=== PATIENT | female | born 1995 | race African-American/Black ===

== ENCOUNTER 2022-08-01 14:23 | Inpatient (IN) ==
[2022-08-01] MEDS ORDERED: ONDANSETRON INJ 2 MG/ML 2 ML VIAL IV STA (14:44)
--- NOTE | 2022-08-01 14:44 | ED Triage Note ---
Date of Service August 01, 2022 History of Present Illness This patient was briefly evaluated while in triage. An abbreviated physical exam was performed. This patient is a 26-year-old Female who presents to the ED for evaluation of nausea and lightheaded x 4 days, vomited Satuday x 1 and yesterday x 2, nothing to eat/drink. Denies abdominal pain. No diarrhea. Having headaches. Concern for dehydration. Denies . Seen at [facility] and given Zofran but no fluids. Sent by PCP. Physical Exam GENERAL: mildly ill appearing in a wheelchair, tachycardic CARDIOVASCULAR: RRR RESPIRATORY: CTA ABDOMEN: BS x 4. Nontender to palpation. Initial orders for labs and / or imaging were placed and patient was placed in the waiting area until a bed is available. Please see further documentation for the full ED course.
[2022-08-01] MEDS: SODIUM CHLORIDE 0.9% 1000ML 1,000 ML IV SCH ×2 (15:19→18:00)
[2022-08-01 15:45] LABS: Basophils # (auto) 0.02 K/uL (0-0.2); Basophils % (auto) 0.1 %; Hemoglobin 14.4 g/dl (12.0-16.0); Immature Granulocytes # (auto) 0.11 K/uL (0.01-0.20); Immature Granulocytes % (auto) 0.8 %; Lymphocytes # (auto) 1.35 K/uL (1.2-3.4); Lymphocytes % (auto) 9.7 %; Mean Corpuscular Hemoglobin 29.6 pg (25.0-34.0); Mean Corpuscular Hgb Conc 32.7 g/dL (32.0-36.0); Mean Corpuscular Volume 90.5 fL (80.0-100.0); Monocytes # (auto) 0.76 K/uL (0.11-0.59); Monocytes % (auto) 5.4 %; Neutrophils # (auto) 11.73 K/uL (1.40-6.50); Platelet Count 328 K/uL (130-400); RDW Standard Deviation 52.6 fL (36.4-46.3); Red Blood Count 4.86 M/uL (4.20-5.40); White Blood Count 13.97 K/ul (4.8-10.8)
[2022-08-01 16:09] LABS: Pregnancy Test, Serum Negative (Negative)
[2022-08-01 16:20] LABS: Alanine Aminotransferase 13 U/L (7-52); Albumin Globulin Ratio 1.2 (0.9-2); Albumin Level 5.1 gm/dl (3.4-5.0); Alkaline Phosphatase 62 U/L (34-104); Anion Gap 21 (3-11); Aspartate Aminotransferase 20 U/L (13-39); Bilirubin,Total 0.5 mg/dl (0.2-1.0); Blood Urea Nitrogen 11 mg/dl (6-23); Calcium 9.3 mg/dl (8.6-10.3); Carbon Dioxide 5 mmol/L (21-32); Chloride 107 mmol/L (98-107); Est GFR (African American) 80.2 ml/min; Est GFR (Non-African American) 69.2 ml/min; Globulin 4.1 gm/dl (2.5-4.0); Glucose 82 mg/dl (70-99(Fasting)); Lipase 16 U/L (11-82); Potassium 4.4 mmol/L (3.5-5.1); Sodium 133 mmol/L (136-145); Total Protein 9.2 gm/dl (6.0-8.3)
--- NOTE | 2022-08-01 16:49 | Emergency Department Note ---
Impression & Plan Metabolic acidosis, increased anion gap, Acute dehydration ED Provider Note NAME: FLORIAN POSEY AGE: 26 SEX: F : 1995 ARRIVES VIA: Walk-In INFORMANT: [Patient][, ] ED PROVIDER(S): [Marco A Headley MD] CHIEF COMPLAINT: Nausea, vomiting, dehydration MEDICAL DECISION MAKING: Patient presents to concern for nausea vomiting associated dehydration. The patient did have protocols completed prior to being roomed. The patient was noted to have significant anion gap and low bicarb. No prior history of hyperglycemia. The patient did have an ABG, lactate blood cultures salicylate IV fluids as well as insulin drip and D5 half-normal with 20 KCl ordered. I did speak with the on-call hospitalist service Dr. Rosales. He would like to defer the insulin drip and D5 fluids at this time and would like to just give the patient the 2 L of Plasma-Lyte and then do repeat blood work. Patient was admitted to the medicine service. The patient's urinalysis does not show evidence of glucose but does show significant ketones. ABG with a pH of 7.1 PO2 127. Bicarb of 3. Procalcitonin is not elevated beta hCG is negative. Patient's drug screen is negative with the exception of THC. BioFire negative. The patient may have an element of starvation ketosis given the patient has not eaten or had much to drink in the last several days Critical Care: I have personally spent 35 minutes of critical care time in direct management of this patient. This includes bedside care, interpretation of diagnostic studies, and testing, discussion with consultants, patient, and family members, and other require inpatient management activities. This 35 minutes is in excess of all separately billable procedures. Prior /Outside records reviewed: [none] Differential diagnosis: Gastroenteritis, DKA, food borne illness, infections, appendicitis, diverticulitis, inflammatory bowel disease, obstruction, GI bleed, biliary pathology, volvulus, as well as other pathologies. Diagnostics, as interpreted by me: ECG: Sinus tachycardia, rate of 103 normal AK and QRS, normal axis no ST elevations Cardiac monitoring: An order was placed for continuous cardiac monitoring. The monitor shows a rate of 95 with sinus rhythm. [Patient was placed on pulse oximetry] Medical decision rules: [none] Imaging studies: See below HPI: Patient presents due to concern for dehydration nausea vomiting. Patient states that she has vomited maybe 3 times since Saturday but has not been eating or drinking very much. Patient states that whenever she does she does feel queasy. Patient was diagnosed with the flu A about 2 weeks prior. No recent travel. Patient denies any known sick contacts. Patient does complain of some generalized headache for which she did take 1 dose of Motrin. Patient denies any numbness tingling or focal weakness but does feel generally weak. The patient has noticed that she has been peeing more but not been drinking very much. Patient's mother does have a history of diabetes. Patient denies any rec ent changes in medications. Patient denies any alcohol tobacco or drug use. PAST MEDICAL HISTORY: [See Below] PAST SURGICAL HISTORY: [See Below] SOCIAL HISTORY: [See Below] HOME MEDICATIONS: [See Below] ALLERGIES: [See Below] VITALS: [See Below] PHYSICAL EXAMINATION: GENERAL: Mildly ill in appearance. EYE EXAM: Normal conjunctiva. PERRL, no anisocoria and EOM's grossly intact w/o pain. NECK: Supple, no nuchal rigidity, no adenopathy, non-tender. No signs of meningismus. FROM of the neck with good chin to chest and neck extension. No stridor. LUNGS: Clear to auscultation. Hyperpnea, normal chest wall mechanics. HEART: NSR, no MRG. ABDOMEN: Abdomen soft, non-tender, no masses, no rebound or guarding. BACK: No CVA TTP. SKIN: No rashes and no bruising. UPPER EXTREMITIES: Upper extremities are grossly normal. LOWER EXTREMITIES: Grossly normal, no edema. NEURO EXAM: A&O x3, cranial nerves II-XII grossly intact, normal speech, moves all 4 extremities. Past Med/Surg History Medical History Anxiety and depression Genital HSV HSV1 serotype Surgical History H/O wisdom tooth extraction S/P foot surgery S/P LEEP 06/2022 S/P right oophorectomy right ovarian torsion Status post colposcopy Family History Father Myocardial infarction, Onset Age: 57 Heart disease Mother Diabetes Hypertension Social History Smoking Status: Never smoker Second Hand Exposure: No; Do You Dip or Chew Tobacco: No; Tobacco Cessation Education Requested by Patient: No Hx Alcohol Use: Yes Alcohol type: wine Alcohol Intake Frequency: Monthly or Less Hx Substance Use: Yes Last Used Substance: Days (ago) Preferred Language: Sami Communication Ability: Effective Hearing Ability: Normal 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 Beliefs That Will Affect Care: None Current Living Situation: Significant Other current occupational status: employed Other Information That Helps Us Care for You: No Feels Safe at Home: Yes Safety Concerns: Feels Safe At This Time Diet: regular caffeine: Yes Dental Care, Regularly: Yes Seatbelt Use: always Sunscreen Use: Yes Assistive Devices: None Allergies Allergies Allergy/AdvReac Type Severity Reaction Status Date / Time No Known Allergies Allergy Verified 08/01/22 17:50 Home Meds Home Medications Medication Instructions Recorded Confirmed sertraline 100 mg tablet 100 mg PO DAILY 04/24/22 08/01/22 trazodone 50 mg tablet 50 mg PO DAILY PRN Sleep 04/24/22 08/01/22 aripiprazole 5 mg tablet 5 mg PO DAILY 08/01/22 08/01/22 Previous Rx's Medication Instructions Recorded norethindrone 1 mg-ethinyl 1 tab PO DAILY #84 tabs 04/24/22 estradiol 20 mcg (21)-iron 75 mg (7) tablet ([place] Fe 03/23 (28)) valacyclovir 500 mg tablet 500 mg PO DAILY 90 days #90 tabs 07/06/22 (Valtrex) Results & Data (ED) Vital Signs Vital Signs - 24 hr 08/01/22 14:42 08/01/22 16:53 08/01/22 16:45 Temperature 36.4 C L 37.4 C Temperature Source Temporal Artery Scan Oral Pulse Rate 113 H 95 H Pulse Rate [Apical] 93 H Pulse Rate from SpO2 Sensor Respiratory Rate 20 16 Respiratory Effort / Characteristics Non-Labored Non-Labored Spontaneous Respiratory Depth Normal Normal Respiratory Pattern Regular Blood Pressure 130/84 Blood Pressure [Left Arm] 142/97 H Blood Pressure Mean 99 Blood Pressure Mean [Left Arm] 112 Blood Pressure Position Sitting Blood Pressure Position [Left Arm] Lying Pulse Oximetry 98 95 Oxygen Delivery Method Room Air Room Air Sepsis Recent Fever Within 48 Hours No Sepsis New/Unexplained Change in Mental Status No Sepsis Action Taken by Nursing No Action Required 08/01/22 17:57 08/01/22 16:45 08/01/22 16:46 Temperature Temperature Source Pulse Rate 95 H Pulse Rate [Apical] Pulse Rate from SpO2 Sensor 95 H Respiratory Rate 28 H Respiratory Effort / Characteristics Respiratory Depth Respiratory Pattern Blood Pressure 147/101 H Blood Pressure [Left Arm] Blood Pressure Mean 118 Blood Pressure Mean [Left Arm] Blood Pressure Position Blood Pressure Position [Left Arm] Pulse Oximetry 98 100 Oxygen Delivery Method Room Air Sepsis Recent Fever Within 48 Hours Sepsis New/Unexplained Change in Mental Status Sepsis Action Taken by Nursing 08/01/22 16:53 08/01/22 16:53 08/01/22 17:00 Temperature Temperature Source Pulse Rate 93 H Pulse Rate [Apical] Pulse Rate from SpO2 Sensor 93 H Respiratory Rate 28 H Respiratory Effort / Characteristics Respiratory Depth Respiratory Pattern Blood Pressure 142/97 H 143/94 H Blood Pressure [Left Arm] Blood Pressure Mean 111 110 Blood Pressure Mean [Left Arm] Blood Pressure Position Blood Pressure Position [Left Arm] Pulse Oximetry 99 Oxygen Delivery Method Sepsis Recent Fever Within 48 Hours Sepsis New/Unexplained Change in Mental Status Sepsis Action Taken by Nursing 08/01/22 17:00 08/01/22 17:52 08/01/22 17:52 Temperature Temperature Source Pulse Rate 95 H 92 H Pulse Rate [Apical] Pulse Rate from SpO2 Sensor 95 H Respiratory Rate 25 H 25 H Respiratory Effort / Characteristics Respiratory Depth Respiratory Pattern Blood Pressure 119/79 Blood Pressure [Left Arm] Blood Pressure Mean 90 Blood Pressure Mean [Left Arm] Blood Pressure Position Blood Pressure Position [Left Arm] Pulse Oximetry 100 Oxygen Delivery Method Sepsis Recent Fever Within 48 Hours Sepsis New/Unexplained Change in Mental Status Sepsis Action Taken by Nursing 08/01/22 18:00 08/01/22 18:15 08/01/22 18:30 Temperature Temperature Source Pulse Rate 91 H 94 H 98 H Pulse Rate [Apical] Pulse Rate from SpO2 Sensor Respiratory Rate 25 H 30 H 30 H Respiratory Effort / Characteristics Respiratory Depth Respiratory Pattern Blood Pressure Blood Pressure [Left Arm] Blood Pressure Mean Blood Pressure Mean [Left Arm] Blood Pressure Position Blood Pressure Position [Left Arm] Pulse Oximetry Oxygen Delivery Method Sepsis Recent Fever Within 48 Hours Sepsis New/Unexplained Change in Mental Status Sepsis Action Taken by Nursing 08/01/22 18:45 Temperature Temperature Source Pulse Rate 105 H Pulse Rate [Apical] Pulse Rate from SpO2 Sensor 105 H Respiratory Rate 30 H Respiratory Effort / Characteristics Respiratory Depth Respiratory Pattern Blood Pressure Blood Pressure [Left Arm] Blood Pressure Mean Blood Pressure Mean [Left Arm] Blood Pressure Position Blood Pressure Position [Left Arm] Pulse Oximetry 98 Oxygen Delivery Method Sepsis Recent Fever Within 48 Hours Sepsis New/Unexplained Change in Mental Status Sepsis Action Taken by Group Home Medications Current Medication List: was personally reviewed by me Laboratory Data Attestation: I reviewed the patient's lab results. 08/01/22 15:34 08/01/22 15:34 Lab Results 08/01/22 08/01/22 08/01/22 Range/Units 15:34 15:34 15:34 WBC 13.97 H (4.8-10.8) K/ul RBC 4.86 (4.20-5.40) M/uL Hgb 14.4 (12.0-16.0) g/dl Hct 44.0 (37.0-47.0) % MCV 90.5 (80.0-100.0) fL MCH 29.6 (25.0-34.0) pg MCHC 32.7 (32.0-36.0) g/dL RDW Std Deviation 52.6 H (36.4-46.3) fL RDW Coeff of Ivan 16.0 H (11.5-14.5) % Plt Count 328 (130-400) K/uL MPV 9.0 L (9.4-12.4) fL Immature Gran % (Auto) 0.8 % Neut % (Auto) 84.0 % Lymph % (Auto) 9.7 % Rock % (Auto) 5.4 % Eos % (Auto) 0.0 % Baso % (Auto) 0.1 % Neut # (Auto) 11.73 H (1.40-6.50) K/uL Lymph # (Auto) 1.35 (1.2-3.4) K/uL Rock # (Auto) 0.76 H (0.11-0.59) K/uL Eos # (Auto) 0.00 (0-0.50) K/uL Baso # (Auto) 0.02 (0-0.2) K/uL Immature Gran # (Auto) 0.11 (0.01-0.20) K/uL ABG pH (7.35-7.45) ABG pCO2 (35-46) mmHg ABG pO2 (80-95) mmHg ABG HCO3 (19-24) mmol/L ABG O2 Saturation (90-95) % ABG Base Excess (-9-1.8) mEq/L Jordan Test (Pos) Oxygen Given Sodium 133 L (136-145) mmol/L Potassium 4.4 (3.5-5.1) mmol/L Chloride 107 (98-107) mmol/L Carbon Dioxide 5 L* (21-32) mmol/L Anion Gap 21 H (3-11) BUN 11 (6-23) mg/dl Creatinine 1.10 (0.6-1.2) mg/dl Est Cr Clr Drug Dosing Not Reportable Est GFR ( Amer) 80.2 ml/min Est GFR (Non-Af Amer) 69.2 ml/min BUN/Creatinine Ratio 10.0 (10-20) Glucose 82 (70-99(Fasting)) mg/dl POC Glucose (70-99) mg/dl Estimat Average Glucose mg/dl Hemoglobin A1c (4.5-5.6) % Osmolality (280-300) mOsm/kg Lactate (0.4-2.0) mmol/L Calcium 9.3 (8.6-10.3) mg/dl Phosphorus (2.5-4.9) mg/dl Magnesium (1.7-2.4) mg/dl Total Bilirubin 0.5 (0.2-1.0) mg/dl AST 20 (13-39) U/L ALT 13 (7-52) U/L Alkaline Phosphatase 62 (34-104) U/L Total Protein 9.2 H (6.0-8.3) gm/dl Albumin 5.1 H (3.4-5.0) gm/dl Globulin 4.1 H (2.5-4.0) gm/dl Albumin/Globulin Ratio 1.2 (0.9-2) Lipase 16 (11-82) U/L Procalcitonin (0-0.5) ng/ml HCG, Qual Negative (Negative) Urine Color Urine Appearance (Clear) Urine pH (4.5-7.5) Ur Specific [place] (1.000-1.030) Urine Protein (Negative) Urine Glucose (UA) (Negative) Urine Ketones (Negative) Urine Blood (Negative) Urine Nitrite (Negative) Urine Bilirubin (Negative) Urine Urobilinogen (Negative) Ur Leukocyte Esterase (Negative) Urine WBC (Auto) (0-5) /hpf Urine RBC (Auto) (0-4) /hpf U Hyaline Cast (Auto) (0-5) /lpf U Epithel Cells (Auto) (0-5) /lpf Urine Bacteria (Auto) (Negative) Urine Osmolality (500-800) mOsm/kg Urine Test (Negative) Salicylates (3.0-30) mg/dl Urine Opiates Screen (Neg) Ur Methadone, Qual (Neg) Acetaminophen (10-30) ug/ml Urine Barbiturates (Neg) Ur Phencyclidine (PCP) (Neg) U Amphetamin/Meth Scrn (Neg) MDMA (Ecstasy) Screen (Neg) U Benzodiazepines Scrn (Neg) Ur Cocaine Metabolite (Neg) U Marijuana (THC) Screen (Neg) Ethyl Alcohol mg/dL (<10.0) mg/dl Adenovirus (PCR) (NotDetected) B. pertussis DNA (PCR) (NotDetected) B.parapertussis DNA PCR (NotDetected) C. pneumoniae DNA (PCR) (NotDetected) Coronavirus OC43 (PCR) (NotDetected) Coronavirus HKU1 (PCR) (NotDetected) Coronavirus 229E (PCR) (NotDetected) SARS-CoV-2 (PCR) (NotDetected) Coronavirus NL63 (PCR) (NotDetected) Human Metapneumovir PCR (NotDetected) Influenza Type A (PCR) (NotDetected) Influenza Type B (PCR) (NotDetected) M. pneumoniae (PCR) (NotDetected) Parainfluenza 1 (PCR) (NotDetected) Parainfluenza 2 (PCR) (NotDetected) Parainfluenza 3 (PCR) (NotDetected) Parainfluenza 4 (PCR) (NotDetected) RSV (PCR) (NotDetected) Entero/Rhino (PCR) (NotDetected) 08/01/22 08/01/22 08/01/22 Range/Units 17:22 17:22 17:22 WBC (4.8-10.8) K/ul RBC (4.20-5.40) M/uL Hgb (12.0-16.0) g/dl Hct (37.0-47.0) % MCV (80.0-100.0) fL MCH (25.0-34.0) pg MCHC (32.0-36.0) g/dL RDW Std Deviation (36.4-46.3) fL RDW Coeff of Ivan (11.5-14.5) % Plt Count (130-400) K/uL MPV (9.4-12.4) fL Immature Gran % (Auto) % Neut % (Auto) % Lymph % (Auto) % Rock % (Auto) % Eos % (Auto) % Baso % (Auto) % Neut # (Auto) (1.40-6.50) K/uL Lymph # (Auto) (1.2-3.4) K/uL Rock # (Auto) (0.11-0.59) K/uL Eos # (Auto) (0-0.50) K/uL Baso # (Auto) (0-0.2) K/uL Immature Gran # (Auto) (0.01-0.20) K/uL ABG pH (7.35-7.45) ABG pCO2 (35-46) mmHg ABG pO2 (80-95) mmHg ABG HCO3 (19-24) mmol/L ABG O2 Saturation (90-95) % ABG Base Excess (-9-1.8) mEq/L Jordan Test (Pos) Oxygen Given Sodium (136-145) mmol/L Potassium (3.5-5.1) mmol/L Chloride (98-107) mmol/L Carbon Dioxide (21-32) mmol/L Anion Gap (3-11) BUN (6-23) mg/dl Creatinine (0.6-1.2) mg/dl Est Cr Clr Drug Dosing Est GFR ( Amer) ml/min Est GFR (Non-Af Amer) ml/min BUN/Creatinine Ratio (10-20) Glucose (70-99(Fasting)) mg/dl POC Glucose (70-99) mg/dl Estimat Average Glucose mg/dl Hemoglobin A1c (4.5-5.6) % Osmolality (280-300) mOsm/kg Lactate (0.4-2.0) mmol/L Calcium (8.6-10.3) mg/dl Phosphorus (2.5-4.9) mg/dl Magnesium (1.7-2.4) mg/dl Total Bilirubin (0.2-1.0) mg/dl AST (13-39) U/L ALT (7-52) U/L Alkaline Phosphatase (34-104) U/L Total Protein (6.0-8.3) gm/dl Albumin (3.4-5.0) gm/dl Globulin (2.5-4.0) gm/dl Albumin/Globulin Ratio (0.9-2) Lipase (11-82) U/L Procalcitonin (0-0.5) ng/ml HCG, Qual (Negative) Urine Color Urine Appearance (Clear) Urine pH (4.5-7.5) Ur Specific [place] (1.000-1.030) Urine Protein (Negative) Urine Glucose (UA) (Negative) Urine Ketones (Negative) Urine Blood (Negative) Urine Nitrite (Negative) Urine Bilirubin (Negative) Urine Urobilinogen (Negative) Ur Leukocyte Esterase (Negative) Urine WBC (Auto) (0-5) /hpf Urine RBC (Auto) (0-4) /hpf U Hyaline Cast (Auto) (0-5) /lpf U Epithel Cells (Auto) (0-5) /lpf Urine Bacteria (Auto) (Negative) Urine Osmolality 783 (500-800) mOsm/kg Urine Test Negative (Negative) Salicylates (3.0-30) mg/dl Urine Opiates Screen Neg (Neg) Ur Methadone, Qual Neg (Neg) Acetaminophen (10-30) ug/ml Urine Barbiturates Neg (Neg) Ur Phencyclidine (PCP) Neg (Neg) U Amphetamin/Meth Scrn Neg (Neg) MDMA (Ecstasy) Screen Neg (Neg) U Benzodiazepines Scrn Neg (Neg) Ur Cocaine Metabolite Neg (Neg) U Marijuana (THC) Screen Pos H (Neg) Ethyl Alcohol mg/dL (<10.0) mg/dl Adenovirus (PCR) (NotDetected) B. pertussis DNA (PCR) (NotDetected) B.parapertussis DNA PCR (NotDetected) C. pneumoniae DNA (PCR) (NotDetected) Coronavirus OC43 (PCR) (NotDetected) Coronavirus HKU1 (PCR) (NotDetected) Coronavirus 229E (PCR) (NotDetected) SARS-CoV-2 (PCR) (NotDetected) Coronavirus NL63 (PCR) (NotDetected) Human Metapneumovir PCR (NotDetected) Influenza Type A (PCR) (NotDetected) Influenza Type B (PCR) (NotDetected) M. pneumoniae (PCR) (NotDetected) Parainfluenza 1 (PCR) (NotDetected) Parainfluenza 2 (PCR) (NotDetected) Parainfluenza 3 (PCR) (NotDetected) Parainfluenza 4 (PCR) (NotDetected) RSV (PCR) (NotDetected) Entero/Rhino (PCR) (NotDetected) 08/01/22 08/01/22 08/01/22 Range/Units 17:22 17:44 17:49 WBC (4.8-10.8) K/ul RBC (4.20-5.40) M/uL Hgb (12.0-16.0) g/dl Hct (37.0-47.0) % MCV (80.0-100.0) fL MCH (25.0-34.0) pg MCHC (32.0-36.0) g/dL RDW Std Deviation (36.4-46.3) fL RDW Coeff of Ivan (11.5-14.5) % Plt Count (130-400) K/uL MPV (9.4-12.4) fL Immature Gran % (Auto) % Neut % (Auto) % Lymph % (Auto) % Rock % (Auto) % Eos % (Auto) % Baso % (Auto) % Neut # (Auto) (1.40-6.50) K/uL Lymph # (Auto) (1.2-3.4) K/uL Rock # (Auto) (0.11-0.59) K/uL Eos # (Auto) (0-0.50) K/uL Baso # (Auto) (0-0.2) K/uL Immature Gran # (Auto) (0.01-0.20) K/uL ABG pH (7.35-7.45) ABG pCO2 (35-46) mmHg ABG pO2 (80-95) mmHg ABG HCO3 (19-24) mmol/L ABG O2 Saturation (90-95) % ABG Base Excess (-9-1.8) mEq/L Jordan Test (Pos) Oxygen Given Sodium (136-145) mmol/L Potassium (3.5-5.1) mmol/L Chloride (98-107) mmol/L Carbon Dioxide (21-32) mmol/L Anion Gap (3-11) BUN (6-23) mg/dl Creatinine (0.6-1.2) mg/dl Est Cr Clr Drug Dosing Est GFR ( Amer) ml/min Est GFR (Non-Af Amer) ml/min BUN/Creatinine Ratio (10-20) Glucose (70-99(Fasting)) mg/dl POC Glucose 69 L* (70-99) mg/dl Estimat Average Glucose mg/dl Hemoglobin A1c (4.5-5.6) % Osmolality (280-300) mOsm/kg Lactate (0.4-2.0) mmol/L Calcium (8.6-10.3) mg/dl Phosphorus (2.5-4.9) mg/dl Magnesium (1.7-2.4) mg/dl Total Bilirubin (0.2-1.0) mg/dl AST (13-39) U/L ALT (7-52) U/L Alkaline Phosphatase (34-104) U/L Total Protein (6.0-8.3) gm/dl Albumin (3.4-5.0) gm/dl Globulin (2.5-4.0) gm/dl Albumin/Globulin Ratio (0.9-2) Lipase (11-82) U/L Procalcitonin (0-0.5) ng/ml HCG, Qual (Negative) Urine Color Yellow Urine Appearance Clear (Clear) Urine pH 6.0 (4.5-7.5) Ur Specific [place] 1.022 (1.000-1.030) Urine Protein 2+ H (Negative) Urine Glucose (UA) Negative (Negative) Urine Ketones 4+ H (Negative) Urine Blood 2+ H (Negative) Urine Nitrite Negative (Negative) Urine Bilirubin Negative (Negative) Urine Urobilinogen Negative (Negative) Ur Leukocyte Esterase Negative (Negative) Urine WBC (Auto) 5-10 H (0-5) /hpf Urine RBC (Auto) 0-4 (0-4) /hpf U Hyaline Cast (Auto) 5-10 H (0-5) /lpf U Epithel Cells (Auto) >30 H (0-5) /lpf Urine Bacteria (Auto) 1+ H (Negative) Urine Osmolality (500-800) mOsm/kg Urine Test (Negative) Salicylates < 3.0 L (3.0-30) mg/dl Urine Opiates Screen (Neg) Ur Methadone, Qual (Neg) Acetaminophen < 3 L (10-30) ug/ml Urine Barbiturates (Neg) Ur Phencyclidine (PCP) (Neg) U Amphetamin/Meth Scrn (Neg) MDMA (Ecstasy) Screen (Neg) U Benzodiazepines Scrn (Neg) Ur Cocaine Metabolite (Neg) U Marijuana (THC) Screen (Neg) Ethyl Alcohol mg/dL (<10.0) mg/dl Adenovirus (PCR) (NotDetected) B. pertussis DNA (PCR) (NotDetected) B.parapertussis DNA PCR (NotDetected) C. pneumoniae DNA (PCR) (NotDetected) Coronavirus OC43 (PCR) (NotDetected) Coronavirus HKU1 (PCR) (NotDetected) Coronavirus 229E (PCR) (NotDetected) SARS-CoV-2 (PCR) (NotDetected) Coronavirus NL63 (PCR) (NotDetected) Human Metapneumovir PCR (NotDetected) Influenza Type A (PCR) (NotDetected) Influenza Type B (PCR) (NotDetected) M. pneumoniae (PCR) (NotDetected) Parainfluenza 1 (PCR) (NotDetected) Parainfluenza 2 (PCR) (NotDetected) Parainfluenza 3 (PCR) (NotDetected) Parainfluenza 4 (PCR) (NotDetected) RSV (PCR) (NotDetected) Entero/Rhino (PCR) (NotDetected) 08/01/22 08/01/22 08/01/22 Range/Units 17:49 17:49 17:50 WBC (4.8-10.8) K/ul RBC (4.20-5.40) M/uL Hgb (12.0-16.0) g/dl Hct (37.0-47.0) % MCV (80.0-100.0) fL MCH (25.0-34.0) pg MCHC (32.0-36.0) g/dL RDW Std Deviation (36.4-46.3) fL RDW Coeff of Ivan (11.5-14.5) % Plt Count (130-400) K/uL MPV (9.4-12.4) fL Immature Gran % (Auto) % Neut % (Auto) % Lymph % (Auto) % Rock % (Auto) % Eos % (Auto) % Baso % (Auto) % Neut # (Auto) (1.40-6.50) K/uL Lymph # (Auto) (1.2-3.4) K/uL Rock # (Auto) (0.11-0.59) K/uL Eos # (Auto) (0-0.50) K/uL Baso # (Auto) (0-0.2) K/uL Immature Gran # (Auto) (0.01-0.20) K/uL ABG pH (7.35-7.45) ABG pCO2 (35-46) mmHg ABG pO2 (80-95) mmHg ABG HCO3 (19-24) mmol/L ABG O2 Saturation (90-95) % ABG Base Excess (-9-1.8) mEq/L Jordan Test (Pos) Oxygen Given Sodium 133 L (136-145) mmol/L Potassium 4.1 (3.5-5.1) mmol/L Chloride 110 H (98-107) mmol/L Carbon Dioxide 3 L* (21-32) mmol/L Anion Gap 20 H (3-11) BUN 10 (6-23) mg/dl Creatinine 0.88 (0.6-1.2) mg/dl Est Cr Clr Drug Dosing 90.7 Est GFR ( Amer) 105.1 ml/min Est GFR (Non-Af Amer) 90.7 ml/min BUN/Creatinine Ratio 11.4 (10-20) Glucose 68 L (70-99(Fasting)) mg/dl POC Glucose (70-99) mg/dl Estimat Average Glucose mg/dl Hemoglobin A1c (4.5-5.6) % Osmolality 296 (280-300) mOsm/kg Lactate (0.4-2.0) mmol/L Calcium 8.1 L (8.6-10.3) mg/dl Phosphorus 2.4 L (2.5-4.9) mg/dl Magnesium 2.1 (1.7-2.4) mg/dl Total Bilirubin (0.2-1.0) mg/dl AST (13-39) U/L ALT (7-52) U/L Alkaline Phosphatase (34-104) U/L Total Protein (6.0-8.3) gm/dl Albumin (3.4-5.0) gm/dl Globulin (2.5-4.0) gm/dl Albumin/Globulin Ratio (0.9-2) Lipase (11-82) U/L Procalcitonin < 0.05 (0-0.5) ng/ml HCG, Qual (Negative) Urine Color Urine Appearance (Clear) Urine pH (4.5-7.5) Ur Specific [place] (1.000-1.030) Urine Protein (Negative) Urine Glucose (UA) (Negative) Urine Ketones (Negative) Urine Blood (Negative) Urine Nitrite (Negative) Urine Bilirubin (Negative) Urine Urobilinogen (Negative) Ur Leukocyte Esterase (Negative) Urine WBC (Auto) (0-5) /hpf Urine RBC (Auto) (0-4) /hpf U Hyaline Cast (Auto) (0-5) /lpf U Epithel Cells (Auto) (0-5) /lpf Urine Bacteria (Auto) (Negative) Urine Osmolality (500-800) mOsm/kg Urine Test (Negative) Salicylates (3.0-30) mg/dl Urine Opiates Screen (Neg) Ur Methadone, Qual (Neg) Acetaminophen (10-30) ug/ml Urine Barbiturates (Neg) Ur Phencyclidine (PCP) (Neg) U Amphetamin/Meth Scrn (Neg) MDMA (Ecstasy) Screen (Neg) U Benzodiazepines Scrn (Neg) Ur Cocaine Metabolite (Neg) U Marijuana (THC) Screen (Neg) Ethyl Alcohol mg/dL (<10.0) mg/dl Adenovirus (PCR) (NotDetected) B. pertussis DNA (PCR) (NotDetected) B.parapertussis DNA PCR (NotDetected) C. pneumoniae DNA (PCR) (NotDetected) Coronavirus OC43 (PCR) (NotDetected) Coronavirus HKU1 (PCR) (NotDetected) Coronavirus 229E (PCR) (NotDetected) SARS-CoV-2 (PCR) (NotDetected) Coronavirus NL63 (PCR) (NotDetected) Human Metapneumovir PCR (NotDetected) Influenza Type A (PCR) (NotDetected) Influenza Type B (PCR) (NotDetected) M. pneumoniae (PCR) (NotDetected) Parainfluenza 1 (PCR) (NotDetected) Parainfluenza 2 (PCR) (NotDetected) Parainfluenza 3 (PCR) (NotDetected) Parainfluenza 4 (PCR) (NotDetected) RSV (PCR) (NotDetected) Entero/Rhino (PCR) (NotDetected) 08/01/22 08/01/22 08/01/22 Range/Units 17:50 17:50 17:50 WBC (4.8-10.8) K/ul RBC (4.20-5.40) M/uL Hgb (12.0-16.0) g/dl Hct (37.0-47.0) % MCV (80.0-100.0) fL MCH (25.0-34.0) pg MCHC (32.0-36.0) g/dL RDW Std Deviation (36.4-46.3) fL RDW Coeff of Ivan (11.5-14.5) % Plt Count (130-400) K/uL MPV (9.4-12.4) fL Immature Gran % (Auto) % Neut % (Auto) % Lymph % (Auto) % Rock % (Auto) % Eos % (Auto) % Baso % (Auto) % Neut # (Auto) (1.40-6.50) K/uL Lymph # (Auto) (1.2-3.4) K/uL Rock # (Auto) (0.11-0.59) K/uL Eos # (Auto) (0-0.50) K/uL Baso # (Auto) (0-0.2) K/uL Immature Gran # (Auto) (0.01-0.20) K/uL ABG pH (7.35-7.45) ABG pCO2 (35-46) mmHg ABG pO2 (80-95) mmHg ABG HCO3 (19-24) mmol/L ABG O2 Saturation (90-95) % ABG Base Excess (-9-1.8) mEq/L Jordan Test (Pos) Oxygen Given Sodium (136-145) mmol/L Potassium (3.5-5.1) mmol/L Chloride (98-107) mmol/L Carbon Dioxide (21-32) mmol/L Anion Gap (3-11) BUN (6-23) mg/dl Creatinine (0.6-1.2) mg/dl Est Cr Clr Drug Dosing Est GFR ( Amer) ml/min Est GFR (Non-Af Amer) ml/min BUN/Creatinine Ratio (10-20) Glucose (70-99(Fasting)) mg/dl POC Glucose (70-99) mg/dl Estimat Average Glucose 108 mg/dl Hemoglobin A1c 5.4 (4.5-5.6) % Osmolality (280-300) mOsm/kg Lactate 0.5 (0.4-2.0) mmol/L Calcium (8.6-10.3) mg/dl Phosphorus (2.5-4.9) mg/dl Magnesium (1.7-2.4) mg/dl Total Bilirubin (0.2-1.0) mg/dl AST (13-39) U/L ALT (7-52) U/L Alkaline Phosphatase (34-104) U/L Total Protein (6.0-8.3) gm/dl Albumin (3.4-5.0) gm/dl Globulin (2.5-4.0) gm/dl Albumin/Globulin Ratio (0.9-2) Lipase (11-82) U/L Procalcitonin (0-0.5) ng/ml HCG, Qual (Negative) Urine Color Urine Appearance (Clear) Urine pH (4.5-7.5) Ur Specific [place] (1.000-1.030) Urine Protein (Negative) Urine Glucose (UA) (Negative) Urine Ketones (Negative) Urine Blood (Negative) Urine Nitrite (Negative) Urine Bilirubin (Negative) Urine Urobilinogen (Negative) Ur Leukocyte Esterase (Negative) Urine WBC (Auto) (0-5) /hpf Urine RBC (Auto) (0-4) /hpf U Hyaline Cast (Auto) (0-5) /lpf U Epithel Cells (Auto) (0-5) /lpf Urine Bacteria (Auto) (Negative) Urine Osmolality (500-800) mOsm/kg Urine Test (Negative) Salicylates (3.0-30) mg/dl Urine Opiates Screen (Neg) Ur Methadone, Qual (Neg) Acetaminophen (10-30) ug/ml Urine Barbiturates (Neg) Ur Phencyclidine (PCP) (Neg) U Amphetamin/Meth Scrn (Neg) MDMA (Ecstasy) Screen (Neg) U Benzodiazepines Scrn (Neg) Ur Cocaine Metabolite (Neg) U Marijuana (THC) Screen (Neg) Ethyl Alcohol mg/dL < 10.0 (<10.0) mg/dl Adenovirus (PCR) (NotDetected) B. pertussis DNA (PCR) (NotDetected) B.parapertussis DNA PCR (NotDetected) C. pneumoniae DNA (PCR) (NotDetected) Coronavirus OC43 (PCR) (NotDetected) Coronavirus HKU1 (PCR) (NotDetected) Coronavirus 229E (PCR) (NotDetected) SARS-CoV-2 (PCR) (NotDetected) Coronavirus NL63 (PCR) (NotDetected) Human Metapneumovir PCR (NotDetected) Influenza Type A (PCR) (NotDetected) Influenza Type B (PCR) (NotDetected) M. pneumoniae (PCR) (NotDetected) Parainfluenza 1 (PCR) (NotDetected) Parainfluenza 2 (PCR) (NotDetected) Parainfluenza 3 (PCR) (NotDetected) Parainfluenza 4 (PCR) (NotDetected) RSV (PCR) (NotDetected) Entero/Rhino (PCR) (NotDetected) 08/01/22 08/01/22 Range/Units 17:56 18:00 WBC (4.8-10.8) K/ul RBC (4.20-5.40) M/uL Hgb (12.0-16.0) g/dl Hct (37.0-47.0) % MCV (80.0-100.0) fL MCH (25.0-34.0) pg MCHC (32.0-36.0) g/dL RDW Std Deviation (36.4-46.3) fL RDW Coeff of Ivan (11.5-14.5) % Plt Count (130-400) K/uL MPV (9.4-12.4) fL Immature Gran % (Auto) % Neut % (Auto) % Lymph % (Auto) % [place] % (Auto) % Eos % (Auto) % Baso % (Auto) % Neut # (Auto) (1.40-6.50) K/uL Lymph # (Auto) (1.2-3.4) K/uL [place] # (Auto) (0.11-0.59) K/uL Eos # (Auto) (0-0.50) K/uL Baso # (Auto) (0-0.2) K/uL Immature Gran # (Auto) (0.01-0.20) K/uL ABG pH 7.15 L* (7.35-7.45) ABG pCO2 9 L (35-46) mmHg ABG pO2 127 H (80-95) mmHg ABG HCO3 3 L (19-24) mmol/L ABG O2 Saturation 99.4 H (90-95) % ABG Base Excess -23.0 L (-9-1.8) mEq/L Jordan Test Pos (Pos) Oxygen Given ROOM AIR Sodium (136-145) mmol/L Potassium (3.5-5.1) mmol/L Chloride (98-107) mmol/L Carbon Dioxide (21-32) mmol/L Anion Gap (3-11) BUN (6-23) mg/dl Creatinine (0.6-1.2) mg/dl Est Cr Clr Drug Dosing Est GFR ( Amer) ml/min Est GFR (Non-Af Amer) ml/min BUN/Creatinine Ratio (10-20) Glucose (70-99(Fasting)) mg/dl POC Glucose (70-99) mg/dl Estimat Average Glucose mg/dl Hemoglobin A1c (4.5-5.6) % Osmolality (280-300) mOsm/kg Lactate (0.4-2.0) mmol/L Calcium (8.6-10.3) mg/dl Phosphorus (2.5-4.9) mg/dl Magnesium (1.7-2.4) mg/dl Total Bilirubin (0.2-1.0) mg/dl AST (13-39) U/L ALT (7-52) U/L Alkaline Phosphatase (34-104) U/L Total Protein (6.0-8.3) gm/dl Albumin (3.4-5.0) gm/dl Globulin (2.5-4.0) gm/dl Albumin/Globulin Ratio (0.9-2) Lipase (11-82) U/L Procalcitonin (0-0.5) ng/ml HCG, Qual (Negative) Urine Color Urine Appearance (Clear) Urine pH (4.5-7.5) Ur Specific [place] (1.000-1.030) Urine Protein (Negative) Urine Glucose (UA) (Negative) Urine Ketones (Negative) Urine Blood (Negative) Urine Nitrite (Negative) Urine Bilirubin (Negative) Urine Urobilinogen (Negative) Ur Leukocyte Esterase (Negative) Urine WBC (Auto) (0-5) /hpf Urine RBC (Auto) (0-4) /hpf U Hyaline Cast (Auto) (0-5) /lpf U Epithel Cells (Auto) (0-5) /lpf Urine Bacteria (Auto) (Negative) Urine Osmolality (500-800) mOsm/kg Urine Test (Negative) Salicylates (3.0-30) mg/dl Urine Opiates Screen (Neg) Ur Methadone, Qual (Neg) Acetaminophen (10-30) ug/ml Urine Barbiturates (Neg) Ur Phencyclidine (PCP) (Neg) U Amphetamin/Meth Scrn (Neg) MDMA (Ecstasy) Screen (Neg) U Benzodiazepines Scrn (Neg) Ur Cocaine Metabolite (Neg) U Marijuana (THC) Screen (Neg) Ethyl Alcohol mg/dL (<10.0) mg/dl Adenovirus (PCR) Not Detected (NotDetected) B. pertussis DNA (PCR) Not Detected (NotDetected) B.parapertussis DNA PCR Not Detected (NotDetected) C. pneumoniae DNA (PCR) Not Detected (NotDetected) Coronavirus OC43 (PCR) Not Detected (NotDetected) Coronavirus HKU1 (PCR) Not Detected (NotDetected) Coronavirus 229E (PCR) Not Detected (NotDetected) SARS-CoV-2 (PCR) Not Detected (NotDetected) Coronavirus NL63 (PCR) Not Detected (NotDetected) Human Metapneumovir PCR Not Detected (NotDetected) Influenza Type A (PCR) Not Detected (NotDetected) Influenza Type B (PCR) Not Detected (NotDetected) M. pneumoniae (PCR) Not Detected (NotDetected) Parainfluenza 1 (PCR) Not Detected (NotDetected) Parainfluenza 2 (PCR) Not Detected (NotDetected) Parainfluenza 3 (PCR) Not Detected (NotDetected) Parainfluenza 4 (PCR) Not Detected (NotDetected) RSV (PCR) Not Detected (NotDetected) Entero/Rhino (PCR) Not Detected (NotDetected) Administered Medications Dextrose (Dextrose 50% 50 Ml Syringe) 25 - 50 ml IV UD PRN; Protocol PRN Reason: Hypoglycemia Protocol Stop: 08/31/22 17:02 Last Admin: 08/01/22 18:00 Dose: 50 ml Documented By: ASHANTI Sodium Chloride 77 meq/Potassium Chloride 20 meq/Dextrose 1,040.8 mls @ 200 mls/hr IV .Q5H13M [facility] Stop: 08/31/22 18:59 Last Admin: 08/01/22 19:43 Dose: 200 mls/hr Documented By: JOSELUIS Ondansetron HCl (Ondansetron Inj 2 Mg/Ml 2 Ml Vial) 4 mg IV Q6H PRN PRN Reason: Nausea Stop: 08/31/22 21:22 Last Admin: 08/01/22 21:34 Dose: 4 mg Documented By: KATIE Discontinued Medications Sodium Chloride (Nss 1000ml) 1,000 mls @ 999 mls/hr IV .Q1H1M [facility] Stop: 08/01/22 16:45 Last Infusion: 08/01/22 19:30 Dose: 0 mls/hr Documented By: Admin: 08/01/22 18:00 Dose: 999 mls/hr Documented By: Infusion: 08/01/22 17:00 Dose: 0 mls/hr Documented By: Admin: 08/01/22 15:19 Dose: 999 mls/hr Documented By: ASW Sodium Chloride (Nss 1000ml) 2,000 mls @ 999 mls/hr IV .Q2H1M [facility] Stop: 08/01/22 19:03 Last Admin: 08/01/22 19:22 Dose: Not Given Documented By: OSCAR Insulin Human Regular 250 (units/ Sodium Chloride) 250 mls @ 6.4 mls/hr IV .Q24H [facility]; Protocol Stop: 08/31/22 17:14 Last Admin: 08/01/22 19:23 Dose: Not Given Documented By: OSCAR Co-signed By: ALICIA Parenteral Electrolytes (Plasma-Lyte A Ph 7.4) 2,000 mls @ 999 mls/hr IV .Q2H1M [facility] Stop: 08/01/22 19:15 Last Infusion: 08/01/22 21:46 Dose: 0 mls/hr Documented By: Admin: 08/01/22 17:51 Dose: 999 mls/hr Documented By: DS Potassium Chloride/Dextrose/Sod Cl (D5w And 1/2nss + 20meq Kcl) 20 meq in 1,000 mls @ 250 mls/hr IV .Q4H [facility]; Protocol Stop: 08/31/22 17:14 Last Admin: 08/01/22 19:22 Dose: Not Given Documented By: OSCAR Ceftriaxone Sodium 1,000 mg/ (Dextrose) 50 mls @ 100 mls/hr IV NOW STA; Protocol Stop: 08/01/22 19:28 Last Infusion: 08/01/22 21:52 Dose: 0 mls/hr Documented By: Admin: 08/01/22 21:26 Dose: 100 mls/hr Documented By: KATIE Acetaminophen (Ofirmev) 1,000 mg in 100 mls @ 400 mls/hr IV NOW STA Stop: 08/01/22 21:43 Last Infusion: 08/01/22 22:10 Dose: 0 mls/hr Documented By: Admin: 08/01/22 21:53 Dose: 400 mls/hr Documented By: KATIE Ondansetron HCl (Ondansetron Inj 2 Mg/Ml 2 Ml Vial) 4 mg IV NOW STA Stop: 08/01/22 14:45 Last Admin: 08/01/22 15:19 Dose: 4 mg Documented By: ASW Discharge Plan Visit Data Chief Complaint: Vomiting Stated Complaint: NAUSEOUS, DEHYDRATED ED Provider: Marco A Headley Discharge Problem: Metabolic acidosis, increased anion gap, Acute dehydration Patient Disposition: Admitted As Inpatient Discharge Instructions Interventions: ED Discharge Assessment Last Done: 08/01/22 21:00
[2022-08-01] MEDS ORDERED: GLUCOSE 10 TAB/TUBE PO PRN (17:03)
[2022-08-01] MEDS ORDERED: SODIUM CHLORIDE 0.9% 1000ML 2,000 ML IV ONE (17:03)
[2022-08-01] MEDS ORDERED: GLUCOSE 40% GEL 15 GM TUBE PO PRN (17:03)
[2022-08-01] MEDS ORDERED: STAT INSULIN DRIP STA (17:03)
[2022-08-01] MEDS ORDERED: DKA GOAL RANGE 150-250 mg/dl ONE (17:03)
[2022-08-01] MEDS ORDERED: GLUCAGON FOR INJ 1 MG VIAL SQ PRN (17:03)
[2022-08-01] MEDS ORDERED: INSULIN REGULAR 250 UNITS in SODIUM CHLORIDE 0.9% 247.5 ML IV SCH (17:15)
[2022-08-01] MEDS ORDERED: D5W AND 1/2NSS + 20MEQ KCL 20 MEQ/1,000 ML BAG IV SCH ×2 (17:15→23:45)
[2022-08-01] MEDS ORDERED: PLASMA-LYTE A 2,000 ML IV SCH (17:15)
[2022-08-01 17:36] LABS: Pregnancy Test, Urine Negative (Negative)
[2022-08-01 17:42] LABS: Appearance Urine Clear (Clear); Bacteria Urine Automated 1+ (Negative); Bilirubin Urine Negative (Negative); Blood Urine 2+ (Negative); Color Urine Yellow; Epithelial Cell Urine Auto >30 /lpf (0-5); Glucose Urine UA Negative (Negative); Ketones Urine 4+ (Negative); Leukocyte Esterase Urine Negative (Negative); Nitrite Urine Negative (Negative); Protein Urine 2+ (Negative); RBC Urine Automated 0-4 /hpf (0-4); Specific Gravity Urine 1.022 (1.000-1.030); Urobilinogen Urine Negative (Negative)
[2022-08-01] MEDS: DEXTROSE 50% 50 ML SYRINGE IV PRN (18:00)
--- NOTE | 2022-08-01 18:07 | History & Physical Report ---
Date of Service August 01, 2022 Assessment & Plan (1) Starvation ketoacidosis: Plan: 1L NSS bolus followed by repeat labs then 2L Normosol IV bolus given in ER Start D10W half NSS with 20 meq KCl following this - expect anion gap to close as glucose is available to use Repeat BMP/Mg/venous ph q4h (2) Metabolic acidosis, increased anion gap: Plan: Suspect due to ketosis as above Should not need insulin given lack of glucosuria I do not suspect euglycemic DKA Salicylate, acetaminophen, alcohol levels negative (3) Polyuria: Plan: Unclear cause of this. UA not highly suspicious of UTI but in absence of alternative explanation will treat for UTI with ceftriaxone 1g IV pending urine culture results. (4) Nausea and vomiting: Plan: Unclear cause of this ?marijuana ?UTI No abdominal pain to suggest need for abdominal imaging however low tolerance to perform this if she is not improving. Ondansetron 4mg IV q4h PRN (5) Acute dehydration: (6) Depression: Plan: Continue sertraline and trazodone PRN Not yet started on Abilify therefore will not start this acutely (7) OCD (obsessive compulsive disorder): Plan VTE Prophylaxis - low risk Diet - NPO, advance diet as tolerated Disposition - admit to PCU Admission and Anticipated Discharge Date Admission Date: August 01, 2022 History of Present Illness Chief Complaint: Polyuria, nausea, vomiting Primary Care Provider: Francia Serrano MD Tom Gonzalez is a 26 year old female who presents to the ER with nausea, vomiting and polyuria. She reports symptoms started on Saturday night. Progressively getting worse until today with associated vomiting the last 2 days. Decreased bowel movements but no diarrhea or constipation. No abdominal pain. She reports marijuana use but last smoked on Saturday and never had hyperemesis related to this before. She reports a few alcohol drinks on Saturday prior to her nausea vomiting but she is not a frequent heavy drinker. Associated polyuria with passing large amounts of urine. No dysuria, fever or chills. She reports having influenza causing nausea and vomiting at the beginning of the month No recent medications changes except Abilify which she has picked up but not yet started. This was started to help her with OCD. She hasn't taken her other medications since Saturday due to nausea and vomiting. Allergies Allergy/AdvReac Type Severity Reaction Status Date / Time No Known Allergies Allergy Verified 08/01/22 17:50 Home Medications Medication Instructions Recorded Confirmed Type norethindrone 1 mg-ethinyl 1 tab PO DAILY #84 tabs 04/24/22 08/01/22 Rx estradiol 20 mcg (21)-iron 75 mg (7) tablet ([place] Fe 03/23 (28)) sertraline 100 mg tablet 100 mg PO DAILY 04/24/22 08/01/22 History trazodone 50 mg tablet 50 mg PO DAILY PRN Sleep 04/24/22 08/01/22 History valacyclovir 500 mg tablet 500 mg PO DAILY 90 days #90 tabs 07/06/22 08/01/22 Rx (Valtrex) aripiprazole 5 mg tablet 5 mg PO DAILY 08/01/22 08/01/22 History Past Med/Surg History Medical History Anxiety and depression Genital HSV HSV1 serotype Surgical History H/O wisdom tooth extraction S/P foot surgery S/P LEEP 06/2022 S/P right oophorectomy right ovarian torsion Status post colposcopy Family History Father Myocardial infarction, Onset Age: 57 Heart disease Mother Diabetes Hypertension Social History Smoking Status: Never smoker Second Hand Exposure: No; Do You Dip or Chew Tobacco: No; Tobacco Cessation Education Requested by Patient: No Hx Alcohol Use: Yes Alcohol type: wine Alcohol Intake Frequency: Monthly or Less Hx Substance Use: Yes Last Used Substance: Days (ago) Preferred Language: Indonesian Communication Ability: Effective Hearing Ability: Normal Senior Fund Accountant Required: No Beliefs That Will Affect Care: None Current Living Situation: Significant Other current occupational status: employed Other Information That Helps Us Care for You: No Feels Safe at Home: Yes Safety Concerns: Feels Safe At This Time Diet: regular caffeine: Yes Dental Care, Regularly: Yes Seatbelt Use: always Sunscreen Use: Yes Assistive Devices: None Review of Systems Review of Systems: All systems reviewed & are unremarkable except as noted in HPI & below Physical Exam Constitutional: WD/WN, vitals as above no acute distress Eyes: PERRL, conjunctivae normal, anicteric sclerae ENMT: external ear and nose normal, oropharynx normal Respiratory: + respiratory distress, + labored breathing, + uses accessory muscles and + tachypneic Auscultation: lungs clear to auscultation bilaterally Cardiovascular: Rate/Rhythm: regular rhythm and + tachycardic Heart Sounds: no murmur Extremities: normal capillary refill; no calf tenderness and no pedal edema Gastrointestinal (Abdomen): normal bowel sounds, soft, nontender, no hepatosplenomegaly Musculoskeletal: no cyanosis or clubbing, extremities motor strength 5/5 Skin: no rashes, warm and dry Neurologic: moves all extremities and awake; not confused Psychiatric: A+Ox3, euthymic affect Results & Data Results & Data Vital Signs (Past 12 Hours) Vital Signs Temp Pulse Pulse Resp BP BP Pulse Ox 08/01/22 16:45 95 H 08/01/22 16:53 37.4 C 93 H 16 142/97 H 95 08/01/22 14:42 36.4 C L 113 H 20 130/84 98 O2 Del Method 08/01/22 16:45 08/01/22 16:53 Room Air 08/01/22 14:42 Room Air Laboratory Results Abnormal lab results 08/01/22 08/01/22 08/01/22 Range/Units 15:34 15:34 17:44 WBC 13.97 H (4.8-10.8) K/ul RDW Std Deviation 52.6 H (36.4-46.3) fL RDW Coeff of Ivan 16.0 H (11.5-14.5) % MPV 9.0 L (9.4-12.4) fL Neut # (Auto) 11.73 H (1.40-6.50) K/uL [place] # (Auto) 0.76 H (0.11-0.59) K/uL Sodium 133 L (136-145) mmol/L Carbon Dioxide 5 L* (21-32) mmol/L Anion Gap 21 H (3-11) POC Glucose 69 L* (70-99) mg/dl Total Protein 9.2 H (6.0-8.3) gm/dl Albumin 5.1 H (3.4-5.0) gm/dl Globulin 4.1 H (2.5-4.0) gm/dl Diagnostic Findings None Medications Administered ER Medications Given: NSS 1L bolus Ondansetron 4mg IV ECG Rate (beats per minute): 103 Rhythm: normal sinus Findings: no acute ischemic change Comparison ECG Date: no prior available Code Status & VTE Plan Code Status Full VTE Prophylaxis Plan VTE Prophylaxis will be ordered: No PG Care Time/CCT Total # of Minutes Spent Total Time Spent with Patient: Total time spent is greater than 50% in coordination of care (as documented) at patient's floor/unit and/or counseling patient: Coding Level of Care Code 78530 INT INP/OBS CARE 375MIN Diagnoses Starvation ketoacidosis T73.0XXA; E87.29 Metabolic acidosis, increased anion gap E87.29 Polyuria R35.89 Nausea and vomiting R11.2 Acute dehydration E86.0 Depression F32.A OCD (obsessive compulsive disorder) F42.9
[2022-08-01 18:08] LABS: HCO3 ABG 3 mmol/L (19-24); Oxygen Saturation ABG 99.4 % (90-95); PCO2 ABG 9 mmHg (35-46); PO2 ABG 127 mmHg (80-95)
[2022-08-01 18:11] LABS: Allen Test Pos (Pos); pH ABG 7.15 (7.35-7.45)
[2022-08-01 18:19] LABS: Amphetamines+Metham, Urine Neg (Neg); Barbiturates, Urine Neg (Neg); Benzodiazepine, Urine Neg (Neg); Cocaine, Urine Neg (Neg); MDMA (Ecstacy), Urine Neg (Neg); Methadone, Urine Neg (Neg); Opiate, Urine Neg (Neg); Phencyclidine, Urine Neg (Neg)
[2022-08-01 18:29] LABS: Acetaminophen < 3 ug/ml (10-30); Salicylate < 3.0 mg/dl (3.0-30)
[2022-08-01 18:38] LABS: BUN Creatinine Ratio 11.4 (10-20); Calcium 8.1 mg/dl (8.6-10.3); Creatinine Clr Calc Pharmacy 90.7 ml/min; Est GFR (African American) 105.1 ml/min; Est GFR (Non-African American) 90.7 ml/min; Magnesium 2.1 mg/dl (1.7-2.4); Phosphorus 2.4 mg/dl (2.5-4.9); Potassium 4.1 mmol/L (3.5-5.1)
[2022-08-01] MEDS ORDERED: cefTRIAXone SODIUM 1,000 MG in DEXTROSE 5% AD-VAN 50 ML IV STA (18:59)
[2022-08-01] MEDS ORDERED: SODI CHLOR 2.5MEQ/ML 14.6% 77 MEQ, POTASSIUM CHLORIDE 20 MEQ in DEXTROSE 10% 1,000 ML IV SCH (19:00)
[2022-08-01 19:20] LABS: Adenovirus PCR Not Detected (NotDetected); Bordetella parapertussis PCR Not Detected (NotDetected); Bordetella pertussis PCR Not Detected (NotDetected); Chlamydia pneumoniae PCR Not Detected (NotDetected); Coronavirus 229E PCR Not Detected (NotDetected); Coronavirus CoV-2 (COVID19)PCR Not Detected (NotDetected); Coronavirus HKU1 PCR Not Detected (NotDetected); Coronavirus NL63 PCR Not Detected (NotDetected); Coronavirus OC43PCR Not Detected (NotDetected); Human Metapneumovirus PCR Not Detected (NotDetected); Influenza A PCR Not Detected (NotDetected); Influenza B PCR Not Detected (NotDetected); Mycoplasma pneumoniae PCR Not Detected (NotDetected); Parainfluenza Virus 1 PCR Not Detected (NotDetected); Parainfluenza Virus 2 PCR Not Detected (NotDetected); Parainfluenza Virus 3 PCR Not Detected (NotDetected); Parainfluenza Virus 4 PCR Not Detected (NotDetected); Respiratory Syncytial VirusPCR Not Detected (NotDetected); Rhinovirus/Enterovirus PCR Not Detected (NotDetected)
[2022-08-01] MEDS ORDERED: INSULIN ASPART PER UNIT CHARGE SC SCH (21:00)
[2022-08-01] MEDS ORDERED: traZODone HCL 50 MG TAB PO PRN (21:23)
[2022-08-01] MEDS ORDERED: ACETAMINOPHEN 1,000 MG/100 ML VIAL IV STA (21:29)
[2022-08-01] MEDS: ONDANSETRON INJ 2 MG/ML 2 ML VIAL IV PRN (21:34)
[2022-08-01 21:54] LABS: Estimated Average Glucose 108 mg/dl; Hemoglobin A1C 5.4 % (4.5-5.6)
[2022-08-01] MEDS ORDERED: ACETAMINOPHEN 1,000 MG/100 ML VIAL IV PRN (22:02)
[2022-08-01 23:46] LABS: BUN Creatinine Ratio 8.1 (10-20); Calcium 7.2 mg/dl (8.6-10.3); Creatinine Clr Calc Pharmacy 92.8 ml/min; Est GFR (African American) 108.1 ml/min; Est GFR (Non-African American) 93.2 ml/min; Magnesium 2.1 mg/dl (1.7-2.4); Potassium 3.5 mmol/L (3.5-5.1)
[2022-08-01] MEDS ORDERED: STAT IV STA (23:52)
--- NOTE | 2022-08-02 00:12 | Communication Note ---
Date of Service: August 01, 2022 Bicarb improved to 6 (deficit 15) with anion gap 15 (excess 4). Given bicarb deficit > anion gap excess; non-anion gap also present, suspect due to post román tment ketosis bicarb loss and chloride in fluids. Start sodium bicarb drip with D5 @ 1.5x maintenance (150ml/hr). Potassium 3.5; continue 20 meq in each L of fluid.
[2022-08-02] MEDS ORDERED: SODIUM BICARBONATE 8.4% 150 MEQ, POTASSIUM CHLORIDE 20 MEQ in DEXTROSE 5% 1,000 ML IV SCH (00:15)
[2022-08-02] MEDS: SODIUM BICARBONATE 8.4% 100 MEQ, POTASSIUM CHLORIDE 20 MEQ in DEXTROSE 5% 1,000 ML IV SCH ×2 (00:20→09:52)
[2022-08-02 02:15] LABS: Basophils # (auto) 0.01 K/uL (0-0.2); Basophils % (auto) 0.1 %; Eosinophils # (auto) 0.01 K/uL (0-0.50); Eosinophils % (auto) 0.1 %; Hematocrit (blood only) 34.5 % (37.0-47.0); Hemoglobin 11.7 g/dl (12.0-16.0); Immature Granulocytes # (auto) 0.04 K/uL (0.01-0.20); Immature Granulocytes % (auto) 0.4 %; Lymphocytes # (auto) 1.68 K/uL (1.2-3.4); Lymphocytes % (auto) 17.4 %; Mean Corpuscular Hemoglobin 29.7 pg (25.0-34.0); Mean Corpuscular Hgb Conc 33.9 g/dL (32.0-36.0); Mean Corpuscular Volume 87.6 fL (80.0-100.0); Mean Platelet Volume 8.9 fL (9.4-12.4); Monocytes # (auto) 0.99 K/uL (0.11-0.59); Monocytes % (auto) 10.3 %; Neutrophils % (auto) 71.7 %; Platelet Count 245 K/uL (130-400); RDW Coefficient of Variation 15.7 % (11.5-14.5); RDW Standard Deviation 49.4 fL (36.4-46.3); Red Blood Count 3.94 M/uL (4.20-5.40); White Blood Count 9.63 K/ul (4.8-10.8)
[2022-08-02 03:04] LABS: Anion Gap 13 (3-11); BUN Creatinine Ratio 6.8 (10-20); Blood Urea Nitrogen 6 mg/dl (6-23); Calcium 7.6 mg/dl (8.6-10.3); Carbon Dioxide 9 mmol/L (21-32); Chloride 111 mmol/L (98-107); Creatinine Clr Calc Pharmacy 90.7 ml/min; Est GFR (African American) 105.1 ml/min; Est GFR (Non-African American) 90.7 ml/min; Glucose 114 mg/dl (70-99(Fasting)); Magnesium 2.2 mg/dl (1.7-2.4); Phosphorus < 1.0 mg/dl (2.5-4.9); Potassium 3.3 mmol/L (3.5-5.1); Sodium 133 mmol/L (136-145)
[2022-08-02] MEDS ORDERED: POTASSIUM PHOS 3 MMOL/1 ML INFUSION IV STA ×2 (03:06→16:35)
[2022-08-02] MEDS ORDERED: POTASSIUM PHOSPHATE 40 MMOL in SODIUM CHLORIDE 0.9% 1000ML 1,000 ML IV ONE (03:30)
[2022-08-02 06:25] LABS: BUN Creatinine Ratio 8.6 (10-20); Calcium 7.6 mg/dl (8.6-10.3); Creatinine Clr Calc Pharmacy 98.5 ml/min; Est GFR (African American) 116.2 ml/min; Est GFR (Non-African American) 100.2 ml/min; Magnesium 2.1 mg/dl (1.7-2.4); Potassium 3.3 mmol/L (3.5-5.1)
--- NOTE | 2022-08-02 06:36 | XRay Report ---
SINGLE VIEW CHEST CLINICAL HISTORY: Diabetic ketoacidosis. FINDINGS: An AP, portable, upright chest radiograph is obtained. No prior studies are available for c omparison at the time of dictation. The examination is mildly degraded by portable technique and ketty ent rotation. The cardiomediastinal silhouette is unremarkable. Question developing airspace opacitie s at the left lung base. No large pleural effusion or pneumothorax is seen. The bony thorax is grossl y intact. IMPRESSION: Question developing airspace opacities at the left lung base. This may be artifactual. Co rrelate with a dedicated PA and lateral examination. ACT 112: Negative or not required by law. Electronically signed by: Ermias Martinez M.D. 08/02/2022 6:34 AM
[2022-08-02] MEDS ORDERED: THIAMINE HCL 200 MG in SODIUM CHLORIDE 0.9% 50 ML IV STA (08:00)
--- NOTE | 2022-08-02 08:01 | Hospitalist Progress Note ---
Date of Service August 02, 2022 Assessment & Plan (1) Metabolic acidosis, increased anion gap: Plan: Patient is 26-year-old female presents for nausea and vomiting found to be in metabolic acidosis likely secondary to poor p.o. intake with vomiting. Patient entered refeeding syndrome initiation of dextrose and is currently being monitored and repleted with electrolytes as needed. patient is hemodynamically stable and overall doing well. #anion gap metabolic acidosis, secondary to ketoacidosis Supported by ketonuria and recent decreased PO intake Initial anion gap 21, ABG pH 7.15 (pCO2 9, PO2 127, HCO3 3) With correction, anion gap to 17, pH 7.37 Lactate negative Toxicology noncontributory #refeeding syndrome Weight down about 16 lbs since PCP visit on 04/24/22 Phos decreased from 2.4 to <1.0 with dextrose administration on admission Monitor potassium, magnesium and phosphorus q4hr Repleting with K-Phos currently, latest phosphorous level at 1.2, k at 3.3 Thiamine supplementation 200mg in am daily Initial EKG: QTc 518, otherwise sinus tachycardia at 103. Repeat QTc 516. Dietitian consult appreciated: advance to clear liquids at dinner tonight with no caloric restrictions. Once diet advances can start multivitamin. Check B12, vit. D and iron tomorrow On telemetry #constipation #reflux Bowel regimen with Miralax Pantoprazole iv 40mg bid #nausea, vomiting Zofran 4mg IV q4hr prn, qtc improving, will continue to monitor test negative #urinary urgency Monitor I/Os, weights Output at 600mL HgbA1C 5.4% , Calcium 7.6 UA: osmolarity 783, specific gravity WNL, no glycosuria, 4+ ketones, 2+ blood, WBC 5-10, 5-10 hyaline casts, >30 epithelial cells #anxiety #depression #OCD Missed several doses of sertraline 100mg and trazodone 50mg for the past ~4 days Recently prescribed aripiprazole but hasn't started taking yet, will hold for n ow DVT ppx: low risk FENGI: Clear liquid, KPhos fluids in NaCl Dispo: PCU (2) Starvation ketoacidosis: (3) Nausea and vomiting: (4) Acute dehydration: (5) Refeeding syndrome: (6) Depression: (7) OCD (obsessive compulsive disorder): (8) IBS (irritable colon syndrome): Admission and Anticipated Discharge Date Admission Date: August 01, 2022 Supervising Physician Co-Signing Physician Notes Medical Student Supervision Note: I was personally present during medical student patient encounter and independently interviewed and examined the patient and verified the marion history and physical, reviewed labs and image studies, discussed the case with Gage Liu and agree with the findings and care plan. Severe anion gap metabolic acidosis from starvation ketosis - improving with hydration and oral intake Possible concern of refeeding syndrome continue close monitoring of electrolytes and replace prn. Thiamine IV Appetite suppression - likely multifactorial - chronic constipation due to IBS- C, worsening anxiety, cannabis use continue liquid diet and reassess in am. consider aggressive bowel regimen in am. Prolonged QTc - replace electrolytes, limit QT prolonging meds. follow EKG Chino Nava) is a 26 y/o F with PMHx of IBS-C, depression, anxiety and traumatic OCD who developed Flu A at the beginning of July 2022. She presented to the ED on Saturday08/01/22 with nausea, vomiting, and associated dehydration. She developed nausea on Friday 07/28 accompanied by 3 total episodes bouts of non-bilious vomiting in the subsequent days. She was very fatigued and had sign ificantly decreased PO intake, but she noted frequent urination which began on 07/29. At baseline she eats about 1.5 meals per day. Her last bowel movement was over 1 week ago and she is constipated at baseline. She does note some SOB, without cough or sputum production, which has improved during her hospitalization. Since 07/29 she missed doses of her OCPs, sertraline 100mg and trazodone 50mg whi ch she attributes to feeling ill. Her PCP is Dr. Serrano and she sees Dr. Valderrama at [facility] for psychiatry. She has a history of self-harm via cutting, with her last episode being 1.5 months ago. She has not had any syncope, chest pain, abdominal pains, diarrhea or dysuria. Currently she is menstruating with no changes from her baseline flow. Review of Systems Review of Systems: All systems reviewed & are unremarkable except as noted in HPI & below Physical Exam Physical Exam: Appears lethargic, lying in hospital bed I saw her ambulate independently from the bathroom to the hospital bed, she did appear weak. Respiratory: no conversational dyspnea, CTA BL, no rales/rhonchi/wheezing Cardiovascular: tachycardia, normal S1/S2, no M/R/G, no LE edema, no cyanosis Gastrointestinal (Abdomen): active bowel sounds, no pain to palpation, no rebound/guarding, no suprapubic tendnerness Genitourinary: no CVA tenderness BL Results & Data Results & Data Vital Signs (Past 12 Hours) Vital Signs Temp Pulse Pulse Resp BP Pulse Ox O2 Del Method 08/02/22 07:41 36.6 C 101 H 18 115/69 98 Room Air 08/02/22 03:15 36.8 C 96 H 18 100/63 97 Room Air 08/02/22 00:00 98 H 08/01/22 21:20 101 H 08/01/22 22:54 36.8 C 97 H 18 98/57 L 98 Room Air 08/01/22 21:39 36.7 C 97 H 16 124/73 100 Room Air 08/01/22 20:49 94 H Diagnostic Findings 08/02/22 08/02/22 08/02/22 12:00 10:48 10:48 WBC RBC Hgb Hct MCV MCH MCHC RDW Std Deviation RDW Coeff of Ivan Plt Count MPV Immature Gran % (Auto) Neut % (Auto) Lymph % (Auto) [place] % (Auto) Eos % (Auto) Baso % (Auto) Neut # (Auto) Lymph # (Auto) [place] # (Auto) Eos # (Auto) Baso # (Auto) Immature Gran # (Auto) ABG pH ABG pCO2 ABG pO2 ABG HCO3 ABG O2 Saturation ABG Base Excess Jordan Test VBG pH 7.37 Oxygen Given Sodium 139 Potassium 3.3 L Chloride 111 H Carbon Dioxide 11 L Anion Gap 17 H BUN 7 Creatinine 0.74 Est Cr Clr Drug Dosing 107.8 Est GFR ( Amer) 129.6 Est GFR (Non-Af Amer) 111.8 BUN/Creatinine Ratio 9.5 L Glucose 71 POC Glucose 72 Estimat Average Glucose Hemoglobin A1c Osmolality Lactate Calcium 7.8 L Phosphorus 1.7 L Magnesium 2.0 Total Bilirubin AST ALT Alkaline Phosphatase Total Protein Albumin Globulin Albumin/Globulin Ratio Lipase Procalcitonin HCG, Qual Urine Color Urine Appearance Urine pH Ur Specific Stewardson Urine Protein Urine Glucose (UA) Urine Ketones Urine Blood Urine Nitrite Urine Bilirubin Urine Urobilinogen Ur Leukocyte Esterase Urine WBC (Auto) Urine RBC (Auto) U Hyaline Cast (Auto) U Epithel Cells (Auto) Urine Bacteria (Auto) Urine Osmolality Urine Test Salicylates Urine Opiates Screen Ur Methadone, Qual Acetaminophen Urine Barbiturates Ur Phencyclidine (PCP) U Amphetamin/Meth Scrn MDMA (Ecstasy) Screen U Benzodiazepines Scrn Ur Cocaine Metabolite U Marijuana (THC) Screen Ethyl Alcohol mg/dL Adenovirus (PCR) B. pertussis DNA (PCR) B.parapertussis DNA PCR C. pneumoniae DNA (PCR) Coronavirus OC43 (PCR) Coronavirus HKU1 (PCR) Coronavirus 229E (PCR) SARS-CoV-2 (PCR) Coronavirus NL63 (PCR) Human Metapneumovir PCR Influenza Type A (PCR) Influenza Type B (PCR) M. pneumoniae (PCR) Parainfluenza 1 (PCR) Parainfluenza 2 (PCR) Parainfluenza 3 (PCR) Parainfluenza 4 (PCR) RSV (PCR) Entero/Rhino (PCR) 08/02/22 08/02/22 08/02/22 08:26 05:59 05:43 WBC RBC Hgb Hct MCV MCH MCHC RDW Std Deviation RDW Coeff of Ivan Plt Count MPV Immature Gran % (Auto) Neut % (Auto) Lymph % (Auto) [place] % (Auto) Eos % (Auto) Baso % (Auto) Neut # (Auto) Lymph # (Auto) [place] # (Auto) Eos # (Auto) Baso # (Auto) Immature Gran # (Auto) ABG pH ABG pCO2 ABG pO2 ABG HCO3 ABG O2 Saturation ABG Base Excess Jordan Test VBG pH 7.34 L Oxygen Given Sodium Potassium Chloride Carbon Dioxide Anion Gap BUN Creatinine Est Cr Clr Drug Dosing Est GFR ( Amer) Est GFR (Non-Af Amer) BUN/Creatinine Ratio Glucose POC Glucose 106 H 101 H Estimat Average Glucose Hemoglobin A1c Osmolality Lactate Calcium Phosphorus Magnesium Total Bilirubin AST ALT Alkaline Phosphatase Total Protein Albumin Globulin Albumin/Globulin Ratio Lipase Procalcitonin HCG, Qual Urine Color Urine Appearance Urine pH Ur Specific Stewardson Urine Protein Urine Glucose (UA) Urine Ketones Urine Blood Urine Nitrite Urine Bilirubin Urine Urobilinogen Ur Leukocyte Esterase Urine WBC (Auto) Urine RBC (Auto) U Hyaline Cast (Auto) U Epithel Cells (Auto) Urine Bacteria (Auto) Urine Osmolality Urine Test Salicylates Urine Opiates Screen Ur Methadone, Qual Acetaminophen Urine Barbiturates Ur Phencyclidine (PCP) U Amphetamin/Meth Scrn MDMA (Ecstasy) Screen U Benzodiazepines Scrn Ur Cocaine Metabolite U Marijuana (THC) Screen Ethyl Alcohol mg/dL Adenovirus (PCR) B. pertussis DNA (PCR) B.parapertussis DNA PCR C. pneumoniae DNA (PCR) Coronavirus OC43 (PCR) Coronavirus HKU1 (PCR) Coronavirus 229E (PCR) SARS-CoV-2 (PCR) Coronavirus NL63 (PCR) Human Metapneumovir PCR Influenza Type A (PCR) Influenza Type B (PCR) M. pneumoniae (PCR) Parainfluenza 1 (PCR) Parainfluenza 2 (PCR) Parainfluenza 3 (PCR) Parainfluenza 4 (PCR) RSV (PCR) Entero/Rhino (PCR) 08/02/22 08/02/22 08/02/22 05:43 03:12 01:53 WBC RBC Hgb Hct MCV MCH MCHC RDW Std Deviation RDW Coeff of Ivan Plt Count MPV Immature Gran % (Auto) Neut % (Auto) Lymph % (Auto) [place] % (Auto) Eos % (Auto) Baso % (Auto) Neut # (Auto) Lymph # (Auto) [place] # (Auto) Eos # (Auto) Baso # (Auto) Immature Gran # (Auto) ABG pH ABG pCO2 ABG pO2 ABG HCO3 ABG O2 Saturation ABG Base Excess Jordan Test VBG pH 7.24 L Oxygen Given Sodium 136 Potassium 3.3 L Chloride 111 H Carbon Dioxide 11 L Anion Gap 14 H BUN 7 Creatinine 0.81 Est Cr Clr Drug Dosing 98.5 Est GFR ( Amer) 116.2 Est GFR (Non-Af Amer) 100.2 BUN/Creatinine Ratio 8.6 L Glucose 98 POC Glucose 100 H Estimat Average Glucose Hemoglobin A1c Osmolality Lactate Calcium 7.6 L Phosphorus 1.0 L* Magnesium 2.1 Total Bilirubin AST ALT Alkaline Phosphatase Total Protein Albumin Globulin Albumin/Globulin Ratio Lipase Procalcitonin HCG, Qual Urine Color Urine Appearance Urine pH Ur Specific Stewardson Urine Protein Urine Glucose (UA) Urine Ketones Urine Blood Urine Nitrite Urine Bilirubin Urine Urobilinogen Ur Leukocyte Esterase Urine WBC (Auto) Urine RBC (Auto) U Hyaline Cast (Auto) U Epithel Cells (Auto) Urine Bacteria (Auto) Urine Osmolality Urine Test Salicylates Urine Opiates Screen Ur Methadone, Qual Acetaminophen Urine Barbiturates Ur Phencyclidine (PCP) U Amphetamin/Meth Scrn MDMA (Ecstasy) Screen U Benzodiazepines Scrn Ur Cocaine Metabolite U Marijuana (THC) Screen Ethyl Alcohol mg/dL Adenovirus (PCR) B. pertussis DNA (PCR) B.parapertussis DNA PCR C. pneumoniae DNA (PCR) Coronavirus OC43 (PCR) Coronavirus HKU1 (PCR) Coronavirus 229E (PCR) SARS-CoV-2 (PCR) Coronavirus NL63 (PCR) Human Metapneumovir PCR Influenza Type A (PCR) Influenza Type B (PCR) M. pneumoniae (PCR) Parainfluenza 1 (PCR) Parainfluenza 2 (PCR) Parainfluenza 3 (PCR) Parainfluenza 4 (PCR) RSV (PCR) Entero/Rhino (PCR) 08/02/22 08/02/22 08/02/22 01:46 01:46 01:22 WBC 9.63 RBC 3.94 L Hgb 11.7 L Hct 34.5 L MCV 87.6 MCH 29.7 MCHC 33.9 RDW Std Deviation 49.4 H RDW Coeff of Ivan 15.7 H Plt Count 245 MPV 8.9 L Immature Gran % (Auto) 0.4 Neut % (Auto) 71.7 Lymph % (Auto) 17.4 Barn[place] % (Auto) 10.3 Eos % (Auto) 0.1 Baso % (Auto) 0.1 Neut # (Auto) 6.90 H Lymph # (Auto) 1.68 Barn[place] # (Auto) 0.99 H Eos # (Auto) 0.01 Baso # (Auto) 0.01 Immature Gran # (Auto) 0.04 ABG pH ABG pCO2 ABG pO2 ABG HCO3 ABG O2 Saturation ABG Base Excess Jordan Test VBG pH Oxygen Given Sodium 133 L Potassium 3.3 L Chloride 111 H Carbon Dioxide 9 L* Anion Gap 13 H BUN 6 Creatinine 0.88 Est Cr Clr Drug Dosing 90.7 Est GFR ( Amer) 105.1 Est GFR (Non-Af Amer) 90.7 BUN/Creatinine Ratio 6.8 L Glucose 114 H POC Glucose 120 H Estimat Average Glucose Hemoglobin A1c Osmolality Lactate Calcium 7.6 L Phosphorus < 1.0 L* D Magnesium 2.2 Total Bilirubin AST ALT Alkaline Phosphatase Total Protein Albumin Globulin Albumin/Globulin Ratio Lipase Procalcitonin HCG, Qual Urine Color Urine Appearance Urine pH Ur Specific Stewardson Urine Protein Urine Glucose (UA) Urine Ketones Urine Blood Urine Nitrite Urine Bilirubin Urine Urobilinogen Ur Leukocyte Esterase Urine WBC (Auto) Urine RBC (Auto) U Hyaline Cast (Auto) U Epithel Cells (Auto) Urine Bacteria (Auto) Urine Osmolality Urine Test Salicylates Urine Opiates Screen Ur Methadone, Qual Acetaminophen Urine Barbiturates Ur Phencyclidine (PCP) U Amphetamin/Meth Scrn MDMA (Ecstasy) Screen U Benzodiazepines Scrn Ur Cocaine Metabolite U Marijuana (THC) Screen Ethyl Alcohol mg/dL Adenovirus (PCR) B. pertussis DNA (PCR) B.parapertussis DNA PCR C. pneumoniae DNA (PCR) Coronavirus OC43 (PCR) Coronavirus HKU1 (PCR) Coronavirus 229E (PCR) SARS-CoV-2 (PCR) Coronavirus NL63 (PCR) Human Metapneumovir PCR Influenza Type A (PCR) Influenza Type B (PCR) M. pneumoniae (PCR) Parainfluenza 1 (PCR) Parainfluenza 2 (PCR) Parainfluenza 3 (PCR) Parainfluenza 4 (PCR) RSV (PCR) Entero/Rhino (PCR) 08/01/22 08/01/22 08/01/22 22:44 22:40 21:29 WBC RBC Hgb Hct MCV MCH MCHC RDW Std Deviation RDW Coeff of Ivan Plt Count MPV Immature Gran % (Auto) Neut % (Auto) Lymph % (Auto) [place] % (Auto) Eos % (Auto) Baso % (Auto) Neut # (Auto) Lymph # (Auto) [place] # (Auto) Eos # (Auto) Baso # (Auto) Immature Gran # (Auto) ABG pH ABG pCO2 ABG pO2 ABG HCO3 ABG O2 Saturation ABG Base Excess Jordan Test VBG pH 7.22 L Oxygen Given Sodium 132 L Potassium 3.5 Chloride 111 H Carbon Dioxide 6 L* Anion Gap 15 H BUN 7 Creatinine 0.86 Est Cr Clr Drug Dosing 92.8 Est GFR ( Amer) 108.1 Est GFR (Non-Af Amer) 93.2 BUN/Creatinine Ratio 8.1 L Glucose 156 H POC Glucose 105 H Estimat Average Glucose Hemoglobin A1c Osmolality Lactate Calcium 7.2 L Phosphorus Magnesium 2.1 Total Bilirubin AST ALT Alkaline Phosphatase Total Protein Albumin Globulin Albumin/Globulin Ratio Lipase Procalcitonin HCG, Qual Urine Color Urine Appearance Urine pH Ur Specific Stewardson Urine Protein Urine Glucose (UA) Urine Ketones Urine Blood Urine Nitrite Urine Bilirubin Urine Urobilinogen Ur Leukocyte Esterase Urine WBC (Auto) Urine RBC (Auto) U Hyaline Cast (Auto) U Epithel Cells (Auto) Urine Bacteria (Auto) Urine Osmolality Urine Test Salicylates Urine Opiates Screen Ur Methadone, Qual Acetaminophen Urine Barbiturates Ur Phencyclidine (PCP) U Amphetamin/Meth Scrn MDMA (Ecstasy) Screen U Benzodiazepines Scrn Ur Cocaine Metabolite U Marijuana (THC) Screen Ethyl Alcohol mg/dL Adenovirus (PCR) B. pertussis DNA (PCR) B.parapertussis DNA PCR C. pneumoniae DNA (PCR) Coronavirus OC43 (PCR) Coronavirus HKU1 (PCR) Coronavirus 229E (PCR) SARS-CoV-2 (PCR) Coronavirus NL63 (PCR) Human Metapneumovir PCR Influenza Type A (PCR) Influenza Type B (PCR) M. pneumoniae (PCR) Parainfluenza 1 (PCR) Parainfluenza 2 (PCR) Parainfluenza 3 (PCR) Parainfluenza 4 (PCR) RSV (PCR) Entero/Rhino (PCR) 08/01/22 08/01/22 08/01/22 19:04 18:00 17:56 WBC RBC Hgb Hct MCV MCH MCHC RDW Std Deviation RDW Coeff of Ivan Plt Count MPV Immature Gran % (Auto) Neut % (Auto) Lymph % (Auto) [place] % (Auto) Eos % (Auto) Baso % (Auto) Neut # (Auto) Lymph # (Auto) [place] # (Auto) Eos # (Auto) Baso # (Auto) Immature Gran # (Auto) ABG pH 7.15 L* ABG pCO2 9 L ABG pO2 127 H ABG HCO3 3 L ABG O2 Saturation 99.4 H ABG Base Excess -23.0 L Jordan Test Pos VBG pH Oxygen Given ROOM AIR Sodium Potassium Chloride Carbon Dioxide Anion Gap BUN Creatinine Est Cr Clr Drug Dosing Est GFR ( Amer) Est GFR (Non-Af Amer) BUN/Creatinine Ratio Glucose POC Glucose 77 Estimat Average Glucose Hemoglobin A1c Osmolality Lactate Calcium Phosphorus Magnesium Total Bilirubin AST ALT Alkaline Phosphatase Total Protein Albumin Globulin Albumin/Globulin Ratio Lipase Procalcitonin HCG, Qual Urine Color Urine Appearance Urine pH Ur Specific Stewardson Urine Protein Urine Glucose (UA) Urine Ketones Urine Blood Urine Nitrite Urine Bilirubin Urine Urobilinogen Ur Leukocyte Esterase Urine WBC (Auto) Urine RBC (Auto) U Hyaline Cast (Auto) U Epithel Cells (Auto) Urine Bacteria (Auto) Urine Osmolality Urine Test Salicylates Urine Opiates Screen Ur Methadone, Qual Acetaminophen Urine Barbiturates Ur Phencyclidine (PCP) U Amphetamin/Meth Scrn MDMA (Ecstasy) Screen U Benzodiazepines Scrn Ur Cocaine Metabolite U Marijuana (THC) Screen Ethyl Alcohol mg/dL Adenovirus (PCR) Not Detected B. pertussis DNA (PCR) Not Detected B.parapertussis DNA PCR Not Detected C. pneumoniae DNA (PCR) Not Detected Coronavirus OC43 (PCR) Not Detected Coronavirus HKU1 (PCR) Not Detected Coronavirus 229E (PCR) Not Detected SARS-CoV-2 (PCR) Not Detected Coronavirus NL63 (PCR) Not Detected Human Metapneumovir PCR Not Detected Influenza Type A (PCR) Not Detected Influenza Type B (PCR) Not Detected M. pneumoniae (PCR) Not Detected Parainfluenza 1 (PCR) Not Detected Parainfluenza 2 (PCR) Not Detected Parainfluenza 3 (PCR) Not Detected Parainfluenza 4 (PCR) Not Detected RSV (PCR) Not Detected Entero/Rhino (PCR) Not Detected 08/01/22 08/01/22 08/01/22 17:50 17:50 17:50 WBC RBC Hgb Hct MCV MCH MCHC RDW Std Deviation RDW Coeff of Ivan Plt Count MPV Immature Gran % (Auto) Neut % (Auto) Lymph % (Auto) [place] % (Auto) Eos % (Auto) Baso % (Auto) Neut # (Auto) Lymph # (Auto) [place] # (Auto) Eos # (Auto) Baso # (Auto) Immature Gran # (Auto) ABG pH ABG pCO2 ABG pO2 ABG HCO3 ABG O2 Saturation ABG Base Excess Jordan Test VBG pH Oxygen Given Sodium Potassium Chloride Carbon Dioxide Anion Gap BUN Creatinine Est Cr Clr Drug Dosing Est GFR ( Amer) Est GFR (Non-Af Amer) BUN/Creatinine Ratio Glucose POC Glucose Estimat Average Glucose 108 Hemoglobin A1c 5.4 Osmolality Lactate 0.5 Calcium Phosphorus Magnesium Total Bilirubin AST ALT Alkaline Phosphatase Total Protein Albumin Globulin Albumin/Globulin Ratio Lipase Procalcitonin HCG, Qual Urine Color Urine Appearance Urine pH Ur Specific Stewardson Urine Protein Urine Glucose (UA) Urine Ketones Urine Blood Urine Nitrite Urine Bilirubin Urine Urobilinogen Ur Leukocyte Esterase Urine WBC (Auto) Urine RBC (Auto) U Hyaline Cast (Auto) U Epithel Cells (Auto) Urine Bacteria (Auto) Urine Osmolality Urine Test Salicylates Urine Opiates Screen Ur Methadone, Qual Acetaminophen Urine Barbiturates Ur Phencyclidine (PCP) U Amphetamin/Meth Scrn MDMA (Ecstasy) Screen U Benzodiazepines Scrn Ur Cocaine Metabolite U Marijuana (THC) Screen Ethyl Alcohol mg/dL < 10.0 Adenovirus (PCR) B. pertussis DNA (PCR) B.parapertussis DNA PCR C. pneumoniae DNA (PCR) Coronavirus OC43 (PCR) Coronavirus HKU1 (PCR) Coronavirus 229E (PCR) SARS-CoV-2 (PCR) Coronavirus NL63 (PCR) Human Metapneumovir PCR Influenza Type A (PCR) Influenza Type B (PCR) M. pneumoniae (PCR) Parainfluenza 1 (PCR) Parainfluenza 2 (PCR) Parainfluenza 3 (PCR) Parainfluenza 4 (PCR) RSV (PCR) Entero/Rhino (PCR) 08/01/22 08/01/22 08/01/22 17:50 17:49 17:49 WBC RBC Hgb Hct MCV MCH MCHC RDW Std Deviation RDW Coeff of Ivan Plt Count MPV Immature Gran % (Auto) Neut % (Auto) Lymph % (Auto) [place] % (Auto) Eos % (Auto) Baso % (Auto) Neut # (Auto) Lymph # (Auto) [place] # (Auto) Eos # (Auto) Baso # (Auto) Immature Gran # (Auto) ABG pH ABG pCO2 ABG pO2 ABG HCO3 ABG O2 Saturation ABG Base Excess Jordan Test VBG pH Oxygen Given Sodium 133 L Potassium 4.1 Chloride 110 H Carbon Dioxide 3 L* Anion Gap 20 H BUN 10 Creatinine 0.88 Est Cr Clr Drug Dosing 90.7 Est GFR ( Amer) 105.1 Est GFR (Non-Af Amer) 90.7 BUN/Creatinine Ratio 11.4 Glucose 68 L POC Glucose Estimat Average Glucose Hemoglobin A1c Osmolality 296 Lactate Calcium 8.1 L Phosphorus 2.4 L Magnesium 2.1 Total Bilirubin AST ALT Alkaline Phosphatase Total Protein Albumin Globulin Albumin/Globulin Ratio Lipase Procalcitonin < 0.05 HCG, Qual Urine Color Urine Appearance Urine pH Ur Specific Stewardson Urine Protein Urine Glucose (UA) Urine Ketones Urine Blood Urine Nitrite Urine Bilirubin Urine Urobilinogen Ur Leukocyte Esterase Urine WBC (Auto) Urine RBC (Auto) U Hyaline Cast (Auto) U Epithel Cells (Auto) Urine Bacteria (Auto) Urine Osmolality Urine Test Salicylates Urine Opiates Screen Ur Methadone, Qual Acetaminophen Urine Barbiturates Ur Phencyclidine (PCP) U Amphetamin/Meth Scrn MDMA (Ecstasy) Screen U Benzodiazepines Scrn Ur Cocaine Metabolite U Marijuana (THC) Screen Ethyl Alcohol mg/dL Adenovirus (PCR) B. pertussis DNA (PCR) B.parapertussis DNA PCR C. pneumoniae DNA (PCR) Coronavirus OC43 (PCR) Coronavirus HKU1 (PCR) Coronavirus 229E (PCR) SARS-CoV-2 (PCR) Coronavirus NL63 (PCR) Human Metapneumovir PCR Influenza Type A (PCR) Influenza Type B (PCR) M. pneumoniae (PCR) Parainfluenza 1 (PCR) Parainfluenza 2 (PCR) Parainfluenza 3 (PCR) Parainfluenza 4 (PCR) RSV (PCR) Entero/Rhino (PCR) 08/01/22 08/01/22 08/01/22 17:49 17:44 17:22 WBC RBC Hgb Hct MCV MCH MCHC RDW Std Deviation RDW Coeff of Ivan Plt Count MPV Immature Gran % (Auto) Neut % (Auto) Lymph % (Auto) [place] % (Auto) Eos % (Auto) Baso % (Auto) Neut # (Auto) Lymph # (Auto) [place] # (Auto) Eos # (Auto) Baso # (Auto) Immature Gran # (Auto) ABG pH ABG pCO2 ABG pO2 ABG HCO3 ABG O2 Saturation ABG Base Excess Jordan Test VBG pH Oxygen Given Sodium Potassium Chloride Carbon Dioxide Anion Gap BUN Creatinine Est Cr Clr Drug Dosing Est GFR ( Amer) Est GFR (Non-Af Amer) BUN/Creatinine Ratio Glucose POC Glucose 69 L* Estimat Average Glucose Hemoglobin A1c Osmolality Lactate Calcium Phosphorus Magnesium Total Bilirubin AST ALT Alkaline Phosphatase Total Protein Albumin Globulin Albumin/Globulin Ratio Lipase Procalcitonin HCG, Qual Urine Color Yellow Urine Appearance Clear Urine pH 6.0 Ur Specific Stewardson 1.022 Urine Protein 2+ H Urine Glucose (UA) Negative Urine Ketones 4+ H Urine Blood 2+ H Urine Nitrite Negative Urine Bilirubin Negative Urine Urobilinogen Negative Ur Leukocyte Esterase Negative Urine WBC (Auto) 5-10 H Urine RBC (Auto) 0-4 U Hyaline Cast (Auto) 5-10 H U Epithel Cells (Auto) >30 H Urine Bacteria (Auto) 1+ H Urine Osmolality Urine Test Salicylates < 3.0 L Urine Opiates Screen Ur Methadone, Qual Acetaminophen < 3 L Urine Barbiturates Ur Phencyclidine (PCP) U Amphetamin/Meth Scrn MDMA (Ecstasy) Screen U Benzodiazepines Scrn Ur Cocaine Metabolite U Marijuana (THC) Screen Ethyl Alcohol mg/dL Adenovirus (PCR) B. pertussis DNA (PCR) B.parapertussis DNA PCR C. pneumoniae DNA (PCR) Coronavirus OC43 (PCR) Coronavirus HKU1 (PCR) Coronavirus 229E (PCR) SARS-CoV-2 (PCR) Coronavirus NL63 (PCR) Human Metapneumovir PCR Influenza Type A (PCR) Influenza Type B (PCR) M. pneumoniae (PCR) Parainfluenza 1 (PCR) Parainfluenza 2 (PCR) Parainfluenza 3 (PCR) Parainfluenza 4 (PCR) RSV (PCR) Entero/Rhino (PCR) 08/01/22 08/01/22 08/01/22 17:22 17:22 17:22 WBC RBC Hgb Hct MCV MCH MCHC RDW Std Deviation RDW Coeff of Ivan Plt Count MPV Immature Gran % (Auto) Neut % (Auto) Lymph % (Auto) [place] % (Auto) Eos % (Auto) Baso % (Auto) Neut # (Auto) Lymph # (Auto) [place] # (Auto) Eos # (Auto) Baso # (Auto) Immature Gran # (Auto) ABG pH ABG pCO2 ABG pO2 ABG HCO3 ABG O2 Saturation ABG Base Excess Jordan Test VBG pH Oxygen Given Sodium Potassium Chloride Carbon Dioxide Anion Gap BUN Creatinine Est Cr Clr Drug Dosing Est GFR ( Amer) Est GFR (Non-Af Amer) BUN/Creatinine Ratio Glucose POC Glucose Estimat Average Glucose Hemoglobin A1c Osmolality Lactate Calcium Phosphorus Magnesium Total Bilirubin AST ALT Alkaline Phosphatase Total Protein Albumin Globulin Albumin/Globulin Ratio Lipase Procalcitonin HCG, Qual Urine Color Urine Appearance Urine pH Ur Specific Stewardson Urine Protein Urine Glucose (UA) Urine Ketones Urine Blood Urine Nitrite Urine Bilirubin Urine Urobilinogen Ur Leukocyte Esterase Urine WBC (Auto) Urine RBC (Auto) U Hyaline Cast (Auto) U Epithel Cells (Auto) Urine Bacteria (Auto) Urine Osmolality 783 Urine Test Negative Salicylates Urine Opiates Screen Neg Ur Methadone, Qual Neg Acetaminophen Urine Barbiturates Neg Ur Phencyclidine (PCP) Neg U Amphetamin/Meth Scrn Neg MDMA (Ecstasy) Screen Neg U Benzodiazepines Scrn Neg Ur Cocaine Metabolite Neg U Marijuana (THC) Screen Pos H Ethyl Alcohol mg/dL Adenovirus (PCR) B. pertussis DNA (PCR) B.parapertussis DNA PCR C. pneumoniae DNA (PCR) Coronavirus OC43 (PCR) Coronavirus HKU1 (PCR) Coronavirus 229E (PCR) SARS-CoV-2 (PCR) Coronavirus NL63 (PCR) Human Metapneumovir PCR Influenza Type A (PCR) Influenza Type B (PCR) M. pneumoniae (PCR) Parainfluenza 1 (PCR) Parainfluenza 2 (PCR) Parainfluenza 3 (PCR) Parainfluenza 4 (PCR) RSV (PCR) Entero/Rhino (PCR) 08/01/22 08/01/22 08/01/22 15:34 15:34 15:34 WBC 13.97 H RBC 4.86 Hgb 14.4 Hct 44.0 MCV 90.5 MCH 29.6 MCHC 32.7 RDW Std Deviation 52.6 H RDW Coeff of Ivan 16.0 H Plt Count 328 MPV 9.0 L Immature Gran % (Auto) 0.8 Neut % (Auto) 84.0 Lymph % (Auto) 9.7 Barnwell % (Auto) 5.4 Eos % (Auto) 0.0 Baso % (Auto) 0.1 Neut # (Auto) 11.73 H Lymph # (Auto) 1.35 Barnwell # (Auto) 0.76 H Eos # (Auto) 0.00 Baso # (Auto) 0.02 Immature Gran # (Auto) 0.11 ABG pH ABG pCO2 ABG pO2 ABG HCO3 ABG O2 Saturation ABG Base Excess Jordan Test VBG pH Oxygen Given Sodium 133 L Potassium 4.4 Chloride 107 Carbon Dioxide 5 L* Anion Gap 21 H BUN 11 Creatinine 1.10 Est Cr Clr Drug Dosing Not Reportable Est GFR ( Amer) 80.2 Est GFR (Non-Af Amer) 69.2 BUN/Creatinine Ratio 10.0 Glucose 82 POC Glucose Estimat Average Glucose Hemoglobin A1c Osmolality Lactate Calcium 9.3 Phosphorus Magnesium Total Bilirubin 0.5 AST 20 ALT 13 Alkaline Phosphatase 62 Total Protein 9.2 H Albumin 5.1 H Globulin 4.1 H Albumin/Globulin Ratio 1.2 Lipase 16 Procalcitonin HCG, Qual Negative Urine Color Urine Appearance Urine pH Ur Specific Stewardson Urine Protein Urine Glucose (UA) Urine Ketones Urine Blood Urine Nitrite Urine Bilirubin Urine Urobilinogen Ur Leukocyte Esterase Urine WBC (Auto) Urine RBC (Auto) U Hyaline Cast (Auto) U Epithel Cells (Auto) Urine Bacteria (Auto) Urine Osmolality Urine Test Salicylates Urine Opiates Screen Ur Methadone, Qual Acetaminophen Urine Barbiturates Ur Phencyclidine (PCP) U Amphetamin/Meth Scrn MDMA (Ecstasy) Screen U Benzodiazepines Scrn Ur Cocaine Metabolite U Marijuana (THC) Screen Ethyl Alcohol mg/dL Adenovirus (PCR) B. pertussis DNA (PCR) B.parapertussis DNA PCR C. pneumoniae DNA (PCR) Coronavirus OC43 (PCR) Coronavirus HKU1 (PCR) Coronavirus 229E (PCR) SARS-CoV-2 (PCR) Coronavirus NL63 (PCR) Human Metapneumovir PCR Influenza Type A (PCR) Influenza Type B (PCR) M. pneumoniae (PCR) Parainfluenza 1 (PCR) Parainfluenza 2 (PCR) Parainfluenza 3 (PCR) Parainfluenza 4 (PCR) RSV (PCR) Entero/Rhino (PCR)
--- NOTE | 2022-08-02 08:46 | Electrocardiogram Report ---
Test Reason : Blood Pressure : / mmHG Vent. Rate : 103 BPM Atrial Rate : 103 BPM P-R Int : 124 ms QRS Dur : 082 ms QT Int : 396 ms P-R-T Axes : 078 088 045 degrees QTc Int : 518 ms Sinus tachycardia Otherwise normal ECG No previous ECGs available Confirmed by Avery Mae ([id number]) on 08/02/2022 8:46:02 AM Referred By: REFERRED SELF Confirmed By:Avery Mae
[2022-08-02] MEDS: SERTRALINE HCL 100 MG TABLET PO SCH (10:31)
[2022-08-02] MEDS: PANTOprazole 40 MG in SYRINGE 0 ML IV SCH ×2 (10:31→21:09)
[2022-08-02 11:30] LABS: BUN Creatinine Ratio 9.5 (10-20); Calcium 7.8 mg/dl (8.6-10.3); Creatinine Clr Calc Pharmacy 107.8 ml/min; Est GFR (African American) 129.6 ml/min; Est GFR (Non-African American) 111.8 ml/min; Phosphorus 1.7 mg/dl (2.5-4.9); Potassium 3.3 mmol/L (3.5-5.1)
[2022-08-02] MEDS ORDERED: POTASSIUM PHOS 3 MMOL/1 ML INFUSION IV ONE (11:46)
[2022-08-02] MEDS ORDERED: POTASSIUM PHOSPHATE 21 MMOL in SODIUM CHLORIDE 0.9% 500 ML IV ONE ×2 (12:00→17:00)
[2022-08-02] MEDS ORDERED: POLYETHYLENE (MIRALAX) 17 GM PACK PO STA (14:52)
[2022-08-02] MEDS: ONDANSETRON INJ 2 MG/ML 2 ML VIAL IV PRN (14:56)
[2022-08-02] MEDS: CARBOHYDRATES FOR HYPOGLYCEMIA PO PRN ×2 (16:11→20:31)
--- NOTE | 2022-08-02 17:18 | Electrocardiogram Report ---
Test Reason : Blood Pressure : / mmHG Vent. Rate : 100 BPM Atrial Rate : 100 BPM P-R Int : 126 ms QRS Dur : 084 ms QT Int : 400 ms P-R-T Axes : 056 091 034 degrees QTc Int : 516 ms Normal sinus rhythm Rightward axis Prolonged QT Abnormal ECG When compared with ECG of 01-AUG-2022 18:40, No significant change was found Confirmed by Avery Mae ([id number]) on 08/02/2022 5:18:32 PM Referred By: REFERRED SELF Confirmed By:Avery Mae
[2022-08-02 18:55] LABS: BUN Creatinine Ratio 7.9 (10-20); Est GFR (African American) 125.5 ml/min; Est GFR (Non-African American) 108.3 ml/min; Potassium 3.4 mmol/L (3.5-5.1)
[2022-08-02] MEDS: DEXTROSE 50% 50 ML SYRINGE IV PRN (20:34)
[2022-08-02 23:32] LABS: BUN Creatinine Ratio 8.6 (10-20); Calcium 8.1 mg/dl (8.6-10.3); Est GFR (African American) 138.6 ml/min; Est GFR (Non-African American) 119.6 ml/min
[2022-08-03 00:35] LABS: Phosphorus 1.4 mg/dl (2.5-4.9)
[2022-08-03] MEDS ORDERED: POTASSIUM PHOS 3 MMOL/1 ML INFUSION IV STA ×3 (00:36→14:17)
[2022-08-03] MEDS ORDERED: POTASSIUM PHOSPHATE 40 MMOL in SODIUM CHLORIDE 0.9% 1000ML 1,000 ML IV ONE (00:45)
[2022-08-03] MEDS ORDERED: ACETAMINOPHEN 325 MG TAB PO PRN (04:10)
[2022-08-03 07:14] LABS: Basophils # (auto) 0.02 K/uL (0-0.2); Basophils % (auto) 0.4 %; Eosinophils # (auto) 0.09 K/uL (0-0.50); Eosinophils % (auto) 1.6 %; Hematocrit (blood only) 31.1 % (37.0-47.0); Immature Granulocytes # (auto) 0.01 K/uL (0.01-0.20); Immature Granulocytes % (auto) 0.2 %; Lymphocytes # (auto) 2.33 K/uL (1.2-3.4); Lymphocytes % (auto) 42.6 %; Mean Corpuscular Hemoglobin 29.9 pg (25.0-34.0); Mean Corpuscular Hgb Conc 35.4 g/dL (32.0-36.0); Mean Corpuscular Volume 84.5 fL (80.0-100.0); Mean Platelet Volume 9.2 fL (9.4-12.4); Monocytes # (auto) 0.51 K/uL (0.11-0.59); Monocytes % (auto) 9.3 %; Neutrophils # (auto) 2.51 K/uL (1.40-6.50); Neutrophils % (auto) 45.9 %; Platelet Count 250 K/uL (130-400); RDW Coefficient of Variation 15.6 % (11.5-14.5); RDW Standard Deviation 47.8 fL (36.4-46.3); Red Blood Count 3.68 M/uL (4.20-5.40); White Blood Count 5.47 K/ul (4.8-10.8)
[2022-08-03 07:29] LABS: Magnesium 2.1 mg/dl (1.7-2.4); Phosphorus 2.5 mg/dl (2.5-4.9)
--- NOTE | 2022-08-03 07:39 | Hospitalist Progress Note ---
Date of Service August 03, 2022 Assessment & Plan (1) Metabolic acidosis, increased anion gap: (2) Refeeding syndrome: (3) IBS (irritable colon syndrome): (4) Nausea and vomiting: (5) Depression: Plan Tom Nava) is a 26 y/o F with PMHx of IBS-C/D, depression, anxiety and trauma tic OCD who presented to the ED a few weeks after developing the flu, with several days of nausea, vomiting and fatigue who was found to have anion gap metabolic acidosis secondary to ketoacidosis. #anion gap metabolic acidosis, secondary to ketoacidosis Supported by ketonuria and recent decreased PO intake Initial anion gap 21, ABG pH 7.15 (pCO2 9, PO2 127, HCO3 3) With correction, anion gap to 14, pH 7.37 Lactate negative Toxicology noncontributory Will add urine Na/K/Cl/Cr to initial urine. Based on improvement so far, RTA seems less likely but considered given non-anion gap acidosis > AGMA upon arrival. #refeeding syndrome Weight down about 16 lbs since PCP visit on 04/24/22 Phos continued to lower overnight, repleted with K-Phos per protocol. Potassium repleted with Klor-Con 20mEQ tab Monitor K+, Mg and Phos q4hr: K+ 3.2, Mg 2.1, Phos 2.6 Thiamine supplementation 200mg IV qAM Prolonged QTc at 518, improving (472). On telemetry. Dietitian consult appreciated: clear liquids then advance as tolerated. No caloric restrictions. Once diet advances can start multivitamin. Vitamin D low at 15.6 - start 50,000 units PO weekly vitamin B12 low normal, and ferritin WNL #IBS, mixed constipation and diarrhea Last bowel movement was ~1 week ago. Bowel regimen with Colace 100mg PO BID - defer Miralax to avoid abdominal distention/worsening nausea Given recent changes in bowel habits and irregular BM x years, will check for secondary processes ESR/CRP negative Fecal calprotectin pending Celiac panel pending Appreciate GI consultation given ongoing symptoms x years, weight loss, electrolyte deficiencies, recent diarrhea - ?need for EGD/colonoscopy/other #reflux Pantoprazole 40mg #nausea, vomiting Promethazine 6.25 mg IV q6hr test negative #urinary urgency Etiology unclear at this time. Possible resolved UTI? Monitor I/Os, weights HgbA1C 5.4% without glycosuria UA: osmolarity 783, 4+ ketones culture negative thus far, hold from further [place] #anxiety #depression #OCD Missed several doses of sertraline 100mg and trazodone 50mg prior to admission Resume sertraline 100mg PO daily, PRN trazodone 50mg PO daily Recently prescribed aripiprazole but hasn't started taking yet, will hold for now DVT ppx: low risk FENGI: clear liquid, advance as tolerated Dispo: telemetry Lines added by Mimi Miranda in addendum. Reviewed plan above with Mimi Liu. Admission and Anticipated Discharge Date Admission Date: August 01, 2022 Supervising Physician Co-Signing Physician Notes Medical Student Supervision Note: I was personally present during medical student patient encounter and independently interviewed and examined the patient and verified the marion history and physical, reviewed labs and image studies, discussed the case with Gage Liu and agree with the findings and care plan. Severe anion gap metabolic acidosis from starvation ketosis - improving with hydration and oral intake Possible concern of refeeding syndrome continue close monitoring of electrolytes and replace prn. Thiamine IV Appetite suppression - likely multifactorial - chronic constipation due to IBS- C, worsening anxiety, cannabis use Colace added with no BM. No improvement this am. Consult GI placed. continue liquid diet Prolonged QTc - improved. replace K. Subjective Kalyani is accompanied by her mother. Last night she was able to tolerate some liquids although the broth made her nauseous. Persistent nausea this morning but no vomiting. Still no bowel movement. Feeling a little weak but slight improvement from yesterday. SOB also slightly improved from yesterday, no O2 requirement currently or at home. Able to urinate without dysuria or polyuria. No chest pain, palpitations, or numbness/tingling in extremities. Review of Systems Review of Systems: All systems reviewed & are unremarkable except as noted in HPI & below Physical Exam Physical Exam: Appearance: lying in bed supine, NAD Respiratory: no conversational dyspnea, normal respiratory effort, lungs CTA BL without wheeze/crackles Cardiovascular: tachycardia, normal S1/S2, regular rhythm. No LE edema Gastrointestinal (Abdomen): normal bowel sounds, no pain to palpation/rebound/guarding Neurologic: Answering questions appropriately, AOx3 Results & Data Results & Data Vital Signs (Past 12 Hours) Vital Signs Temp Pulse Pulse Resp BP Pulse Ox O2 Del Method 08/03/22 07:23 36.6 C 97 H 18 105/65 97 Room Air 08/03/22 03:46 36.8 C 89 18 103/66 98 Room Air 08/02/22 23:27 94 H 08/02/22 23:21 36.6 C 98 H 18 100/63 100 Room Air 08/02/22 19:36 36.6 C 96 H 20 107/66 99 Room Air Laboratory Results 08/03/22 08/03/22 08/03/22 07:52 07:22 06:11 WBC RBC Hgb Hct MCV MCH MCHC RDW Std Deviation RDW Coeff of Ivan Plt Count MPV Immature Gran % (Auto) Neut % (Auto) Lymph % (Auto) Walker % (Auto) Eos % (Auto) Baso % (Auto) Neut # (Auto) Lymph # (Auto) Walker # (Auto) Eos # (Auto) Baso # (Auto) Immature Gran # (Auto) ESR 6 VBG pH Sodium 139 Potassium 3.2 L Chloride 109 H Carbon Dioxide 16 L Anion Gap 14 H BUN 5 L Creatinine 0.68 Est Cr Clr Drug Dosing 117.4 Est GFR ( Amer) 139.9 Est GFR (Non-Af Amer) 120.7 BUN/Creatinine Ratio 7.4 L Glucose 74 POC Glucose 72 Calcium 8.3 L Phosphorus 2.6 Magnesium 2.1 Iron Transferrin Ferritin 209.1 C-Reactive Protein < 0.50 Vitamin B12 25-OH Vitamin D Total 08/03/22 08/03/22 08/03/22 06:11 06:11 06:11 WBC 5.47 RBC 3.68 L Hgb 11.0 L Hct 31.1 L MCV 84.5 MCH 29.9 MCHC 35.4 RDW Std Deviation 47.8 H RDW Coeff of Ivan 15.6 H Plt Count 250 MPV 9.2 L Immature Gran % (Auto) 0.2 Neut % (Auto) 45.9 Lymph % (Auto) 42.6 Walker % (Auto) 9.3 Eos % (Auto) 1.6 Baso % (Auto) 0.4 Neut # (Auto) 2.51 Lymph # (Auto) 2.33 Walker # (Auto) 0.51 Eos # (Auto) 0.09 Baso # (Auto) 0.02 Immature Gran # (Auto) 0.01 ESR VBG pH Sodium Potassium Chloride Carbon Dioxide Anion Gap BUN Creatinine Est Cr Clr Drug Dosing Est GFR ( Amer) Est GFR (Non-Af Amer) BUN/Creatinine Ratio Glucose POC Glucose Calcium Phosphorus 2.5 D Magnesium 2.1 Iron 152 H Transferrin 217 Ferritin C-Reactive Protein Vitamin B12 375 25-OH Vitamin D Total 15.6 L 08/03/22 08/02/22 08/02/22 03:45 23:23 22:48 WBC RBC Hgb Hct MCV MCH MCHC RDW Std Deviation RDW Coeff of Ivan Plt Count MPV Immature Gran % (Auto) Neut % (Auto) Lymph % (Auto) Walker % (Auto) Eos % (Auto) Baso % (Auto) Neut # (Auto) Lymph # (Auto) Walker # (Auto) Eos # (Auto) Baso # (Auto) Immature Gran # (Auto) ESR VBG pH Sodium 139 Potassium 3.0 L Chloride 111 H Carbon Dioxide 14 L Anion Gap 14 H BUN 6 Creatinine 0.70 Est Cr Clr Drug Dosing 114.0 Est GFR ( Amer) 138.6 Est GFR (Non-Af Amer) 119.6 BUN/Creatinine Ratio 8.6 L Glucose 67 L POC Glucose 82 73 Calcium 8.1 L Phosphorus 1.4 L* Magnesium Iron Transferrin Ferritin C-Reactive Protein Vitamin B12 25-OH Vitamin D Total 08/02/22 08/02/22 08/02/22 20:47 20:30 20:29 WBC RBC Hgb Hct MCV MCH MCHC RDW Std Deviation RDW Coeff of Ivan Plt Count MPV Immature Gran % (Auto) Neut % (Auto) Lymph % (Auto) Walker % (Auto) Eos % (Auto) Baso % (Auto) Neut # (Auto) Lymph # (Auto) Walker # (Auto) Eos # (Auto) Baso # (Auto) Immature Gran # (Auto) ESR VBG pH Sodium Potassium Chloride Carbon Dioxide Anion Gap BUN Creatinine Est Cr Clr Drug Dosing Est GFR ( Amer) Est GFR (Non-Af Amer) BUN/Creatinine Ratio Glucose POC Glucose 126 H 64 L* 64 L* Calcium Phosphorus Magnesium Iron Transferrin Ferritin C-Reactive Protein Vitamin B12 25-OH Vitamin D Total 08/02/22 08/02/22 08/02/22 20:16 20:15 18:25 WBC RBC Hgb Hct MCV MCH MCHC RDW Std Deviation RDW Coeff of Ivan Plt Count MPV Immature Gran % (Auto) Neut % (Auto) Lymph % (Auto) Walker % (Auto) Eos % (Auto) Baso % (Auto) Neut # (Auto) Lymph # (Auto) Walker # (Auto) Eos # (Auto) Baso # (Auto) Immature Gran # (Auto) ESR VBG pH Sodium 139 Potassium 3.4 L Chloride 112 H Carbon Dioxide 14 L Anion Gap 13 H BUN 6 Creatinine 0.76 Est Cr Clr Drug Dosing 105.0 Est GFR ( Amer) 125.5 Est GFR (Non-Af Amer) 108.3 BUN/Creatinine Ratio 7.9 L Glucose 69 L POC Glucose 58 L* 59 L* Calcium 8.0 L Phosphorus Magnesium Iron Transferrin Ferritin C-Reactive Protein Vitamin B12 25-OH Vitamin D Total 08/02/22 08/02/22 08/02/22 16:32 16:12 16:11 WBC RBC Hgb Hct MCV MCH MCHC RDW Std Deviation RDW Coeff of Ivan Plt Count MPV Immature Gran % (Auto) Neut % (Auto) Lymph % (Auto) Walker % (Auto) Eos % (Auto) Baso % (Auto) Neut # (Auto) Lymph # (Auto) Walker # (Auto) Eos # (Auto) Baso # (Auto) Immature Gran # (Auto) ESR VBG pH Sodium Potassium Chloride Carbon Dioxide Anion Gap BUN Creatinine Est Cr Clr Drug Dosing Est GFR ( Amer) Est GFR (Non-Af Amer) BUN/Creatinine Ratio Glucose POC Glucose 93 69 L* 69 L* Calcium Phosphorus Magnesium Iron Transferrin Ferritin C-Reactive Protein Vitamin B12 25-OH Vitamin D Total 08/02/22 08/02/22 08/02/22 15:54 12:00 10:48 WBC RBC Hgb Hct MCV MCH MCHC RDW Std Deviation RDW Coeff of Ivan Plt Count MPV Immature Gran % (Auto) Neut % (Auto) Lymph % (Auto) Walker % (Auto) Eos % (Auto) Baso % (Auto) Neut # (Auto) Lymph # (Auto) Walker # (Auto) Eos # (Auto) Baso # (Auto) Immature Gran # (Auto) ESR VBG pH 7.37 Sodium Potassium Chloride Carbon Dioxide Anion Gap BUN Creatinine Est Cr Clr Drug Dosing Est GFR ( Amer) Est GFR (Non-Af Amer) BUN/Creatinine Ratio Glucose POC Glucose 72 Calcium Phosphorus 1.2 L* Magnesium Iron Transferrin Ferritin C-Reactive Protein Vitamin B12 25-OH Vitamin D Total 08/02/22 10:48 WBC RBC Hgb Hct MCV MCH MCHC RDW Std Deviation RDW Coeff of Ivan Plt Count MPV Immature Gran % (Auto) Neut % (Auto) Lymph % (Auto) Walker % (Auto) Eos % (Auto) Baso % (Auto) Neut # (Auto) Lymph # (Auto) Walker # (Auto) Eos # (Auto) Baso # (Auto) Immature Gran # (Auto) ESR VBG pH Sodium 139 Potassium 3.3 L Chloride 111 H Carbon Dioxide 11 L Anion Gap 17 H BUN 7 Creatinine 0.74 Est Cr Clr Drug Dosing 107.8 Est GFR ( Amer) 129.6 Est GFR (Non-Af Amer) 111.8 BUN/Creatinine Ratio 9.5 L Glucose 71 POC Glucose Calcium 7.8 L Phosphorus 1.7 L Magnesium 2.0 Iron Transferrin Ferritin C-Reactive Protein Vitamin B12 25-OH Vitamin D Total
[2022-08-03 08:00] LABS: Vitamin D, 25 Hydrox 15.6 ng/ml (30-100)
--- NOTE | 2022-08-03 08:29 | Electrocardiogram Report ---
Test Reason : Blood Pressure : / mmHG Vent. Rate : 084 BPM Atrial Rate : 084 BPM P-R Int : 138 ms QRS Dur : 082 ms QT Int : 400 ms P-R-T Axes : 032 055 026 degrees QTc Int : 472 ms Normal sinus rhythm Normal ECG When compared with ECG of 02-AUG-2022 08:40, No significant change was found Confirmed by Avery Mae ([id number]) on 08/03/2022 8:29:31 AM Referred By: REFERRED SELF Confirmed By:Avery Mae
[2022-08-03] MEDS: DOCUSATE SODIUM 100 MG CAP PO SCH ×2 (08:47→21:26)
[2022-08-03] MEDS: SERTRALINE HCL 100 MG TABLET PO SCH (08:47)
[2022-08-03] MEDS: CHOLECALCIFEROL 1,000 UNITS 25 MCG TAB PO SCH (08:47)
[2022-08-03 08:48] LABS: Anion Gap 14 (3-11); BUN Creatinine Ratio 7.4 (10-20); Blood Urea Nitrogen 5 mg/dl (6-23); C Reactive Protein < 0.50 mg/dl (0-0.5); Calcium 8.3 mg/dl (8.6-10.3); Carbon Dioxide 16 mmol/L (21-32); Chloride 109 mmol/L (98-107); Creatinine Clr Calc Pharmacy 117.4 ml/min; Est GFR (African American) 139.9 ml/min; Est GFR (Non-African American) 120.7 ml/min; Glucose 74 mg/dl (70-99(Fasting)); Magnesium 2.1 mg/dl (1.7-2.4); Phosphorus 2.6 mg/dl (2.5-4.9); Potassium 3.2 mmol/L (3.5-5.1); Sodium 139 mmol/L (136-145)
[2022-08-03] MEDS ORDERED: POLYETHYLENE (MIRALAX) 17 GM PACK PO SCH (09:00)
[2022-08-03 09:08] LABS: Ferritin 209.1 ng/ml (8-388)
[2022-08-03] MEDS: THIAMINE HCL 200 MG in SODIUM CHLORIDE 0.9% 50 ML IV SCH (09:24)
[2022-08-03] MEDS: PANTOprazole 40 MG in SYRINGE 0 ML IV SCH ×2 (09:24→21:28)
[2022-08-03] MEDS ORDERED: POTASSIUM PHOSPHATE 9 MMOL in SODIUM CHLORIDE 0.9% 250 ML IV ONE (09:33)
[2022-08-03] MEDS: CARBOHYDRATES FOR HYPOGLYCEMIA PO PRN ×2 (11:29→16:11)
[2022-08-03] MEDS: POTASSIUM CHLORIDE / WTR 10 MEQ/100 ML PLCT IV SCH ×2 (11:55→13:05)
[2022-08-03] MEDS ORDERED: POTASSIUM CHLORIDE CRTAB 20 MEQ TABCR PO STA (12:27)
[2022-08-03] MEDS ORDERED: ERGOCALCIFEROL 50,000 UNITS 1250 MCG CAP PO SCH (12:30)
[2022-08-03 12:53] LABS: BUN Creatinine Ratio 6.6 (10-20); Calcium 8.4 mg/dl (8.6-10.3); Est GFR (African American) 125.5 ml/min; Est GFR (Non-African American) 108.3 ml/min; Potassium 3.3 mmol/L (3.5-5.1)
[2022-08-03 13:59] LABS: Magnesium 2.1 mg/dl (1.7-2.4); Phosphorus 2.2 mg/dl (2.5-4.9)
[2022-08-03] MEDS ORDERED: POTASSIUM PHOSPHATE 15 MMOL in SODIUM CHLORIDE 0.9% 250 ML IV ONE (14:30)
[2022-08-03] MEDS: PROMETHAZINE HCL 6.25 MG in SODIUM CHLORIDE 0.9% 50 ML IV SCH ×2 (14:59→19:46)
--- NOTE | 2022-08-03 15:45 | Gastrointestinal Consultation ---
Date of Consultation August 03, 2022 Assessment & Plan (1) Nausea and vomiting: (2) Constipation: Plan Patient with years long history of nausea with worsening of symptoms as well as vomiting a week ago. she has had resolution of the vomiting since admission but has had ongoing nausea. she admits to typically only eating one meal a day on average and does admit to not moving bowels in over a week which is worse than her baseline constipation. Discussed case with Dr. Solorzano who helped advise on plan. - check KUB to further assess. - will start patient on miralax 17gm bid. - continue with protonix 40mg IV BID. - continue with zofran and promethazine q 6 hours as needed for nausea. - would recommend psych consultation to weigh in on symptoms. She does have a history of self harm, OCD, depression, and admits to typically only eating one meal a day. she denies restricting diet, but may possibly have a component of an eating disorder. Supervising Physician Co-Signing Physician Notes Agree with ELVIS Ayala as above Discussed plan in detail Abd: Soft, NT, ND, +BS Continue current therapy and supportive care She will need f/u as an outpatient when discharged History of Present Illness Reason for Consultation: Intractable nausea with starvation ketosis. Requesting Physician: Dr. Thornton Attending Physician: Belinda Thornton MD History of Present Illness Patient is a 26 year old female who is admitted with complaints of worsening nausea, vomiting for the past week. She tells me that she has had issues with nausea for years but this current episode is worse than typical. When symptoms started a week ago the nausea was accompanied with vomiting but this subsided once admitted. she tells me she has had no further vomiting since admission but has ongoing nausea that is worse with eating. Currently she tells me that she tolerates clears other than jello. She admits she never had much of an appetite and usually only eats one time a day telling me she just does not get hungry. she admits she had been using aleve prior to admission for headaches. She has not had a bowel movement in over a week. she is passing gas. she tells me she has always had issues with constipation but that this is worse than usual as she will normally have 2-3 bowel movements a day. She denies any etoh use on a regular basis. She does admit to marijuana use 2-3 times a week for her nausea. she does admit to initial polyuria but she tells me this is more back to normal. she denies any heartburn, abdominal pain, brbpr, or melena. she has never seen GI in the past. She denies restricting her diet. Per her chart, she does have a history of self harm with last episode of cutting 1.5 months ago. she also has history of anxiety/depression/OCD. Allergies Allergy/AdvReac Type Severity Reaction Status Date / Time No Known Allergies Allergy Verified 08/01/22 17:50 Home Medications Medication Instructions Recorded Confirmed Type norethindrone 1 mg-ethinyl 1 tab PO DAILY #84 tabs 04/24/22 08/01/22 Rx estradiol 20 mcg (21)-iron 75 mg (7) tablet ([place] Fe 03/23 ()) sertraline 100 mg tablet 100 mg PO DAILY 04/24/22 08/01/22 History trazodone 50 mg tablet 50 mg PO DAILY PRN Sleep 04/24/22 08/01/22 History valacyclovir 500 mg tablet 500 mg PO DAILY 90 days #90 tabs 07/06/22 08/01/22 Rx (Valtrex) aripiprazole 5 mg tablet 5 mg PO DAILY 08/01/22 08/01/22 History Patient History Medical History Anxiety and depression Genital HSV HSV1 serotype Surgical History H/O wisdom tooth extraction S/P foot surgery S/P LEEP 06/2022 S/P right oophorectomy right ovarian torsion Status post colposcopy Family History Father Myocardial infarction, Onset Age: 57 Heart disease Mother Diabetes Hypertension Social History Smoking Status: Never smoker Second Hand Exposure: No; Do You Dip or Chew Tobacco: No; Tobacco Cessation Education Requested by Patient: No Hx Alcohol Use: Yes Alcohol type: wine Alcohol Intake Frequency: Monthly or Less Hx Substance Use: Yes Last Used Substance: Days (ago) Preferred Language: Syrian Communication Ability: Effective Hearing Ability: Normal Superintendent Marine Required: No Beliefs That Will Affect Care: None Current Living Situation: Significant Other current occupational status: employed Other Information That Helps Us Care for You: No Feels Safe at Home: Yes Safety Concerns: Feels Safe At This Time Diet: regular caffeine: Yes Dental Care, Regularly: Yes Seatbelt Use: always Sunscreen Use: Yes Assistive Devices: None Review of Systems Review of Systems: All systems reviewed & are unremarkable except as noted in HPI & below Physical Exam Constitutional: WD/WN, vitals as above Respiratory: normal respiratory effort, lungs clear to auscultation Cardiovascular: RRR, no murmur, no edema Gastrointestinal (Abdomen): normal bowel sounds, soft, nontender, no hepatosplenomegaly Skin: no rashes, warm and dry Psychiatric: Orientation: alert and oriented x 3 Results & Data Vital Signs (Past 12 Hours) Vital Signs Temp Pulse Pulse Resp BP Pulse Ox O2 Del Method 08/03/22 15:39 98.1 F 86 18 106/68 99 Room Air 08/03/22 15:15 102 H 08/03/22 11:19 97.9 F 95 H 18 105/67 100 Room Air 08/03/22 07:50 84 08/03/22 07:23 97.9 F 97 H 18 105/65 97 Room Air 08/03/22 03:46 98.2 F 89 18 103/66 98 Room Air PG Care Time/CCT Total # of Minutes Spent Total Time Spent with Patient: Total time spent is greater than 50% in coordination of care (as documented) at patient's floor/unit and/or counseling patient: Coding Level of Care Code 30033 IN/OBS CONSULT LVL 3,45M Diagnoses Nausea and vomiting R11.2 Constipation K59.00 Time Spent (min) 51
--- NOTE | 2022-08-03 17:40 | XRay Report ---
XR KUB/Abdomen 1 view CLINICAL HISTORY: nausea / constipation TECHNIQUE: 1 view of the abdomen was obtained. Comparison: None available at the time of this dictation. FINDINGS: Lung bases are unremarkable. The osseous structures are grossly unremarkable. The bowel gas pattern i s nonobstructive. A moderate amount of stool is noted within the large bowel. IMPRESSION: Nonobstructive bowel gas pattern. ACT 112: Negative or not required by law. Electronically signed by: Robin Ambriz M.D. 08/03/2022 5:39 PM
[2022-08-03] MEDS ORDERED: APIXABAN 5 MG TABLET PO SCH (21:00)
[2022-08-03] MEDS: POLYETHYLENE (MIRALAX) 17 GM PACK PO SCH (21:28)
[2022-08-03 22:05] LABS: BUN Creatinine Ratio 5.6 (10-20); Calcium 9.2 mg/dl (8.6-10.3); Creatinine Clr Calc Pharmacy 110.8 ml/min; Est GFR (Non-African American) 115.6 ml/min; Magnesium 2.1 mg/dl (1.7-2.4); Phosphorus 2.3 mg/dl (2.5-4.9); Potassium 3.3 mmol/L (3.5-5.1)
[2022-08-03 22:07] LABS: Potassium Random Urine 10.3 mmol/L
[2022-08-04] MEDS: PROMETHAZINE HCL 6.25 MG in SODIUM CHLORIDE 0.9% 50 ML IV SCH ×2 (01:52→08:39)
[2022-08-04] MEDS ORDERED: POTASSIUM PHOS 3 MMOL/1 ML INFUSION IV STA (06:13)
[2022-08-04] MEDS ORDERED: POTASSIUM PHOSPHATE 15 MMOL in SODIUM CHLORIDE 0.9% 250 ML IV ONE (06:30)
[2022-08-04 06:58] LABS: BUN Creatinine Ratio 9.8 (10-20); Calcium 8.7 mg/dl (8.6-10.3); Creatinine Clr Calc Pharmacy 130.8 ml/min; Est GFR (Non-African American) 125.1 ml/min; Magnesium 2.1 mg/dl (1.7-2.4); Phosphorus 2.7 mg/dl (2.5-4.9)
--- NOTE | 2022-08-04 07:47 | Hospitalist Progress Note ---
Date of Service August 04, 2022 Assessment & Plan (1) Metabolic acidosis, increased anion gap: Plan: Tom Nava) is a 26 y/o F with PMHx of IBS-C/D, depression, anxiety and traumatic OCD who presented to the ED a few weeks after developing the flu, with several days of nausea, vomiting and fatigue who was found to have a mixed non- gap and gap metabolic acidosis secondary to ketoacidosis. Her presentation is most concerning for refeeding syndrome. Mixed AGMA and Non-gap Acidosis Starvation Ketoacidosis - Initial AG 21, HCO3 3, ABG pH 7.15 (pCO2 9, pHCO3 3) - Supported by ketonuria and notably low PO intake with recent n/v. Lactate ne gative. Tox screen negative. - Lower suspicion for underlying/concurrent RTA based on progressive improvement, urine lytes - Improving on daily checks Refeeding Syndrome - Weight down about 16 lbs since Apr. Prior to acute GI symptoms, reported eating ~1 meal + snack/day in setting of IBS-C-like symptoms. Underlying eating disorder cannot be excluded though denies sxs. - Appetite improving with nausea control. Clears again today. Can trial a few saltines if she'd like. - Lytes definitely improving but still low. Continuing with aggressive KPhos repletion. --> Unable to tolerate IV KCl. Will schedule oral KCl at 40 b.i.d. --> KPhos IV as needed --> BMP q12h checks - Thiamine and MVI daily - Vitamin D repletion initiated -- D2 at 50,000U/wk x 8 weeks - Therapy Aide following, recommendations appreciated: Advance diet. Can try crackers and full liquids. - Aim for K>4, Phos>3, Mg>2 - Scheduled Phenergan, PPIs to aid with n/v - Counselling provided on dietary intake -- will need to continuously revisit throughout admission Prolonged QTc -- on arrival, 512ms - Very likely secondary to malnutrition and electrolyte disturbances, particularly K - ECGs daily, monitor on telemetry - Avoid QTc-prolonging agents Chronic Constipation IBS-C - Last bowel movement was ~1 week ago [employer]; though reports loose stools prior to that - Celiac panel pending. Fecal calprotectin ordered. ESR/CRP normal. - GI consulted with symptom history and notable lyte abnormalities: no intervention or further testing at this time - Outpatient GI follow up to be established. Urinary Urgency -- resolved - Reported voiding significantly in days [employer] - UA suspicious, though culture negative and symptoms resolved - Urine concentrated with UOsm 783 Anxiety / Depression / OCD - Sertraline, trazodone - Recently prescribed aripriprazole but hasn't initiated. Hold for now, especially while QTc is recovering DVT ppx: low risk FENGI: clear liquid, advance as tolerated Dispo: telemetry Code: Full (2) Refeeding syndrome: (3) IBS (irritable colon syndrome): (4) Nausea and vomiting: (5) Depression: Admission and Anticipated Discharge Date Admission Date: August 01, 2022 Supervising Physician Co-Signing Physician Notes Resident Physician Supervision Note: I independently interviewed and examined the patient and verified the marion history and physical, reviewed labs and image studies and agree with resident findings and care plan. Subjective Better nausea control today. Feels like the Phenergan is helping. Feels like she may have BM today. No pain, no emesis. Voiding well. Tells me that before the last 2 weeks, was eating about 1 meal a day and maybe 1 snack in the afternoon. 1 snack was usually cup of fruit. 1 meal is usually sandwich + side; doesn't always finish. Says appetite is OK but not great at baseline. No c/o body image. Review of Systems Review of Systems: as per HPI Physical Exam Physical Exam: General: Well appearing 26-year old female who is alert, oriented, and is in NAD. HEENT: NCAT. - Eyes - Sclera are white, anicteric, and without injection. - Mouth - MMM - Neck - supple, no appreciable JVD Cardiac: Normal rate and regular rhythm; S1 and S2 present with no murmur detected Pulmonary: Good respiratory effort with symmetric expansion of the chest. No use of accessory muscles. Lungs were CTAB Abdominal: Normoactive bowel sounds. Abdomen was soft, nondistended, and non- tender to palpation. Extremities: Upper and lower extremities are warm and well perfused. No peripheral edema in the lower extremities bilaterally Results & Data Results & Data Vital Signs (Past 12 Hours) Vital Signs Temp Pulse Pulse Resp BP Pulse Ox O2 Del Method 08/04/22 03:48 36.9 C 89 18 99/64 L 99 Room Air 08/03/22 22:45 37.0 C 89 18 109/68 98 Room Air 08/03/22 22:51 81 Resident Activity Tracking Resident Involvement: Resident Care Provided Care Provided: Adult Hospital Medicine
[2022-08-04] MEDS: CHOLECALCIFEROL 1,000 UNITS 25 MCG TAB PO SCH (08:12)
[2022-08-04] MEDS: DOCUSATE SODIUM 100 MG CAP PO SCH ×2 (08:12→20:36)
[2022-08-04] MEDS: POTASSIUM CHLORIDE CRTAB 20 MEQ TABCR PO SCH ×2 (08:12→20:46)
[2022-08-04] MEDS: POLYETHYLENE (MIRALAX) 17 GM PACK PO SCH ×2 (08:13→20:33)
[2022-08-04] MEDS: PANTOprazole 40 MG in SYRINGE 0 ML IV SCH ×2 (08:14→20:36)
[2022-08-04] MEDS: MULTI VIT W/MINERALS LIQUID 15 ML UDP PO SCH (08:14)
[2022-08-04] MEDS: THIAMINE HCL 200 MG in SODIUM CHLORIDE 0.9% 50 ML IV SCH (08:21)
[2022-08-04] MEDS ORDERED: PROMETHAZINE HCL 6.25 MG in SODIUM CHLORIDE 0.9% 50 ML IV ONE (09:30)
[2022-08-04] MEDS: SERTRALINE HCL 100 MG TABLET PO SCH (10:06)
[2022-08-04] MEDS: PROMETHAZINE HCL 12.5 MG in SODIUM CHLORIDE 0.9% 50 ML IV SCH ×2 (15:29→20:49)
--- NOTE | 2022-08-04 15:58 | Electrocardiogram Report ---
Test Reason : Blood Pressure : / mmHG Vent. Rate : 095 BPM Atrial Rate : 095 BPM P-R Int : 134 ms QRS Dur : 086 ms QT Int : 382 ms P-R-T Axes : 039 070 054 degrees QTc Int : 480 ms Normal sinus rhythm Prolonged QT Abnormal ECG When compared with ECG of 03-AUG-2022 03:56, No significant change was found Confirmed by Clark Vaughan ([id number]) on 08/04/2022 3:57:49 PM Referred By: REFERRED SELF Confirmed By:Fabricio Vaughan
[2022-08-04 17:13] LABS: Magnesium 2.1 mg/dl (1.7-2.4)
[2022-08-04 17:18] LABS: Phosphorus 3.6 mg/dl (2.5-4.9)
[2022-08-04 17:21] LABS: BUN Creatinine Ratio 12.1 (10-20); Calcium 9.3 mg/dl (8.6-10.3); Creatinine Clr Calc Pharmacy 120.9 ml/min; Est GFR (African American) 141.3 ml/min; Est GFR (Non-African American) 121.9 ml/min; Potassium 3.1 mmol/L (3.5-5.1)
[2022-08-05] MEDS: PROMETHAZINE HCL 12.5 MG in SODIUM CHLORIDE 0.9% 50 ML IV SCH ×2 (03:39→07:53)
[2022-08-05 06:17] LABS: Marijuana Quant, GCMS Urine 26 ng/mL (<5)
[2022-08-05 06:24] LABS: BUN Creatinine Ratio 15.9 (10-20); Calcium 8.7 mg/dl (8.6-10.3); Creatinine Clr Calc Pharmacy 126.7 ml/min; Est GFR (African American) 143.5 ml/min; Est GFR (Non-African American) 123.8 ml/min; Magnesium 2.1 mg/dl (1.7-2.4); Phosphorus 3.4 mg/dl (2.5-4.9); Potassium 3.2 mmol/L (3.5-5.1)
--- NOTE | 2022-08-05 07:25 | Hospitalist Progress Note ---
Date of Service August 05, 2022 Assessment & Plan (1) Metabolic acidosis, increased anion gap: Plan: Tom Nava) is a 26 y/o F with PMHx of IBS-C/D, depression, anxiety and traumatic OCD who presented to the ED a few weeks after developing the flu, with several days of nausea, vomiting and fatigue who was found to have a mixed non- gap and gap metabolic acidosis secondary to ketoacidosis. Her presentation is most concerning for refeeding syndrome. Mixed AGMA and Non-gap Acidosis Starvation Ketoacidosis- resolved - Initial AG 21, HCO3 3, ABG pH 7.15 (pCO2 9, pHCO3 3) - Supported by ketonuria and notably low PO intake with recent n/v. Lactate negative. Tox screen negative. - Lower suspicion for underlying/concurrent RTA based on progressive improvement, urine lytes Refeeding Syndrome - Weight down about 16 lbs since Apr. Prior to acute GI symptoms, reported eating ~1 meal + snack/day in setting of IBS-C-like symptoms. Underlying eating disorder cannot be excluded though denies sxs. - Appetite improving with nausea control. Clears again today. Can trial a few saltines if she'd like. - Lytes definitely improving but still low. Continuing with aggressive potassium repletion. --> Unable to tolerate IV KCl. Continue scheduled oral KCl at 40 BID, given extra 40 mg 08/05 --> KPhos IV as needed --> BMP q12h checks - Thiamine and MVI daily - Vitamin D repletion initiated -- D2 at 50,000U/wk x 8 weeks - [employer] following, recommendations appreciated: Continue to advance diet as tolerated as vitals/labs stable. - Goal for K>4, Phos>3, Mg>2 - phenergan switched from IV scheduled to PO PRN today - continue PPI - Counselling provided on dietary intake -- will need to continuously revisit throughout admission Chronic Constipation; ?IBS-C - Last bowel movement was ~1 week ago [employer]; though reports loose stools prior to that - Celiac panel pending. Fecal calprotectin ordered. ESR/CRP normal. - GI consulted with symptom history and notable lyte abnormalities: no intervention or further testing at this time - continue miralax BID, colace BID - Outpatient GI follow up to be established Prolonged QTc -- on arrival, 512ms - Very likely secondary to malnutrition and electrolyte disturbances, particularly K - resolved Urinary Urgency -- resolved - Reported voiding significantly in days [employer] Anxiety / Depression / OCD - Sertraline, trazodone - Recently prescribed aripriprazole but hasn't initiated; held on admission since QTc was elevated. considering starting in am/on discharge DVT ppx: low risk FENGI: regular, advance quantity slowly and as tolerated Dispo: PCU w/ telemetry Code: Full (2) Refeeding syndrome: (3) IBS (irritable colon syndrome): (4) Nausea and vomiting: (5) Depression: Admission and Anticipated Discharge Date Admission Date: August 01, 2022 Supervising Physician Co-Signing Physician Notes Resident Physician Supervision Note: I independently interviewed and examined the patient and verified the marion history and physical, reviewed labs and image studies and agree with resident findings and care plan. Subjective Pt overall feeling much better. Less nausea, no vomiting. She ate 1 whole piece of faroese toast for breakfast this AM. Review of Systems Review of Systems: As per HPI Physical Exam Physical Exam: Constitutional: well appearing, no acute distress HEENT: normocephalic, no conjunctival injection CV: RRR, no murmur, no LE edema Respiratory: CTA bilaterally. No rhonchi, wheezes, or crackles. No increased work of breathing MSK: no gross deformities noted Skin: warm, dry, no rashes Neuro: alert, oriented, no FND noted Psych: mood and affect congruent Results & Data Results & Data Vital Signs (Past 12 Hours) Vital Signs Temp Pulse Pulse Resp BP BP Pulse Ox 08/05/22 03:34 36.7 C 85 16 99/62 L 98 08/05/22 00:00 88 08/04/22 22:58 36.8 C 77 16 104/68 98 08/04/22 19:34 36.8 C 91 H 18 105/69 97 O2 Del Method 08/05/22 03:34 Room Air 08/05/22 00:00 08/04/22 22:58 Room Air 08/04/22 19:34 Room Air Resident Activity Tracking Resident Involvement: Resident Care Provided Care Provided: Adult Hospital Medicine
[2022-08-05] MEDS ORDERED: POTASSIUM CHLORIDE CRTAB 20 MEQ TABCR PO ONE (07:30)
[2022-08-05] MEDS: POLYETHYLENE (MIRALAX) 17 GM PACK PO SCH ×2 (07:50→21:10)
[2022-08-05] MEDS: PANTOprazole 40 MG in SYRINGE 0 ML IV SCH (07:52)
[2022-08-05] MEDS: SERTRALINE HCL 100 MG TABLET PO SCH (07:52)
[2022-08-05] MEDS: CHOLECALCIFEROL 1,000 UNITS 25 MCG TAB PO SCH (07:52)
[2022-08-05] MEDS: POTASSIUM CHLORIDE CRTAB 20 MEQ TABCR PO SCH (07:52)
[2022-08-05] MEDS: DOCUSATE SODIUM 100 MG CAP PO SCH ×2 (07:52→21:10)
[2022-08-05] MEDS: MULTI VIT W/MINERALS LIQUID 15 ML UDP PO SCH (07:53)
[2022-08-05] MEDS: THIAMINE HCL 200 MG in SODIUM CHLORIDE 0.9% 50 ML IV SCH (08:07)
[2022-08-05] MEDS ORDERED: POLYETHYLENE (MIRALAX) 17 GM PACK PO SCH (11:45)
[2022-08-05] MEDS ORDERED: PROMETHAZINE HCL 25 MG TAB PO SCH (13:00)
[2022-08-05] MEDS ORDERED: PROMETHAZINE HCL 25 MG TAB PO PRN (14:00)
[2022-08-05 17:52] LABS: BUN Creatinine Ratio 19.3 (10-20); Calcium 8.9 mg/dl (8.6-10.3); Est GFR (African American) 148.3 ml/min; Est GFR (Non-African American) 127.9 ml/min; Phosphorus 2.6 mg/dl (2.5-4.9); Potassium 3.8 mmol/L (3.5-5.1)
[2022-08-05] MEDS ORDERED: CONTRACEPTIVE PO SCH (21:00)
[2022-08-05] MEDS ORDERED: JUNEL FE PO SCH (21:00)
[2022-08-05] MEDS: PANTOprazole 40 MG TAB PO SCH (21:10)
[2022-08-06 06:22] LABS: Anion Gap 7 (3-11); BUN Creatinine Ratio 17.6 (10-20); Blood Urea Nitrogen 9 mg/dl (6-23); Carbon Dioxide 27 mmol/L (21-32); Chloride 103 mmol/L (98-107); Creatinine Clr Calc Pharmacy 156.5 ml/min; Est GFR (African American) > 150.0 ml/min; Est GFR (Non-African American) 132.7 ml/min; Glucose 90 mg/dl (70-99(Fasting)); Magnesium 2.1 mg/dl (1.7-2.4); Phosphorus 2.8 mg/dl (2.5-4.9); Potassium 4.2 mmol/L (3.5-5.1); Sodium 137 mmol/L (136-145)
--- NOTE | 2022-08-06 07:26 | Discharge Summary ---
Date of Service August 06, 2022 Admission HPI Per Admitting Provider Tom Gonzalez is a 26 year old female who presents to the ER with nausea, vomiting and polyuria. She reports symptoms started on Saturday night. Progressively getting worse until today with associated vomiting the last 2 days. Decreased bowel movements but no diarrhea or constipation. No abdominal pain. She reports marijuana use but last smoked on Saturday and never had hyperemesis related to this before. She reports a few alcohol drinks on Saturday prior to her nausea vomiting but she is not a frequent heavy drinker. Associated polyuria with passing large amounts of urine. No dysuria, fever or chills. She reports having influenza causing nausea and vomiting at the beginning of the month No recent medications changes except Abilify which she has picked up but not yet started. This was started to help her with OCD. She hasn't taken her other medications since Saturday due to nausea and vomiting. Principal Diagnosis Metabolic acidosis secondary to ketoacidosis Discharge Exam Appearance: NAD, lying supine in bed Cardio: normal S1,S2, no M/R/G Resp: CTA BL without rhonchi/rales/wheeze Abd: active bowel sounds, no abdominal distention, no pain/rebound/guarding to palpation Extremities: no skin changes, no edema in LE BL Neuro: answering questions appropriately, AOX3 Discharge Data Allergies Allergy/AdvReac Type Severity Reaction Status Date / Time No Known Allergies Allergy Verified 08/01/22 17:50 Consultations 08/01/22 17:30 ED Decision to Admit Stat 08/03/22 14:18 Consult Gastroenterology Routine Ordered Studies Laboratory Results WBC 5.47 K/ul (4.8-10.8) 08/03/22 06:11 RBC 3.68 M/uL (4.20-5.40) L 08/03/22 06:11 Hgb 11.0 g/dl (12.0-16.0) L 08/03/22 06:11 Hct 31.1 % (37.0-47.0) L 08/03/22 06:11 MCV 84.5 fL (80.0-100.0) 08/03/22 06:11 MCH 29.9 pg (25.0-34.0) 08/03/22 06:11 MCHC 35.4 g/dL (32.0-36.0) 08/03/22 06:11 RDW Std Deviation 47.8 fL (36.4-46.3) H 08/03/22 06:11 RDW Coeff of Ivan 15.6 % (11.5-14.5) H 08/03/22 06:11 Plt Count 250 K/uL (130-400) 08/03/22 06:11 MPV 9.2 fL (9.4-12.4) L 08/03/22 06:11 Immature Gran % (Auto) 0.2 % 08/03/22 06:11 Neut % (Auto) 45.9 % 08/03/22 06:11 Lymph % (Auto) 42.6 % 08/03/22 06:11 [place] % (Auto) 9.3 % 08/03/22 06:11 Eos % (Auto) 1.6 % 08/03/22 06:11 Baso % (Auto) 0.4 % 08/03/22 06:11 Neut # (Auto) 2.51 K/uL (1.40-6.50) 08/03/22 06:11 Lymph # (Auto) 2.33 K/uL (1.2-3.4) 08/03/22 06:11 [place] # (Auto) 0.51 K/uL (0.11-0.59) 08/03/22 06:11 Eos # (Auto) 0.09 K/uL (0-0.50) 08/03/22 06:11 Baso # (Auto) 0.02 K/uL (0-0.2) 08/03/22 06:11 Immature Gran # (Auto) 0.01 K/uL (0.01-0.20) 08/03/22 06:11 ESR 6 mm/hr (0-20) 08/03/22 06:11 ABG pH 7.15 (7.35-7.45) L* 08/01/22 17:56 ABG pCO2 9 mmHg (35-46) L 08/01/22 17:56 ABG pO2 127 mmHg (80-95) H 08/01/22 17:56 ABG HCO3 3 mmol/L (19-24) L 08/01/22 17:56 ABG O2 Saturation 99.4 % (90-95) H 08/01/22 17:56 ABG Base Excess -23.0 mEq/L (-9-1.8) L 08/01/22 17:56 Jordan Test Pos (Pos) 08/01/22 17:56 VBG pH 7.37 (7.36-7.41) 08/02/22 10:48 Oxygen Given ROOM AIR 08/01/22 17:56 Sodium 137 mmol/L (136-145) 08/06/22 05:21 Potassium 4.2 mmol/L (3.5-5.1) 08/06/22 05:21 Chloride 103 mmol/L (98-107) 08/06/22 05:21 Carbon Dioxide 27 mmol/L (21-32) 08/06/22 05:21 Anion Gap 7 (3-11) 08/06/22 05:21 BUN 9 mg/dl (6-23) 08/06/22 05:21 Creatinine 0.51 mg/dl (0.6-1.2) L 08/06/22 05:21 Est Cr Clr Drug Dosing 156.5 ml/min 08/06/22 05:21 Est GFR ( Amer) > 150.0 ml/min 08/06/22 05:21 Est GFR (Non-Af Amer) 132.7 ml/min 08/06/22 05:21 BUN/Creatinine Ratio 17.6 (10-20) 08/06/22 05:21 Glucose 90 mg/dl (70-99(Fasting)) 08/06/22 05:21 POC Glucose 90 mg/dl (70-99) 08/06/22 07:28 Estimat Average Glucose 108 mg/dl 08/01/22 17:50 Hemoglobin A1c 5.4 % (4.5-5.6) 08/01/22 17:50 Osmolality 296 mOsm/kg (280-300) 08/01/22 17:49 Lactate 0.5 mmol/L (0.4-2.0) 08/01/22 17:50 Calcium 9.0 mg/dl (8.6-10.3) 08/06/22 05:21 Phosphorus 2.8 mg/dl (2.5-4.9) 08/06/22 05:21 Magnesium 2.1 mg/dl (1.7-2.4) 08/06/22 05:21 Iron 152 mcg/dl (35-150) H 08/03/22 06:11 Transferrin 217 mg/dl (200-360) 08/03/22 06:11 Ferritin 209.1 ng/ml (8-388) 08/03/22 07:52 Total Bilirubin 0.5 mg/dl (0.2-1.0) 08/01/22 15:34 AST 20 U/L (13-39) 08/01/22 15:34 ALT 13 U/L (7-52) 08/01/22 15:34 Alkaline Phosphatase 62 U/L (34-104) 08/01/22 15:34 C-Reactive Protein < 0.50 mg/dl (0-0.5) 08/03/22 07:52 Total Protein 9.2 gm/dl (6.0-8.3) H 08/01/22 15:34 Albumin 5.1 gm/dl (3.4-5.0) H 08/01/22 15:34 Globulin 4.1 gm/dl (2.5-4.0) H 08/01/22 15:34 Albumin/Globulin Ratio 1.2 (0.9-2) 08/01/22 15:34 Lipase 16 U/L (11-82) 08/01/22 15:34 Vitamin B12 375 pg/ml (180-914) 08/03/22 06:11 25-OH Vitamin D Total 15.6 ng/ml (30-100) L 08/03/22 06:11 Procalcitonin < 0.05 ng/ml (0-0.5) 08/01/22 17:49 HCG, Qual Negative (Negative) 08/01/22 15:34 Urine Color Yellow 08/01/22 17:22 Urine Appearance Clear (Clear) 08/01/22 17:22 Urine pH 6.0 (4.5-7.5) 08/01/22 17:22 Ur Specific [place] 1.022 (1.000-1.030) 08/01/22 17:22 Urine Protein 2+ (Negative) H 08/01/22 17:22 Urine Glucose (UA) Negative (Negative) 08/01/22 17:22 Urine Ketones 4+ (Negative) H 08/01/22 17:22 Urine Blood 2+ (Negative) H 08/01/22 17:22 Urine Nitrite Negative (Negative) 08/01/22 17:22 Urine Bilirubin Negative (Negative) 08/01/22 17:22 Urine Urobilinogen Negative (Negative) 08/01/22 17:22 Ur Leukocyte Esterase Negative (Negative) 08/01/22 17:22 Urine WBC (Auto) 5-10 /hpf (0-5) H 08/01/22 17:22 Urine RBC (Auto) 0-4 /hpf (0-4) 08/01/22 17:22 U Hyaline Cast (Auto) 5-10 /lpf (0-5) H 08/01/22 17:22 U Epithel Cells (Auto) >30 /lpf (0-5) H 08/01/22 17:22 Urine Bacteria (Auto) 1+ (Negative) H 08/01/22 17:22 Urine Osmolality 783 mOsm/kg (500-800) 08/01/22 17:22 Ur Random Creatinine 66.0 mg/dl 08/03/22 21:30 Ur Random Creatinine Cancelled 08/03/22 21:30 Ur Random Sodium 137 mmol/L 08/03/22 21:30 Ur Random Sodium Cancelled 08/03/22 21:30 Ur Random Potassium 10.3 mmol/L 08/03/22 21:30 Ur Random Potassium Cancelled 08/03/22 21:30 Ur Random Chloride 171 mmol/L 08/03/22 21:30 Urine Test Negative (Negative) 08/01/22 17:22 Salicylates < 3.0 mg/dl (3.0-30) L 08/01/22 17:49 Urine Opiates Screen Neg (Neg) 08/01/22 17:22 Ur Methadone, Qual Neg (Neg) 08/01/22 17:22 Acetaminophen < 3 ug/ml (10-30) L 08/01/22 17:49 Urine Barbiturates Neg (Neg) 08/01/22 17:22 Ur Phencyclidine (PCP) Neg (Neg) 08/01/22 17:22 U Amphetamin/Meth Scrn Neg (Neg) 08/01/22 17:22 MDMA (Ecstasy) Screen Neg (Neg) 08/01/22 17:22 U Benzodiazepines Scrn Neg (Neg) 08/01/22 17:22 Ur Cocaine Metabolite Neg (Neg) 08/01/22 17:22 U Marijuana (THC) Screen Pos (Neg) H 08/01/22 17:22 U Marijuana THC Carboxy 26 ng/mL (<5) H 08/01/22 17:22 Drug Screen Comment SEE NOTE 08/01/22 17:22 Ethyl Alcohol mg/dL < 10.0 mg/dl (<10.0) 08/01/22 17:50 Adenovirus (PCR) Not Detected (NotDetected) 08/01/22 18:00 B. pertussis DNA (PCR) Not Detected (NotDetected) 08/01/22 18:00 B.parapertussis DNA PCR Not Detected (NotDetected) 08/01/22 18:00 C. pneumoniae DNA (PCR) Not Detected (NotDetected) 08/01/22 18:00 Coronavirus OC43 (PCR) Not Detected (NotDetected) 08/01/22 18:00 Coronavirus HKU1 (PCR) Not Detected (NotDetected) 08/01/22 18:00 Coronavirus 229E (PCR) Not Detected (NotDetected) 08/01/22 18:00 SARS-CoV-2 (PCR) Not Detected (NotDetected) 08/01/22 18:00 Coronavirus NL63 (PCR) Not Detected (NotDetected) 08/01/22 18:00 Human Metapneumovir PCR Not Detected (NotDetected) 08/01/22 18:00 Influenza Type A (PCR) Not Detected (NotDetected) 08/01/22 18:00 Influenza Type B (PCR) Not Detected (NotDetected) 08/01/22 18:00 M. pneumoniae (PCR) Not Detected (NotDetected) 08/01/22 18:00 Parainfluenza 1 (PCR) Not Detected (NotDetected) 08/01/22 18:00 Parainfluenza 2 (PCR) Not Detected (NotDetected) 08/01/22 18:00 Parainfluenza 3 (PCR) Not Detected (NotDetected) 08/01/22 18:00 Parainfluenza 4 (PCR) Not Detected (NotDetected) 08/01/22 18:00 RSV (PCR) Not Detected (NotDetected) 08/01/22 18:00 Entero/Rhino (PCR) Not Detected (NotDetected) 08/01/22 18:00 Impressions Chest X-Ray 08/01/22 17:59 SINGLE VIEW CHEST CLINICAL HISTORY: Diabetic ketoacidosis. FINDINGS: An AP, portable, upright chest radiograph is obtained. No prior studies are available for comparison at the time of dictation. The examination is mildly degraded by portable technique and patient rotation. The cardiomediastinal silhouette is unremarkable. Question developing airspace opacities at the left lung base. No large pleural effusion or pneumothorax is seen. The bony thorax is grossly intact. IMPRESSION: Question developing airspace opacities at the left lung base. This may be artifactual. Correlate with a dedicated PA and lateral examination. ACT 112: Negative or not required by law. Electronically signed by: Ermias Martinez M.D. 08/02/2022 6:34 AM KUB X-Ray 08/03/22 16:00 XR KUB/Abdomen 1 view CLINICAL HISTORY: nausea / constipation TECHNIQUE: 1 view of the abdomen was obtained. Comparison: None available at the time of this dictation. FINDINGS: Lung bases are unremarkable. The osseous structures are grossly unremarkable. The bowel gas pattern is nonobstructive. A moderate amount of stool is noted within the large bowel. IMPRESSION: Nonobstructive bowel gas pattern. ACT 112: Negative or not required by law. Electronically signed by: Robin Ambriz M.D. 08/03/2022 5:39 PM Hospital Course (1) Metabolic acidosis, increased anion gap: (2) Refeeding syndrome: (3) IBS (irritable colon syndrome): (4) Nausea and vomiting: (5) Depression: Alex Nava) is a 26 y/o F with PMHx of IBS-C/D, depression, anxiety and traumatic OCD who presented to the ED a few weeks after developing the flu, with several days of nausea, vomiting and fatigue who was found to have anion gap metabolic acidosis secondary to ketoacidosis. #anion gap metabolic acidosis, secondary to ketoacidosis Supported by ketonuria and recent decreased PO intake Initial anion gap 21, ABG pH 7.15 (pCO2 9, PO2 127, HCO3 3) With correction, anion gap to 14, pH 7.37 Lactate negative, toxicology noncontributory Low suspicion for renal tubular acidosis due to improvement + urine electrolytes (Na, K+, Cl- all WNL)) #refeeding syndrome - Weight down about 16 lbs since Apr. Prior to acute GI symptoms, reported eating ~1 meal + snack/day in setting of IBS-C-like symptoms. Underlying eating disorder cannot be excluded though denies sxs. - Appetite improving with nausea control. Clears again today. Can trial a few saltines if she'd like. - Lytes definitely improving but still low. Continuing with aggressive potassium repletion. --> Unable to tolerate IV KCl. Continue scheduled oral KCl at 40 BID, given extra 40 mg 08/05 --> KPhos IV as needed --> BMP q12h checks - Thiamine and MVI daily - Vitamin D repletion initiated -- D2 at 50,000U/wk x 8 weeks - Draw Hand following, recommendations appreciated:Continue to advance diet as tolerated as vitals/labs stable. - Goal for K>4, Phos>3, Mg>2 - phenergan switched from IV scheduled to PO PRN today - continue PPI - Counselling provided on dietary intake -- will need to continuously revisit throughout admission #IBS, mixed constipation and diarrhea Last bowel movement was ~1 week before admission. Colace, Miralax. ESR/CRP negative Fecal calprotectin pending Celiac panel pending #reflux Pantoprazole 40mg #nausea, vomiting Promethazine 6.25 mg IV q6hr test negative #urinary urgency, resolved Monitor I/Os, weights HgbA1C 5.4% without glycosuria UA: osmolarity 783, 4+ ketones #anxiety #depression #OCD Resume sertraline 100mg PO daily, PRN trazodone 50mg PO daily Recently prescribed aripiprazole but hasn't started taking yet. Held since QTc was elevated. Can consider starting on discharge. DVT ppx: low risk FENGI: regular diet, advance as tolerated Dispo: telemetry Discharge Plan Discharge Items Patient Disposition: Home - Self-Care Reason For Visit: STARVATION KETOSIS, NAUSEA, VOMITING Discharge Diagnosis: refeeding syndrome Activity: Resume your previous activity Non-emergency contact: Primary Care Provider and Drawing Press Operator Call non-emergency contact if: you have any medication questions and your symptoms worsen Follow-up/Referrals: J Carlos Solorzano, DO [Physician] - (f/u nausea, refeeding syndrome ?eating disorder) Francia Serrano MD [Primary Care Provider] - (f/u nausea, refeeding syndrome) Diet: Regular Addtl Attending Provider Instructions: You were admitted to the hospital for persistent nausea/vomiting. You were treated with IV fluids and nausea medications. Your electrolytes were monitored closely while in the hospital. [Your potassium was consistently low. This should be rechecked at the end of this week.] Prior to discharge, your nausea was under control and you were tolerating a diet well. A discharge summary will be sent to your primary care physician to ensure continuity of care. Please bring this discharge summary with you to your next office appointment so that your provider can review it at that time. Medications: Your medication list has been reviewed and reconciled upon discharge to ensure accuracy and continuity of care. An updated list of all your medications is included with your hospital discharge paperwork. Please review this list closely and make note of any changes to your medications. You were prescribed a nausea medication called Promethazine (also known as Phenergan) which can be taken every 6 hours as needed for nausea. You do not need to take it if you do not feel nauseous. Follow up appointments: - Make a follow up appointment with your PCP within the next week. It is very important that you follow up with them shortly after discharge from the hospital. - You should also follow up with 1-2 weeks with the GI doctor (Dr. Solorzano) for further evaluation. - Keep all of your follow up appointments as already scheduled. If you cannot make an appointment, notify your provider. CONTACT YOUR PRIMARY CARE PROVIDER if you experience any of the following: - Difficulty following your treatment plan - Difficulty taking any of your medications CALL 911 OR GO TO THE EMERGENCY DEPARTMENT if you experience any of the following: - Inability to eat/drink normally due to nausea - Sudden, severe abdominal pain or nausea/vomiting - Severe chest pain or chest pain that radiates to your jaw or arm - Sudden, severe shortness of breath or difficulty breathing Pending Studies at Discharge: Yes Studies:: Fecal calprotectin and Celiac panel Stand-Alone Forms: My [email or web address], Smoking Cessation Medications and DC Order Prescriptions: No Action valacyclovir [Valtrex] 500 mg tablet 500 mg PO DAILY 90 Days Qty: 90 4RF Rx Instructions: Take one pill daily, take one pill twice per day for 3 days at start of outbreak sertraline 100 mg tablet 100 mg PO DAILY trazodone 50 mg tablet 50 mg PO DAILY PRN (Reason: Sleep) norethindrone-e.estradiol-iron [Blisovi Fe 03/23 (28)] 1 mg-20 mcg (21)/75 mg (7) tablet 1 tab PO DAILY Qty: 84 2RF aripiprazole 5 mg tablet 5 mg PO DAILY Admission Data Admit Date/Time: 08/01/22 18:54 Attending Provider: Gage Fernandez Admit Provider: Ramos Rosales Primary Care Provider: Francia Serrano Other Providers: Ramos Rosales ; J Carlos Solorzano
[2022-08-06] MEDS: PANTOprazole 40 MG TAB PO SCH (08:17)
[2022-08-06] MEDS: DOCUSATE SODIUM 100 MG CAP PO SCH (08:17)
[2022-08-06] MEDS: MULTI VIT W/MINERALS LIQUID 15 ML UDP PO SCH (08:17)
[2022-08-06] MEDS: CHOLECALCIFEROL 1,000 UNITS 25 MCG TAB PO SCH (08:17)
[2022-08-06] MEDS: SERTRALINE HCL 100 MG TABLET PO SCH (08:18)
[2022-08-06] MEDS: POLYETHYLENE (MIRALAX) 17 GM PACK PO SCH (08:18)
[2022-08-06] MEDS: THIAMINE HCL 200 MG in SODIUM CHLORIDE 0.9% 50 ML IV SCH (08:46)
--- NOTE | 2022-08-06 12:54 | Discharge Summary ---
Date of Service August 06, 2022 Admission HPI Per Admitting Provider Tom Gonzalez is a 26 year old female who presents to the ER with nausea, vomiting and polyuria. She reports symptoms started on Saturday night. Progressively getting worse until today with associated vomiting the last 2 days. Decreased bowel movements but no diarrhea or constipation. No abdominal pain. She reports marijuana use but last smoked on Saturday and never had hyperemesis related to this before. She reports a few alcohol drinks on Saturday prior to her nausea vomiting but she is not a frequent heavy drinker. Associated polyuria with passing large amounts of urine. No dysuria, fever or chills. She reports having influenza causing nausea and vomiting at the beginning of the month No recent medications changes except Abilify which she has picked up but not yet started. This was started to help her with OCD. She hasn't taken her other medications since Saturday due to nausea and vomiting. Admission Exam Per Admitting Provider Constitutional: WD/WN, vitals as above no acute distress Eyes: PERRL, conjunctivae normal, anicteric sclerae ENMT: external ear and nose normal, oropharynx normal Respiratory: + respiratory distress, + labored breathing, + uses accessory muscles and + tachypneic Auscultation: lungs clear to auscultation bilaterally Cardiovascular: Rate/Rhythm: regular rhythm and + tachycardic Heart Sounds: no murmur Extremities: normal capillary refill; no calf tenderness and no pedal edema Gastrointestinal (Abdomen): normal bowel sounds, soft, nontender, no hepatosplenomegaly Musculoskeletal: no cyanosis or clubbing, extremities motor strength 5/5 Skin: no rashes, warm and dry Neurologic: moves all extremities and awake; not confused Psychiatric: A+Ox3, euthymic affect Principal Diagnosis Mixed Anion Gap Metabolic Acidosis Discharge Exam Constitutional WD/WN, vitals as above Eyes PERRL, conjunctivae normal, anicteric sclerae Respiratory normal respiratory effort, lungs clear to auscultation Cardiovascular RRR, no murmur, no edema Gastrointestinal (Abdomen) normal bowel sounds, soft, nontender, no hepatosplenomegaly Psychiatric A+Ox3, euthymic affect Discharge Data Allergies Allergy/AdvReac Type Severity Reaction Status Date / Time No Known Allergies Allergy Verified 08/01/22 17:50 Consultations 08/01/22 17:30 ED Decision to Admit Stat 08/03/22 14:18 Consult Gastroenterology Routine Hospital Course (1) Metabolic acidosis, increased anion gap: Tom Nava) is a 26 y/o F with PMHx of IBS-C/D, depression, anxiety and traumatic OCD who presented to the ED a few weeks after developing the flu, with several days of nausea, vomiting and fatigue who was found to have a mixed non- gap and gap metabolic acidosis secondary to ketoacidosis. Her presentation is most concerning for refeeding syndrome. Mixed AGMA and Non-gap Acidosis Starvation Ketoacidosis- resolved - Initial AG 21, HCO3 3, ABG pH 7.15 (pCO2 9, pHCO3 3) - Supported by ketonuria and notably low PO intake with recent n/v. Lactate negative. Tox screen negative. - Lower suspicion for underlying/concurrent RTA based on progressive improvement, urine lytes Refeeding Syndrome - Weight down about 16 lbs since Apr. Prior to acute GI symptoms, reported eating ~1 meal + snack/day in setting of IBS-C-like symptoms. Possible contribution to decreased PO intake from anxiety. - Appetite improving with nausea control. Advanced to regular diet along with PRN Phenergan. - Potassium low 3's during admission but normalized to 4.2 on day of discharge. - Received daily thiamine while inpatient. - Vitamin D repletion initiated -- D2 at 50,000U/wk x 8 weeks, sent in for 7 more weeks of Vitamin D repletion. - phenergan switched from IV scheduled to PO PRN tolerated well. Sent prescription for q6h PRN Phenergan. - Counselling provided on dietary intake, including mediterainian diet for constipation as well as adding in Miralax daily and titrating up to 1 bowel movement per day. Prolonged QTc -- on arrival, 512ms - Very likely secondary to malnutrition and electrolyte disturbances, particularly K - ECGs daily showing improvement, day of admission 416. Chronic Constipation; ?IBS-C - Constipated to 1-2 BM per week, at times some diarrhea likely overflow. - Celiac panel pending. Fecal calprotectin ordered. ESR/CRP normal. - GI consulted with symptom history and notable lyte abnormalities: no intervention or further testing at this time - discussed with patient miralax bowel regimen and achieving 1 BM per day and if not at that goal to titrate up the dose of miralax. 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 - UA suspicious, though culture negative and symptoms resolved - Urine concentrated with UOsm 783 (2) Refeeding syndrome: (3) IBS (irritable colon syndrome): (4) Nausea and vomiting: (5) Depression: Total Time Total Time Spent Total Time Spent (In Minutes): <30 Discharge Plan Discharge Items Patient Disposition: Home - Self-Care Reason For Visit: STARVATION KETOSIS, NAUSEA, VOMITING Discharge Diagnosis: refeeding syndrome Activity: Resume your previous activity Non-emergency contact: Primary Care Provider and Cro Call non-emergency contact if: you have any medication questions and your symptoms worsen Follow-up/Referrals: Yancy Henry PA-C [Physician Web Project Manager] - 08/09/22 3:00 pm (Dr. Serrano's PA) Alfonso Gotti PA-C [Physician Web Project Manager] - 08/08/22 10:00 am (PA for Dr. Rashad LOWE) Diet: Regular Addtl Attending Provider Instructions: You were admitted to the hospital for persistent nausea/vomiting. You were treated with IV fluids and nausea medications. Your electrolytes were monitored closely while in the hospital. Your potassium was consistently low throughout your stay however came back up to normal through the last few days of your stay with good oral intake. Prior to discharge, your nausea was under control and you were tolerating a diet well. Like we discussed one of the big focuses will be on controlling your constipation. Please take Miralax 1-2 cap fulls and titrate up to get to 1 bowel movement per day. If you find you do not have a bowel movement with that for 3 days or more please contact your PCP office for further instruction. A discharge summary will be sent to your primary care physician to ensure continuity of care. Please bring this discharge summary with you to your next office appointment so that your provider can review it at that time. Medications: Your medication list has been reviewed and reconciled upon discharge to ensure accuracy and continuity of care. An updated list of all your medications is included with your hospital discharge paperwork. Please review this list closely and make note of any changes to your medications. - You will be given a prescription for Phenergan which is the anti-nausea medication you had been given in the hospital. You can take this medication as needed up to 4 times per day. - You were given a prescription for Vitamin D to take every 7 days for 7 more weeks. Follow up appointments: - Make a follow up appointment with your PCP within the next week. It is very important that you follow up with them shortly after discharge from the hospital. - You should also follow up with 1-2 weeks with the GI doctor (Dr. Solorzano) for further evaluation. - Keep all of your follow up appointments as already scheduled. If you cannot make an appointment, notify your provider. CONTACT YOUR PRIMARY CARE PROVIDER if you experience any of the following: - Difficulty following your treatment plan - Difficulty taking any of your medications CALL 911 OR GO TO THE EMERGENCY DEPARTMENT if you experience any of the following: - Inability to eat/drink normally due to nausea - Sudden, severe abdominal pain or nausea/vomiting - Severe chest pain or chest pain that radiates to your jaw or arm - Sudden, severe shortness of breath or difficulty breathing Pending Studies at Discharge: No Studies:: Fecal calprotectin and Celiac panel Stand-Alone Forms: [facility] [employer], Work/School Release, Smoking Cessation Medications and DC Order Prescriptions: New promethazine 12.5 mg tablet 12.5 mg PO Q6H PRN (Reason: nausea and vomiting) 7 Days Qty: 28 0RF ergocalciferol (vitamin D2) 1,250 mcg (50,000 unit) Capsule 50,000 unit PO Q7D 49 Days Qty: 7 0RF Continued valacyclovir [Valtrex] 500 mg tablet 500 mg PO DAILY 90 Days Qty: 90 4RF Rx Instructions: Take one pill daily, take one pill twice per day for 3 days at start of outbreak sertraline 100 mg tablet 100 mg PO DAILY trazodone 50 mg tablet 50 mg PO DAILY PRN (Reason: Sleep) norethindrone-e.estradiol-iron [Blisovi Fe 03/23 (28)] 1 mg-20 mcg (21)/75 mg (7) tablet 1 tab PO DAILY Qty: 84 2RF aripiprazole 5 mg tablet 5 mg PO DAILY Discharge Orders: Discharge Order (Routine); Ordered 08/06/22 Ordered By: Gurmeet Ernst Admission Data Admit Date/Time: 08/01/22 18:54 Attending Provider: Gage Fernandez Admit Provider: Ramos Rosales Primary Care Provider: Francia Serrano Other Providers: Ramos Rosales ; Rashad,J Carlos Zambrano Other Interventions: Discharge Summary Assessment (RN) Last Done: 08/06/22 13:09 Supervising Physician Co-Signing Physician Notes I personally examined the patient and verified all marion points of history and exam, discussed case, and agree with decision making with Dr Ernst Feeling better and feeling up to going home. Discussed constipation, discussed interplay of anxiety and bowel habits, discussed tracking nutrition, discussed chronic MiraLAX management. Vitals noted, in general she is awake and alert pleasant no distress. HEENT normocephalic atraumatic mucous membranes moist. Breathing unlabored no accessory muscle use good effort. Skin shows no rashes no pallor or icterus. Neuro without focal deficits. Starvation ketosisprobably due to a multitude of factors including contributions from severe constipation, as well as probably from anxiety. Refeeding syndrome has improved. Eating and drinking reasonably well, bowels are moving. Safe for home. MiraLAX 34 g daily titrate up or down to 1 moderate bowel movement daily. Discussed anxiety management, discussed nutrition tracking. Close PCP follow-up. Otherwise as above Resident Activity Tracking Resident Involvement: Resident Care Provided Care Provided: Adult Hospital Medicine
--- NOTE | 2022-08-06 15:50 | Billing Data ---
Date of Service August 06, 2022 Coding Level of Care Code 60772 IN/OBS DISCH 30 MIN/LESS
--- NOTE | 2022-08-06 22:00 | Electrocardiogram Report ---
Test Reason : Blood Pressure : / mmHG Vent. Rate : 068 BPM Atrial Rate : 068 BPM P-R Int : 146 ms QRS Dur : 082 ms QT Int : 410 ms P-R-T Axes : 010 071 024 degrees QTc Int : 435 ms Normal sinus rhythm Normal ECG When compared with ECG of 04-AUG-2022 08:42, No significant change was found Confirmed by Josh Peck ([id number]) on 08/06/2022 10:00:31 PM Referred By: REFERRED SELF Confirmed By:Josh Peck
[2022-08-07 13:17] LABS: IgA Serum 282 mg/dL (47-310); Tis Trans IgA <1.0 U/mL
--- NOTE | 2022-08-08 05:17 | Electrocardiogram Report ---
Test Reason : Blood Pressure : / mmHG Vent. Rate : 070 BPM Atrial Rate : 070 BPM P-R Int : 136 ms QRS Dur : 080 ms QT Int : 386 ms P-R-T Axes : 056 -12 029 degrees QTc Int : 416 ms Normal sinus rhythm Normal ECG When compared with ECG of 05-AUG-2022 05:36, Questionable change in QRS axis Confirmed by Josh Peck ([id number]) on 08/08/2022 5:17:34 AM Referred By: REFERRED SELF Confirmed By:Josh Peck
== END 2022-08-06 13:41 | disposition home or self-care (01) | DRG 641 ==
LOC: ED 14:23 → SUATTDRO 18:54 → 2S 18:54

== ENCOUNTER 2023-08-28 10:46 | Inpatient (IN) ==
--- NOTE | 2023-08-28 14:54 | Electrocardiogram Report ---
Test Reason : Blood Pressure : / mmHG Vent. Rate : 086 BPM Atrial Rate : 086 BPM P-R Int : 132 ms QRS Dur : 086 ms QT Int : 374 ms P-R-T Axes : 080 074 065 degrees QTc Int : 447 ms Normal sinus rhythm with sinus arrhythmia Minor ST elevation, most consistent with repolarization variant Normal ECG When compared with ECG of 06-AUG-2022 06:25, No significant change Confirmed by Avery Mae ([id number]) on 08/28/2023 2:53:56 PM Referred By: Confirmed By:Avery Mae
[2023-08-28] MEDS: SODIUM CHLORIDE 0.9% 500 ML IV STA (15:03)
[2023-08-28] MEDS: ONDANSETRON INJ 2 MG/ML 2 ML VIAL IV STA (15:09)
[2023-08-28] MEDS: ONDANSETRON INJ 2 MG/ML 2 ML VIAL ONE (15:10)
--- NOTE | 2023-08-28 15:35 | Emergency Department Note ---
Impression & Plan Metabolic acidosis, Nausea, Acute dehydration, Acidemia, Cannabis use disorder, Acute alteration in mental status ED Provider Note NAME: FLORIAN POSEY AGE: 27 SEX: F : 1995 ARRIVES VIA: Walk-In INFORMANT: Patient, ED PROVIDER(S): Rip Shirley DO CHIEF COMPLAINT: Nausea HPI: The patient is a 27-year-old female who has a history of irritable bowel syndrome with constipation who presented to the emergency department for an evaluation of nausea. She denies having any severe headaches. She denies having any fever. She denies having any chest pain or abdominal pain. She had similar episodes in the past and becomes very dehydrated. The patient was not seen by her primary care physician today. She denies any frequent marijuana use but does use marijuana on occasion. The patient has been trying her usual outpatient medication regimen with only minimal relief of her symptoms. She denies having any hematemesis. She denies having any black or tarry stools. ROS: See above HPI for pertinent positives & negatives. A total of 10 systems reviewed and were otherwise negative. PAST MEDICAL HISTORY: See Below PAST SURGICAL HISTORY: See Below FAMILY HISTORY: See Below SOCIAL HISTORY: See Below HOME MEDICATIONS: See Below ALLERGIES: See Below VITALS: See Below PHYSICAL EXAMINATION: GENERAL: Patient is awake alert in no acute distress patient is resting comfortably and showing no signs of anxiety EYES: The conjunctivae are clear. The pupils are round and reactive. EARS, NOSE, MOUTH AND THROAT: The nose is without any evidence of any deformity. Mucous membranes are dry. NECK: The neck is nontender and supple. RESPIRATORY: Normal respiratory effort is noted there is no evidence of wheezing rhonchi or rales CARDIOVASCULAR: Regular rate and rhythm noted there no murmurs rubs or gallops normal S1 normal S2. GASTROINTESTINAL: The abdomen is soft. Abdomen is nontender. MUSCULOSKELETAL/EXTREMITIES: There is no evidence of gross deformity full range of motion is noted in the hips and shoulders. SKIN: There is no obvious evidence of any rash. There are no petechiae, pallor or cyanosis noted. NEUROLOGIC: Patient is awake alert and oriented x3 strength is symmetric patellar reflexes are 2+ bilaterally MEDICAL DECISION MAKING: The patient is a 27-year-old female who presented to the emergency department with her significant other for an evaluation of not eating. The patient develops very severe nausea and becomes very dehydrated according to her significant other. It took a long time to get a good IV and the patient and laboratory studies came back very slowly because of this. The patient was treated with IV fluids in the emergency department. She was also treated with IV antiemetics. I discussed the patient's laboratory and radiographic studies with her. She was found to have a gapped metabolic acidosis. This is most likely due to lactic acidosis from not eating or drinking. The patient does use marijuana products. Because of her elevated white blood cell count as well as her abnormal laboratory studies further radiographic studies were obtained including CT of the brain as she was starting to have some confusion as well as CT of the abdomen and pelvis. The patient was started on a bicarb drip. She was also given multiple IV fluid boluses. [facility] Given the patient's findings she was felt to be a good candidate for inpatient management in the ICU. Triage Nursing notes reviewed. Prior medical records reviewed Vital Signs: reviewed and remarkable for tachypnea and tachycardia. Differential diagnosis: Gastroenteritis, food borne illness, infections, appendicitis, diverticulitis, inflammatory bowel disease, obstruction, GI bleed, biliary pathology, volvulus, as well as other pathologies. ER treatment provided: See below Diagnostics interpreted by me: ECG: EKG was obtained in the emergency department. My interpretation is normal sinus rhythm at 86 bpm. There is no ectopy. There is no acute ST segment abnormalities noted. This was compared to a tracing from August 06, 2022. No changes were noted. Cardiac Monitoring: An order was placed for continuous cardiac monitoring. The monitor shows a rate of 109 bpm with sinus tachycardia. Laboratory studies: As stated above and show below. Imaging studies: See below. Radiographic imaging was reviewed by myself Consultation(s): I discussed this case with Dr. Brown who is on-call for the [facility]. ED COURSE: Procedures: none Critical Care: I have personally spent greater than 65 minutes of critical care time in the direct management of this patient. This includes bedside care, interpretation of diagnostic studies, and testing, discussion with consultants, patient, and family members, and other required patient management activities. This 65 minutes is in excess of all separately billable procedures. 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 Oral contraceptive use Medical History IBS (irritable colon syndrome) Refeeding syndrome Anxiety and depression OCD (obsessive compulsive disorder) Depression Surgical History S/P LEEP 06/2022 S/P right oophorectomy right ovarian torsion S/P foot surgery Status post colposcopy H/O wisdom tooth extraction Family History Father Myocardial infarction, Onset Age: 57 Heart disease Mother Diabetes Hypertension Denies family history of Ovarian cancer Prostate cancer Breast cancer Colorectal cancer Social History Smoking Status: Never smoker Second Hand Exposure: No; Do You Dip or Chew Tobacco: No; Hx Alcohol Use: Yes Alcohol type: wine Alcohol Intake Frequency: Monthly or Less Hx Substance Use: Yes Prescribed Medications: Marijuana Last Used Substance: Days (ago) Preferred Language: Cymro Communication Ability: Effective Hearing Ability: Normal Cartridge Belt Puncher Required: No Beliefs That Will Affect Care: None Current Living Situation: Significant Other current occupational status: employed Feels Safe at Home: Yes Diet: regular caffeine: Yes Dental Care, Regularly: Yes Physical Activity Frequency: 1-2 Times per Week Seatbelt Use: always Sunscreen Use: Yes Assistive Devices: None Allergies Allergies Allergy/AdvReac Type Severity Reaction Status Date / Time No Known Allergies Allergy Verified 08/28/23 15:57 Home Meds Home Medications Medication Instructions Recorded Confirmed sertraline 100 mg tablet 400 mg PO HS 04/24/22 08/28/23 trazodone 50 mg tablet 50 - 100 mg PO HS PRN Sleep 04/24/22 08/28/23 aripiprazole 5 mg tablet 5 mg PO DAILY 08/08/22 08/28/23 ondansetron 4 mg disintegrating 4 mg PO Q6H PRN NAUSEA/VOMITING 07/02/23 08/28/23 tablet aripiprazole 2 mg tablet 2 mg PO DAILY 08/28/23 08/28/23 promethazine 25 mg tablet 25 mg PO TID PRN NAUSEA/VOMITING 08/28/23 08/28/23 valacyclovir 500 mg tablet 500 mg PO DIRECTED PRN OUT 08/28/23 08/28/23 (Valtrex) BREAKS Previous Rx's Medication Instructions Recorded norethindrone 1 mg-ethinyl 1 tab PO DAILY #84 tabs 02/19/23 estradiol 20 mcg (21)-iron 75 mg (7) tablet ([place] Fe 03/23 (28)) betamethasone dipropionate 0.05 % 1 applic topical DAILY PRN skin 05/31/23 topical cream irritation #15 grams linaclotide 290 mcg capsule 290 mcg PO DAILY #30 caps 08/05/23 (Linzess) prochlorperazine maleate 10 mg 10 mg PO BID PRN nausea and 08/28/23 tablet vomiting #14 tabs Results & Data (ED) Vital Signs Vital Signs - 24 hr 08/28/23 11:08 08/28/23 15:01 08/28/23 15:01 Temperature 36.4 C L Temperature Source Oral Pulse Rate 107 H Pulse Rate [Apical] 94 H Pulse Rate from SpO2 Sensor Respiratory Rate 20 30 H Respiratory Effort / Characteristics Non-Labored Spontaneous Short of Breath Respiratory Depth Normal Respiratory Pattern Tachypnea Blood Pressure 144/97 H 153/103 H Blood Pressure [Left Arm] 153/103 H Blood Pressure Mean 112 129 Blood Pressure Mean [Left Arm] 119 Pulse Oximetry 99 99 Oxygen Delivery Method Room Air Room Air Sepsis Recent Fever Within 48 Hours No Sepsis New/Unexplained Change in Mental Status N/A Sepsis Action Taken by Nursing No Action Required 08/28/23 15:06 08/28/23 15:08 08/28/23 15:27 Temperature Temperature Source Pulse Rate 93 H 90 98 H Pulse Rate [Apical] Pulse Rate from SpO2 Sensor 92 H Respiratory Rate 36 H 31 H Respiratory Effort / Characteristics Respiratory Depth Respiratory Pattern Blood Pressure Blood Pressure [Left Arm] Blood Pressure Mean Blood Pressure Mean [Left Arm] Pulse Oximetry 100 Oxygen Delivery Method Sepsis Recent Fever Within 48 Hours Sepsis New/Unexplained Change in Mental Status Sepsis Action Taken by Nursing 08/28/23 15:30 08/28/23 15:33 08/28/23 16:00 Temperature Temperature Source Pulse Rate 96 H Pulse Rate [Apical] Pulse Rate from SpO2 Sensor Respiratory Rate 37 H Respiratory Effort / Characteristics Respiratory Depth Respiratory Pattern Blood Pressure 155/110 H 153/121 H Blood Pressure [Left Arm] Blood Pressure Mean 126 140 Blood Pressure Mean [Left Arm] Pulse Oximetry Oxygen Delivery Method Sepsis Recent Fever Within 48 Hours Sepsis New/Unexplained Change in Mental Status Sepsis Action Taken by Nursing 08/28/23 16:00 08/28/23 16:00 08/28/23 16:30 Temperature Temperature Source Pulse Rate 100 H Pulse Rate [Apical] Pulse Rate from SpO2 Sensor Respiratory Rate 36 H Respiratory Effort / Characteristics Respiratory Depth Respiratory Pattern Blood Pressure 153/121 H 146/116 H Blood Pressure [Left Arm] Blood Pressure Mean 140 123 Blood Pressure Mean [Left Arm] Pulse Oximetry Oxygen Delivery Method Sepsis Recent Fever Within 48 Hours Sepsis New/Unexplained Change in Mental Status Sepsis Action Taken by Nursing 08/28/23 16:30 08/28/23 16:56 08/28/23 17:00 Temperature Temperature Source Pulse Rate 120 H Pulse Rate [Apical] 101 H Pulse Rate from SpO2 Sensor Respiratory Rate 33 H 31 H Respiratory Effort / Characteristics Short of Breath Respiratory Depth Respiratory Pattern Blood Pressure 143/104 H Blood Pressure [Left Arm] Blood Pressure Mean 119 Blood Pressure Mean [Left Arm] Pulse Oximetry Oxygen Delivery Method Sepsis Recent Fever Within 48 Hours Sepsis New/Unexplained Change in Mental Status Sepsis Action Taken by Nursing 08/28/23 17:00 08/28/23 17:27 08/28/23 17:31 Temperature Temperature Source Pulse Rate 105 H 105 H Pulse Rate [Apical] 109 H Pulse Rate from SpO2 Sensor Respiratory Rate 34 H 23 37 H Respiratory Effort / Characteristics Short of Breath Respiratory Depth Respiratory Pattern Tachypnea Blood Pressure Blood Pressure [Left Arm] 145/90 H Blood Pressure Mean Blood Pressure Mean [Left Arm] 108 Pulse Oximetry 95 98 Oxygen Delivery Method Room Air Sepsis Recent Fever Within 48 Hours Sepsis New/Unexplained Change in Mental Status Sepsis Action Taken by Nursing 08/28/23 17:32 08/28/23 17:36 08/28/23 17:39 Temperature Temperature Source Pulse Rate 113 H 108 H Pulse Rate [Apical] Pulse Rate from SpO2 Sensor 112 H 113 H Respiratory Rate 40 H 34 H Respiratory Effort / Characteristics Respiratory Depth Respiratory Pattern Blood Pressure 145/90 H Blood Pressure [Left Arm] Blood Pressure Mean 108 Blood Pressure Mean [Left Arm] Pulse Oximetry 100 99 Oxygen Delivery Method Sepsis Recent Fever Within 48 Hours Sepsis New/Unexplained Change in Mental Status Sepsis Action Taken by Nursing 08/28/23 17:47 08/28/23 17:51 08/28/23 18:00 Temperature Temperature Source Pulse Rate 106 H Pulse Rate [Apical] Pulse Rate from SpO2 Sensor 107 H Respiratory Rate 41 H Respiratory Effort / Characteristics Respiratory Depth Respiratory Pattern Blood Pressure 147/107 H 133/98 Blood Pressure [Left Arm] Blood Pressure Mean 113 105 Blood Pressure Mean [Left Arm] Pulse Oximetry 100 Oxygen Delivery Method Sepsis Recent Fever Within 48 Hours Sepsis New/Unexplained Change in Mental Status Sepsis Action Taken by Nursing 08/28/23 18:25 08/28/23 19:20 08/28/23 19:45 Temperature 36.4 C L Temperature Source Oral Pulse Rate Pulse Rate [Apical] 105 H 109 H Pulse Rate from SpO2 Sensor Respiratory Rate 38 H 38 H Respiratory Effort / Characteristics Respiratory Depth Normal Respiratory Pattern Tachypnea Blood Pressure Blood Pressure [Left Arm] 138/99 Blood Pressure Mean Blood Pressure Mean [Left Arm] 112 Pulse Oximetry 100 100 Oxygen Delivery Method Sepsis Recent Fever Within 48 Hours Sepsis New/Unexplained Change in Mental Status Sepsis Action Taken by [facility] Medications Current Medication List: was personally reviewed by me Laboratory Data Attestation: I reviewed the patient's lab results. 08/28/23 15:57 08/28/23 17:04 Lab Results 08/28/23 08/28/23 08/28/23 Range/Units 13:50 14:03 15:35 WBC (4.8-10.8) K/ul RBC (4.20-5.40) M/uL Hgb (12.0-16.0) g/dl POC Hgb 18.7 H (12.0-16.0) g/dl Hct (37.0-47.0) % POC Hct 55 H (37-47) % MCV (80.0-100.0) fL MCH (25.0-34.0) pg MCHC (32.0-36.0) g/dL RDW Std Deviation (36.4-46.3) fL RDW Coeff of Ivan (11.5-14.5) % Plt Count (130-400) K/uL MPV (9.4-12.4) fL Immature Gran % (Auto) % Neut % (Auto) % Lymph % (Auto) % [place] % (Auto) % Eos % (Auto) % Baso % (Auto) % Neut # (Auto) (1.40-6.50) K/uL Lymph # (Auto) (1.20-3.40) K/uL [place] # (Auto) (0.11-0.59) K/uL Eos # (Auto) (0.00-0.50) K/uL Baso # (Auto) (0.00-0.20) K/uL Immature Gran # (Auto) (0.01-0.20) K/uL ABG pH (7.35-7.45) ABG pCO2 (35-46) mmHg ABG pO2 (80-95) mmHg ABG HCO3 ABG O2 Saturation (90-95) % ABG Base Excess Jordan Test (Pos) Oxygen Given POC Sodium 138 (135-144) mmol/L Sodium POC Potassium 5.2 H (3.3-5.0) mmol/L Potassium POC Chloride 117 H (101-112) mmol/L Chloride Carbon Dioxide POC Total CO2 7 L* (24-31) mmol/L Anion Gap POC Anion Gap 20.0 (16-25) mmol/L POC BUN 25 H (7-18) mg/dl BUN Creatinine POC Creatinine 0.9 (0.6-1.3) mg/dl Est Cr Clr Drug Dosing Est GFR ( Amer) Est GFR (Non-Af Amer) BUN/Creatinine Ratio Glucose POC Glucose 136 H (70-99) mg/dl POC Glucose (other) 137 H (70-99) mg/dl Osmolality (280-300) mOsm/kg Calcium POC Ioniz Calcium Esequiel 1.29 (1.12-1.32) mmol/l Magnesium Total Bilirubin AST ALT Alkaline Phosphatase Total Protein Albumin Globulin Albumin/Globulin Ratio Lipase HCG, Qual (Negative) Urine Color Yellow Urine Appearance Clear (Clear) Urine pH 6.0 (4.5-7.5) Ur Specific Ramsey 1.022 (1.000-1.030) Urine Protein 3+ H (Negative) Urine Glucose (UA) Negative (Negative) Urine Ketones 4+ H (Negative) Urine Blood 1+ H (Negative) Urine Nitrite Negative (Negative) Urine Bilirubin Negative (Negative) Urine Urobilinogen Negative (Negative) Ur Leukocyte Esterase Negative (Negative) Urine WBC (Auto) 0-5 (0-5) /hpf Urine RBC (Auto) 0-2 (0-2) /hpf U Hyaline Cast (Auto) 6-10 H (0-2) /lpf U Epithel Cells (Auto) 3-5 H (0-2) /hpf Urine Bacteria (Auto) None Seen (None Seen) Urine Opiates Screen Neg (Neg) Ur Methadone, Qual Neg (Neg) Urine Fentanyl Screen Neg (Neg) Urine Barbiturates Neg (Neg) Ur Phencyclidine (PCP) Neg (Neg) U Amphetamin/Meth Scrn Neg (Neg) MDMA (Ecstasy) Screen Neg (Neg) U Benzodiazepines Scrn Neg (Neg) Ur Cocaine Metabolite Neg (Neg) U Marijuana (THC) Screen Pos H (Neg) Ethyl Alcohol mg/dL (<10.0) mg/dl Adenovirus (PCR) Not Detected (NotDetected) B. pertussis DNA (PCR) Not Detected (NotDetected) B.parapertussis DNA PCR Not Detected (NotDetected) C. pneumoniae DNA (PCR) Not Detected (NotDetected) Coronavirus OC43 (PCR) Not Detected (NotDetected) Coronavirus HKU1 (PCR) Not Detected (NotDetected) Coronavirus 229E (PCR) Not Detected (NotDetected) SARS-CoV-2 (PCR) Not Detected (NotDetected) Coronavirus NL63 (PCR) Not Detected (NotDetected) Human Metapneumovir PCR Not Detected (NotDetected) Influenza Type A (PCR) Not Detected (NotDetected) Influenza Type B (PCR) Not Detected (NotDetected) M. pneumoniae (PCR) Not Detected (NotDetected) Parainfluenza 1 (PCR) Not Detected (NotDetected) Parainfluenza 2 (PCR) Not Detected (NotDetected) Parainfluenza 3 (PCR) Not Detected (NotDetected) Parainfluenza 4 (PCR) Not Detected (NotDetected) RSV (PCR) Not Detected (NotDetected) Entero/Rhino (PCR) Not Detected (NotDetected) 08/28/23 08/28/23 08/28/23 Range/Units 15:57 17:04 18:05 WBC 23.91 H (4.8-10.8) K/ul RBC 5.66 H (4.20-5.40) M/uL Hgb 16.5 H (12.0-16.0) g/dl POC Hgb (12.0-16.0) g/dl Hct 51.6 H (37.0-47.0) % POC Hct (37-47) % MCV 91.2 (80.0-100.0) fL MCH 29.2 (25.0-34.0) pg MCHC 32.0 (32.0-36.0) g/dL RDW Std Deviation 52.7 H (36.4-46.3) fL RDW Coeff of Ivan 15.8 H (11.5-14.5) % Plt Count 326 (130-400) K/uL MPV 9.7 (9.4-12.4) fL Immature Gran % (Auto) 4.3 % Neut % (Auto) 82.6 % Lymph % (Auto) 5.6 % [place] % (Auto) 7.1 % Eos % (Auto) 0.0 % Baso % (Auto) 0.4 % Neut # (Auto) 19.76 H (1.40-6.50) K/uL Lymph # (Auto) 1.34 (1.20-3.40) K/uL [place] # (Auto) 1.70 H (0.11-0.59) K/uL Eos # (Auto) 0.00 (0.00-0.50) K/uL Baso # (Auto) 0.09 (0.00-0.20) K/uL Immature Gran # (Auto) 1.02 H (0.01-0.20) K/uL ABG pH (7.35-7.45) ABG pCO2 (35-46) mmHg ABG pO2 (80-95) mmHg ABG HCO3 ABG O2 Saturation (90-95) % ABG Base Excess Jordan Test (Pos) Oxygen Given POC Sodium (135-144) mmol/L Sodium Cancelled 135 L POC Potassium (3.3-5.0) mmol/L Potassium Cancelled 4.9 POC Chloride (101-112) mmol/L Chloride Cancelled 109 H Carbon Dioxide Cancelled 5 L* POC Total CO2 (24-31) mmol/L Anion Gap Cancelled 21 H POC Anion Gap (16-25) mmol/L POC BUN (7-18) mg/dl BUN Cancelled 19 Creatinine Cancelled 1.02 POC Creatinine (0.6-1.3) mg/dl Est Cr Clr Drug Dosing Cancelled 77.3 Est GFR ( Amer) Cancelled 87.3 Est GFR (Non-Af Amer) Cancelled 75.3 BUN/Creatinine Ratio Cancelled 18.6 Glucose Cancelled 120 H POC Glucose 114 H (70-99) mg/dl POC Glucose (other) (70-99) mg/dl Osmolality (280-300) mOsm/kg Calcium Cancelled 8.7 POC Ioniz Calcium Esequiel (1.12-1.32) mmol/l Magnesium Cancelled 2.4 Total Bilirubin Cancelled 0.3 AST Cancelled 47 H ALT Cancelled 28 Alkaline Phosphatase Cancelled 60 Total Protein Cancelled 8.9 H Albumin Cancelled 5.2 H Globulin Cancelled 3.7 Albumin/Globulin Ratio Cancelled 1.4 Lipase Cancelled 55 HCG, Qual Negative (Negative) Urine Color Urine Appearance (Clear) Urine pH (4.5-7.5) Ur Specific Ramsey (1.000-1.030) Urine Protein (Negative) Urine Glucose (UA) (Negative) Urine Ketones (Negative) Urine Blood (Negative) Urine Nitrite (Negative) Urine Bilirubin (Negative) Urine Urobilinogen (Negative) Ur Leukocyte Esterase (Negative) Urine WBC (Auto) (0-5) /hpf Urine RBC (Auto) (0-2) /hpf U Hyaline Cast (Auto) (0-2) /lpf U Epithel Cells (Auto) (0-2) /hpf Urine Bacteria (Auto) (None Seen) Urine Opiates Screen (Neg) Ur Methadone, Qual (Neg) Urine Fentanyl Screen (Neg) Urine Barbiturates (Neg) Ur Phencyclidine (PCP) (Neg) U Amphetamin/Meth Scrn (Neg) MDMA (Ecstasy) Screen (Neg) U Benzodiazepines Scrn (Neg) Ur Cocaine Metabolite (Neg) U Marijuana (THC) Screen (Neg) Ethyl Alcohol mg/dL (<10.0) mg/dl Adenovirus (PCR) (NotDetected) B. pertussis DNA (PCR) (NotDetected) B.parapertussis DNA PCR (NotDetected) C. pneumoniae DNA (PCR) (NotDetected) Coronavirus OC43 (PCR) (NotDetected) Coronavirus HKU1 (PCR) (NotDetected) Coronavirus 229E (PCR) (NotDetected) SARS-CoV-2 (PCR) (NotDetected) Coronavirus NL63 (PCR) (NotDetected) Human Metapneumovir PCR (NotDetected) Influenza Type A (PCR) (NotDetected) Influenza Type B (PCR) (NotDetected) M. pneumoniae (PCR) (NotDetected) Parainfluenza 1 (PCR) (NotDetected) Parainfluenza 2 (PCR) (NotDetected) Parainfluenza 3 (PCR) (NotDetected) Parainfluenza 4 (PCR) (NotDetected) RSV (PCR) (NotDetected) Entero/Rhino (PCR) (NotDetected) 08/28/23 Range/Units 18:48 WBC (4.8-10.8) K/ul RBC (4.20-5.40) M/uL Hgb (12.0-16.0) g/dl POC Hgb (12.0-16.0) g/dl Hct (37.0-47.0) % POC Hct (37-47) % MCV (80.0-100.0) fL MCH (25.0-34.0) pg MCHC (32.0-36.0) g/dL RDW Std Deviation (36.4-46.3) fL RDW Coeff of Ivan (11.5-14.5) % Plt Count (130-400) K/uL MPV (9.4-12.4) fL Immature Gran % (Auto) % Neut % (Auto) % Lymph % (Auto) % [place] % (Auto) % Eos % (Auto) % Baso % (Auto) % Neut # (Auto) (1.40-6.50) K/uL Lymph # (Auto) (1.20-3.40) K/uL [place] # (Auto) (0.11-0.59) K/uL Eos # (Auto) (0.00-0.50) K/uL Baso # (Auto) (0.00-0.20) K/uL Immature Gran # (Auto) (0.01-0.20) K/uL ABG pH < 7.00 L* (7.35-7.45) ABG pCO2 11 L (35-46) mmHg ABG pO2 134 H (80-95) mmHg ABG HCO3 TNP ABG O2 Saturation 99.7 H (90-95) % ABG Base Excess TNP Jordan Test Pos (Pos) Oxygen Given ROOM AIR POC Sodium (135-144) mmol/L Sodium POC Potassium (3.3-5.0) mmol/L Potassium POC Chloride (101-112) mmol/L Chloride Carbon Dioxide POC Total CO2 (24-31) mmol/L Anion Gap POC Anion Gap (16-25) mmol/L POC BUN (7-18) mg/dl BUN Creatinine POC Creatinine (0.6-1.3) mg/dl Est Cr Clr Drug Dosing Est GFR ( Amer) Est GFR (Non-Af Amer) BUN/Creatinine Ratio Glucose POC Glucose (70-99) mg/dl POC Glucose (other) (70-99) mg/dl Osmolality 307 H (280-300) mOsm/kg Calcium POC Ioniz Calcium Esequiel (1.12-1.32) mmol/l Magnesium Total Bilirubin AST ALT Alkaline Phosphatase Total Protein Albumin Globulin Albumin/Globulin Ratio Lipase HCG, Qual (Negative) Urine Color Urine Appearance (Clear) Urine pH (4.5-7.5) Ur Specific Ramsey (1.000-1.030) Urine Protein (Negative) Urine Glucose (UA) (Negative) Urine Ketones (Negative) Urine Blood (Negative) Urine Nitrite (Negative) Urine Bilirubin (Negative) Urine Urobilinogen (Negative) Ur Leukocyte Esterase (Negative) Urine WBC (Auto) (0-5) /hpf Urine RBC (Auto) (0-2) /hpf U Hyaline Cast (Auto) (0-2) /lpf U Epithel Cells (Auto) (0-2) /hpf Urine Bacteria (Auto) (None Seen) Urine Opiates Screen (Neg) Ur Methadone, Qual (Neg) Urine Fentanyl Screen (Neg) Urine Barbiturates (Neg) Ur Phencyclidine (PCP) (Neg) U Amphetamin/Meth Scrn (Neg) MDMA (Ecstasy) Screen (Neg) U Benzodiazepines Scrn (Neg) Ur Cocaine Metabolite (Neg) U Marijuana (THC) Screen (Neg) Ethyl Alcohol mg/dL < 10.0 (<10.0) mg/dl Adenovirus (PCR) (NotDetected) B. pertussis DNA (PCR) (NotDetected) B.parapertussis DNA PCR (NotDetected) C. pneumoniae DNA (PCR) (NotDetected) Coronavirus OC43 (PCR) (NotDetected) Coronavirus HKU1 (PCR) (NotDetected) Coronavirus 229E (PCR) (NotDetected) SARS-CoV-2 (PCR) (NotDetected) Coronavirus NL63 (PCR) (NotDetected) Human Metapneumovir PCR (NotDetected) Influenza Type A (PCR) (NotDetected) Influenza Type B (PCR) (NotDetected) M. pneumoniae (PCR) (NotDetected) Parainfluenza 1 (PCR) (NotDetected) Parainfluenza 2 (PCR) (NotDetected) Parainfluenza 3 (PCR) (NotDetected) Parainfluenza 4 (PCR) (NotDetected) RSV (PCR) (NotDetected) Entero/Rhino (PCR) (NotDetected) Administered Medications Lactated Ringer's (Lr) 1,000 mls @ 999 mls/hr IV .Q1H1M ONE Stop: 08/28/23 20:02 Last Admin: 08/28/23 19:38 Dose: 999 mls/hr Documented By: KADE Sodium Bicarbonate 150 meq/ (Dextrose) 1,150 mls @ 200 mls/hr IV .Q5H45M SAAD Stop: 09/27/23 19:29 Last Admin: 08/28/23 19:55 Dose: 200 mls/hr Documented By: KADE Discontinued Medications Diphenhydramine HCl (Diphenhydramine 50 Mg/Ml Vial) 12.5 mg IV NOW STA Stop: 08/28/23 15:35 Last Admin: 08/28/23 16:07 Dose: 12.5 mg Documented By: Sodium Chloride (Nss) 500 mls @ 999 mls/hr IV .Q31M STA Stop: 08/28/23 11:46 Last Infusion: 08/28/23 16:08 Dose: Infused Documented By: Admin: 08/28/23 15:03 Dose: 999 mls/hr Documented By: JERAMIE Promethazine HCl (Phenergan) 12.5 mg in 50.5 mls @ 202 mls/hr IV NOW STA Stop: 08/28/23 15:47 Last Infusion: 08/28/23 16:44 Dose: Infused Documented By: Admin: 08/28/23 16:07 Dose: 202 mls/hr Documented By: Sodium Chloride (Nss) 1,000 mls @ 999 mls/hr IV .Q1H1M ONE Stop: 08/28/23 18:50 Last Infusion: 08/28/23 19:29 Dose: Infused Documented By: Admin: 08/28/23 18:24 Dose: 999 mls/hr Documented By: JERAMIE Ioversol (Optiray 320 100ml) 94 ml IV ONCE ONE Stop: 08/28/23 18:19 Last Admin: 08/28/23 18:18 Dose: 94 ml Documented By: SKYLAR Miscellaneous (Stat Iv/Im) 1 each N/A NOW STA Stop: 08/28/23 19:22 Last Admin: 08/28/23 19:39 Dose: Not Given Documented By: KADE Ondansetron HCl (Ondansetron Inj 2 Mg/Ml 2 Ml Vial) 4 mg IV NOW STA Stop: 08/28/23 11:17 Last Admin: 08/28/23 15:09 Dose: 4 mg Documented By: JERAMIE Ondansetron HCl (Ondansetron Inj 2 Mg/Ml 2 Ml Vial) Confirm Administered Dose 4 mg .ROUTE .STK-MED ONE Stop: 08/28/23 15:09 Last Admin: 08/28/23 15:10 Dose: Not Given Documented By: JERAMIE Sodium Bicarbonate (Sodium Bicarb 8.4% Inj 50 Meq/50 Ml Syr) 50 meq IV NOW STA Stop: 08/28/23 19:23 Last Admin: 08/28/23 19:38 Dose: 50 meq Documented By: KADE Sodium Bicarbonate (Sodium Bicarb 8.4% Inj 50 Meq/50 Ml Syr) 50 meq IV NOW STA Stop: 08/28/23 19:38 Last Admin: 08/28/23 19:55 Dose: 50 meq Documented By: KADE Imaging Data Attestation: I personally reviewed and interpreted this imaging study as follows: My Impression: 1 view chest x-ray was obtained in the emergency department. My interpretation is no free air or definite infiltrate, final report below. CT of the brain was obtained in the emergency department. My interpretation is no intracranial hemorrhage or mass effect, final report below. Radiologist's Impression: Chest X-Ray 08/28/23 11:15 XR chest 1V portable CLINICAL HISTORY: shortness of breath TECHNIQUE: Single frontal radiograph of the chest was obtained. Comparison: Comparison is made to chest radiograph 08/01/2022 FINDINGS: No lines and tubes are seen. The cardiomediastinal silhouette is normal. The lungs are clear. No evidence of pleural effusion or pneumothorax. IMPRESSION: No acute abnormalities and in particular no radiographic evidence of pneumonia. ACT 112: Negative or not required by law. Electronically signed by: Robin Ambriz M.D. 08/28/2023 3:38 PM KUB X-Ray 08/28/23 15:33 XR KUB/Abdomen 1 view CLINICAL HISTORY: nausea TECHNIQUE: 1 view of the abdomen was obtained. Comparison: Comparison is made to abdomen radiographs 08/03/2022 FINDINGS: Lung bases are unremarkable. The osseous structures are grossly unremarkable. No significant gas-filled loops of small bowel are seen. Featureless gas in the left paracolic gutter without significant stool burden seen. IMPRESSION: No gas distended loops of small bowel are definitely seen to suggest small bowel obstruction and there is no evidence of volvulus. Ileus cannot be entirely excluded. If there is clinical concern, CT can be performed. ACT 112: Negative or not required by law. Electronically signed by: Robin Ambriz M.D. 08/28/2023 4:51 PM Abdomen/Pelvis CT 08/28/23 17:51 CT SCAN OF THE ABDOMEN AND PELVIS WITH IV CONTRAST CLINICAL HISTORY: Vomiting. COMPARISON STUDY: Abdominal radiographs dated 08/28/2023. TECHNIQUE: Following the IV administration of 94 cc of Optiray 320, CT scan of the abdomen and pelvis is performed from the lung bases to the proximal femora. Images are reviewed in the axial, sagittal, and coronal planes. IV contrast was administered without complication. A dose lowering technique was utilized adhering to the principles of ALARA. There is streak artifact from a naval piercing. FINDINGS: Lung bases: The heart is normal in size and without pericardial effusion. The lung bases are clear. Liver: The contrast-enhanced liver is normal in size, contour, and attenuation. There is no intrahepatic biliary ductal dilatation. The hepatic veins and portal veins are patent. Gallbladder: Unremarkable. Spleen: Normal in size and attenuation. Pancreas: Unremarkable. Adrenal glands: Unremarkable. Kidneys: The contrast enhanced kidneys are normal in size and without hydronephrosis. The kidneys enhance symmetrically. Abdominal vasculature: The abdominal aorta is normal in course and caliber. Stomach and bowel: The stomach is distended and fluid-filled, corresponding to the shadow seen by x-ray. The distal stomach appears thick walled. No surrounding inflammation is seen. There is no small bowel obstruction. The appendix is well-visualized and normal. Peritoneum: There is no intraperitoneal free air or abdominal ascites. Lymphadenopathy: None. Pelvic viscera: The bladder wall appears mildly thickened. The uterus and adnexa are normal as visualized. Skeletal structures: No lytic or blastic lesions are seen. IMPRESSION: 1. The stomach is distended and fluid-filled, corresponding to the shadow seen by x-ray. The distal stomach appears thickened, with no significant surrounding inflammation. This may represent a distal gastritis or possibly ulcer disease. A component of gastric outlet obstruction is not excluded. If warranted this could be further assessed with endoscopy. 2. The duodenum is normal appearance of the small bowel loops are normal in caliber. 3. The bladder wall appears mildly thickened. Correlate with clinical findings and urinalysis. 4. Additional findings as above. ACT 112: Negative or not required by law. Electronically signed by: Ermias Martinez M.D. 08/28/2023 6:[address] 08/28/23 17:51 CT SCAN OF THE BRAIN WITHOUT IV CONTRAST CLINICAL HISTORY: Headache. COMPARISON STUDY: No priors. TECHNIQUE: Unenhanced axial CT scan of the brain is performed from the vertex to the skull base. A dose lowering technique was utilized adhering to the principles of ALARA. CT DOSE: 1569.4 mGy.cm FINDINGS: Brain parenchyma: The brain parenchyma is normal in appearance. There is no hemorrhage, mass effect, or evidence of acute territorial ischemia by CT criteria. Marte-white matter differentiation is preserved. No extra-axial fluid collection is seen. Ventricles, sulci, cisterns: Normal in configuration. Intracranial vasculature: The visualized intracranial vasculature at the skull base is normal in appearance. Calvarium: Unremarkable. Sinuses and mastoids: The visualized paranasal sinuses are clear. The mastoid air cells are well pneumatized. Orbits: The bony orbits are grossly intact. IMPRESSION: No acute intracranial abnormality. ACT 112: Negative or not required by law. Electronically signed by: Ermias Martinez M.D. 08/28/2023 6:32 PM Discharge Plan Visit Data Chief Complaint: Illness Stated Complaint: NAUSEA, DEHYDRATION, VOMITING, DIARRHEA ED Provider: Rip Shirley Discharge Problem: Metabolic acidosis, Nausea, Acute dehydration, Acidemia, Cannabis use disorder, Acute alteration in mental status Patient Disposition: Being Evaluated by Hospitalist Forms Stand Alone Forms: [facility] Prescriptions Prescriptions: No Action aripiprazole 5 mg tablet 5 mg PO DAILY Rx Instructions: TOTAL DOSE 7 MG--TAKES WITH 2 MG TAB. norethindrone-e.estradiol-iron [Blisovi Fe 03/23 (28)] 1 mg-20 mcg (21)/75 mg (7) tablet 1 tab PO DAILY Qty: 84 2RF betamethasone dipropionate 0.05 % cream 1 applic topical DAILY PRN (Reason: skin irritation) Qty: 15 0RF Linzess 290 mcg capsule 290 mcg PO DAILY Qty: 30 2RF prochlorperazine maleate 10 mg tablet 10 mg PO BID PRN (Reason: nausea and vomiting) Qty: 14 0RF sertraline 100 mg tablet 400 mg PO HS trazodone 50 mg tablet 50 - 100 mg PO HS PRN (Reason: Sleep) ondansetron 4 mg tablet,disintegrating 4 mg PO Q6H PRN (Reason: NAUSEA/VOMITING) promethazine 25 mg tablet 25 mg PO TID PRN (Reason: NAUSEA/VOMITING) aripiprazole 2 mg tablet 2 mg PO DAILY Rx Instructions: TOTAL DOSE 7 MG--TAKES WITH 5 MG TAB. valacyclovir [Valtrex] 500 mg tablet 500 mg PO DIRECTED PRN (Reason: OUT BREAKS) Rx Instructions: Take one pill daily, take one pill twice per day for 3 days at start of outbreak Referrals Referrals: Francia Serrano MD [Primary Care Provider] -
--- NOTE | 2023-08-28 15:39 | XRay Report ---
XR chest 1V portable CLINICAL HISTORY: shortness of breath TECHNIQUE: Single frontal radiograph of the chest was obtained. Comparison: Comparison is made to chest radiograph 08/01/2022 FINDINGS: No lines and tubes are seen. The cardiomediastinal silhouette is normal. The lungs are clear. No evid ence of pleural effusion or pneumothorax. IMPRESSION: No acute abnormalities and in particular no radiographic evidence of pneumonia. ACT 112: Negative or not required by law. Electronically signed by: Robin Ambriz M.D. 08/28/2023 3:38 PM
[2023-08-28 15:49] LABS: Adenovirus PCR Not Detected (NotDetected); Bordetella parapertussis PCR Not Detected (NotDetected); Bordetella pertussis PCR Not Detected (NotDetected); Chlamydia pneumoniae PCR Not Detected (NotDetected); Coronavirus 229E PCR Not Detected (NotDetected); Coronavirus CoV-2 (COVID19)PCR Not Detected (NotDetected); Coronavirus HKU1 PCR Not Detected (NotDetected); Coronavirus NL63 PCR Not Detected (NotDetected); Coronavirus OC43PCR Not Detected (NotDetected); Human Metapneumovirus PCR Not Detected (NotDetected); Influenza A PCR Not Detected (NotDetected); Influenza B PCR Not Detected (NotDetected); Mycoplasma pneumoniae PCR Not Detected (NotDetected); Parainfluenza Virus 1 PCR Not Detected (NotDetected); Parainfluenza Virus 2 PCR Not Detected (NotDetected); Parainfluenza Virus 3 PCR Not Detected (NotDetected); Parainfluenza Virus 4 PCR Not Detected (NotDetected); Respiratory Syncytial VirusPCR Not Detected (NotDetected); Rhinovirus/Enterovirus PCR Not Detected (NotDetected)
[2023-08-28 15:53] LABS: iSTAT Creatinine 0.9 mg/dl (0.6-1.3); iSTAT Hemoglobin 18.7 g/dl (12.0-16.0); iSTAT Ionized Calcium 1.29 mmol/l (1.12-1.32); iSTAT Potassium 5.2 mmol/L (3.3-5.0)
[2023-08-28] MEDS: PROMETHAZINE 12.5 MG/50.5 ML BAG IV STA (16:07)
[2023-08-28] MEDS: diphenhydrAMINE 50 MG/ML VIAL IV STA (16:07)
[2023-08-28 16:17] LABS: Basophils # (auto) 0.09 K/uL (0.00-0.20); Basophils % (auto) 0.4 %; Hematocrit (blood only) 51.6 % (37.0-47.0); Hemoglobin 16.5 g/dl (12.0-16.0); Immature Granulocytes # (auto) 1.02 K/uL (0.01-0.20); Immature Granulocytes % (auto) 4.3 %; Lymphocytes # (auto) 1.34 K/uL (1.20-3.40); Lymphocytes % (auto) 5.6 %; Mean Corpuscular Hemoglobin 29.2 pg (25.0-34.0); Mean Corpuscular Volume 91.2 fL (80.0-100.0); Mean Platelet Volume 9.7 fL (9.4-12.4); Monocytes % (auto) 7.1 %; Neutrophils # (auto) 19.76 K/uL (1.40-6.50); Neutrophils % (auto) 82.6 %; Platelet Count 326 K/uL (130-400); RDW Coefficient of Variation 15.8 % (11.5-14.5); RDW Standard Deviation 52.7 fL (36.4-46.3); Red Blood Count 5.66 M/uL (4.20-5.40); White Blood Count 23.91 K/ul (4.8-10.8)
[2023-08-28 16:41] LABS: Pregnancy Test, Serum Negative (Negative)
--- NOTE | 2023-08-28 16:52 | XRay Report ---
XR KUB/Abdomen 1 view CLINICAL HISTORY: nausea TECHNIQUE: 1 view of the abdomen was obtained. Comparison: Comparison is made to abdomen radiographs 08/03/2022 FINDINGS: Lung bases are unremarkable. The osseous structures are grossly unremarkable. No significant gas-fill ed loops of small bowel are seen. Featureless gas in the left paracolic gutter without significant st ool burden seen. IMPRESSION: No gas distended loops of small bowel are definitely seen to suggest small bowel obstruction and ther e is no evidence of volvulus. Ileus cannot be entirely excluded. If there is clinical concern, CT can be performed. ACT 112: Negative or not required by law. Electronically signed by: Robin Ambriz M.D. 08/28/2023 4:51 PM
[2023-08-28 17:49] LABS: Albumin Globulin Ratio 1.4 (0.9-2); Albumin Level 5.2 gm/dl (3.4-5.0); BUN Creatinine Ratio 18.6 (10-20); Bilirubin,Total 0.3 mg/dl (0.2-1.0); Calcium 8.7 mg/dl (8.6-10.3); Creatinine Clr Calc Pharmacy 77.3 ml/min; Est GFR (African American) 87.3 ml/min; Est GFR (Non-African American) 75.3 ml/min; Globulin 3.7 gm/dl (2.5-4.0); Magnesium 2.4 mg/dl (1.7-2.4); Potassium 4.9 mmol/L (3.5-5.1); Total Protein 8.9 gm/dl (6.0-8.3)
[2023-08-28] MEDS: OPTIRAY 320 100ml IV ONE (18:18)
[2023-08-28] MEDS: SODIUM CHLORIDE 0.9% 1,000 ML IV ONE (18:24)
--- NOTE | 2023-08-28 18:33 | CT Scan Report ---
CT SCAN OF THE BRAIN WITHOUT IV CONTRAST CLINICAL HISTORY: Headache. COMPARISON STUDY: No priors. TECHNIQUE: Unenhanced axial CT scan of the brain is performed from the vertex to the skull base. A d ose lowering technique was utilized adhering to the principles of ALARA. CT DOSE: 1569.4 mGy.cm FINDINGS: Brain parenchyma: The brain parenchyma is normal in appearance. There is no hemorrhage, mass effect, or evidence of acute territorial ischemia by CT criteria. Marte-white matter differentiation is preser chanelle. No extra-axial fluid collection is seen. Ventricles, sulci, cisterns: Normal in configuration. Intracranial vasculature: The visualized intracranial vasculature at the skull base is normal in appe arance. Calvarium: Unremarkable. Sinuses and mastoids: The visualized paranasal sinuses are clear. The mastoid air cells are well pneu matized. Orbits: The bony orbits are grossly intact. IMPRESSION: No acute intracranial abnormality. ACT 112: Negative or not required by law. Electronically signed by: Ermias Martinez M.D. 08/28/2023 6:32 PM
--- NOTE | 2023-08-28 18:48 | CT Scan Report ---
CT SCAN OF THE ABDOMEN AND PELVIS WITH IV CONTRAST CLINICAL HISTORY: Vomiting. COMPARISON STUDY: Abdominal radiographs dated 08/28/2023. TECHNIQUE: Following the IV administration of 94 cc of Optiray 320, CT scan of the abdomen and pelvi s is performed from the lung bases to the proximal femora. Images are reviewed in the axial, sagittal , and coronal planes. IV contrast was administered without complication. A dose lowering technique wa s utilized adhering to the principles of ALARA. There is streak artifact from a naval piercing. FINDINGS: Lung bases: The heart is normal in size and without pericardial effusion. The lung bases are clear. Liver: The contrast-enhanced liver is normal in size, contour, and attenuation. There is no intrahepa tic biliary ductal dilatation. The hepatic veins and portal veins are patent. Gallbladder: Unremarkable. Spleen: Normal in size and attenuation. Pancreas: Unremarkable. Adrenal glands: Unremarkable. Kidneys: The contrast enhanced kidneys are normal in size and without hydronephrosis. The kidneys enh ance symmetrically. Abdominal vasculature: The abdominal aorta is normal in course and caliber. Stomach and bowel: The stomach is distended and fluid-filled, corresponding to the shadow seen by x-r ay. The distal stomach appears thick walled. No surrounding inflammation is seen. There is no small b owel obstruction. The appendix is well-visualized and normal. Peritoneum: There is no intraperitoneal free air or abdominal ascites. Lymphadenopathy: None. Pelvic viscera: The bladder wall appears mildly thickened. The uterus and adnexa are normal as visual ized. Skeletal structures: No lytic or blastic lesions are seen. IMPRESSION: 1. The stomach is distended and fluid-filled, corresponding to the shadow seen by x-ray. The distal s tomach appears thickened, with no significant surrounding inflammation. This may represent a distal g astritis or possibly ulcer disease. A component of gastric outlet obstruction is not excluded. If war ranted this could be further assessed with endoscopy. 2. The duodenum is normal appearance of the small bowel loops are normal in caliber. 3. The bladder wall appears mildly thickened. Correlate with clinical findings and urinalysis. 4. Additional findings as above. ACT 112: Negative or not required by law. Electronically signed by: Ermias Martinez M.D. 08/28/2023 6:45 PM
[2023-08-28 18:51] LABS: Appearance Urine Clear (Clear); Bacteria Urine Automated None Seen (None Seen); Bilirubin Urine Negative (Negative); Blood Urine 1+ (Negative); Color Urine Yellow; Glucose Urine UA Negative (Negative); Ketones Urine 4+ (Negative); Leukocyte Esterase Urine Negative (Negative); Nitrite Urine Negative (Negative); Protein Urine 3+ (Negative); RBC Urine Automated 0-2 /hpf (0-2); Specific Gravity Urine 1.022 (1.000-1.030); Urobilinogen Urine Negative (Negative); WBC Urine Automated 0-5 /hpf (0-5)
[2023-08-28 18:59] LABS: Amphetamines+Metham, Urine Neg (Neg); Barbiturates, Urine Neg (Neg); Benzodiazepine, Urine Neg (Neg); Cocaine, Urine Neg (Neg); Fentanyl, Urine Neg (Neg); MDMA (Ecstacy), Urine Neg (Neg); Marijuana, Urine Pos (Neg); Methadone, Urine Neg (Neg); Opiate, Urine Neg (Neg); Phencyclidine, Urine Neg (Neg)
[2023-08-28 19:03] LABS: Oxygen Saturation ABG 99.7 % (90-95); PCO2 ABG 11 mmHg (35-46); PO2 ABG 134 mmHg (80-95)
[2023-08-28 19:11] LABS: Allen Test Pos (Pos); pH ABG < 7.00 (7.35-7.45)
[2023-08-28] MEDS ORDERED: SODIUM BICARB 8.4% INJ 50 MEQ/50 ML SYR IV STA (19:29)
[2023-08-28] MEDS: LACTATED RINGER'S 1,000 ML IV ONE (19:38)
[2023-08-28] MEDS: SODIUM BICARB 8.4% INJ 50 MEQ/50 ML SYR IV STA ×2 (19:38→19:55)
[2023-08-28] MEDS: STAT IV/IM STA (19:39)
--- NOTE | 2023-08-28 19:44 | History & Physical Report ---
Date of Service August 28, 2023 Assessment & Plan (1) Admitted to intensive care unit: (2) Metabolic acidosis: (3) Gastric distention: (4) Nausea: (5) Acute dehydration: (6) Medical marijuana use: (7) Anxiety and depression: Plan Severe metabolic acidosis- pH less than 7 on ABG, bicarb less than 5 on BMP with anion gap 21 Received 1.5 L normal saline and 1 L LR from the ED Give 2 A of sodium bicarb now, and then start bicarbonate drip Serial CBC with differential, chemistry profile, magnesium and ABGs Admitted to the intensive care unit for close monitoring Severe nausea- NPO Urine drug screen positive for marijuana, however patient is on medical marijuana use CT scan of abdomen pelvis shows a distended stomach with fluid-filled, with the distal stomach appearing thickened. This may represent a distal gastritis or possibly ulcer disease. A complement of gastric Obstruction is not excluded Pantoprazole 40 mg IV daily May benefit from NG tube to low intermittent suction Consult to gastroenterology Anxiety and depression- Medications on hold while n.p.o. History of Present Illness Chief Complaint: The patient presents to the emergency department with complaint of severe nausea over the past week with decreased oral intake to both liquids and solids during that interval. Her HPI and review of systems are supplemented by significant others in the room Primary Care Provider: Francia Serrano MD The patient is a 27-year-old female with a past medical history including ongoing nausea, anxiety and depression, genital HSV type I and constipation predominant IBS. She presents to the emergency department with significant fatigue, severe nausea, decreased oral intake for liquids and solids. Allergies Allergy/AdvReac Type Severity Reaction Status Date / Time No Known Allergies Allergy Verified 08/28/23 15:57 Home Medications Medication Instructions Recorded Confirmed Type sertraline 100 mg tablet 400 mg PO HS 04/24/22 08/28/23 History trazodone 50 mg tablet 50 - 100 mg PO HS PRN Sleep 04/24/22 08/28/23 History aripiprazole 5 mg tablet 5 mg PO DAILY 08/08/22 08/28/23 History norethindrone 1 mg-ethinyl 1 tab PO DAILY #84 tabs 02/19/23 08/28/23 Rx estradiol 20 mcg (21)-iron 75 mg (7) tablet ([place] Fe 03/23 (28)) betamethasone dipropionate 0.05 % 1 applic topical DAILY PRN skin 05/31/23 08/28/23 Rx topical cream irritation #15 grams ondansetron 4 mg disintegrating 4 mg PO Q6H PRN NAUSEA/VOMITING 07/02/23 08/28/23 History tablet linaclotide 290 mcg capsule 290 mcg PO DAILY #30 caps 08/05/23 08/28/23 Rx (Linzess) aripiprazole 2 mg tablet 2 mg PO DAILY 08/28/23 08/28/23 History prochlorperazine maleate 10 mg 10 mg PO BID PRN nausea and 08/28/23 08/28/23 Rx tablet vomiting #14 tabs promethazine 25 mg tablet 25 mg PO TID PRN NAUSEA/VOMITING 08/28/23 08/28/23 History valacyclovir 500 mg tablet 500 mg PO DIRECTED PRN OUT 08/28/23 08/28/23 History (Valtrex) BREAKS Past Med/Surg History Problem List Gastric distention Anxiety and depression Admitted to intensive care unit Acute dehydration (Acute) Nausea (Acute) Metabolic acidosis (Acute) Abdominal pain Constipation Nausea & vomiting Overweight (BMI 25.0-29.9) Medical marijuana use Genital HSV HSV1 serotype High grade squamous intraepithelial cervical dysplasia Oral contraceptive use Medical History IBS (irritable colon syndrome) Refeeding syndrome Anxiety and depression OCD (obsessive compulsive disorder) Depression Surgical History S/P LEEP 06/2022 S/P right oophorectomy right ovarian torsion S/P foot surgery Status post colposcopy H/O wisdom tooth extraction Family History Father Myocardial infarction, Onset Age: 57 Heart disease Mother Diabetes Hypertension Denies family history of Ovarian cancer Prostate cancer Breast cancer Colorectal cancer Social History Smoking Status: Never smoker Tobacco Type: E-cigarettes / Vaping Second Hand Exposure: No; Do You Dip or Chew Tobacco: No; Hx Alcohol Use: Yes Alcohol type: beer, wine and hard liquor Alcohol Intake Frequency: Monthly or Less Hx Substance Use: No Preferred Language: Tongan Communication Ability: Effective Hearing Ability: Normal Computer Operations Technician Required: No Beliefs That Will Affect Care: None Current Living Situation: Significant Other current occupational status: employed Other Information That Helps Us Care for You: No Feels Safe at Home: Yes Safety Concerns: Feels Safe At This Time Diet: regular caffeine: Yes Dental Care, Regularly: Yes Physical Activity Frequency: 1-2 Times per Week Seatbelt Use: always Sunscreen Use: Yes Assistive Devices: None Review of Systems Review of Systems: The patient denies chest pain, palpitations, cough, lower extremity swelling, sore throat, fevers, chills, sweats, vomiting, diarrhea , constipation, abdominal pain, pelvic pain, blood in urine or stool, dysuria, urinary frequency or urgency, memory loss, loss of consciousness, rash, abnormal bruising or bleeding, imbalance, focal weakness, numbness or tingling in arms or legs, generalized arthralgias or myalgias, back or neck pain, or night sweats. The review of systems is otherwise negative other than for that already noted above, and at least 10 systems have been reviewed. Physical Exam Physical Exam: The patient is awake, lethargic, normocephalic and atraumatic, lying in bed and in no acute distress. HEENT--PERRL, EOMI, mucous membranes and oropharynx dry. Neck--supple. No JVD. No bruits. Thyroid normal, trachea midline, no adenopathy. Heart--tachycardic and regular. No murmurs, rubs or gallops. Lungs--clear bilaterally, no respiratory distress, no accessory muscle use. Abdomen--normal bowel sounds and soft. Nontender. Nondistended, no hernias or masses, no organomegaly. Extremities--, no edema. Dermatologic--normal skin turgor, normal color, no abnormal lymph nodes, no rash. Neurologic--cranial nerves II through XII grossly intact. Rheumatologic--normal range of motion. Psychiatric--mildly lethargic Results & Data Results & Data Vital Signs (Past 12 Hours) Vital Signs Temp Pulse Pulse Resp BP BP Pulse Ox 08/28/23 19:20 105 H 38 H 100 08/28/23 18:25 36.4 C L 08/28/23 18:00 133/98 08/28/23 17:51 106 H 41 H 100 08/28/23 17:47 147/107 H 08/28/23 17:39 108 H 34 H 99 08/28/23 17:36 113 H 40 H 100 08/28/23 17:32 145/90 H 08/28/23 17:31 109 H 37 H 145/90 H 98 08/28/23 17:27 105 H 23 08/28/23 17:00 105 H 34 H 95 08/28/23 17:00 101 H 31 H 08/28/23 16:56 143/104 H 08/28/23 16:30 120 H 33 H 08/28/23 16:30 146/116 H 08/28/23 16:00 100 H 36 H 08/28/23 16:00 153/121 H 08/28/23 16:00 153/121 H 08/28/23 15:33 96 H 37 H 08/28/23 15:30 155/110 H 08/28/23 15:27 98 H 31 H 08/28/23 15:08 90 08/28/23 15:06 93 H 36 H 100 08/28/23 15:01 153/103 H 08/28/23 15:01 94 H 30 H 153/103 H 99 08/28/23 11:08 36.4 C L 107 H 20 144/97 H 99 O2 Del Method 08/28/23 19:20 08/28/23 18:25 08/28/23 18:00 08/28/23 17:51 08/28/23 17:47 08/28/23 17:39 08/28/23 17:36 08/28/23 17:32 08/28/23 17:31 Room Air 08/28/23 17:27 08/28/23 17:00 08/28/23 17:00 08/28/23 16:56 08/28/23 16:30 08/28/23 16:30 08/28/23 16:00 08/28/23 16:00 08/28/23 16:00 08/28/23 15:33 08/28/23 15:30 08/28/23 15:27 08/28/23 15:08 08/28/23 15:06 08/28/23 15:01 08/28/23 15:01 Room Air 08/28/23 11:08 Room Air Laboratory Results Laboratory Results WBC 23.91 K/ul (4.8-10.8) H 08/28/23 15:57 RBC 5.66 M/uL (4.20-5.40) H 08/28/23 15:57 Hgb 16.5 g/dl (12.0-16.0) H 08/28/23 15:57 POC Hgb 14.3 g/dl (12.0-16.0) 08/28/23 23:00 Hct 51.6 % (37.0-47.0) H 08/28/23 15:57 POC Hct 42 % (37-47) 08/28/23 23:00 MCV 91.2 fL (80.0-100.0) 08/28/23 15:57 MCH 29.2 pg (25.0-34.0) 08/28/23 15:57 MCHC 32.0 g/dL (32.0-36.0) 08/28/23 15:57 RDW Std Deviation 52.7 fL (36.4-46.3) H 08/28/23 15:57 RDW Coeff of Ivan 15.8 % (11.5-14.5) H 08/28/23 15:57 Plt Count 326 K/uL (130-400) 08/28/23 15:57 MPV 9.7 fL (9.4-12.4) 08/28/23 15:57 Immature Gran % (Auto) 4.3 % 08/28/23 15:57 Neut % (Auto) 82.6 % 08/28/23 15:57 Lymph % (Auto) 5.6 % 08/28/23 15:57 Marshall % (Auto) 7.1 % 08/28/23 15:57 Eos % (Auto) 0.0 % 08/28/23 15:57 Baso % (Auto) 0.4 % 08/28/23 15:57 Neut # (Auto) 19.76 K/uL (1.40-6.50) H 08/28/23 15:57 Lymph # (Auto) 1.34 K/uL (1.20-3.40) 08/28/23 15:57 Marshall # (Auto) 1.70 K/uL (0.11-0.59) H 08/28/23 15:57 Eos # (Auto) 0.00 K/uL (0.00-0.50) 08/28/23 15:57 Baso # (Auto) 0.09 K/uL (0.00-0.20) 08/28/23 15:57 Immature Gran # (Auto) 1.02 K/uL (0.01-0.20) H 08/28/23 15:57 Sample Site R Brachial 08/28/23 23:00 POC pH 7.26 (7.35-7.45) L 08/28/23 23:00 POC pCO2 < 10 mmHg (35-46) L 08/28/23 23:00 POC pO2 101 mmHg (80-95) H 08/28/23 23:00 POC HCO3 4 tiana/L (19-24) L 08/28/23 23:00 POC Total CO2 < 5 mmol/L (24-31) L* 08/28/23 23:00 POC Base Excess -23.0 tiana/L (-9-1.8) L 08/28/23 23:00 ABG pH < 7.00 (7.35-7.45) L* 08/28/23 18:48 ABG pH (Temp Correct) 7.269 (7.35-7.45) L 08/28/23 23:00 ABG pCO2 11 mmHg (35-46) L 08/28/23 18:48 ABG pCO2 (Temp Corrct 8 mmHg (35-46) L 08/28/23 23:00 ABG pO2 134 mmHg (80-95) H 08/28/23 18:48 POC ABG pO2 at Pt Temp 99 08/28/23 23:00 ABG HCO3 TNP 08/28/23 18:48 POC ABG O2 Sat 97.0 % (90-95) H 08/28/23 23:00 ABG O2 Saturation 99.7 % (90-95) H 08/28/23 18:48 ABG Base Excess TNP 08/28/23 18:48 Jordan Test NA 08/28/23 23:00 VBG pH 7.21 (7.36-7.41) L 08/28/23 22:17 Oxygen Given ROOM AIR 08/28/23 18:48 POC Sodium 140 mmol/L (135-144) 08/28/23 23:00 Sodium 137 mmol/L (136-145) 08/28/23 22:17 POC Potassium 3.6 mmol/L (3.3-5.0) 08/28/23 23:00 Potassium 4.0 mmol/L (3.5-5.1) 08/28/23 22:17 POC Chloride 117 mmol/L (101-112) H 08/28/23 15:35 Chloride 109 mmol/L (98-107) H 08/28/23 22:17 Carbon Dioxide 7 mmol/L (21-32) L* 08/28/23 22:17 POC Total CO2 7 mmol/L (24-31) L* 08/28/23 15:35 Anion Gap 21 (3-11) H 08/28/23 22:17 POC Anion Gap 20.0 mmol/L (16-25) 08/28/23 15:35 POC BUN 25 mg/dl (7-18) H 08/28/23 15:35 BUN 14 mg/dl (6-23) 08/28/23 22:17 Creatinine 0.99 mg/dl (0.6-1.2) 08/28/23 22:17 POC Creatinine 0.9 mg/dl (0.6-1.3) 08/28/23 15:35 Est Cr Clr Drug Dosing 79.9 ml/min 08/28/23 22:17 Est GFR ( Amer) 90.5 ml/min 08/28/23 22:17 Est GFR (Non-Af Amer) 78.1 ml/min 08/28/23 22:17 BUN/Creatinine Ratio 14.1 (10-20) 08/28/23 22:17 Glucose 132 mg/dl (70-99(Fasting)) H 08/28/23 22:17 POC Glucose 125 mg/dl (70-99) H 08/29/23 00:24 POC Glucose (other) 137 mg/dl (70-99) H 08/28/23 15:35 Osmolality 307 mOsm/kg (280-300) H 08/28/23 18:48 Lactate 2.0 mmol/L (0.4-2.0) 08/28/23 20:30 Calcium 8.2 mg/dl (8.6-10.3) L 08/28/23 22:17 POC Ioniz Calcium Esequiel 1.29 mmol/l (1.12-1.32) 08/28/23 15:35 Magnesium 2.4 mg/dl (1.7-2.4) 08/28/23 17:04 Total Bilirubin 0.3 mg/dl (0.2-1.0) 08/28/23 17:04 AST 47 U/L (13-39) H 08/28/23 17:04 ALT 28 U/L (7-52) 08/28/23 17:04 Alkaline Phosphatase 60 U/L (34-104) 08/28/23 17:04 Total Protein 8.9 gm/dl (6.0-8.3) H 08/28/23 17:04 Albumin 5.2 gm/dl (3.4-5.0) H 08/28/23 17:04 Globulin 3.7 gm/dl (2.5-4.0) 08/28/23 17:04 Albumin/Globulin Ratio 1.4 (0.9-2) 08/28/23 17:04 Lipase 55 U/L (11-82) 08/28/23 17:04 HCG, Qual Negative (Negative) 08/28/23 15:57 Urine Color Yellow 08/28/23 13:50 Urine Appearance Clear (Clear) 08/28/23 13:50 Urine pH 6.0 (4.5-7.5) 08/28/23 13:50 Ur Specific Butler 1.022 (1.000-1.030) 08/28/23 13:50 Urine Protein 3+ (Negative) H 08/28/23 13:50 Urine Glucose (UA) Negative (Negative) 08/28/23 13:50 Urine Ketones 4+ (Negative) H 08/28/23 13:50 Urine Blood 1+ (Negative) H 08/28/23 13:50 Urine Nitrite Negative (Negative) 08/28/23 13:50 Urine Bilirubin Negative (Negative) 08/28/23 13:50 Urine Urobilinogen Negative (Negative) 08/28/23 13:50 Ur Leukocyte Esterase Negative (Negative) 08/28/23 13:50 Urine WBC (Auto) 0-5 /hpf (0-5) 08/28/23 13:50 Urine RBC (Auto) 0-2 /hpf (0-2) 08/28/23 13:50 U Hyaline Cast (Auto) 6-10 /lpf (0-2) H 08/28/23 13:50 U Epithel Cells (Auto) 3-5 /hpf (0-2) H 08/28/23 13:50 Urine Bacteria (Auto) None Seen (None Seen) 08/28/23 13:50 Nasal Screen MRSA (PCR) Negative (Negative) 08/28/23 Unknown Salicylates < 3.0 mg/dl (3.0-30) L 08/28/23 20:30 Urine Opiates Screen Neg (Neg) 08/28/23 13:50 Ur Methadone, Qual Neg (Neg) 08/28/23 13:50 Urine Fentanyl Screen Neg (Neg) 08/28/23 13:50 Acetaminophen < 3 ug/ml (10-30) L 08/28/23 20:30 Urine Barbiturates Neg (Neg) 08/28/23 13:50 Ur Phencyclidine (PCP) Neg (Neg) 08/28/23 13:50 U Amphetamin/Meth Scrn Neg (Neg) 08/28/23 13:50 MDMA (Ecstasy) Screen Neg (Neg) 08/28/23 13:50 U Benzodiazepines Scrn Neg (Neg) 08/28/23 13:50 Ur Cocaine Metabolite Neg (Neg) 08/28/23 13:50 U Marijuana (THC) Screen Pos (Neg) H 08/28/23 13:50 Ethyl Alcohol mg/dL < 10.0 mg/dl (<10.0) 08/28/23 18:48 Adenovirus (PCR) Not Detected (NotDetected) 08/28/23 13:50 B. pertussis DNA (PCR) Not Detected (NotDetected) 08/28/23 13:50 B.parapertussis DNA PCR Not Detected (NotDetected) 08/28/23 13:50 C. pneumoniae DNA (PCR) Not Detected (NotDetected) 08/28/23 13:50 Coronavirus OC43 (PCR) Not Detected (NotDetected) 08/28/23 13:50 Coronavirus HKU1 (PCR) Not Detected (NotDetected) 08/28/23 13:50 Coronavirus 229E (PCR) Not Detected (NotDetected) 08/28/23 13:50 SARS-CoV-2 (PCR) Not Detected (NotDetected) 08/28/23 13:50 Coronavirus NL63 (PCR) Not Detected (NotDetected) 08/28/23 13:50 Human Metapneumovir PCR Not Detected (NotDetected) 08/28/23 13:50 Influenza Type A (PCR) Not Detected (NotDetected) 08/28/23 13:50 Influenza Type B (PCR) Not Detected (NotDetected) 08/28/23 13:50 M. pneumoniae (PCR) Not Detected (NotDetected) 08/28/23 13:50 Parainfluenza 1 (PCR) Not Detected (NotDetected) 08/28/23 13:50 Parainfluenza 2 (PCR) Not Detected (NotDetected) 08/28/23 13:50 Parainfluenza 3 (PCR) Not Detected (NotDetected) 08/28/23 13:50 Parainfluenza 4 (PCR) Not Detected (NotDetected) 08/28/23 13:50 RSV (PCR) Not Detected (NotDetected) 08/28/23 13:50 Entero/Rhino (PCR) Not Detected (NotDetected) 08/28/23 13:50 Impressions Chest X-Ray 08/28/23 11:15 XR chest 1V portable CLINICAL HISTORY: shortness of breath TECHNIQUE: Single frontal radiograph of the chest was obtained. Comparison: Comparison is made to chest radiograph 08/01/2022 FINDINGS: No lines and tubes are seen. The cardiomediastinal silhouette is normal. The lungs are clear. No evidence of pleural effusion or pneumothorax. IMPRESSION: No acute abnormalities and in particular no radiographic evidence of pneumonia. ACT 112: Negative or not required by law. Electronically signed by: Robin Ambriz M.D. 08/28/2023 3:38 PM KUB X-Ray 08/28/23 15:33 XR KUB/Abdomen 1 view CLINICAL HISTORY: nausea TECHNIQUE: 1 view of the abdomen was obtained. Comparison: Comparison is made to abdomen radiographs 08/03/2022 FINDINGS: Lung bases are unremarkable. The osseous structures are grossly unremarkable. No significant gas-filled loops of small bowel are seen. Featureless gas in the left paracolic gutter without significant stool burden seen. IMPRESSION: No gas distended loops of small bowel are definitely seen to suggest small bowel obstruction and there is no evidence of volvulus. Ileus cannot be entirely excluded. If there is clinical concern, CT can be performed. ACT 112: Negative or not required by law. Electronically signed by: Robin Ambriz M.D. 08/28/2023 4:51 PM Abdomen/Pelvis CT 08/28/23 17:51 CT SCAN OF THE ABDOMEN AND PELVIS WITH IV CONTRAST CLINICAL HISTORY: Vomiting. COMPARISON STUDY: Abdominal radiographs dated 08/28/2023. TECHNIQUE: Following the IV administration of 94 cc of Optiray 320, CT scan of the abdomen and pelvis is performed from the lung bases to the proximal femora. Images are reviewed in the axial, sagittal, and coronal planes. IV contrast was administered without complication. A dose lowering technique was utilized adhering to the principles of ALARA. There is streak artifact from a naval piercing. FINDINGS: Lung bases: The heart is normal in size and without pericardial effusion. The lung bases are clear. Liver: The contrast-enhanced liver is normal in size, contour, and attenuation. There is no intrahepatic biliary ductal dilatation. The hepatic veins and portal veins are patent. Gallbladder: Unremarkable. Spleen: Normal in size and attenuation. Pancreas: Unremarkable. Adrenal glands: Unremarkable. Kidneys: The contrast enhanced kidneys are normal in size and without hydronephrosis. The kidneys enhance symmetrically. Abdominal vasculature: The abdominal aorta is normal in course and caliber. Stomach and bowel: The stomach is distended and fluid-filled, corresponding to the shadow seen by x-ray. The distal stomach appears thick walled. No surrounding inflammation is seen. There is no small bowel obstruction. The appendix is well-visualized and normal. Peritoneum: There is no intraperitoneal free air or abdominal ascites. Lymphadenopathy: None. Pelvic viscera: The bladder wall appears mildly thickened. The uterus and adnexa are normal as visualized. Skeletal structures: No lytic or blastic lesions are seen. IMPRESSION: 1. The stomach is distended and fluid-filled, corresponding to the shadow seen by x-ray. The distal stomach appears thickened, with no significant surrounding inflammation. This may represent a distal gastritis or possibly ulcer disease. A component of gastric outlet obstruction is not excluded. If warranted this could be further assessed with endoscopy. 2. The duodenum is normal appearance of the small bowel loops are normal in caliber. 3. The bladder wall appears mildly thickened. Correlate with clinical findings and urinalysis. 4. Additional findings as above. ACT 112: Negative or not required by law. Electronically signed by: Ermias Martinez M.D. 08/28/2023 6:[address] 08/28/23 17:51 CT SCAN OF THE BRAIN WITHOUT IV CONTRAST CLINICAL HISTORY: Headache. COMPARISON STUDY: No priors. TECHNIQUE: Unenhanced axial CT scan of the brain is performed from the vertex to the skull base. A dose lowering technique was utilized adhering to the principles of ALARA. CT DOSE: 1569.4 mGy.cm FINDINGS: Brain parenchyma: The brain parenchyma is normal in appearance. There is no hemorrhage, mass effect, or evidence of acute territorial ischemia by CT criteria. Marte-white matter differentiation is preserved. No extra-axial fluid collection is seen. Ventricles, sulci, cisterns: Normal in configuration. Intracranial vasculature: The visualized intracranial vasculature at the skull base is normal in appearance. Calvarium: Unremarkable. Sinuses and mastoids: The visualized paranasal sinuses are clear. The mastoid air cells are well pneumatized. Orbits: The bony orbits are grossly intact. IMPRESSION: No acute intracranial abnormality. ACT 112: Negative or not required by law. Electronically signed by: Ermias Martinez M.D. 08/28/2023 6:32 PM Code Status & VTE Plan Code Status Full code VTE Prophylaxis Plan VTE Prophylaxis will be ordered: Yes PG Care Time/CCT Total # of Minutes Spent Total Time Spent with Patient: Total time spent is greater than 50% in coordination of care (as documented) at patient's floor/unit and/or counseling patient: 40 minutes Coding Level of Care Code 36383 INT INP/OBS CARE 3/75MIN Diagnoses Admitted to intensive care unit Z78.9 Metabolic acidosis E87.20 Gastric distention K31.89 Nausea R11.0 Acute dehydration E86.0 Medical marijuana use Z79.899 Anxiety and depression F41.9; F32.A
--- NOTE | 2023-08-28 19:51 | Critical Care Consultation ---
Date of Consultation August 28, 2023 Assessment & Plan (1) Metabolic acidosis: (2) Acute dehydration: (3) Nausea & vomiting: Plan Reason Critically Ill: 27 YOF presents with 1 week history of loss of appetite as well as nausea/vomitting and diarrhea. She presents with high AGAP metabolic acidosis. Neuro - Anxiety/depression CAM ICU: NEGATIVE - Continue home medications, no acute needs at this time Cardiac - NO acute needs - follow hemodynamics with severe metabolic acidosis Respiratory - No acute needs - attempting to compensate from respiratory standpoint- support as needed to maintain mv GI - IBS/n/v, - Unclear cause at this time- but CT scan with questionable outlet obtstruciton as well as gastritis, she is without abdominal discomfort, no epigastric pain - reports after starting linzess that her symptoms have improved since July - follow supportive care with antiemetics and volume replacement - PPI IV BID RENAL/LYTES - AGAP Metabolic Acidosis, Ketosis, - Combination of ketosis as well as loss of bicarb- will provide bolus of bicarb x2 50meq 8.4% now and then isotonic bicarb infusion at 200ml per hour - AGAP 21- Osmolar gap 21, however renal function is intact, calcium normal and no crystals in urine and likely other cause- she is with BICARB delta > than AG delta- with mixed gap and non gap acidosis - Ketones 4+ in urine - ETOH <10 - Salicylate and Tylenol levels negative - Lactate negative - BMP q4 hours with PH - Thiamine 500mg now and then IV q8 secondary to poor nutritional intake as well as severe metabolic acidosis. - No acute needs ENDO - NO acute needs at this time HEME - Hemoconcentration - follow labs - likely reactionary and hemoconcentrated leukocytosis and HGB ID - No concern at this time for infective cause LINES/IV ACCESS - PIV Continue use of these lines DVT PROPHYLAXIS - SCDS, Heparin 5000 units sq q12 DISPO: ICU until improvement in acid base status I have personally spent 50 minutes of critical care time in the direct management of this patient. This is a life/limb threatening event. This includes time spent evaluating patient, direct bedside care, chart review, placing orders, interpretation of diagnostic studies, discussion with consultants, patient, and family members, as well as other required patient management activities. This time is exclusive of all separately billable procedures, and teaching time and separate from and in addition to any other critical care service time. Thank you for allowing us to participate in the care of this patient. Please refer to my attending physician's documentation for any further recommendations. History of Present Illness Reason for Consultation: AGAP Metabolic Acidosis Requesting Physician: Mitchel Gomez MD Attending Physician: Mitchel Gomez History of Present Illness 27 YOF with medical history of: IBS, Depression, Anxiety, OCD, marijuana use. Patient reports loss of appetite for the past week not associated with any abdominal pain or discomfort. She reports that just no appetite and then yesterday 08/26 she started with nausea and vomiting as well as about 6-7 episodes of diarrhea. She reports no real food intake since about Saturday. She also endorses to edible marijuana use on Saturday as well. She came to the EMD today for these complaints. She had routine labs performed that noted luekocytosis, and elevated HGB levels that are likely consistent with hemoconce ntration, BMP noted with hyperchloremia, bicarb of 5, and AGAP of 21. Renal function is preserved and patient reports making urine. She had a VBG performed that noted PH <7.0 and co2 compensating at 11. ICU was consulted on admission, requested bicarbonate bolus x2 as well as bicarb infusion at ~ 200 ml per hour. Patient is awake and mentating well. She denies any ETOH use and her ETOH is <10. Patient will be admitted to the ICU for volume replacement as well as monitoring of her acid base disturbances. CODE: FULL Allergies Allergy/AdvReac Type Severity Reaction Status Date / Time No Known Allergies Allergy Verified 08/28/23 15:57 Home Medications Medication Instructions Recorded Confirmed Type sertraline 100 mg tablet 400 mg PO HS 04/24/22 08/28/23 History trazodone 50 mg tablet 50 - 100 mg PO HS PRN Sleep 04/24/22 08/28/23 History aripiprazole 5 mg tablet 5 mg PO DAILY 08/08/22 08/28/23 History norethindrone 1 mg-ethinyl 1 tab PO DAILY #84 tabs 02/19/23 08/28/23 Rx estradiol 20 mcg (21)-iron 75 mg (7) tablet (Blisovi Fe 03/23 (28)) betamethasone dipropionate 0.05 % 1 applic topical DAILY PRN skin 05/31/23 08/28/23 Rx topical cream irritation #15 grams ondansetron 4 mg disintegrating 4 mg PO Q6H PRN NAUSEA/VOMITING 07/02/23 08/28/23 History tablet linaclotide 290 mcg capsule 290 mcg PO DAILY #30 caps 08/05/23 08/28/23 Rx (Linzess) aripiprazole 2 mg tablet 2 mg PO DAILY 08/28/23 08/28/23 History prochlorperazine maleate 10 mg 10 mg PO BID PRN nausea and 08/28/23 08/28/23 Rx tablet vomiting #14 tabs promethazine 25 mg tablet 25 mg PO TID PRN NAUSEA/VOMITING 08/28/23 08/28/23 History valacyclovir 500 mg tablet 500 mg PO DIRECTED PRN OUT 08/28/23 08/28/23 History (Valtrex) BREAKS Patient History Medical History IBS (irritable colon syndrome) Refeeding syndrome Anxiety and depression OCD (obsessive compulsive disorder) Depression Surgical History S/P LEEP 06/2022 S/P right oophorectomy right ovarian torsion S/P foot surgery Status post colposcopy H/O wisdom tooth extraction Family History Father Myocardial infarction, Onset Age: 57 Heart disease Mother Diabetes Hypertension Denies family history of Ovarian cancer Prostate cancer Breast cancer Colorectal cancer Social History Smoking Status: Never smoker Tobacco Type: E-cigarettes / Vaping Second Hand Exposure: No; Do You Dip or Chew Tobacco: No; Hx Alcohol Use: Yes Alcohol type: beer, wine and hard liquor Alcohol Intake Frequency: Monthly or Less Hx Substance Use: No Preferred Language: Khmer Communication Ability: Effective Hearing Ability: Normal Technology Sales Representative Required: No Beliefs That Will Affect Care: None Current Living Situation: Significant Other current occupational status: employed Other Information That Helps Us Care for You: No Feels Safe at Home: Yes Safety Concerns: Feels Safe At This Time Diet: regular caffeine: Yes Dental Care, Regularly: Yes Physical Activity Frequency: 1-2 Times per Week Seatbelt Use: always Sunscreen Use: Yes Assistive Devices: None Review of Systems Review of Systems: REVIEW OF SYSTEMS: Constitutional: No fever, sweats or chills Eyes: No diplopia, no worsening or blurred vision ENT: normal hearing, no trouble swallowing Respiratory: No cough, sputum, dyspnea at rest or on exertion Cardiovascular: No chest pain, tightness or palpitations Abdomen: (+) vomiting, nausea, diarrhea No pain, nausea, vomiting, diarrhea or constipation Musculoskeletal: No joint pain, calf pain, swelling Neurologic: No weakness, numbness/tingling, or balance problems Psychiatric: (+) anxiety or depression Skin: No rash or itch Physical Exam Physical Exam: PHYSICAL EXAM: General: awake, alert, no apparent distress Head: Normocephalic, atraumatic ENT: PERRL, EOMI, no pharyngeal exudate, mucous membranes dry Neuro: AAO x 3, speech clear and appropriate, strength intact bilaterally 5/5, sensation intact and equal all extremities and dermatomes, no pronator drift Chest: equal rise and fall of the chest, tachypnea with no accessory muscle use, no heaves or thrills, Clear to auscultation, on room air, Cardiac: Regular rate and rhythm, telemetry reviewed- NSR/sinus tachycardia no ectopy, skin warm dry, cap refill <3 seconds, peripheral pulses +2 no JVD, no murmur, no JVD, no edema GI: NABS x 4 quadrants, softly distended, nontender to palpation, no rebound, guarding or tenderness : Spontaneously voiding, no pain, no CVA tenderness, Extremities: Normal inspection, no peripheral edema or erythema, calfs nontender to palpation Psych: Normal mood and affect Skin: no rash or erythema Results & Data Results & Data Vital Signs (Past 12 Hours) Vital Signs Temp Pulse Pulse Resp BP BP Pulse Ox 08/28/23 19:20 105 H 38 H 100 08/28/23 18:25 36.4 C L 08/28/23 18:00 133/98 08/28/23 17:51 106 H 41 H 100 08/28/23 17:47 147/107 H 08/28/23 17:39 108 H 34 H 99 08/28/23 17:36 113 H 40 H 100 08/28/23 17:32 145/90 H 08/28/23 17:31 109 H 37 H 145/90 H 98 08/28/23 17:27 105 H 23 08/28/23 17:00 105 H 34 H 95 08/28/23 17:00 101 H 31 H 08/28/23 16:56 143/104 H 08/28/23 16:30 120 H 33 H 08/28/23 16:30 146/116 H 08/28/23 16:00 100 H 36 H 08/28/23 16:00 153/121 H 08/28/23 16:00 153/121 H 08/28/23 15:33 96 H 37 H 08/28/23 15:30 155/110 H 08/28/23 15:27 98 H 31 H 08/28/23 15:08 90 08/28/23 15:06 93 H 36 H 100 08/28/23 15:01 153/103 H 08/28/23 15:01 94 H 30 H 153/103 H 99 08/28/23 11:08 36.4 C L 107 H 20 144/97 H 99 O2 Del Method 08/28/23 19:20 08/28/23 18:25 08/28/23 18:00 08/28/23 17:51 08/28/23 17:47 08/28/23 17:39 08/28/23 17:36 08/28/23 17:32 08/28/23 17:31 Room Air 08/28/23 17:27 08/28/23 17:00 08/28/23 17:00 08/28/23 16:56 08/28/23 16:30 08/28/23 16:30 08/28/23 16:00 08/28/23 16:00 08/28/23 16:00 08/28/23 15:33 08/28/23 15:30 08/28/23 15:27 08/28/23 15:08 08/28/23 15:06 08/28/23 15:01 08/28/23 15:01 Room Air 08/28/23 11:08 Room Air Laboratory Results Abnormal Labs 08/28/23 08/28/23 08/28/23 13:50 14:03 15:35 WBC RBC Hgb POC Hgb 18.7 H Hct POC Hct 55 H RDW Std Deviation RDW Coeff of Ivan Neut # (Auto) Upton # (Auto) Immature Gran # (Auto) ABG pH ABG pCO2 ABG pO2 ABG O2 Saturation Sodium POC Potassium 5.2 H POC Chloride 117 H Chloride Carbon Dioxide POC Total CO2 7 L* Anion Gap POC BUN 25 H Glucose POC Glucose 136 H POC Glucose (other) 137 H Osmolality AST Total Protein Albumin Urine Protein 3+ H Urine Ketones 4+ H Urine Blood 1+ H U Hyaline Cast (Auto) 6-10 H U Epithel Cells (Auto) 3-5 H U Marijuana (THC) Screen Pos H 08/28/23 08/28/23 08/28/23 15:57 17:04 18:05 WBC 23.91 H RBC 5.66 H Hgb 16.5 H POC Hgb Hct 51.6 H POC Hct RDW Std Deviation 52.7 H RDW Coeff of Ivan 15.8 H Neut # (Auto) 19.76 H Upton # (Auto) 1.70 H Immature Gran # (Auto) 1.02 H ABG pH ABG pCO2 ABG pO2 ABG O2 Saturation Sodium 135 L POC Potassium POC Chloride Chloride 109 H Carbon Dioxide 5 L* POC Total CO2 Anion Gap 21 H POC BUN Glucose 120 H POC Glucose 114 H POC Glucose (other) Osmolality AST 47 H Total Protein 8.9 H Albumin 5.2 H Urine Protein Urine Ketones Urine Blood U Hyaline Cast (Auto) U Epithel Cells (Auto) U Marijuana (THC) Screen 08/28/23 18:48 WBC RBC Hgb POC Hgb Hct POC Hct RDW Std Deviation RDW Coeff of Ivan Neut # (Auto) Upton # (Auto) Immature Gran # (Auto) ABG pH < 7.00 L* ABG pCO2 11 L ABG pO2 134 H ABG O2 Saturation 99.7 H Sodium POC Potassium POC Chloride Chloride Carbon Dioxide POC Total CO2 Anion Gap POC BUN Glucose POC Glucose POC Glucose (other) Osmolality 307 H AST Total Protein Albumin Urine Protein Urine Ketones Urine Blood U Hyaline Cast (Auto) U Epithel Cells (Auto) U Marijuana (THC) Screen Diagnostic Findings Chest X-Ray 08/28/23 11:15 XR chest 1V portable CLINICAL HISTORY: shortness of breath TECHNIQUE: Single frontal radiograph of the chest was obtained. Comparison: Comparison is made to chest radiograph 08/01/2022 FINDINGS: No lines and tubes are seen. The cardiomediastinal silhouette is normal. The lungs are clear. No evidence of pleural effusion or pneumothorax. IMPRESSION: No acute abnormalities and in particular no radiographic evidence of pneumonia. ACT 112: Negative or not required by law. Electronically signed by: Robin Ambriz M.D. 08/28/2023 3:38 PM KUB X-Ray 08/28/23 15:33 XR KUB/Abdomen 1 view CLINICAL HISTORY: nausea TECHNIQUE: 1 view of the abdomen was obtained. Comparison: Comparison is made to abdomen radiographs 08/03/2022 FINDINGS: Lung bases are unremarkable. The osseous structures are grossly unremarkable. No significant gas-filled loops of small bowel are seen. Featureless gas in the left paracolic gutter without significant stool burden seen. IMPRESSION: No gas distended loops of small bowel are definitely seen to suggest small bowel obstruction and there is no evidence of volvulus. Ileus cannot be entirely excluded. If there is clinical concern, CT can be performed. ACT 112: Negative or not required by law. Electronically signed by: Robin Ambriz M.D. 08/28/2023 4:51 PM Abdomen/Pelvis CT 08/28/23 17:51 CT SCAN OF THE ABDOMEN AND PELVIS WITH IV CONTRAST CLINICAL HISTORY: Vomiting. COMPARISON STUDY: Abdominal radiographs dated 08/28/2023. TECHNIQUE: Following the IV administration of 94 cc of Optiray 320, CT scan of the abdomen and pelvis is performed from the lung bases to the proximal femora. Images are reviewed in the axial, sagittal, and coronal planes. IV contrast was administered without complication. A dose lowering technique was utilized adhering to the principles of ALARA. There is streak artifact from a naval piercing. FINDINGS: Lung bases: The heart is normal in size and without pericardial effusion. The lung bases are clear. Liver: The contrast-enhanced liver is normal in size, contour, and attenuation. There is no intrahepatic biliary ductal dilatation. The hepatic veins and portal veins are patent. Gallbladder: Unremarkable. Spleen: Normal in size and attenuation. Pancreas: Unremarkable. Adrenal glands: Unremarkable. Kidneys: The contrast enhanced kidneys are normal in size and without hydron ephrosis. The kidneys enhance symmetrically. Abdominal vasculature: The abdominal aorta is normal in course and caliber. Stomach and bowel: The stomach is distended and fluid-filled, corresponding to the shadow seen by x-ray. The distal stomach appears thick walled. No surrounding inflammation is seen. There is no small bowel obstruction. The appendix is well-visualized and normal. Peritoneum: There is no intraperitoneal free air or abdominal ascites. Lymphadenopathy: None. Pelvic viscera: The bladder wall appears mildly thickened. The uterus and adnexa are normal as visualized. Skeletal structures: No lytic or blastic lesions are seen. IMPRESSION: 1. The stomach is distended and fluid-filled, corresponding to the shadow seen by x-ray. The distal stomach appears thickened, with no significant surrounding inflammation. This may represent a distal gastritis or possibly ulcer disease. A component of gastric outlet obstruction is not excluded. If warranted this could be further assessed with endoscopy. 2. The duodenum is normal appearance of the small bowel loops are normal in caliber. 3. The bladder wall appears mildly thickened. Correlate with clinical findings and urinalysis. 4. Additional findings as above. ACT 112: Negative or not required by law. Electronically signed by: Ermias Martinez M.D. 08/28/2023 6:[address] 08/28/23 17:51 CT SCAN OF THE BRAIN WITHOUT IV CONTRAST CLINICAL HISTORY: Headache. COMPARISON STUDY: No priors. TECHNIQUE: Unenhanced axial CT scan of the brain is performed from the vertex to the skull base. A dose lowering technique was utilized adhering to the principles of ALARA. CT DOSE: 1569.4 mGy.cm FINDINGS: Brain parenchyma: The brain parenchyma is normal in appearance. There is no hemorrhage, mass effect, or evidence of acute territorial ischemia by CT criteria. Marte-white matter differentiation is preserved. No extra-axial fluid collection is seen. Ventricles, sulci, cisterns: Normal in configuration. Intracranial vasculature: The visualized intracranial vasculature at the skull base is normal in appearance. Calvarium: Unremarkable. Sinuses and mastoids: The visualized paranasal sinuses are clear. The mastoid air cells are well pneumatized. Orbits: The bony orbits are grossly intact. IMPRESSION: No acute intracranial abnormality. ACT 112: Negative or not required by law. Electronically signed by: Ermias Martinez M.D. 08/28/2023 6:32 PM Medications Administered Home Medications sertraline 100 mg tablet 400 mg PO HS 04/24/22 [History Confirmed 08/28/23] trazodone 50 mg tablet 50 - 100 mg PO HS PRN Sleep 04/24/22 [History Confirmed 08/28/23] aripiprazole 5 mg tablet 5 mg PO DAILY 08/08/22 [History Confirmed 08/28/23] norethindrone 1 mg-ethinyl estradiol 20 mcg (21)-iron 75 mg (7) tablet (Blisovi Fe 03/23 (28)) 1 tab PO DAILY #84 tabs 02/19/23 [Rx Confirmed 08/28/23] betamethasone dipropionate 0.05 % topical cream 1 applic topical DAILY PRN skin irritation #15 grams 05/31/23 [Rx Confirmed 08/28/23] ondansetron 4 mg disintegrating tablet 4 mg PO Q6H PRN NAUSEA/VOMITING 07/02/23 [History Confirmed 08/28/23] linaclotide 290 mcg capsule (Linzess) 290 mcg PO DAILY #30 caps 08/05/23 [Rx Confirmed 08/28/23] aripiprazole 2 mg tablet 2 mg PO DAILY 08/28/23 [History Confirmed 08/28/23] prochlorperazine maleate 10 mg tablet 10 mg PO BID PRN nausea and vomiting #14 tabs 08/28/23 [Rx Confirmed 08/28/23] promethazine 25 mg tablet 25 mg PO TID PRN NAUSEA/VOMITING 08/28/23 [History Confirmed 08/28/23] valacyclovir 500 mg tablet (Valtrex) 500 mg PO DIRECTED PRN OUT BREAKS 08/28/23 [History Confirmed 08/28/23] Active Medications Lactated Ringer's (Lr) 1,000 mls @ 999 mls/hr IV .Q1H1M ONE Stop: 08/28/23 20:02 Last Admin: 08/28/23 19:38 Dose: 999 mls/hr Sodium Bicarbonate 150 meq/ (Dextrose) 1,150 mls @ 200 mls/hr IV .Q5H45M SAAD Stop: 09/27/23 19:29 Last Admin: 08/28/23 19:55 Dose: 200 mls/hr ECG Additional Comments: est Reason : Blood Pressure : / mmHG Vent. Rate : 086 BPM Atrial Rate : 086 BPM P-R Int : 132 ms QRS Dur : 086 ms QT Int : 374 ms P-R-T Axes : 080 074 065 degrees QTc Int : 447 ms Normal sinus rhythm with sinus arrhythmia Minor ST elevation, most consistent with repolarization variant Normal ECG When compared with ECG of 06-AUG-2022 06:25, No significant change Confirmed by Avery Mae ([id number]) on 08/28/2023 2:53:56 PM Coding Level of Care Code 46425 CRITICAL CARE 1ST 30-74M Diagnoses Metabolic acidosis E87.20 Acute dehydration E86.0 Nausea & vomiting R11.2
[2023-08-28] MEDS: SODIUM BICARBONATE 8.4% 150 MEQ in DEXTROSE 5% 1,000 ML IV SCH (19:55)
[2023-08-28 20:59] LABS: Acetaminophen < 3 ug/ml (10-30); Salicylate < 3.0 mg/dl (3.0-30)
[2023-08-28] MEDS ORDERED: ALBUT/IPRATROP 3MG/0.5MG NEB 3 ML VIAL NEB PRN (22:00)
[2023-08-28] MEDS ORDERED: ACETAMINOPHEN 1000 MG/100 ML IV IV PRN (22:00)
[2023-08-28] MEDS: HEPARIN SOD 5,000 UNIT/0.5 ML VIAL SQ SCH (22:26)
[2023-08-28] MEDS: THIAMINE HCL 500 MG in SODIUM CHLORIDE 0.9% 50 ML IV STA (22:26)
[2023-08-28] MEDS: ICU Protocol for HYPERglycemia SCH (22:26)
[2023-08-28 22:53] LABS: BUN Creatinine Ratio 14.1 (10-20); Calcium 8.2 mg/dl (8.6-10.3); Creatinine Clr Calc Pharmacy 79.9 ml/min; Est GFR (African American) 90.5 ml/min; Est GFR (Non-African American) 78.1 ml/min
[2023-08-28 23:13] LABS: iSTAT Art Bld Gas pCO2 Correct 8 mmHg (35-46); iSTAT Art Bld Gas pH Corrected 7.269 (7.35-7.45); iSTAT Arterial Blood Gas HCO3 4 meg/L (19-24); iSTAT Arterial Blood Gas pCO2 < 10 mmHg (35-46); iSTAT Arterial Blood Gas pH 7.26 (7.35-7.45); iSTAT Arterial Blood Gas pO2 101 mmHg (80-95); iSTAT Arterial Blood Gas pO2 C 99; iSTAT Carbon Dioxide < 5 mmol/L (24-31); iSTAT Hematocrit 42 % (37-47); iSTAT Hemoglobin 14.3 g/dl (12.0-16.0); iSTAT Potassium 3.6 mmol/L (3.3-5.0); iSTAT Site R Brachial; iSTAT Sodium 140 mmol/L (135-144)
--- NOTE | 2023-08-29 01:48 | Billing Data ---
Date of Service August 29, 2023 Coding Level of Care Code 52003 CRITICAL CARE
[2023-08-29] MEDS ORDERED: POTASSIUM PHOS 3 MMOL/1 ML INFUSION IV STA ×2 (02:51→18:55)
[2023-08-29 03:09] LABS: Alanine Aminotransferase 30 U/L (7-52); Albumin Globulin Ratio 1.4 (0.9-2); Albumin Level 4.2 gm/dl (3.4-5.0); Alkaline Phosphatase 50 U/L (34-104); Anion Gap 19 (3-11); Aspartate Aminotransferase 56 U/L (13-39); BUN Creatinine Ratio 13.2 (10-20); Bilirubin,Total 0.5 mg/dl (0.2-1.0); Blood Urea Nitrogen 12 mg/dl (6-23); Calcium 8.3 mg/dl (8.6-10.3); Carbon Dioxide 8 mmol/L (21-32); Chloride 110 mmol/L (98-107); Creatinine Clr Calc Pharmacy 86.9 ml/min; Est GFR (African American) 100.2 ml/min; Est GFR (Non-African American) 86.5 ml/min; Glucose 165 mg/dl (70-99(Fasting)); Magnesium 2.1 mg/dl (1.7-2.4); Phosphorus < 1.0 mg/dl (2.5-4.9); Potassium 3.5 mmol/L (3.5-5.1); Sodium 137 mmol/L (136-145); Total Protein 7.2 gm/dl (6.0-8.3)
[2023-08-29 03:17] LABS: Basophils # (auto) 0.04 K/uL (0.00-0.20); Basophils % (auto) 0.2 %; Hematocrit (blood only) 39.8 % (37.0-47.0); Hemoglobin 13.4 g/dl (12.0-16.0); Immature Granulocytes # (auto) 0.45 K/uL (0.01-0.20); Immature Granulocytes % (auto) 2.2 %; Lymphocytes # (auto) 0.64 K/uL (1.20-3.40); Lymphocytes % (auto) 3.2 %; Mean Corpuscular Hemoglobin 29.1 pg (25.0-34.0); Mean Corpuscular Hgb Conc 33.7 g/dL (32.0-36.0); Mean Corpuscular Volume 86.3 fL (80.0-100.0); Mean Platelet Volume 9.3 fL (9.4-12.4); Monocytes % (auto) 9.5 %; Neutrophils # (auto) 16.99 K/uL (1.40-6.50); Neutrophils % (auto) 84.9 %; Platelet Count 212 K/uL (130-400); RDW Coefficient of Variation 15.2 % (11.5-14.5); RDW Standard Deviation 48.4 fL (36.4-46.3); Red Blood Count 4.61 M/uL (4.20-5.40); White Blood Count 20.02 K/ul (4.8-10.8)
[2023-08-29] MEDS: POTASSIUM PHOSPHATE 24 MMOL in SODIUM CHLORIDE 0.9% 500 ML IV ONE (03:57)
[2023-08-29] MEDS: THIAMINE HCL 500 MG in SODIUM CHLORIDE 0.9% 50 ML IV SCH (05:45)
[2023-08-29 06:04] LABS: BUN Creatinine Ratio 12.2 (10-20); Creatinine Clr Calc Pharmacy 87.9 ml/min; Est GFR (African American) 101.6 ml/min; Est GFR (Non-African American) 87.6 ml/min; Potassium 3.2 mmol/L (3.5-5.1)
[2023-08-29] MEDS: PLASMA-LYTE A 1,000 ML IV SCH ×2 (06:39→19:59)
--- NOTE | 2023-08-29 07:21 | Hospitalist Progress Note ---
Date of Service August 29, 2023 Assessment & Plan (1) Medical marijuana use: (2) Anxiety and depression: (3) Nausea & vomiting: (4) Metabolic acidosis: (5) Acute dehydration: Plan Pt is a 27 yo female with a past medical history of IBS-C, chronic nausea, medical marijuana use, and anxiety and depression who presents to the hospital on 08/27 for nausea, dehydration, and poor po intake for 1 week. #HAGMA - pH <7 on admission, AG 21, repeat venous pH wnl, AG improved to 19 - on IVF with bicarb today - repeat labs q4h #Severe nausea, acute on chronic - NPO - CT shows gastritis, cannot exclude outlet obstruction, - gastro consulted; EGD planned for tomorrow for further evaluation - Urine drug screen positive for marijuana, however patient is on medical marijuana use - discussed with pt that although she uses medical marijuana for nausea, nausea seems to be worsening and she may want to try to use other medications for nausea instead to see if the worsening may be due to marijuana use #Anxiety and depression- - Medications on hold while n.p.o. Admission and Anticipated Discharge Date Admission Date: August 28, 2023 Supervising Physician Co-Signing Physician Notes Attending Physician Supervision Note: I independently interviewed and examined the patient and verified the marion history and physical, reviewed labs and image studies and agree with findings and care plan noted above. Gastric distention - -possible trigger- ? cannabis use in setting of underlying IBS. -for EGD in am to r/o acute pathology. -continue IV PPI, NPO, NGT, IVF Metabolic acidosis with gap - likely from lactic acidosis d/t hypovolemic hypoperfusion. -continue IV hydration. -vBG ph - 7.41. will switch bicarb drip to plasmalyte. Severe protein/calorie malnutrition - address after EGD Anxiety/depression - home meds on hold while NPO. Prolonged QTc - 515. SSRI on hold. recheck ekg. Hold heparin for procedure. Subjective Pt is a 27 yo female with a past medical history of IBS-C, chronic nausea, medical marijuana use, and anxiety and depression who presents to the hospital on 08/27 for nausea, dehydration, and poor po intake for 1 week. Pt states about a week ago starting on Saturday she started to feel extremely nauseated and had no drive to eat or drink anything. She states this continued through the weekend and then on Saturday night this week she had one episode of bilious nonbloody vomiting. She states she was hospitalized here about a year ago this time for the same thing. She lives with her boyfriend and he is present. He states she struggles with nausea often and recently her GI doctor gave her a medication to try so she has been using her medical marijuana, which she uses for nausea and poor appetite, less. He states she actually had to be hospitalized at a different hospital in June for the same thing of days of not eating or drinking and getting very dehydrated. Pt states she has maybe had a small amount of low volume soft stools a few times yesterday but none since and the days before that she did not have any bowel movement at all, which is consistent with her known IBS-C. Last reported use of marijuana was Saturday. No chest pain or shortness of breath today but notes she feels weak. No abdominal pain. Review of Systems Review of Systems: Per HPI. Physical Exam Physical Exam: General:Alert and oriented but quite fatigued appearing female HEENT: Normocephalic, Cardio: Regular rhythm but tachycardic to the 100s, no murmur, Resp:Lungs clear to auscultation b/l, no wheezes or rhonchi, GI: Soft and nontender, nondistended, bowel sounds active Skin: Warm, pink, dry, Results & Data Results & Data Vital Signs (Past 12 Hours) Vital Signs Temp Pulse Pulse Resp BP BP BP 08/29/23 07:00 105 H 31 H 08/29/23 07:00 125/75 08/29/23 06:09 115 H 26 H 127/72 08/29/23 05:09 107 H 34 H 08/29/23 05:00 139/81 08/29/23 04:54 115 H 27 H 08/29/23 04:37 124/78 08/29/23 04:36 109 H 22 08/29/23 04:12 108 H 31 H 08/29/23 03:00 134/70 08/29/23 03:00 134/70 08/29/23 03:00 110 H 34 H 08/29/23 02:33 109 H 27 H 08/29/23 02:00 130/75 08/29/23 01:06 111 H 35 H 08/29/23 01:00 139/80 08/29/23 00:03 116 H 31 H 08/29/23 00:00 132/77 08/29/23 00:00 114 H 08/28/23 23:04 136/91 08/28/23 23:03 108 H 38 H 08/28/23 22:46 107 H 08/28/23 22:30 08/28/23 21:50 36.8 C 104 H 24 139/97 08/28/23 21:00 103 H 36 H 117/82 08/28/23 20:02 08/28/23 20:02 36.4 C L 105 H 25 H 08/28/23 19:45 109 H 38 H 138/99 Pulse Ox O2 Del Method 08/29/23 07:00 99 08/29/23 07:00 08/29/23 06:09 97 08/29/23 05:09 98 08/29/23 05:00 08/29/23 04:54 99 08/29/23 04:37 08/29/23 04:36 99 08/29/23 04:12 99 08/29/23 03:00 08/29/23 03:00 08/29/23 03:00 100 08/29/23 02:33 98 08/29/23 02:00 08/29/23 01:06 98 08/29/23 01:00 08/29/23 00:03 99 08/29/23 00:00 08/29/23 00:00 08/28/23 23:04 08/28/23 23:03 100 08/28/23 22:46 08/28/23 22:30 Room Air 08/28/23 21:50 100 Room Air 08/28/23 21:00 100 Room Air 08/28/23 20:02 Room Air 08/28/23 20:02 100 Room Air 08/28/23 19:45 100 Resident Activity Tracking Resident Involvement: Resident Care Provided Care Provided: Adult Hospital Medicine
--- NOTE | 2023-08-29 08:26 | Gastrointestinal Consultation ---
Date of Consultation August 29, 2023 Assessment & Plan (1) Gastric distention: 27 year old female with history of IBS, depression, anxiety and traumatic OCD admitted to the ICU w/ metabolic acidosis, GI asked to evaluate for distended, fluid-filled stomach w/ distal wall thickening raising the concern for a gastric outlet obstruction NPO NG to LIS Tentative EGD Saturday Can continue IV PPI for now Defer management of acidosis/ketosis to the primary service We appreciate assistance in the management of any serological abnormality and corrections to include: hemoglobin >7, INR <2, platelets >50,000, potassium levels >3.5 but <5.3, and sodium levels within 5 points of the reference range prior to endoscopic evaluation. Thank you for allowing us to participate in the care of this patient. Please call with any acute changes, questions or concerns. Please see addendum below with additional recommendation from my supervising physician. I spent a total of 60 minutes on the date of service in review of patient's record, and previously obtained information in person and appropriate medical visit, discussion and education of plan, with patient and/or caregiver, placing orders for tests/referral/procedures as medically necessary and documentation of pertinent clinical information in patient's medical records for their visit today. Supervising Physician Co-Signing Physician Notes I examined the patient and reviewed patient's chart , laboratory data and imaging studies. I agree with with assessment and plan of care as suggested by advanced practice provider. Unable to eat for 1 week due to severe nausea. CT scan showed distended, fluid-filled stomach. Severe metabolic acidosis, hypophosphatemia. EGD scheduled for tomorrow to evaluate for gastric outlet obstruction. Interestingly gastric outlet obstruction is usually associated with hypochloremic alkalosis. History of Present Illness Reason for Consultation: Norberto Requesting Physician: ?gastric outlet obstruction Attending Physician: Belinda Thornton MD History of Present Illness 27 year old female with history of IBS, depression, anxiety and traumatic OCD admitted to the ICU w/ metabolic acidosis - GI asked to evaluate for ?gastric outlet obstruction. Pt was seen and evaluated, chart reviewed. Notes that she has had chronic GI symptoms for years. Worsening over the last few months. Suggests the last week she has had generalized abd pain, nausea, vomiting and inability to tolerate oral intake. Suggests chronic constipation - slightly improved with Linzess. No black or bloody stools. No fever, chills, CP, SOB. 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 The distal stomach appears thickened, with no significant surrounding inflammation. This may represent a distal gastritis or possibly ulcer disease. A component of gastric outlet obstruction is not excluded. If warranted this could be further assessed with endoscopy.The duodenum is normal appearance of the small bowel loops are normal in caliber. The bladder wall appears mildly thickened. Correlate with clinical findings and urinalysis. EGD/Colonoscopy: none Allergies Allergy/AdvReac Type Severity Reaction Status Date / Time No Known Allergies Allergy Verified 08/28/23 15:57 Home Medications Medication Instructions Recorded Confirmed Type sertraline 100 mg tablet 400 mg PO HS 04/24/22 08/28/23 History trazodone 50 mg tablet 50 - 100 mg PO HS PRN Sleep 04/24/22 08/28/23 History aripiprazole 5 mg tablet 5 mg PO DAILY 08/08/22 08/28/23 History norethindrone 1 mg-ethinyl 1 tab PO DAILY #84 tabs 02/19/23 08/28/23 Rx estradiol 20 mcg (21)-iron 75 mg (7) tablet ([place] Fe 03/23 ()) betamethasone dipropionate 0.05 % 1 applic topical DAILY PRN skin 05/31/23 08/28/23 Rx topical cream irritation #15 grams ondansetron 4 mg disintegrating 4 mg PO Q6H PRN NAUSEA/VOMITING 07/02/23 08/28/23 History tablet linaclotide 290 mcg capsule 290 mcg PO DAILY #30 caps 08/05/23 08/28/23 Rx (Linzess) aripiprazole 2 mg tablet 2 mg PO DAILY 08/28/23 08/28/23 History prochlorperazine maleate 10 mg 10 mg PO BID PRN nausea and 08/28/23 08/28/23 Rx tablet vomiting #14 tabs promethazine 25 mg tablet 25 mg PO TID PRN NAUSEA/VOMITING 08/28/23 08/28/23 History valacyclovir 500 mg tablet 500 mg PO DIRECTED PRN OUT 08/28/23 08/28/23 History (Valtrex) BREAKS Patient History Medical History IBS (irritable colon syndrome) Refeeding syndrome Anxiety and depression OCD (obsessive compulsive disorder) Depression Surgical History S/P LEEP 06/2022 S/P right oophorectomy right ovarian torsion S/P foot surgery Status post colposcopy H/O wisdom tooth extraction Family History Father Myocardial infarction, Onset Age: 57 Heart disease Mother Diabetes Hypertension Denies family history of Ovarian cancer Prostate cancer Breast cancer Colorectal cancer Social History Smoking Status: Never smoker Tobacco Type: E-cigarettes / Vaping Second Hand Exposure: No; Do You Dip or Chew Tobacco: No; Hx Alcohol Use: Yes Alcohol type: beer, wine and hard liquor Alcohol Intake Frequency: Monthly or Less Hx Substance Use: No Preferred Language: Kyrgyz Communication Ability: Effective Hearing Ability: Normal Trade Show Coordinator Required: No Beliefs That Will Affect Care: None Current Living Situation: Significant Other current occupational status: employed Other Information That Helps Us Care for You: No Feels Safe at Home: Yes Safety Concerns: Feels Safe At This Time Diet: regular caffeine: Yes Dental Care, Regularly: Yes Physical Activity Frequency: 1-2 Times per Week Seatbelt Use: always Sunscreen Use: Yes Assistive Devices: None Review of Systems Review of Systems: All other findings negative except as noted in HPI. Physical Exam Constitutional: WD/WN, vitals as above Respiratory: normal respiratory effort Cardiovascular: Rate/Rhythm: regular rate Gastrointestinal (Abdomen): Inspection/Auscultation: normal bowel sounds Percussion/Palpation: + abdomen tender and abdomen soft; no guarding and abdomen not rigid Skin: no rashes, warm and dry Results & Data Vital Signs (Past 12 Hours) Vital Signs Temp Pulse Pulse Resp BP BP BP 08/29/23 07:00 105 H 31 H 08/29/23 07:00 125/75 08/29/23 06:09 115 H 26 H 127/72 08/29/23 05:09 107 H 34 H 08/29/23 05:00 139/81 08/29/23 04:54 115 H 27 H 08/29/23 04:37 124/78 08/29/23 04:36 109 H 22 08/29/23 04:12 108 H 31 H 08/29/23 03:00 134/70 08/29/23 03:00 134/70 08/29/23 03:00 110 H 34 H 08/29/23 02:33 109 H 27 H 08/29/23 02:00 130/75 08/29/23 01:06 111 H 35 H 08/29/23 01:00 139/80 08/29/23 00:03 116 H 31 H 08/29/23 00:00 132/77 08/29/23 00:00 114 H 08/28/23 23:04 136/91 08/28/23 23:03 108 H 38 H 08/28/23 22:46 107 H 08/28/23 22:30 08/28/23 21:50 36.8 C 104 H 24 139/97 08/28/23 21:00 103 H 36 H 117/82 Pulse Ox O2 Del Method 08/29/23 07:00 99 08/29/23 07:00 08/29/23 06:09 97 08/29/23 05:09 98 08/29/23 05:00 08/29/23 04:54 99 08/29/23 04:37 08/29/23 04:36 99 08/29/23 04:12 99 08/29/23 03:00 08/29/23 03:00 08/29/23 03:00 100 08/29/23 02:33 98 08/29/23 02:00 08/29/23 01:06 98 08/29/23 01:00 08/29/23 00:03 99 08/29/23 00:00 08/29/23 00:00 08/28/23 23:04 08/28/23 23:03 100 08/28/23 22:46 08/28/23 22:30 Room Air 08/28/23 21:50 100 Room Air 08/28/23 21:00 100 Room Air Laboratory Results 08/29/23 08/29/23 08/29/23 Range/Units 05:36 01:55 00:24 WBC 20.02 H (4.8-10.8) K/ul RBC 4.61 (4.20-5.40) M/uL Hgb 13.4 D (12.0-16.0) g/dl POC Hgb (12.0-16.0) g/dl Hct 39.8 (37.0-47.0) % POC Hct (37-47) % MCV 86.3 D (80.0-100.0) fL MCH 29.1 (25.0-34.0) pg MCHC 33.7 (32.0-36.0) g/dL RDW Std Deviation 48.4 H (36.4-46.3) fL RDW Coeff of Ivan 15.2 H (11.5-14.5) % Plt Count 212 (130-400) K/uL MPV 9.3 L (9.4-12.4) fL Immature Gran % (Auto) 2.2 % Neut % (Auto) 84.9 % Lymph % (Auto) 3.2 % [place] % (Auto) 9.5 % Eos % (Auto) 0.0 % Baso % (Auto) 0.2 % Neut # (Auto) 16.99 H (1.40-6.50) K/uL Lymph # (Auto) 0.64 L (1.20-3.40) K/uL [place] # (Auto) 1.90 H (0.11-0.59) K/uL Eos # (Auto) 0.00 (0.00-0.50) K/uL Baso # (Auto) 0.04 (0.00-0.20) K/uL Immature Gran # (Auto) 0.45 H (0.01-0.20) K/uL Sample Site POC pH (7.35-7.45) POC pCO2 (35-46) mmHg POC pO2 (80-95) mmHg POC HCO3 (19-24) tiana/L POC Base Excess (-9-1.8) tiana/L ABG pH (7.35-7.45) ABG pH (Temp Correct) (7.35-7.45) ABG pCO2 (35-46) mmHg ABG pCO2 (Temp Corrct (35-46) mmHg ABG pO2 (80-95) mmHg POC ABG pO2 at Pt Temp ABG HCO3 POC ABG O2 Sat (90-95) % ABG O2 Saturation (90-95) % ABG Base Excess Jordan Test (Pos) VBG pH 7.41 7.35 L (7.36-7.41) Oxygen Given POC Sodium (135-144) mmol/L Sodium 138 137 POC Potassium (3.3-5.0) mmol/L Potassium 3.2 L 3.5 POC Chloride (101-112) mmol/L Chloride 109 H 110 H Carbon Dioxide 11 L 8 L* POC Total CO2 (24-31) mmol/L Anion Gap 18 H 19 H POC Anion Gap (16-25) mmol/L POC BUN (7-18) mg/dl BUN 11 12 Creatinine 0.90 0.91 POC Creatinine (0.6-1.3) mg/dl Est Cr Clr Drug Dosing 87.9 86.9 Est GFR ( Amer) 101.6 100.2 Est GFR (Non-Af Amer) 87.6 86.5 BUN/Creatinine Ratio 12.2 13.2 Glucose 148 H 165 H POC Glucose 125 H (70-99) mg/dl POC Glucose (other) (70-99) mg/dl Osmolality (280-300) mOsm/kg Lactate (0.4-2.0) mmol/L Calcium 8.0 L 8.3 L POC Ioniz Calcium Esequiel (1.12-1.32) mmol/l Phosphorus < 1.0 L* (2.5-4.9) mg/dl Magnesium 2.1 Total Bilirubin 0.5 AST 56 H ALT 30 Alkaline Phosphatase 50 Total Protein 7.2 Albumin 4.2 Globulin 3.0 Albumin/Globulin Ratio 1.4 Lipase HCG, Qual (Negative) Urine Color Urine Appearance (Clear) Urine pH (4.5-7.5) Ur Specific [place] (1.000-1.030) Urine Protein (Negative) Urine Glucose (UA) (Negative) Urine Ketones (Negative) Urine Blood (Negative) Urine Nitrite (Negative) Urine Bilirubin (Negative) Urine Urobilinogen (Negative) Ur Leukocyte Esterase (Negative) Urine WBC (Auto) (0-5) /hpf Urine RBC (Auto) (0-2) /hpf U Hyaline Cast (Auto) (0-2) /lpf U Epithel Cells (Auto) (0-2) /hpf Urine Bacteria (Auto) (None Seen) Nasal Screen MRSA (PCR) (Negative) Salicylates (3.0-30) mg/dl Urine Opiates Screen (Neg) Ur Methadone, Qual (Neg) Urine Fentanyl Screen (Neg) Acetaminophen (10-30) ug/ml Urine Barbiturates (Neg) Ur Phencyclidine (PCP) (Neg) U Amphetamin/Meth Scrn (Neg) MDMA (Ecstasy) Screen (Neg) U Benzodiazepines Scrn (Neg) Ur Cocaine Metabolite (Neg) U Marijuana (THC) Screen (Neg) U Marijuana THC Carboxy Drug Screen Comment Ethyl Alcohol mg/dL (<10.0) mg/dl Adenovirus (PCR) (NotDetected) B. pertussis DNA (PCR) (NotDetected) B.parapertussis DNA PCR (NotDetected) C. pneumoniae DNA (PCR) (NotDetected) Coronavirus OC43 (PCR) (NotDetected) Coronavirus HKU1 (PCR) (NotDetected) Coronavirus 229E (PCR) (NotDetected) SARS-CoV-2 (PCR) (NotDetected) Coronavirus NL63 (PCR) (NotDetected) Human Metapneumovir PCR (NotDetected) Influenza Type A (PCR) (NotDetected) Influenza Type B (PCR) (NotDetected) M. pneumoniae (PCR) (NotDetected) Parainfluenza 1 (PCR) (NotDetected) Parainfluenza 2 (PCR) (NotDetected) Parainfluenza 3 (PCR) (NotDetected) Parainfluenza 4 (PCR) (NotDetected) RSV (PCR) (NotDetected) Entero/Rhino (PCR) (NotDetected) 08/28/23 08/28/23 08/28/23 Range/Units Unknown 23:00 22:17 WBC (4.8-10.8) K/ul RBC (4.20-5.40) M/uL Hgb (12.0-16.0) g/dl POC Hgb 14.3 (12.0-16.0) g/dl Hct (37.0-47.0) % POC Hct 42 (37-47) % MCV (80.0-100.0) fL MCH (25.0-34.0) pg MCHC (32.0-36.0) g/dL RDW Std Deviation (36.4-46.3) fL RDW Coeff of Ivan (11.5-14.5) % Plt Count (130-400) K/uL MPV (9.4-12.4) fL Immature Gran % (Auto) % Neut % (Auto) % Lymph % (Auto) % [place] % (Auto) % Eos % (Auto) % Baso % (Auto) % Neut # (Auto) (1.40-6.50) K/uL Lymph # (Auto) (1.20-3.40) K/uL [place] # (Auto) (0.11-0.59) K/uL Eos # (Auto) (0.00-0.50) K/uL Baso # (Auto) (0.00-0.20) K/uL Immature Gran # (Auto) (0.01-0.20) K/uL Sample Site R Brachial POC pH 7.26 L (7.35-7.45) POC pCO2 < 10 L (35-46) mmHg POC pO2 101 H (80-95) mmHg POC HCO3 4 L (19-24) tiana/L POC Base Excess -23.0 L (-9-1.8) tiana/L ABG pH (7.35-7.45) ABG pH (Temp Correct) 7.269 L (7.35-7.45) ABG pCO2 (35-46) mmHg ABG pCO2 (Temp Corrct 8 L (35-46) mmHg ABG pO2 (80-95) mmHg POC ABG pO2 at Pt Temp 99 ABG HCO3 POC ABG O2 Sat 97.0 H (90-95) % ABG O2 Saturation (90-95) % ABG Base Excess Jordan Test NA (Pos) VBG pH 7.21 L (7.36-7.41) Oxygen Given POC Sodium 140 (135-144) mmol/L Sodium 137 POC Potassium 3.6 (3.3-5.0) mmol/L Potassium 4.0 POC Chloride (101-112) mmol/L Chloride 109 H Carbon Dioxide 7 L* POC Total CO2 < 5 L* (24-31) mmol/L Anion Gap 21 H POC Anion Gap (16-25) mmol/L POC BUN (7-18) mg/dl BUN 14 Creatinine 0.99 POC Creatinine (0.6-1.3) mg/dl Est Cr Clr Drug Dosing 79.9 Est GFR ( Amer) 90.5 Est GFR (Non-Af Amer) 78.1 BUN/Creatinine Ratio 14.1 Glucose 132 H POC Glucose (70-99) mg/dl POC Glucose (other) (70-99) mg/dl Osmolality (280-300) mOsm/kg Lactate (0.4-2.0) mmol/L Calcium 8.2 L POC Ioniz Calcium Esequiel (1.12-1.32) mmol/l Phosphorus (2.5-4.9) mg/dl Magnesium Total Bilirubin AST ALT Alkaline Phosphatase Total Protein Albumin Globulin Albumin/Globulin Ratio Lipase HCG, Qual (Negative) Urine Color Urine Appearance (Clear) Urine pH (4.5-7.5) Ur Specific [place] (1.000-1.030) Urine Protein (Negative) Urine Glucose (UA) (Negative) Urine Ketones (Negative) Urine Blood (Negative) Urine Nitrite (Negative) Urine Bilirubin (Negative) Urine Urobilinogen (Negative) Ur Leukocyte Esterase (Negative) Urine WBC (Auto) (0-5) /hpf Urine RBC (Auto) (0-2) /hpf U Hyaline Cast (Auto) (0-2) /lpf U Epithel Cells (Auto) (0-2) /hpf Urine Bacteria (Auto) (None Seen) Nasal Screen MRSA (PCR) Negative (Negative) Salicylates (3.0-30) mg/dl Urine Opiates Screen (Neg) Ur Methadone, Qual (Neg) Urine Fentanyl Screen (Neg) Acetaminophen (10-30) ug/ml Urine Barbiturates (Neg) Ur Phencyclidine (PCP) (Neg) U Amphetamin/Meth Scrn (Neg) MDMA (Ecstasy) Screen (Neg) U Benzodiazepines Scrn (Neg) Ur Cocaine Metabolite (Neg) U Marijuana (THC) Screen (Neg) U Marijuana THC Carboxy Drug Screen Comment Ethyl Alcohol mg/dL (<10.0) mg/dl Adenovirus (PCR) (NotDetected) B. pertussis DNA (PCR) (NotDetected) B.parapertussis DNA PCR (NotDetected) C. pneumoniae DNA (PCR) (NotDetected) Coronavirus OC43 (PCR) (NotDetected) Coronavirus HKU1 (PCR) (NotDetected) Coronavirus 229E (PCR) (NotDetected) SARS-CoV-2 (PCR) (NotDetected) Coronavirus NL63 (PCR) (NotDetected) Human Metapneumovir PCR (NotDetected) Influenza Type A (PCR) (NotDetected) Influenza Type B (PCR) (NotDetected) M. pneumoniae (PCR) (NotDetected) Parainfluenza 1 (PCR) (NotDetected) Parainfluenza 2 (PCR) (NotDetected) Parainfluenza 3 (PCR) (NotDetected) Parainfluenza 4 (PCR) (NotDetected) RSV (PCR) (NotDetected) Entero/Rhino (PCR) (NotDetected) 08/28/23 08/28/23 08/28/23 Range/Units 22:12 20:30 18:48 WBC (4.8-10.8) K/ul RBC (4.20-5.40) M/uL Hgb (12.0-16.0) g/dl POC Hgb (12.0-16.0) g/dl Hct (37.0-47.0) % POC Hct (37-47) % MCV (80.0-100.0) fL MCH (25.0-34.0) pg MCHC (32.0-36.0) g/dL RDW Std Deviation (36.4-46.3) fL RDW Coeff of Ivan (11.5-14.5) % Plt Count (130-400) K/uL MPV (9.4-12.4) fL Immature Gran % (Auto) % Neut % (Auto) % Lymph % (Auto) % [place] % (Auto) % Eos % (Auto) % Baso % (Auto) % Neut # (Auto) (1.40-6.50) K/uL Lymph # (Auto) (1.20-3.40) K/uL [place] # (Auto) (0.11-0.59) K/uL Eos # (Auto) (0.00-0.50) K/uL Baso # (Auto) (0.00-0.20) K/uL Immature Gran # (Auto) (0.01-0.20) K/uL Sample Site POC pH (7.35-7.45) POC pCO2 (35-46) mmHg POC pO2 (80-95) mmHg POC HCO3 (19-24) tiana/L POC Base Excess (-9-1.8) tiana/L ABG pH < 7.00 L* (7.35-7.45) ABG pH (Temp Correct) (7.35-7.45) ABG pCO2 11 L (35-46) mmHg ABG pCO2 (Temp Corrct (35-46) mmHg ABG pO2 134 H (80-95) mmHg POC ABG pO2 at Pt Temp ABG HCO3 TNP POC ABG O2 Sat (90-95) % ABG O2 Saturation 99.7 H (90-95) % ABG Base Excess TNP Jordan Test Pos (Pos) VBG pH (7.36-7.41) Oxygen Given ROOM AIR POC Sodium (135-144) mmol/L Sodium POC Potassium (3.3-5.0) mmol/L Potassium POC Chloride (101-112) mmol/L Chloride Carbon Dioxide POC Total CO2 (24-31) mmol/L Anion Gap POC Anion Gap (16-25) mmol/L POC BUN (7-18) mg/dl BUN Creatinine POC Creatinine (0.6-1.3) mg/dl Est Cr Clr Drug Dosing Est GFR ( Amer) Est GFR (Non-Af Amer) BUN/Creatinine Ratio Glucose POC Glucose 109 H (70-99) mg/dl POC Glucose (other) (70-99) mg/dl Osmolality 307 H (280-300) mOsm/kg Lactate 2.0 (0.4-2.0) mmol/L Calcium POC Ioniz Calcium Esequiel (1.12-1.32) mmol/l Phosphorus (2.5-4.9) mg/dl Magnesium Total Bilirubin AST ALT Alkaline Phosphatase Total Protein Albumin Globulin Albumin/Globulin Ratio Lipase HCG, Qual (Negative) Urine Color Urine Appearance (Clear) Urine pH (4.5-7.5) Ur Specific [place] (1.000-1.030) Urine Protein (Negative) Urine Glucose (UA) (Negative) Urine Ketones (Negative) Urine Blood (Negative) Urine Nitrite (Negative) Urine Bilirubin (Negative) Urine Urobilinogen (Negative) Ur Leukocyte Esterase (Negative) Urine WBC (Auto) (0-5) /hpf Urine RBC (Auto) (0-2) /hpf U Hyaline Cast (Auto) (0-2) /lpf U Epithel Cells (Auto) (0-2) /hpf Urine Bacteria (Auto) (None Seen) Nasal Screen MRSA (PCR) (Negative) Salicylates < 3.0 L (3.0-30) mg/dl Urine Opiates Screen (Neg) Ur Methadone, Qual (Neg) Urine Fentanyl Screen (Neg) Acetaminophen < 3 L (10-30) ug/ml Urine Barbiturates (Neg) Ur Phencyclidine (PCP) (Neg) U Amphetamin/Meth Scrn (Neg) MDMA (Ecstasy) Screen (Neg) U Benzodiazepines Scrn (Neg) Ur Cocaine Metabolite (Neg) U Marijuana (THC) Screen (Neg) U Marijuana THC Carboxy Drug Screen Comment Ethyl Alcohol mg/dL < 10.0 (<10.0) mg/dl Adenovirus (PCR) (NotDetected) B. pertussis DNA (PCR) (NotDetected) B.parapertussis DNA PCR (NotDetected) C. pneumoniae DNA (PCR) (NotDetected) Coronavirus OC43 (PCR) (NotDetected) Coronavirus HKU1 (PCR) (NotDetected) Coronavirus 229E (PCR) (NotDetected) SARS-CoV-2 (PCR) (NotDetected) Coronavirus NL63 (PCR) (NotDetected) Human Metapneumovir PCR (NotDetected) Influenza Type A (PCR) (NotDetected) Influenza Type B (PCR) (NotDetected) M. pneumoniae (PCR) (NotDetected) Parainfluenza 1 (PCR) (NotDetected) Parainfluenza 2 (PCR) (NotDetected) Parainfluenza 3 (PCR) (NotDetected) Parainfluenza 4 (PCR) (NotDetected) RSV (PCR) (NotDetected) Entero/Rhino (PCR) (NotDetected) 08/28/23 08/28/23 08/28/23 Range/Units 18:05 17:04 15:57 WBC 23.91 H (4.8-10.8) K/ul RBC 5.66 H (4.20-5.40) M/uL Hgb 16.5 H (12.0-16.0) g/dl POC Hgb (12.0-16.0) g/dl Hct 51.6 H (37.0-47.0) % POC Hct (37-47) % MCV 91.2 (80.0-100.0) fL MCH 29.2 (25.0-34.0) pg MCHC 32.0 (32.0-36.0) g/dL RDW Std Deviation 52.7 H (36.4-46.3) fL RDW Coeff of Ivan 15.8 H (11.5-14.5) % Plt Count 326 (130-400) K/uL MPV 9.7 (9.4-12.4) fL Immature Gran % (Auto) 4.3 % Neut % (Auto) 82.6 % Lymph % (Auto) 5.6 % [place] % (Auto) 7.1 % Eos % (Auto) 0.0 % Baso % (Auto) 0.4 % Neut # (Auto) 19.76 H (1.40-6.50) K/uL Lymph # (Auto) 1.34 (1.20-3.40) K/uL [place] # (Auto) 1.70 H (0.11-0.59) K/uL Eos # (Auto) 0.00 (0.00-0.50) K/uL Baso # (Auto) 0.09 (0.00-0.20) K/uL Immature Gran # (Auto) 1.02 H (0.01-0.20) K/uL Sample Site POC pH (7.35-7.45) POC pCO2 (35-46) mmHg POC pO2 (80-95) mmHg POC HCO3 (19-24) tiana/L POC Base Excess (-9-1.8) tiana/L ABG pH (7.35-7.45) ABG pH (Temp Correct) (7.35-7.45) ABG pCO2 (35-46) mmHg ABG pCO2 (Temp Corrct (35-46) mmHg ABG pO2 (80-95) mmHg POC ABG pO2 at Pt Temp ABG HCO3 POC ABG O2 Sat (90-95) % ABG O2 Saturation (90-95) % ABG Base Excess Jordan Test (Pos) VBG pH (7.36-7.41) Oxygen Given POC Sodium (135-144) mmol/L Sodium 135 L Cancelled POC Potassium (3.3-5.0) mmol/L Potassium 4.9 Cancelled POC Chloride (101-112) mmol/L Chloride 109 H Cancelled Carbon Dioxide 5 L* Cancelled POC Total CO2 (24-31) mmol/L Anion Gap 21 H Cancelled POC Anion Gap (16-25) mmol/L POC BUN (7-18) mg/dl BUN 19 Cancelled Creatinine 1.02 Cancelled POC Creatinine (0.6-1.3) mg/dl Est Cr Clr Drug Dosing 77.3 Cancelled Est GFR ( Amer) 87.3 Cancelled Est GFR (Non-Af Amer) 75.3 Cancelled BUN/Creatinine Ratio 18.6 Cancelled Glucose 120 H Cancelled POC Glucose 114 H (70-99) mg/dl POC Glucose (other) (70-99) mg/dl Osmolality (280-300) mOsm/kg Lactate (0.4-2.0) mmol/L Calcium 8.7 Cancelled POC Ioniz Calcium Esequiel (1.12-1.32) mmol/l Phosphorus (2.5-4.9) mg/dl Magnesium 2.4 Cancelled Total Bilirubin 0.3 Cancelled AST 47 H Cancelled ALT 28 Cancelled Alkaline Phosphatase 60 Cancelled Total Protein 8.9 H Cancelled Albumin 5.2 H Cancelled Globulin 3.7 Cancelled Albumin/Globulin Ratio 1.4 Cancelled Lipase 55 Cancelled HCG, Qual Negative (Negative) Urine Color Urine Appearance (Clear) Urine pH (4.5-7.5) Ur Specific [place] (1.000-1.030) Urine Protein (Negative) Urine Glucose (UA) (Negative) Urine Ketones (Negative) Urine Blood (Negative) Urine Nitrite (Negative) Urine Bilirubin (Negative) Urine Urobilinogen (Negative) Ur Leukocyte Esterase (Negative) Urine WBC (Auto) (0-5) /hpf Urine RBC (Auto) (0-2) /hpf U Hyaline Cast (Auto) (0-2) /lpf U Epithel Cells (Auto) (0-2) /hpf Urine Bacteria (Auto) (None Seen) Nasal Screen MRSA (PCR) (Negative) Salicylates (3.0-30) mg/dl Urine Opiates Screen (Neg) Ur Methadone, Qual (Neg) Urine Fentanyl Screen (Neg) Acetaminophen (10-30) ug/ml Urine Barbiturates (Neg) Ur Phencyclidine (PCP) (Neg) U Amphetamin/Meth Scrn (Neg) MDMA (Ecstasy) Screen (Neg) U Benzodiazepines Scrn (Neg) Ur Cocaine Metabolite (Neg) U Marijuana (THC) Screen (Neg) U Marijuana THC Carboxy Drug Screen Comment Ethyl Alcohol mg/dL (<10.0) mg/dl Adenovirus (PCR) (NotDetected) B. pertussis DNA (PCR) (NotDetected) B.parapertussis DNA PCR (NotDetected) C. pneumoniae DNA (PCR) (NotDetected) Coronavirus OC43 (PCR) (NotDetected) Coronavirus HKU1 (PCR) (NotDetected) Coronavirus 229E (PCR) (NotDetected) SARS-CoV-2 (PCR) (NotDetected) Coronavirus NL63 (PCR) (NotDetected) Human Metapneumovir PCR (NotDetected) Influenza Type A (PCR) (NotDetected) Influenza Type B (PCR) (NotDetected) M. pneumoniae (PCR) (NotDetected) Parainfluenza 1 (PCR) (NotDetected) Parainfluenza 2 (PCR) (NotDetected) Parainfluenza 3 (PCR) (NotDetected) Parainfluenza 4 (PCR) (NotDetected) RSV (PCR) (NotDetected) Entero/Rhino (PCR) (NotDetected) 08/28/23 08/28/23 08/28/23 Range/Units 15:35 14:03 13:50 WBC (4.8-10.8) K/ul RBC (4.20-5.40) M/uL Hgb (12.0-16.0) g/dl POC Hgb 18.7 H (12.0-16.0) g/dl Hct (37.0-47.0) % POC Hct 55 H (37-47) % MCV (80.0-100.0) fL MCH (25.0-34.0) pg MCHC (32.0-36.0) g/dL RDW Std Deviation (36.4-46.3) fL RDW Coeff of Ivan (11.5-14.5) % Plt Count (130-400) K/uL MPV (9.4-12.4) fL Immature Gran % (Auto) % Neut % (Auto) % Lymph % (Auto) % [place] % (Auto) % Eos % (Auto) % Baso % (Auto) % Neut # (Auto) (1.40-6.50) K/uL Lymph # (Auto) (1.20-3.40) K/uL [place] # (Auto) (0.11-0.59) K/uL Eos # (Auto) (0.00-0.50) K/uL Baso # (Auto) (0.00-0.20) K/uL Immature Gran # (Auto) (0.01-0.20) K/uL Sample Site POC pH (7.35-7.45) POC pCO2 (35-46) mmHg POC pO2 (80-95) mmHg POC HCO3 (19-24) tiana/L POC Base Excess (-9-1.8) tiana/L ABG pH (7.35-7.45) ABG pH (Temp Correct) (7.35-7.45) ABG pCO2 (35-46) mmHg ABG pCO2 (Temp Corrct (35-46) mmHg ABG pO2 (80-95) mmHg POC ABG pO2 at Pt Temp ABG HCO3 POC ABG O2 Sat (90-95) % ABG O2 Saturation (90-95) % ABG Base Excess Jordan Test (Pos) VBG pH (7.36-7.41) Oxygen Given POC Sodium 138 (135-144) mmol/L Sodium POC Potassium 5.2 H (3.3-5.0) mmol/L Potassium POC Chloride 117 H (101-112) mmol/L Chloride Carbon Dioxide POC Total CO2 7 L* (24-31) mmol/L Anion Gap POC Anion Gap 20.0 (16-25) mmol/L POC BUN 25 H (7-18) mg/dl BUN Creatinine POC Creatinine 0.9 (0.6-1.3) mg/dl Est Cr Clr Drug Dosing Est GFR ( Amer) Est GFR (Non-Af Amer) BUN/Creatinine Ratio Glucose POC Glucose 136 H (70-99) mg/dl POC Glucose (other) 137 H (70-99) mg/dl Osmolality (280-300) mOsm/kg Lactate (0.4-2.0) mmol/L Calcium POC Ioniz Calcium Esequiel 1.29 (1.12-1.32) mmol/l Phosphorus (2.5-4.9) mg/dl Magnesium Total Bilirubin AST ALT Alkaline Phosphatase Total Protein Albumin Globulin Albumin/Globulin Ratio Lipase HCG, Qual (Negative) Urine Color Yellow Urine Appearance Clear (Clear) Urine pH 6.0 (4.5-7.5) Ur Specific [place] 1.022 (1.000-1.030) Urine Protein 3+ H (Negative) Urine Glucose (UA) Negative (Negative) Urine Ketones 4+ H (Negative) Urine Blood 1+ H (Negative) Urine Nitrite Negative (Negative) Urine Bilirubin Negative (Negative) Urine Urobilinogen Negative (Negative) Ur Leukocyte Esterase Negative (Negative) Urine WBC (Auto) 0-5 (0-5) /hpf Urine RBC (Auto) 0-2 (0-2) /hpf U Hyaline Cast (Auto) 6-10 H (0-2) /lpf U Epithel Cells (Auto) 3-5 H (0-2) /hpf Urine Bacteria (Auto) None Seen (None Seen) Nasal Screen MRSA (PCR) (Negative) Salicylates (3.0-30) mg/dl Urine Opiates Screen Neg (Neg) Ur Methadone, Qual Neg (Neg) Urine Fentanyl Screen Neg (Neg) Acetaminophen (10-30) ug/ml Urine Barbiturates Neg (Neg) Ur Phencyclidine (PCP) Neg (Neg) U Amphetamin/Meth Scrn Neg (Neg) MDMA (Ecstasy) Screen Neg (Neg) U Benzodiazepines Scrn Neg (Neg) Ur Cocaine Metabolite Neg (Neg) U Marijuana (THC) Screen Pos H (Neg) U Marijuana THC Carboxy Pending Drug Screen Comment Pending Ethyl Alcohol mg/dL (<10.0) mg/dl Adenovirus (PCR) Not Detected (NotDetected) B. pertussis DNA (PCR) Not Detected (NotDetected) B.parapertussis DNA PCR Not Detected (NotDetected) C. pneumoniae DNA (PCR) Not Detected (NotDetected) Coronavirus OC43 (PCR) Not Detected (NotDetected) Coronavirus HKU1 (PCR) Not Detected (NotDetected) Coronavirus 229E (PCR) Not Detected (NotDetected) SARS-CoV-2 (PCR) Not Detected (NotDetected) Coronavirus NL63 (PCR) Not Detected (NotDetected) Human Metapneumovir PCR Not Detected (NotDetected) Influenza Type A (PCR) Not Detected (NotDetected) Influenza Type B (PCR) Not Detected (NotDetected) M. pneumoniae (PCR) Not Detected (NotDetected) Parainfluenza 1 (PCR) Not Detected (NotDetected) Parainfluenza 2 (PCR) Not Detected (NotDetected) Parainfluenza 3 (PCR) Not Detected (NotDetected) Parainfluenza 4 (PCR) Not Detected (NotDetected) RSV (PCR) Not Detected (NotDetected) Entero/Rhino (PCR) Not Detected (NotDetected) PG Care Time/CCT Total # of Minutes Spent Total Time Spent with Patient: Total time spent is greater than 50% in coordination of care (as documented) at patient's floor/unit and/or counseling patient: Coding Level of Care Code 25493 IN/OBS CONSULT LVL 4,60M Diagnoses Gastric distention K31.89
[2023-08-29] MEDS ORDERED: STAT IV/IM STA (08:42)
[2023-08-29] MEDS: PANTOprazole 40 MG in SYRINGE 0 ML IV SCH (10:30)
[2023-08-29] MEDS: SODIUM BICARBONATE 8.4% 150 MEQ in DEXTROSE 5% 1,000 ML IV SCH (10:31)
[2023-08-29] MEDS: ONDANSETRON INJ 2 MG/ML 2 ML VIAL IV PRN (10:33)
[2023-08-29] MEDS: POTASSIUM CHLORIDE / WTR 10 MEQ/100 ML PLCT IV SCH (10:33)
[2023-08-29 10:37] LABS: BUN Creatinine Ratio 12.3 (10-20); Calcium 7.9 mg/dl (8.6-10.3); Creatinine Clr Calc Pharmacy 97.7 ml/min; Est GFR (African American) 115.4 ml/min; Est GFR (Non-African American) 99.5 ml/min; Potassium 3.2 mmol/L (3.5-5.1)
[2023-08-29] MEDS ORDERED: PANTOprazole 40 MG in SYRINGE 0 ML IV SCH (11:00)
--- NOTE | 2023-08-29 11:29 | Critical Care Progress Note ---
Date of Service August 29, 2023 Assessment & Plan (1) Metabolic acidosis: (2) Acute dehydration: (3) Nausea & vomiting: Plan Reason Critically Ill: 27 YOF presents with 1 week history of loss of appetite as well as nausea/vomitting and diarrhea. She presents with high AGAP metabolic acidosis. Neuro - Anxiety/depression CAM ICU: NEGATIVE Cardiac - NO acute needs - follow hemodynamics with severe metabolic acidosis Respiratory - No acute needs - attempting to compensate from respiratory standpoint- support as needed to maintain mv GI - IBS/n/v, - Unclear cause at this time- but CT scan with questionable outlet obstruction as well as gastritis, she is without abdominal discomfort, no epigastric pain - reports after starting linzess that her symptoms have improved since July - follow supportive care with antiemetics and volume replacement - PPI IV BID -NG tube to low intermittent wall suction per GI with likely EGD tomorrow. RENAL/LYTES - AGAP Metabolic Acidosis, Ketosis, -Starting bicarbonate infusion. - Ketones 4+ in urine - ETOH <10 - Salicylate and Tylenol levels negative - Lactate negative - BMP q4 hours with PH - Thiamine 500mg now and then IV q8 secondary to poor nutritional intake as well as severe metabolic acidosis. - No acute needs ENDO - NO acute needs at this time HEME - Hemoconcentration - follow labs - likely reactionary and hemoconcentrated leukocytosis and HGB ID - No concern at this time for infective cause LINES/IV ACCESS - PIV Continue use of these lines DVT PROPHYLAXIS - SCDS, Heparin 5000 units sq q12 DISPO: Patient will be downgraded to med telemetry. Admission and Anticipated Discharge Date Admission Date: August 28, 2023 Subjective Patient seen and examined. She is complaining of some very mild epigastric pain today which is significantly improved. Minimal nausea symptoms. Appetite is poor. Currently n.p.o. NG tube placed at bedside by nursing. Review of Systems Review of Systems: All systems reviewed & are unremarkable except as noted in HPI & below Physical Exam Physical Exam: PHYSICAL EXAM: General: awake, alert, no apparent distress Head: Normocephalic, atraumatic ENT: PERRL, EOMI, no pharyngeal exudate, mucous membranes dry Neuro: AAO x 3, speech clear and appropriate, strength intact bilaterally 5/5, sensation intact and equal all extremities and dermatomes, no pronator drift Chest: equal rise and fall of the chest, tachypnea with no accessory muscle use, no heaves or thrills, Clear to auscultation, on room air, Cardiac: Regular rate and rhythm, telemetry reviewed- NSR/sinus tachycardia no ectopy, skin warm dry, cap refill <3 seconds, peripheral pulses +2 no JVD, no murmur, no JVD, no edema GI: NABS x 4 quadrants, softly distended, nontender to palpation, no rebound, guarding or tenderness : Spontaneously voiding, no pain, no CVA tenderness, Extremities: Normal inspection, no peripheral edema or erythema, calfs nontender to palpation Psych: Normal mood and affect Skin: no rash or erythema Results & Data Results & Data Vital Signs (Past 12 Hours) Vital Signs Pulse Resp BP BP Pulse Ox 08/29/23 07:00 105 H 31 H 99 08/29/23 07:00 125/75 08/29/23 06:09 115 H 26 H 127/72 97 08/29/23 05:09 107 H 34 H 98 08/29/23 05:00 139/81 08/29/23 04:54 115 H 27 H 99 08/29/23 04:37 124/78 08/29/23 04:36 109 H 22 99 08/29/23 04:12 108 H 31 H 99 08/29/23 03:00 134/70 08/29/23 03:00 134/70 08/29/23 03:00 110 H 34 H 100 08/29/23 02:33 109 H 27 H 98 08/29/23 02:00 130/75 08/29/23 01:06 111 H 35 H 98 08/29/23 01:00 139/80 08/29/23 00:03 116 H 31 H 99 08/29/23 00:00 132/77 08/29/23 00:00 114 H Coding Level of Care Code 30396 SUB INP/OBS CARE 2/35MIN Diagnoses Metabolic acidosis E87.20 Acute dehydration E86.0 Nausea & vomiting R11.2
--- NOTE | 2023-08-29 12:04 | XRay Report ---
KUB CLINICAL HISTORY: Confirm NG tube placement COMPARISON STUDY: KUB and CT of the abdomen and pelvis August 28, 2023. FINDINGS: The tip of the nasogastric tube is within the gastric cardia. The tube could be advanced an additional 3 cm. Bowel gas pattern is normal. No evidence for free air on supine exam. IMPRESSION: Tip of nasogastric tube within the gastric cardia. The tube could be advanced 3 cm. ACT 112: Negative or not required by law. Electronically signed by: Demetrius Moreno M.D. 08/29/2023 12:02 PM
[2023-08-29] MEDS ORDERED: Nursing to Pharmacy Communication SCH (13:15)
[2023-08-29] MEDS: HEPARIN SOD 5,000 UNIT/0.5 ML VIAL SQ SCH (13:22)
--- NOTE | 2023-08-29 13:50 | Electrocardiogram Report ---
Test Reason : Blood Pressure : / mmHG Vent. Rate : 106 BPM Atrial Rate : 106 BPM P-R Int : 122 ms QRS Dur : 088 ms QT Int : 388 ms P-R-T Axes : 048 062 054 degrees QTc Int : 515 ms Sin[address] tachycardia Minor ST elevation, most consistent with repolarization variant Prolonged QT Abnormal ECG When compared with ECG of 28-AUG-2023 13:53, QT has lengthened Confirmed by Avery Mae ([id number]) on 08/29/2023 1:50:32 PM Referred By: REFERRED SELF Confirmed By:Avery Mae
[2023-08-29 14:51] LABS: BUN Creatinine Ratio 12.5 (10-20); Calcium 8.4 mg/dl (8.6-10.3); Creatinine Clr Calc Pharmacy 98.9 ml/min; Est GFR (African American) 117.1 ml/min
[2023-08-29 18:27] LABS: Anion Gap 17 (3-11); BUN Creatinine Ratio 11.8 (10-20); Blood Urea Nitrogen 9 mg/dl (6-23); Calcium 8.3 mg/dl (8.6-10.3); Carbon Dioxide 16 mmol/L (21-32); Chloride 107 mmol/L (98-107); Creatinine Clr Calc Pharmacy 104.1 ml/min; Est GFR (African American) 124.6 ml/min; Est GFR (Non-African American) 107.5 ml/min; Glucose 100 mg/dl (70-99(Fasting)); Sodium 140 mmol/L (136-145)
[2023-08-29 18:34] LABS: Magnesium 2.4 mg/dl (1.7-2.4); Phosphorus < 1.0 mg/dl (2.5-4.9)
[2023-08-29] MEDS: POTASSIUM PHOSPHATE 40 MMOL in SODIUM CHLORIDE 0.9% 1,000 ML IV ONE (19:54)
--- NOTE | 2023-08-30 07:09 | Hospitalist Progress Note ---
Date of Service August 30, 2023 Assessment & Plan (1) Medical marijuana use: (2) Anxiety and depression: (3) Nausea & vomiting: (4) Metabolic acidosis: (5) Acute dehydration: Plan Pt is a 27 yo female with a past medical history of IBS-C, chronic nausea, medical marijuana use, and anxiety and depression who presents to the hospital on 08/27 for nausea, dehydration, and poor po intake for 1 week. #Severe nausea, acute on chronic - CT shows gastritis, cannot exclude outlet obstruction, EGD done 08/29 shows esophagitis with biopsies pending - Urine drug screen positive for marijuana, however patient is on medical marijuana use - discussed with pt that although she uses medical marijuana for nausea, nausea seems to be worsening and she may want to try to use other medications for nausea instead to see if the worsening may be due to marijuana use - will try gradual diet advancement starting with clears for lunch and possibly fulls for dinner, will supplement with IV thiamine for concern of refeeding with overall poor po intake on a more chronic basis - closer to discharge, will work on plan for patient that can be followed when she has these episodes to avoid hospitalization such as day 1 trying zofran, day 2 trying different med, day 3 contacting pcp, etc #HAGMA, improved - pH <7 on admission, AG 21, repeat venous pH wnl, AG improved to 17 today - on IVF with plasmalyte to continue today while po intake is poor #Anxiety and depression- - will restart home meds today Admission and Anticipated Discharge Date Admission Date: August 28, 2023 Supervising Physician Co-Signing Physician Notes Attending attestation Pt seen and examined in concert with Dr. Gann. In agreement with the documented findings as noted in the resident documentation with any exceptions or additions as noted here. Evaluated on return from EGD, feeling much better after removal of NG tube, some returning drive to eat. Parents in room report concern re: longer episodes of decreased POI than reported, patient denies. On examination, S1/S2 nl RRR no MCG. CTAB. Abd NT/ND BS+ve HAGMA in the setting of intractible nausea/vomiting - concern for re-feeding. Thiamine supplementation, gradual advance diet. Close monitoring of electrolytes, low threshold for ABG. Else see resident documentation as noted. Subjective Pt states that today she is feeling much better. She states that she feels like she has more energy today and her nausea has improved today. Seen once again after her EGD on afternoon rounds and pt states she is feeling great not that the NG tube was removed. She states she would like to have something to eat and is generally feeling well. She states she does not necessarily have episodes of getting nauseated and not eating for days at a time more often than not but they do happen several times a year at least. Boyfriend present states he is just concerned it will continue to happen and that this time he thought she had only gone a few days with limited intake, not an entire week or he would have pushed her to come in sooner. Review of Systems Review of Systems: Per HPI. Physical Exam Physical Exam: General:Alert and oriented but quite fatigued appearing female HEENT: Normocephalic, Cardio: Regular rate and rhythm, no murmur, Resp:Lungs clear to auscultation b/l, no wheezes or rhonchi, GI: Soft and nontender, nondistended, bowel sounds active Skin: Warm, pink, dry, Results & Data Results & Data Vital Signs (Past 12 Hours) Vital Signs Temp Pulse Pulse Resp BP Pulse Ox O2 Del Method 08/30/23 04:09 37 C 109 H 18 128/83 96 Room Air 08/30/23 00:20 37 C 104 H 18 111/73 98 Room Air 08/29/23 20:00 100 H 08/29/23 19:54 37.2 C 112 H 18 127/81 99 Room Air Resident Activity Tracking Resident Involvement: Resident Care Provided Care Provided: Adult Hospital Medicine
[2023-08-30 07:21] LABS: Basophils # (auto) 0.02 K/uL (0.00-0.20); Basophils % (auto) 0.2 %; Eosinophils # (auto) 0.02 K/uL (0.00-0.50); Eosinophils % (auto) 0.2 %; Hematocrit (blood only) 33.7 % (37.0-47.0); Hemoglobin 11.8 g/dl (12.0-16.0); Immature Granulocytes # (auto) 0.04 K/uL (0.01-0.20); Immature Granulocytes % (auto) 0.4 %; Lymphocytes # (auto) 1.77 K/uL (1.20-3.40); Lymphocytes % (auto) 18.3 %; Mean Corpuscular Hemoglobin 29.2 pg (25.0-34.0); Mean Corpuscular Volume 83.4 fL (80.0-100.0); Mean Platelet Volume 9.3 fL (9.4-12.4); Monocytes # (auto) 0.84 K/uL (0.11-0.59); Monocytes % (auto) 8.7 %; Neutrophils # (auto) 6.98 K/uL (1.40-6.50); Neutrophils % (auto) 72.2 %; Platelet Count 183 K/uL (130-400); RDW Coefficient of Variation 14.7 % (11.5-14.5); RDW Standard Deviation 45.1 fL (36.4-46.3); Red Blood Count 4.04 M/uL (4.20-5.40); White Blood Count 9.67 K/ul (4.8-10.8)
[2023-08-30 07:35] LABS: Albumin Globulin Ratio 1.3 (0.9-2); Albumin Level 3.6 gm/dl (3.4-5.0); BUN Creatinine Ratio 11.4 (10-20); Bilirubin,Total 0.6 mg/dl (0.2-1.0); Calcium 7.9 mg/dl (8.6-10.3); Est GFR (African American) 136.7 ml/min; Est GFR (Non-African American) 117.9 ml/min; Globulin 2.7 gm/dl (2.5-4.0); Magnesium 2.5 mg/dl (1.7-2.4); Potassium 3.1 mmol/L (3.5-5.1); Total Protein 6.3 gm/dl (6.0-8.3)
--- NOTE | 2023-08-30 09:16 | Gastroenterology Progress Note ---
Date of Service August 30, 2023 Assessment & Plan (1) Gastric distention: Plan: 27 year old female with history of IBS, depression, anxiety and traumatic OCD admitted to the ICU w/ metabolic acidosis, GI asked to evaluate for distended, fluid-filled stomach w/ distal wall thickening raising the concern for a gastric outlet obstruction NPO NG to LIS Plan for EGD today Can continue IV PPI for now Defer management of acidosis/ketosis to the primary service We appreciate assistance in the management of any serological abnormality and corrections to include: hemoglobin >7, INR <2, platelets >50,000, potassium levels >3.5 but <5.3, and sodium levels within 5 points of the reference range prior to endoscopic evaluation. Thank you for allowing us to participate in the care of this patient. Please call with any acute changes, questions or concerns. Please see addendum below with additional recommendation from my supervising physician. Admission and Anticipated Discharge Date Admission Date: August 28, 2023 Supervising Physician Co-Signing Physician Notes I examined the patient and reviewed patient's chart , laboratory data and imaging studies. I agree with with assessment and plan of care as suggested by advanced practice provider. For EGD today. Subjective Pt was seen and evaluated, chart reviewed. She notes she is feeling better this AM. No abd pain. No emesis since NG tube insertion. No fever, chills, CP, SOB. Review of Systems Review of Systems: All other findings negative except as noted in HPI. Physical Exam Constitutional: WD/WN, vitals as above Respiratory: normal respiratory effort Cardiovascular: Rate/Rhythm: regular rate Gastrointestinal (Abdomen): Inspection/Auscultation: normal bowel sounds Percussion/Palpation: abdomen soft; abdomen nontender Skin: no rashes, warm and dry Results & Data Results & Data Vital Signs (Past 12 Hours) Vital Signs Temp Pulse Pulse Resp BP Pulse Ox O2 Del Method 08/30/23 07:57 36.7 C 106 H 18 124/79 98 Room Air 08/30/23 05:58 102 H 08/30/23 04:09 37 C 109 H 18 128/83 96 Room Air 08/30/23 00:20 37 C 104 H 18 111/73 98 Room Air Laboratory Results 08/30/23 08/29/23 08/29/23 Range/Units 06:54 18:01 17:51 WBC 9.67 (4.8-10.8) K/ul RBC 4.04 L (4.20-5.40) M/uL Hgb 11.8 L (12.0-16.0) g/dl Hct 33.7 L (37.0-47.0) % MCV 83.4 (80.0-100.0) fL MCH 29.2 (25.0-34.0) pg MCHC 35.0 (32.0-36.0) g/dL RDW Std Deviation 45.1 (36.4-46.3) fL RDW Coeff of Ivan 14.7 H (11.5-14.5) % Plt Count 183 (130-400) K/uL MPV 9.3 L (9.4-12.4) fL Immature Gran % (Auto) 0.4 % Neut % (Auto) 72.2 % Lymph % (Auto) 18.3 % [place] % (Auto) 8.7 % Eos % (Auto) 0.2 % Baso % (Auto) 0.2 % Neut # (Auto) 6.98 H (1.40-6.50) K/uL Lymph # (Auto) 1.77 (1.20-3.40) K/uL [place] # (Auto) 0.84 H (0.11-0.59) K/uL Eos # (Auto) 0.02 (0.00-0.50) K/uL Baso # (Auto) 0.02 (0.00-0.20) K/uL Immature Gran # (Auto) 0.04 (0.01-0.20) K/uL VBG pH (7.36-7.41) Sodium 141 140 (136-145) mmol/L Potassium 3.1 L 3.0 L (3.5-5.1) mmol/L Chloride 110 H 107 (98-107) mmol/L Carbon Dioxide 14 L 16 L (21-32) mmol/L Anion Gap 17 H 17 H (3-11) BUN 8 9 (6-23) mg/dl Creatinine 0.70 0.76 (0.6-1.2) mg/dl Est Cr Clr Drug Dosing 112.0 104.1 ml/min Est GFR ( Amer) 136.7 124.6 ml/min Est GFR (Non-Af Amer) 117.9 107.5 ml/min BUN/Creatinine Ratio 11.4 11.8 (10-20) Glucose 80 100 H (70-99(Fasting)) mg/dl POC Glucose 87 (70-99) mg/dl Calcium 7.9 L 8.3 L (8.6-10.3) mg/dl Phosphorus 2.0 L D < 1.0 L* (2.5-4.9) mg/dl Magnesium 2.5 H 2.4 (1.7-2.4) mg/dl Total Bilirubin 0.6 (0.2-1.0) mg/dl AST 41 H (13-39) U/L ALT 23 (7-52) U/L Alkaline Phosphatase 43 (34-104) U/L Total Protein 6.3 (6.0-8.3) gm/dl Albumin 3.6 (3.4-5.0) gm/dl Globulin 2.7 (2.5-4.0) gm/dl Albumin/Globulin Ratio 1.3 (0.9-2) 08/29/23 08/29/23 08/29/23 Range/Units 14:17 11:22 09:59 WBC (4.8-10.8) K/ul RBC (4.20-5.40) M/uL Hgb (12.0-16.0) g/dl Hct (37.0-47.0) % MCV (80.0-100.0) fL MCH (25.0-34.0) pg MCHC (32.0-36.0) g/dL RDW Std Deviation (36.4-46.3) fL RDW Coeff of Ivan (11.5-14.5) % Plt Count (130-400) K/uL MPV (9.4-12.4) fL Immature Gran % (Auto) % Neut % (Auto) % Lymph % (Auto) % [place] % (Auto) % Eos % (Auto) % Baso % (Auto) % Neut # (Auto) (1.40-6.50) K/uL Lymph # (Auto) (1.20-3.40) K/uL [place] # (Auto) (0.11-0.59) K/uL Eos # (Auto) (0.00-0.50) K/uL Baso # (Auto) (0.00-0.20) K/uL Immature Gran # (Auto) (0.01-0.20) K/uL VBG pH 7.41 7.39 (7.36-7.41) Sodium 139 140 (136-145) mmol/L Potassium 3.0 L 3.2 L (3.5-5.1) mmol/L Chloride 108 H 110 H (98-107) mmol/L Carbon Dioxide 14 L 11 L (21-32) mmol/L Anion Gap 17 H 19 H (3-11) BUN 10 10 (6-23) mg/dl Creatinine 0.80 0.81 (0.6-1.2) mg/dl Est Cr Clr Drug Dosing 98.9 97.7 ml/min Est GFR ( Amer) 117.1 115.4 ml/min Est GFR (Non-Af Amer) 101.0 99.5 ml/min BUN/Creatinine Ratio 12.5 12.3 (10-20) Glucose 120 H 100 H (70-99(Fasting)) mg/dl POC Glucose 117 H (70-99) mg/dl Calcium 8.4 L 7.9 L (8.6-10.3) mg/dl Phosphorus (2.5-4.9) mg/dl Magnesium (1.7-2.4) mg/dl Total Bilirubin (0.2-1.0) mg/dl AST (13-39) U/L ALT (7-52) U/L Alkaline Phosphatase (34-104) U/L Total Protein (6.0-8.3) gm/dl Albumin (3.4-5.0) gm/dl Globulin (2.5-4.0) gm/dl Albumin/Globulin Ratio (0.9-2) PG Care Time/CCT Total # of Minutes Spent Total Time Spent with Patient: Total time spent is greater than 50% in coordination of care (as documented) at patient's floor/unit and/or counseling patient: Coding Level of Care Code None Diagnoses Gastric distention K31.89
[2023-08-30] MEDS ORDERED: POTASSIUM PHOS 3 MMOL/1 ML INFUSION IV STA (09:31)
--- NOTE | 2023-08-30 11:13 | Anesthesiology Consultation ---
Date of Service August 30, 2023 Assessment & Plan Chart Review Chart Review: Acceptable Risk for Surgery Consults Requested none History Surgery Operation Date: 08/30/23 16:30 Proposed Procedures p Esophagogastroduodenoscopy Vonnie Shankar MD Height/Weight Height: 5 ft 6 in Weight: 66.3 kg Allergies Allergy/AdvReac Type Severity Reaction Status Date / Time No Known Allergies Allergy Verified 08/28/23 15:57 Medications Home Medications Medication Instructions Recorded Confirmed Last Taken sertraline 100 mg tablet 400 mg PO HS 04/24/22 08/28/23 08/27/23 trazodone 50 mg tablet 50 - 100 mg PO HS PRN Sleep 04/24/22 08/28/23 Unknown aripiprazole 5 mg tablet 5 mg PO DAILY 08/08/22 08/28/23 08/28/23 norethindrone 1 mg-ethinyl 1 tab PO DAILY #84 tabs 02/19/23 08/28/23 08/28/23 estradiol 20 mcg (21)-iron 75 mg (7) tablet ([place] Fe 03/23 ()) betamethasone dipropionate 0.05 % 1 applic topical DAILY PRN skin 05/31/23 08/28/23 Unknown topical cream irritation #15 grams ondansetron 4 mg disintegrating 4 mg PO Q6H PRN NAUSEA/VOMITING 07/02/23 08/28/23 Unknown tablet linaclotide 290 mcg capsule 290 mcg PO DAILY #30 caps 08/05/23 08/28/23 08/28/23 (Linzess) aripiprazole 2 mg tablet 2 mg PO DAILY 08/28/23 08/28/23 08/28/23 prochlorperazine maleate 10 mg 10 mg PO BID PRN nausea and 08/28/23 08/28/23 Unknown tablet vomiting #14 tabs promethazine 25 mg tablet 25 mg PO TID PRN NAUSEA/VOMITING 08/28/23 08/28/23 Unknown valacyclovir 500 mg tablet 500 mg PO DIRECTED PRN OUT 08/28/23 08/28/23 Unknown (Valtrex) BREAKS Active Medications Generic Name Dose Route Start Last Admin Trade Name Freq PRN Reason Stop Dose Admin Heparin Sodium (Porcine) 5,000 units 08/29/23 14:00 08/30/23 08:46 Heparin Sod 5,000 Unit/0.5 Ml Vial SQ 09/28/23 13:59 Not Given Q12 SAAD Thiamine HCl 500 mg/ Sodium 55 mls @ 210 mls/hr 08/29/23 06:00 08/30/23 06:00 Chloride IV 09/28/23 05:59 Infused Q8H SAAD Infusion Pantoprazole Sodium 40 mg/ 10 mls @ 5 mls/min 08/29/23 09:00 08/30/23 08:59 Syringe IV 09/28/23 08:59 5 mls/min BID SAAD Administration Parenteral Electrolytes 1,000 mls @ 125 mls/hr 08/29/23 18:34 08/30/23 04:28 Plasma-Lyte A Ph 7.4 IV 09/28/23 18:33 125 mls/hr .Q8H SAAD Administration Ondansetron HCl 4 mg 08/28/23 22:00 08/29/23 10:33 Ondansetron Inj 2 Mg/Ml 2 Ml Vial IV 09/27/23 21:59 4 mg Q6H PRN Administration NAUSEA/VOMITING NPO Date Last Intake of Fluids: 08/28/23 Date Last Intake of Solids: 08/28/23 Past Medical History Medical History IBS (irritable colon syndrome) Refeeding syndrome Anxiety and depression OCD (obsessive compulsive disorder) Depression Past Family History Family History Father Myocardial infarction, Onset Age: 57 Heart disease Mother Diabetes Hypertension Denies family history of Ovarian cancer Prostate cancer Breast cancer Colorectal cancer Past Surgical History Surgical History S/P LEEP 06/2022 S/P right oophorectomy right ovarian torsion S/P foot surgery Status post colposcopy H/O wisdom tooth extraction Social History Smoking Status: Never smoker Do You Dip or Chew Tobacco: No Hx Alcohol Use: Yes Alcohol type: beer, wine and hard liquor alcohol intake frequency: holidays/special occasions only Hx Substance Use: No substance use type: marijuana Last Used Substance: Days (ago) Physical Exam Vital Signs Last Vital Signs Temp 37 C 08/30/23 11:06 Pulse 97 H 08/30/23 11:06 Resp 20 08/30/23 11:06 BP 138/88 08/30/23 11:06 Pulse Ox 98 08/30/23 11:06 O2 Del Method Room Air 08/30/23 11:06 Testing Laboratory Results 08/30/23 06:54 08/30/23 06:54 Urine Color Yellow 08/28/23 13:50 Urine Appearance Clear (Clear) 08/28/23 13:50 Urine pH 6.0 (4.5-7.5) 08/28/23 13:50 Ur Specific [place] 1.022 (1.000-1.030) 08/28/23 13:50 Urine Protein 3+ (Negative) H 08/28/23 13:50 Urine Glucose (UA) Negative (Negative) 08/28/23 13:50 Urine Ketones 4+ (Negative) H 08/28/23 13:50 Urine Nitrite Negative (Negative) 08/28/23 13:50 Ur Leukocyte Esterase Negative (Negative) 08/28/23 13:50 Urine WBC (Auto) 0-5 /hpf (0-5) 08/28/23 13:50 Urine RBC (Auto) 0-2 /hpf (0-2) 08/28/23 13:50 U Hyaline Cast (Auto) 6-10 /lpf (0-2) H 08/28/23 13:50 U Epithel Cells (Auto) 3-5 /hpf (0-2) H 08/28/23 13:50 Urine Bacteria (Auto) None Seen (None Seen) 08/28/23 13:50
--- NOTE | 2023-08-30 11:58 | GI REPORT ---
[facility] Patient: FLORIAN POSEY : 1995 Sex at : Female Age: 28 Years Procedure: Upper GI endoscopy Date: 08/30/2023 Attending Physician: Michael Shankar MD Referring MD: Referred Self Indications: - Abnormal CT of the GI tract - Epigastric abdominal pain - Vomiting Medications: - Monitored Anesthesia Care Complications: - No immediate complications. Estimated Blood Loss: - Estimated blood loss: none. Procedure: - The egd scope was introduced through the mouth and advanced to the third part of the duodenum. - The upper GI endoscopy was accomplished with ease. - The patient tolerated the procedure well. Findings: - The Z-line was regular and was found 36 cm from the incisors. - LA Grade B (one or more mucosal breaks greater than 5 mm, not extending between the tops of two mucosal folds) esophagitis with no bleeding was found in the lower third of the esophagus. Mild esophagitis likely related to vomiting. - The entire examined stomach was normal. 2 biopsies were all obtained from gastric antrum for histology and Helicobacter pylori. The pylorus was normal. There was no evidence of gastric outlet obstruction. - The examined duodenum was normal. Biopsies for histology were taken with a cold forceps for evaluation of celiac disease. Impression: - Z-line regular, 36 cm from the incisors. - LA Grade B reflux esophagitis with no bleeding. - Mild esophagitis likely related to vomiting. - Normal stomach. - 2 biopsies were all obtained from gastric antrum for histology and Helicobacter pylori. - The pylorus was normal. There was no evidence of gastric outlet obstruction. - Normal examined duodenum. Biopsied. Recommendation: - I anticipate no further need for intervention. - Observe patient's clinical course. - Clear liquid diet, advance as tolerated. - Return to referring physician as previously scheduled. - Return to my office PRN. Procedure Code(s): - 04503, Esophagogastroduodenoscopy, flexible, transoral; with biopsy, single or multiple Diagnosis Code(s): - R93.3, Abnormal findings on diagnostic imaging of other parts of digestive tract - R10.13, Epigastric pain - R11.10, Vomiting, unspecified - K21.00, Gastro-esophageal reflux disease with esophagitis, without bleeding CPT(R) - 2023 copyright [employer]. All Rights Reserved. The CPT codes, CCI edits and ICD codes generated are intended as suggestions and were generated based on input data. These codes are preliminary and upon power grader operator review may be revised to meet current compliance and payer requirements. The provider is responsible for the final determination of appropriate codes, and modifiers. Michael Shankar M.D. This document has been electronically signed. Note Initiated:08/30/2023 Note Completed:08/30/2023 11:58 AM [id number]
--- NOTE | 2023-08-30 11:59 | Communication Note ---
Date of Service: August 30, 2023 EGD was entirely normal. There was no evidence of gastric outlet obstruction. Recommend to advance diet. Follow-up as an outpatient.
[2023-08-30] MEDS: POTASSIUM PHOSPHATE 30 MMOL in SODIUM CHLORIDE 0.9% 500 ML IV ONE (12:38)
--- NOTE | 2023-08-30 12:43 | Anesthesiology Progress Note ---
Date of Service August 30, 2023 Anesthesia Post Procedure Vital Signs Vital Signs: Temp Pulse Pulse Pulse Resp BP BP 08/30/23 12:20 89 16 113/75 08/30/23 12:05 85 16 107/65 08/30/23 11:50 100 H 20 102/68 08/30/23 11:06 37 C 97 H 20 138/88 08/30/23 07:57 36.7 C 106 H 18 124/79 08/30/23 05:58 102 H 08/30/23 04:09 37 C 109 H 18 128/83 08/30/23 00:20 37 C 104 H 18 111/73 08/29/23 20:00 100 H 08/29/23 19:54 37.2 C 112 H 18 127/81 08/29/23 18:42 105 H 08/29/23 17:00 102 H 23 08/29/23 16:30 119 H 27 H 08/29/23 16:05 120 H 23 08/29/23 16:00 137/86 08/29/23 16:00 36.9 C 08/29/23 16:00 114 H 08/29/23 15:59 113 H 29 H 08/29/23 15:41 116 H 19 08/29/23 15:08 94 H 30 H 08/29/23 15:00 143/103 H 08/29/23 14:50 111 H 28 H 08/29/23 14:36 107 H 25 H 08/29/23 14:08 109 H 28 H 08/29/23 14:00 136/93 08/29/23 14:00 136/93 08/29/23 13:53 103 H 26 H 08/29/23 13:39 109 H 29 H 08/29/23 13:27 138/107 H 08/29/23 13:27 138/107 H 08/29/23 13:18 114 H 32 H 08/29/23 13:00 36.8 C 08/29/23 12:54 106 H 29 H Pulse Ox O2 Del Method 08/30/23 12:20 100 Room Air 08/30/23 12:05 100 Room Air 08/30/23 11:50 98 Room Air 08/30/23 11:06 98 Room Air 08/30/23 07:57 98 Room Air 08/30/23 05:58 08/30/23 04:09 96 Room Air 08/30/23 00:20 98 Room Air 08/29/23 20:00 08/29/23 19:54 99 Room Air 08/29/23 18:42 08/29/23 17:00 99 08/29/23 16:30 98 08/29/23 16:05 99 08/29/23 16:00 08/29/23 16:00 08/29/23 16:00 08/29/23 15:59 98 08/29/23 15:41 100 08/29/23 15:08 98 08/29/23 15:00 08/29/23 14:50 99 08/29/23 14:36 99 08/29/23 14:08 98 08/29/23 14:00 08/29/23 14:00 08/29/23 13:53 99 08/29/23 13:39 98 08/29/23 13:27 08/29/23 13:27 08/29/23 13:18 98 08/29/23 13:00 08/29/23 12:54 98 Transfer of Care Handoff Completed per policy Notes Mental Status: alert / awake / arousable and participated in evaluation Patient Amnestic to Procedure: Yes Nausea / Vomiting: adequately controlled Pain: adequately controlled Airway Patency, RR, SpO2: stable & adequate BP & HR: stable & adequate Hydration State: stable & adequate Anesthetic Complications: no major complications apparent
[2023-08-30] MEDS: MIDAZOLAM HCL 1 MG/ML 2ML VIAL ONE (13:18)
[2023-08-30] MEDS: LIDOCAINE 2% 2 ML VIAL/AMP(20MG/ML) INFIL ONE (13:18)
[2023-08-30] MEDS: PROPOFOL IV EMULSION 10 MG/ML 20 ML VIAL IV ONE (13:18)
[2023-08-30] MEDS: THIAMINE HCL 200 MG in SODIUM CHLORIDE 0.9% 50 ML IV STA (13:38)
[2023-08-30] MEDS ORDERED: traZODone HCL 50 MG TAB PO PRN (17:21)
[2023-08-30] MEDS: SERTRALINE HCL 100 MG TABLET PO SCH (20:29)
[2023-08-31 06:35] LABS: Basophils # (auto) 0.02 K/uL (0.00-0.20); Basophils % (auto) 0.3 %; Eosinophils # (auto) 0.05 K/uL (0.00-0.50); Eosinophils % (auto) 0.7 %; Hematocrit (blood only) 31.9 % (37.0-47.0); Hemoglobin 11.4 g/dl (12.0-16.0); Immature Granulocytes # (auto) 0.01 K/uL (0.01-0.20); Immature Granulocytes % (auto) 0.1 %; Lymphocytes # (auto) 2.76 K/uL (1.20-3.40); Lymphocytes % (auto) 38.4 %; Mean Corpuscular Hemoglobin 29.3 pg (25.0-34.0); Mean Corpuscular Hgb Conc 35.7 g/dL (32.0-36.0); Mean Platelet Volume 9.2 fL (9.4-12.4); Monocytes # (auto) 0.62 K/uL (0.11-0.59); Monocytes % (auto) 8.6 %; Neutrophils # (auto) 3.72 K/uL (1.40-6.50); Neutrophils % (auto) 51.9 %; Platelet Count 174 K/uL (130-400); RDW Coefficient of Variation 14.6 % (11.5-14.5); RDW Standard Deviation 43.8 fL (36.4-46.3); Red Blood Count 3.89 M/uL (4.20-5.40); White Blood Count 7.18 K/ul (4.8-10.8)
--- NOTE | 2023-08-31 06:51 | Hospitalist Progress Note ---
Date of Service August 31, 2023 Assessment & Plan (1) Gastritis: (2) Gastric distention: (3) Esophagitis: (4) Medical marijuana use: (5) Nausea & vomiting: (6) Anxiety and depression: (7) Metabolic acidosis: (8) Acute dehydration: Plan Pt is a 27 yo female with a past medical history of IBS-C, chronic nausea, medical marijuana use, and anxiety/depression who presented to the hospital on 08/27 for nausea, dehydration, and poor oral intake for 1 week. 1) Severe nausea, acute on chronic/ gastritis/ esophagitis - CT-AP: fluid-filled distended stomach, thickened distal stomach w/out surrounding inflammation, possibly represents distal gastritis or ulcer dz, cannot exclude outlet obstruction - EGD done 08/29 showed mild esophagitis with biopsies (histology, H. pylori) pending - UDS positive for marijuana, consistent w/ medical marijuana use; patient denies overuse of alcohol that could cause alcohol-related gastritis (< 7 drinks/wk, notes gastritis w/ previous mild alcohol intake) - discussed with pt her use of medical marijuana for nausea; nausea seems to be worsening, may want to trial other medications for nausea to see if worsening nausea due to marijuana use - pantoprazole, 40 mg, IV, BID --> will consider prescribing as outpt too - closer to discharge, will work on plan for patient that can be followed when she has these episodes to avoid hospitalization such as day 1 trying zofran, day 2 trying different med, day 3 contacting pcp, etc - consider discharging on zofran, 4 mg, q6hrs, PRN, PO but re-check EKG to monitor QTc first 2) Refeeding concerns - gradual diet advancement w/ clears on 08/29, supplementing w/ IV thiamine for refeeding concerns due to poor chronic oral intake, advanced to full liquids today - no fatigue, respiratory distress; EKG to monitor for QTc prolongation, arrhythmias - P, 2.5 <-- 2.0 <-- 1.0 - Mg, 2.3 <-- 2.5 <-- 2.4 - TProt, 6.1; Alb, 3.5 3) HAGMA, improved - pH <7 on admission, AG 21, repeat venous pH WNL, AG improved to 12 today - on IVF with plasmalyte to continue today while PO intake is poor 4) Anxiety and depression - restarted home meds: Zoloft (100 mg, PO, QPM), Abilify (5 mg, PO, QAM)/not taking - home Zoloft, 400 mg, PO, QHS --> confirmed 4) Mild anemia - Hgb, 11.4 <-- 13.4 <-- 16.5 - likely dilutional, trend CBC daily in AM Code status: Full code Disposition: Med-Tele (downgraded from ICU) DVT prophylaxis: ambulation FENGI: NG tube initially, clear liquid diet transitioned to full liquids Admission and Anticipated Discharge Date Admission Date: August 28, 2023 Supervising Physician Co-Signing Physician Notes Attending attestation Pt seen and examined in concert with Dr. Lainez. In agreement with the documented findings as noted in the resident documentation with any exceptions or additions as noted here. Improving appetite with decreased nausea without complaint of pain today. On examination, S1/S2 nl RRR no MCG. CTAB. Abd NT/ND BS+ve HAGMA in the setting of intractible nausea/vomiting - AG of 12 with improvement in electrolyte abnormality - continue to advance diet. Daily monitoring of electrolytes, low threshold for ABG. Else see resident documentation as noted. Subjective Pt states that she continues to feel even better today. Continues to feel more energetic every day while her nausea has completely disappeared. EGD done yesterday and NG tube removed. Wants diet increased as fast as possible, as feeling much better, and would be open to discharge once we feel it's medically indicated. Patient counseled that we'd like to see ability to tolerate solid food again before discharge. Review of Systems Constitutional: + increased appetite; no fever, no chill s, no fatigue and no weakness Respiratory: no cough, no chest congestion and no dyspnea Cardiovascular: no chest pain and no palpitations Gastrointestinal: no abdominal pain, no nausea, no vomiting, no constipation, no diarrhea/loose stools and no blood in stools Genitourinary: no dysuria, no urinary frequency (slight increased freq due to IV fluid administration) and no urinary urgency Musculoskeletal: no myalgia and no body aches Neurologic: no tingling, no numbness and no headache(s) Physical Exam Constitutional: WD/WN, vitals as above Respiratory: normal respiratory effort, lungs clear to auscultation Cardiovascular: RRR, no murmur, no edema Extremities: normal capillary refill; no calf tenderness and no pedal edema Gastrointestinal (Abdomen): normal bowel sounds, soft, nontender, no hepatosplenomegaly Psychiatric: A+Ox3, euthymic affect Results & Data Results & Data Vital Signs (Past 12 Hours) Vital Signs Temp Pulse Pulse Resp BP Pulse Ox O2 Del Method 08/31/23 02:45 37 C 87 16 124/79 98 Room Air 08/30/23 22:16 36.8 C 87 18 128/81 98 Room Air 08/30/23 21:54 79 08/30/23 19:19 37.1 C 89 18 128/83 99 Room Air
[2023-08-31 07:09] LABS: Albumin Globulin Ratio 1.3 (0.9-2); Albumin Level 3.5 gm/dl (3.4-5.0); BUN Creatinine Ratio 9.7 (10-20); Bilirubin,Total 0.8 mg/dl (0.2-1.0); Calcium 8.2 mg/dl (8.6-10.3); Creatinine Clr Calc Pharmacy 126.5 ml/min; Est GFR (African American) 142.2 ml/min; Est GFR (Non-African American) 122.7 ml/min; Globulin 2.6 gm/dl (2.5-4.0); Magnesium 2.3 mg/dl (1.7-2.4); Phosphorus 2.5 mg/dl (2.5-4.9); Potassium 3.2 mmol/L (3.5-5.1); Total Protein 6.1 gm/dl (6.0-8.3)
[2023-08-31 07:32] LABS: Marijuana Quant, GCMS Urine 145 ng/mL (<5)
[2023-08-31] MEDS: THIAMINE HCL 200 MG in SODIUM CHLORIDE 0.9% 50 ML IV SCH (09:12)
[2023-08-31] MEDS: ARIPiprazole 5 MG TAB PO SCH (09:13)
[2023-08-31 17:08] LABS: BUN Creatinine Ratio 10.2 (10-20); Calcium 8.6 mg/dl (8.6-10.3); Creatinine Clr Calc Pharmacy 132.9 ml/min; Est GFR (African American) 144.6 ml/min; Est GFR (Non-African American) 124.7 ml/min; Magnesium 2.1 mg/dl (1.7-2.4); Phosphorus 2.8 mg/dl (2.5-4.9); Potassium 3.2 mmol/L (3.5-5.1)
--- NOTE | 2023-09-01 07:01 | Discharge Summary ---
Date of Service September 01, 2023 Admission HPI Per Admitting Provider The patient is a 27-year-old female with a past medical history including ongoing nausea, anxiety and depression, genital HSV type I and constipation predominant IBS. She presents to the emergency department with significant fatigue, severe nausea, decreased oral intake for liquids and solids. Patient continues to feel better today, no residual N/V, able to tolerate a regular diet, Admission Exam Per Admitting Provider The patient is awake, lethargic, normocephalic and atraumatic, lying in bed and in no acute distress. HEENT--PERRL, EOMI, mucous membranes and oropharynx dry. Neck--supple. No JVD. No bruits. Thyroid normal, trachea midline, no adenopathy. Heart--tachycardic and regular. No murmurs, rubs or gallops. Lungs--clear bilaterally, no respiratory distress, no accessory muscle use. Abdomen--normal bowel sounds and soft. Nontender. Nondistended, no hernias or masses, no organomegaly. Extremities--, no edema. Dermatologic--normal skin turgor, normal color, no abnormal lymph nodes, no rash. Neurologic--cranial nerves II through XII grossly intact. Rheumatologic--normal range of motion. Psychiatric--mildly lethargic Principal Diagnosis Gastritis, esophagitis, high-anion gap metabolic acidosis (resolved) Discharge Exam Constitutional WD/WN, vitals as above Respiratory normal respiratory effort, lungs clear to auscultation Cardiovascular RRR, no murmur, no edema Extremities: normal capillary refill; no calf tenderness and no pedal edema Gastrointestinal (Abdomen) normal bowel sounds, soft, nontender, no hepatosplenomegaly Psychiatric A+Ox3, euthymic affect Discharge Data Allergies Allergy/AdvReac Type Severity Reaction Status Date / Time No Known Allergies Allergy Verified 08/28/23 15:57 Consultations 08/28/23 19:08 ED Decision to Admit Stat 08/28/23 22:00 Consult [employer] Routine 08/29/23 05:29 Consult Gastroenterology Routine Procedures Performed Operation Date: 08/30/23 16:30 Actual Procedures p EGD Biopsy Cytology - Michael Shankar MD Ordered Studies 08/28/23 17:51 CT abd pelvis IV con only Stat CT head/brain wo con Stat Hospital Course (1) Gastritis: (2) Gastric distention: (3) Esophagitis: (4) Medical marijuana use: (5) Nausea & vomiting: (6) Anxiety and depression: (7) Metabolic acidosis: (8) Acute dehydration: Plan Pt is a 27 yo female with a past medical history of IBS-C, chronic nausea, medical marijuana use, and anxiety/depression who presented to the hospital on 08/27 for nausea, dehydration, and poor oral intake for 1 week. 1) Severe nausea, acute on chronic/ gastritis/ esophagitis - CT-AP: fluid-filled distended stomach, thickened distal stomach w/out surrounding inflammation, possibly represents distal gastritis or ulcer dz, cannot exclude outlet obstruction - EGD done 08/29 showed mild esophagitis with biopsies (histology, H. pylori) still pending at discharge - UDS positive for marijuana, consistent w/ medical marijuana use; patient denies overuse of alcohol that could cause alcohol-related gastritis (< 7 drinks/wk, notes gastritis w/ previous mild alcohol intake) - discussed with pt her use of medical marijuana for nausea; nausea seems to be worsening, may want to trial other medications for nausea to see if worsening nausea due to marijuana use - closer to discharge, will work on plan for patient that can be followed when she has these episodes to avoid hospitalization such as - Re-check EKG to monitor QTc before discharging on Zofran in addition to pt's Zoloft, 400 mg, daily and Promethazine, 25 mg, TID, PRN --> initial QTc (08/28), 515 ms; F/U QTc (08/30), 461 ms - discharged on pantoprazole, 40 mg, IV, BID - "Nausea plan": Day 1: Zofran as below, PRN; Day 2: Zofran as below, scheduled; Day 3: continue Zofran as below, scheduled AND CALL HER PCP - discharged on Zofran, 4 mg, q6hr - patient to F/U w/ her PCP and community educator; recommend F/U BMP to monitor potassium 2) Refeeding concerns - gradual diet advancement w/ clears on 08/29, supplementing w/ IV thiamine for refeeding concerns due to poor chronic oral intake, advanced to full liquids today - no fatigue, respiratory distress; EKG to monitor for arrhythmias, QTc prolongation after electrolyte repletion, see above in (1) - K, 3.1 <-- 3.2 - P, 3.0 <-- 2.5 <-- 2.0 <-- 1.0 - Mg, 2.0 <-- 2.3 <-- 2.5 <-- 2.4 - TProt, 6.2; Alb, 3.5 - patient encouraged to continue increased oral intake 3) HAGMA, improved - pH <7 on admission, AG 21, repeat venous pH WNL, AG improved to 12 by end of inpt stay - on IVF with plasmalyte to continue today while PO intake is poor 4) Anxiety and depression - restarted home meds: Zoloft (100 mg, PO, QPM), Abilify (5 mg, PO, QAM)/not taking - home Zoloft, 400 mg, PO, QHS --> confirmed 4) Mild anemia - Hgb, 11.8 <-- 13.4 <-- 16.5 - likely dilutional, trend CBC daily in AM Total Time Total Time Spent Total Time Spent (In Minutes): see attending attestation Discharge Plan Discharge Items Patient Disposition: Home - Self-Care Reason For Visit: SEVERE METABOLIC ACIDOSIS Discharge Diagnosis: Gastritis, esophagitis Activity: Resume your previous activity Non-emergency contact: Primary Care Provider and [employer]ician [employer] Call non-emergency contact if: you have any medication questions and your symptoms worsen Follow-up/Referrals: Francia Serrano MD [Primary Care Provider] - 09/09/23 1:00 pm Diet: Regular Addtl Attending Provider Instructions: You were admitted to the hospital for severe nausea and prolonged decreased oral intake. You were treated with Protonix, Zofran, IV fluids, and dietary modifications. A discharge summary will be sent to your primary care physician to ensure continuity of care. Please bring this discharge summary with you to your next office appointment so that your provider can review it at that time. Follow-up appointments: We have requested a follow-up appointment with your primary care physician and your community educator within one week of discharge. Please call their office if you do not hear from them. Keep all your follow-up appointments as already scheduled. If you cannot make an appointment, notify your provider. Medications: Your medication list has been reviewed and reconciled upon discharge to ensure accuracy and continuity of care. An updated list of all your medications is included with your hospital discharge paperwork. Please review this list closely, and make note of any changes. We sent a new medication called Protonix (pantoprazole) to your pharmacy. Take Protonix (pantoprazole), 40 mg/one tablet, twice a day, for a month. Continue taking it in accordance with your community educator's recommendation. We sent a new medication called Zofran (ondansetron) to your pharmacy. Take Zofran (ondansetron), 4mg/one tablet, every 6hrs, as needed for nausea, once you begin to experience nausea. On day 1 of nausea, take the Zofran as needed. On day 2, if the nausea continues, take the Zofran (4mg every 6 hours) on a scheduled basis, whether you are actively feeling nauseous or not. On day 3, if the nausea continues, continue to take the Zofran on a scheduled basis and call your community educator for further recommendations. Take your medications as instructed; do not skip a dose of your medicines. Make sure all of your doctors know every medicine you are taking (including lvnu-nrf-tpyclec medicines, vitamins, and supplements). Call your primary care provider before taking any new medicines (including [id number] medicines, vitamins, and supplements), because some of these may interact with your current medications, or may make your symptoms worse. Tell your primary care provider if you cannot afford your medications. CONTACT YOUR PRIMARY CARE PROVIDER if you experience any of the following: any other new onset, concerning gastrointestinal symptoms recurrent nausea, vomiting, periods of decreased oral intake Difficulty following your treatment plan, or difficulty taking medications CALL 911 OR GO TO THE EMERGENCY DEPARTMENT if you experience any of the following: Sudden, severe abdominal pain or nausea/vomiting Severe chest pain, or chest pain that radiates (moves) to your jaw or arm Sudden, severe shortness of breath or difficulty breathing Thank you for allowing us to participate in your care Pending Studies at Discharge: Yes Studies:: Pathology results: 1) Histology 2) H. pylori screening Stand-Alone Forms: [employer] Smoking Cessation Medications and DC Order Prescriptions: New pantoprazole 40 mg tablet,delayed release (DR/EC) 40 mg PO BID 30 Days Qty: 60 0RF ondansetron 4 mg tablet,disintegrating 4 mg PO Q6H MDD 16 mg PRN (Reason: nausea and vomiting) Qty: 32 0RF Rx Instructions: see discharge instructions Continued aripiprazole 5 mg tablet 5 mg PO DAILY Rx Instructions: TOTAL DOSE 7 MG--TAKES WITH 2 MG TAB. norethindrone-e.estradiol-iron [Blisovi Fe 03/23 (28)] 1 mg-20 mcg (21)/75 mg (7) tablet 1 tab PO DAILY Qty: 84 2RF betamethasone dipropionate 0.05 % cream 1 applic topical DAILY PRN (Reason: skin irritation) Qty: 15 0RF Linzess 290 mcg capsule 290 mcg PO DAILY Qty: 30 2RF prochlorperazine maleate 10 mg tablet 10 mg PO BID PRN (Reason: nausea and vomiting) Qty: 14 0RF sertraline 100 mg tablet 400 mg PO HS trazodone 50 mg tablet 50 - 100 mg PO HS PRN (Reason: Sleep) ondansetron 4 mg tablet,disintegrating 4 mg PO Q6H PRN (Reason: NAUSEA/VOMITING) promethazine 25 mg tablet 25 mg PO TID PRN (Reason: NAUSEA/VOMITING) aripiprazole 2 mg tablet 2 mg PO DAILY Rx Instructions: TOTAL DOSE 7 MG--TAKES WITH 5 MG TAB. valacyclovir [Valtrex] 500 mg tablet 500 mg PO DIRECTED PRN (Reason: OUT BREAKS) Rx Instructions: Take one pill daily, take one pill twice per day for 3 days at start of outbreak Discharge Orders: Discharge Order (Routine); Ordered 09/01/23 Ordered By: Clark Lainez Admission Data Admit Date/Time: 08/28/23 19:43 Attending Provider: Clark Pena Admit Provider: Mitchel Gomez Primary Care Provider: Francia Serrano Other Providers: Mitchel Gomez; Jan Nielsen; Linda Siddiqui Jr Other Interventions: Discharge Summary Assessment (RN) Last Done: 09/01/23 12:45 Supervising Physician Co-Signing Physician Notes Attending attestation Pt seen and examined in concert with Dr. Lainez. In agreement with the documented findings as noted in the resident documentation with any exceptions or additions as noted here. Return to baseline at time of discharge - tolerating POI well with well controlled symptoms. On examination, S1/S2 nl RRR no MCG. CTAB. Abd NT/ND BS+ve HAGMA in the setting of exacerbation of chronic, episodic nausea/vomiting - closed AG with improvement in hypokalemia, magnesemia and phosphatemia - continue ondansetron q8h PRN with escalation to q8 hour standing with addition of famotidine with flares of symptoms and rapid contact to PCP/GI team with close follow up. Avoid marijuana. Continue BID PPI. H. pylori testing pending, inpatient team will contact for treatment if results +ve. Else see resident documentation as noted. Total attending physician time spent with this patient's care on the day of discharge: 40 minutes. Resident Activity Tracking Resident Involvement: Resident Care Provided Care Provided: Adult Hospital Medicine
--- NOTE | 2023-09-01 07:40 | Electrocardiogram Report ---
Test Reason : Blood Pressure : / mmHG Vent. Rate : 077 BPM Atrial Rate : 077 BPM P-R Int : 132 ms QRS Dur : 088 ms QT Int : 408 ms P-R-T Axes : 017 073 038 degrees QTc Int : 461 ms Normal sinus rhythm with sinus arrhythmia Normal ECG When compared with ECG of 29-AUG-2023 10:05, QT has shortened Confirmed by Josh Peck ([id number]) on 09/01/2023 7:40:04 AM Referred By: REFERRED SELF Confirmed By:Josh Peck
[2023-09-01 07:49] LABS: Basophils # (auto) 0.02 K/uL (0.00-0.20); Basophils % (auto) 0.4 %; Eosinophils # (auto) 0.06 K/uL (0.00-0.50); Eosinophils % (auto) 1.1 %; Hematocrit (blood only) 33.7 % (37.0-47.0); Hemoglobin 11.8 g/dl (12.0-16.0); Lymphocytes % (auto) 33.7 %; Mean Corpuscular Hemoglobin 29.2 pg (25.0-34.0); Mean Corpuscular Volume 83.4 fL (80.0-100.0); Mean Platelet Volume 9.9 fL (9.4-12.4); Monocytes # (auto) 0.43 K/uL (0.11-0.59); Monocytes % (auto) 8.1 %; Neutrophils # (auto) 3.03 K/uL (1.40-6.50); Neutrophils % (auto) 56.7 %; Platelet Count 184 K/uL (130-400); RDW Coefficient of Variation 14.5 % (11.5-14.5); RDW Standard Deviation 44.4 fL (36.4-46.3); Red Blood Count 4.04 M/uL (4.20-5.40); White Blood Count 5.34 K/ul (4.8-10.8)
[2023-09-01 08:05] LABS: Albumin Globulin Ratio 1.3 (0.9-2); Albumin Level 3.5 gm/dl (3.4-5.0); BUN Creatinine Ratio 13.2 (10-20); Bilirubin,Total 0.5 mg/dl (0.2-1.0); Calcium 8.4 mg/dl (8.6-10.3); Creatinine Clr Calc Pharmacy 147.9 ml/min; Est GFR (African American) 149.8 ml/min; Est GFR (Non-African American) 129.2 ml/min; Globulin 2.7 gm/dl (2.5-4.0); Potassium 3.1 mmol/L (3.5-5.1); Total Protein 6.2 gm/dl (6.0-8.3)
== END 2023-09-01 16:37 | disposition home or self-care (01) | DRG 640 ==
LOC: ED 10:46 → SUATTDRO 19:43 → 1E 19:43 → 2N 08-29 18:34

== ENCOUNTER 2024-07-08 08:44 | Inpatient (IN) ==
--- NOTE | 2024-07-08 09:34 | Emergency Department Note ---
Impression & Plan High anion gap metabolic acidosis, Nausea & vomiting ED Provider Note CHIEF COMPLAINT: Severe nausea x 2 days HISTORY OF PRESENT ILLNESS: Patient is a 28-year-old female with past medical history significant for chronic nausea, IBS, depression, anxiety, OCD, among other chronic medical problems who presents to the emergency department for evaluation of severe nausea with vomiting x 2 days. She has been dealing with chronic nausea with and without vomiting for over a year. She has been thoroughly evaluated by GI for this and is still working with them. She states that her nausea developed mildly midday on Saturday, 2 days ago, but got much worse yesterday. She has vomited a couple of times, last was earlier this morning, then again while she was over in radiology. She was scheduled to have an upper GI series with small bowel follow-through this morning. She could not tolerate the prep and was referred to the emergency department. She last saw GI in mid June, she was put on omeprazole which she has been taking without change in her symptoms. She continues to use medicinal marijuana sparingly for nausea and appetite although she has not had any in the last couple of days. She did not try any antiemetics over the last couple of days. She does endorse some acid reflux symptoms last night and headaches. No blood in her vomit, she is moving her bowels fairly normally, without blood or melena. She does not really have abdominal pain with this. Last menstrual period was 1 week ago. She did travel to [place] for her [employer] constitution party and returned early on Saturday. She reports feeling well while traveling, denies any food concerns or sick contacts and no one that she traveled with is ill. REVIEW OF SYSTEMS: Review of systems as per HPI. All other systems reviewed were negative. 10 systems reviewed. PMH: External medical records are reviewed and summarized as above/below. See Problem List. SOCIAL HISTORY: Patient lives at home. Engaged. Not currently working. PHYSICAL EXAM: Vital Signs: Reviewed Nurse's notes. CONSTITUTIONAL: Mildly uncomfortable but otherwise well-appearing 20-year-old female laying on the gurney. Significant other is at the bedside. EYES: Pupils equal, round, reactive to light and accommodation. EOMs intact without nystagmus. Sclera are anicteric. ENT: Tympanic membranes intact, with normal landmarks. External canals are clear. Oral and nasopharynx are clear. Mucous membranes are moist, no lesions, tongue and gums appear normal. CARDIOVASCULAR: Regular rate and rhythm. No JVD. Peripheral pulses easily palpable. RESPIRATORY: Breath sounds equal and clear to auscultation. ABDOMEN: Bowel sounds are present. The abdomen is soft, scaphoid, nontender to percussion and palpation throughout. No guarding or rebound. INTEGUMENTARY: No lesions or rash, normal skin turgor. LYMPH: No lymphadenopathy. EMERGENCY DEPARTMENT COURSE: The patient was seen and assessed as above. External medical records were reviewed. She presents to the emergency department for evaluation of nausea and vomiting. She states that this does feel similar to her prior episodes, for which she has been seen here in the past. [facility] GI notes reviewed. IV lock was initiated. She was ordered a 2 L bolus of normal saline solution. She was treated with IV Compazine and Benadryl. Laboratory studies were collected. Diagnostics, as interpreted by me: Laboratory studies: Mildly elevated white count at 11,100 with neutrophilic predominance noted. H&H within normal limits. Sodium 133, potassium 4.9, chloride 104, bicarb 7 with an anion gap of 22. Renal functions are normal. Magnesium and phosphorus within normal limits. No transaminitis. Lipase is normal. test negative. Of note, a chain mortiser operator KUB was performed in preparation for her GI study, which was reviewed by myself noting mild increase stool burden but no obvious obstruction or free air. Remainder of study not completed due to current illness. Urine microscopy notes 4+ ketones, but otherwise no other indicators for infection. Repeat BMP after 2 L normal saline solution sodium 133, potassium 5.2, chloride 111, bicarb 5, anion gap 17. Initial laboratory studies reviewed with Dr. Headley. Will plan to recheck BMP after fluids are complete. Patient was reassessed. She is senior living through her fluids. Laboratory studies were reviewed with her. She does report that she is feeling improved from a nausea standpoint but is still complaining of a headache. She was ordered Toradol IV. Patient was updated with the treatment plan. Repeat BMP discussed with Dr. Headley. VBG and lactate ordered. Case management consulted for admission. Patient was reassessed after repeat BMP. Discussed need for further inpatient care and she was amenable. [facility] Hospitalist service consulted. Patient remained stable but guarded in the emergency department pending admission. Differential diagnosis: GERD, gastritis, esophagitis, peptic ulcer disease, pancreatitis, biliary pathology, cyclic vomiting syndrome, cannabinoid hyperemesis, electrolyte/metabolic abnormality, dehydration, among others. Past Med/Surg History Problem List GERD (gastroesophageal reflux disease) Nausea & vomiting Intermittent - usually goes to ER when vomiting begins High anion gap metabolic acidosis Abdominal pain Anemia Esophagitis Medical marijuana use (Chronic) Constipation (Chronic) IBS (irritable colon syndrome) Genital HSV HSV1 serotype Anxiety and depression High grade squamous intraepithelial cervical dysplasia Oral contraceptive use Medical History Esophagitis Irritable bowel syndrome with constipation Constipation Anxiety Anemia Refeeding syndrome OCD (obsessive compulsive disorder) Depression Surgical History Hx of esophagogastroduodenoscopy 08/2023 S/P LEEP 06/2022 S/P right oophorectomy right ovarian torsion S/P foot surgery bilateral Status post colposcopy H/O wisdom tooth extraction Family History Father Myocardial infarction, Onset Age: 57 Heart disease Mother Diabetes Hypertension Denies family history of Ovarian cancer Prostate cancer Breast cancer Colorectal cancer Uterine cancer Social History Smoking Status: Never smoker Tobacco Type: E-cigarettes / Vaping Second Hand Exposure: No; Do You Dip or Chew Tobacco: No; Hx Alcohol Use: Yes Alcohol type: beer, wine and hard liquor Alcohol Intake Frequency: Monthly or Less Hx Substance Use: Yes Prescribed Medications: Marijuana Last Used Substance: Unknown Last Used Substance Other:: Advised Substance Use Type Other:: Medical Marijuana Gummies / Vape Preferred Language: Israeli Communication Ability: Effective Hearing Ability: Normal Tapper Operator Required: No Beliefs That Will Affect Care: None Current Living Situation: Significant Other Current Living Situation Comment: Fiance current occupational status: employed Feels Safe at Home: Yes Diet: regular caffeine: Yes Dental Care, Regularly: Yes Physical Activity Frequency: 1-2 Times per Week Seatbelt Use: always Sunscreen Use: Yes Assistive Devices: None Allergies Allergies Allergy/AdvReac Type Severity Reaction Status Date / Time No Known Allergies Allergy Verified 06/18/24 10:06 Home Meds Home Medications Medication Instructions Recorded Confirmed sertraline 100 mg tablet (Zoloft) 400 mg PO HS 04/24/22 07/08/24 trazodone 50 mg tablet 50 - 100 mg PO HS PRN Insomnia 04/24/22 07/08/24 Previous Rx's Medication Instructions Recorded clotrimazole-betamethasone 1 1 applic topical DAILY PRN itching 09/18/23 %-0.05 % topical cream #45 grams norethindrone 1 mg-ethinyl 1 tab PO DAILY #84 tabs 04/13/24 estradiol 20 mcg (21)-iron 75 mg (7) tablet (Blisovi Fe 03/23 (28)) omeprazole 40 mg capsule,delayed 40 mg PO DAILY #30 caps 06/18/24 release Results & Data (ED) Vital Signs Vital Signs - 24 hr 07/08/24 08:46 07/08/24 12:34 07/08/24 15:02 Temperature 36.8 C Temperature Source Temporal Artery Scan Pulse Rate 101 H Pulse Rate [Finger] 92 H 87 Respiratory Rate 14 18 18 Respiratory Effort / Characteristics Non-Labored Spontaneous Non-Labored Spontaneous Respiratory Depth Normal Normal Respiratory Pattern Regular Regular Blood Pressure 119/82 Blood Pressure [Right Arm] 117/64 113/68 Blood Pressure Mean 94 Blood Pressure Mean [Right Arm] 81 83 Pulse Oximetry 97 100 99 Oxygen Delivery Method Room Air Room Air Room Air Sepsis Recent Fever Within 48 Hours No Sepsis New/Unexplained Change in Mental Status N/A Sepsis Action Taken by Nursing No Action Required Home Medications Current Medication List: was personally reviewed by me Laboratory Data Attestation: I reviewed the patient's lab results. 07/08/24 09:56 07/08/24 14:15 Lab Results 07/08/24 07/08/24 07/08/24 Range/Units 09:56 12:14 14:15 WBC 11.14 H (4.8-10.8) K/ul RBC 5.19 (4.20-5.40) M/uL Hgb 15.7 (12.0-16.0) g/dl Hct 48.1 H (37.0-47.0) % MCV 92.7 (80.0-100.0) fL MCH 30.3 (25.0-34.0) pg MCHC 32.6 (32.0-36.0) g/dL RDW Std Deviation 54.4 H (36.4-46.3) fL RDW Coeff of Ivan 16.1 H (11.5-14.5) % Plt Count 310 (130-400) K/uL MPV 9.3 L (9.4-12.4) fL Immature Gran % (Auto) 0.9 % Neut % (Auto) 85.3 % Lymph % (Auto) 9.5 % [place] % (Auto) 4.1 % Eos % (Auto) 0.0 % Baso % (Auto) 0.2 % Neut # (Auto) 9.50 H (1.40-6.50) K/uL Lymph # (Auto) 1.06 L (1.20-3.40) K/uL [place] # (Auto) 0.46 (0.11-0.59) K/uL Eos # (Auto) 0.00 (0.00-0.50) K/uL Baso # (Auto) 0.02 (0.00-0.20) K/uL Immature Gran # (Auto) 0.10 (0.01-0.20) K/uL Sodium 133 L 133 L (136-145) mmol/L Potassium 4.9 5.2 H (3.5-5.1) mmol/L Chloride 104 111 H (98-107) mmol/L Carbon Dioxide 7 L* 5 L* (21-32) mmol/L Anion Gap 22 H 17 H (3-11) BUN 12 9 (6-23) mg/dl Creatinine 1.15 1.03 (0.6-1.2) mg/dl Est Cr Clr Drug Dosing 64.0 71.5 ml/min eGFR 66.55 75.95 BUN/Creatinine Ratio 10.4 8.7 L (10-20) Glucose 99 90 (70-99(Fasting)) mg/dl Calcium 9.5 7.8 L (8.6-10.3) mg/dl Phosphorus 4.8 (2.5-4.9) mg/dl Magnesium 2.3 (1.7-2.4) mg/dl Total Bilirubin 0.3 (0.2-1.0) mg/dl AST 33 (13-39) U/L ALT 17 (7-52) U/L Alkaline Phosphatase 60 (34-104) U/L Total Protein 9.1 H (6.0-8.3) gm/dl Albumin 5.2 H (3.4-5.0) gm/dl Globulin 3.9 (2.5-4.0) gm/dl Albumin/Globulin Ratio 1.3 (0.9-2) Lipase 57 (11-82) U/L HCG, Qual Negative (Negative) Urine Color Yellow Urine Appearance Clear (Clear) Urine pH 5.5 (4.5-7.5) Ur Specific [place] 1.020 (1.000-1.030) Urine Protein 2+ H (Negative) Urine Glucose (UA) Negative (Negative) Urine Ketones 4+ H (Negative) Urine Blood 1+ H (Negative) Urine Nitrite Negative (Negative) Urine Bilirubin Negative (Negative) Urine Urobilinogen Negative (Negative) Ur Leukocyte Esterase Negative (Negative) Urine WBC (Auto) 0-5 (0-5) /hpf Urine RBC (Auto) 0-2 (0-2) /hpf U Hyaline Cast (Auto) 3-5 H (0-2) /lpf U Epithel Cells (Auto) 0-2 (0-2) /hpf Urine Bacteria (Auto) None Seen (None Seen) Administered Medications Discontinued Medications Diphenhydramine HCl (Diphenhydramine 50 Mg/Ml Vial) 25 mg IV NOW STA Stop: 07/08/24 09:30 Last Admin: 07/08/24 10:06 Dose: 25 mg Documented By: JEANINE Sodium Chloride (Nss) 1,000 mls @ 999 mls/hr IV .Q1H1M SAAD Stop: 07/08/24 11:30 Last Infusion: 07/08/24 14:13 Dose: Infused Documented By: Admin: 07/08/24 11:21 Dose: 999 mls/hr Documented By: Infusion: 07/08/24 11:08 Dose: Infused Documented By: Admin: 07/08/24 10:07 Dose: 999 mls/hr Documented By: JEANINE Prochlorperazine (Compazine) 1 mls @ 1 mls/min IV ONE ONE Stop: 07/08/24 09:30 Last Admin: 07/08/24 10:06 Dose: 1 mls/min Documented By: JEANINE Famotidine (Pepcid 20mg Iv Push) 20 mg in 5 mls @ 2.5 mls/min IV NOW STA Stop: 07/08/24 15:59 Last Admin: 07/08/24 16:17 Dose: 2.5 mls/min Documented By: ELLE Pantoprazole Sodium (Protonix) 40 mg in 10 mls @ 5 mls/min IV NOW ONE Stop: 07/08/24 15:59 Last Admin: 07/08/24 16:17 Dose: 5 mls/min Documented By: ELLE Acetaminophen (Ofirmev) 1,000 mg in 100 mls @ 400 mls/hr IV NOW STA Stop: 07/08/24 16:15 Last Admin: 07/08/24 16:17 Dose: 400 mls/hr Documented By: ELLE Ketorolac Tromethamine (Ketorolac 30 Mg/Ml Vial) 30 mg IV NOW STA Stop: 07/08/24 12:16 Last Admin: 07/08/24 12:37 Dose: 30 mg Documented By: CAP Discharge Plan Visit Data Chief Complaint: Flu Like Symptoms Stated Complaint: SEVERE NAUSEA, POSSIBLE DEHYDRATION, VOMITING ED Provider: Marco A Headley ED Midlevel Provider: Bailee Mccullough Discharge Problem: High anion gap metabolic acidosis, Nausea & vomiting Patient Disposition: Being Evaluated by Hospitalist Condition: Fair Forms Stand Alone Forms: My [facility] Prescriptions Prescriptions: No Action clotrimazole-betamethasone 1-0.05 % cream 1 applic topical DAILY PRN (Reason: itching) Qty: 45 0RF sertraline [Zoloft] 100 mg tablet 400 mg PO HS trazodone 50 mg tablet 50 - 100 mg PO HS PRN (Reason: Insomnia) omeprazole 40 mg capsule,delayed release(DR/EC) 40 mg PO DAILY Qty: 30 2RF norethindrone-e.estradiol-iron [Blisovi Fe 03/23 (28)] 1 mg-20 mcg (21)/75 mg (7) tablet 1 tab PO DAILY Qty: 84 4RF Referrals Referrals: Francia Serrano MD [Primary Care Provider] -
[2024-07-08] MEDS: PROCHLORPERAZINE 1 ML IV ONE (10:06)
[2024-07-08] MEDS: diphenhydrAMINE 50 MG/ML VIAL IV STA (10:06)
[2024-07-08] MEDS: SODIUM CHLORIDE 0.9% 1,000 ML IV SCH (10:07)
[2024-07-08 10:15] LABS: Basophils # (auto) 0.02 K/uL (0.00-0.20); Basophils % (auto) 0.2 %; Hematocrit (blood only) 48.1 % (37.0-47.0); Hemoglobin 15.7 g/dl (12.0-16.0); Immature Granulocytes % (auto) 0.9 %; Lymphocytes # (auto) 1.06 K/uL (1.20-3.40); Lymphocytes % (auto) 9.5 %; Mean Corpuscular Hemoglobin 30.3 pg (25.0-34.0); Mean Corpuscular Hgb Conc 32.6 g/dL (32.0-36.0); Mean Corpuscular Volume 92.7 fL (80.0-100.0); Mean Platelet Volume 9.3 fL (9.4-12.4); Monocytes # (auto) 0.46 K/uL (0.11-0.59); Monocytes % (auto) 4.1 %; Neutrophils % (auto) 85.3 %; Platelet Count 310 K/uL (130-400); RDW Coefficient of Variation 16.1 % (11.5-14.5); RDW Standard Deviation 54.4 fL (36.4-46.3); Red Blood Count 5.19 M/uL (4.20-5.40); White Blood Count 11.14 K/ul (4.8-10.8)
[2024-07-08 10:35] LABS: Albumin Globulin Ratio 1.3 (0.9-2); Albumin Level 5.2 gm/dl (3.4-5.0); BUN Creatinine Ratio 10.4 (10-20); Bilirubin,Total 0.3 mg/dl (0.2-1.0); Calcium 9.5 mg/dl (8.6-10.3); Globulin 3.9 gm/dl (2.5-4.0); Magnesium 2.3 mg/dl (1.7-2.4); Phosphorus 4.8 mg/dl (2.5-4.9); Potassium 4.9 mmol/L (3.5-5.1); Total Protein 9.1 gm/dl (6.0-8.3)
[2024-07-08 10:36] LABS: Pregnancy Test, Serum Negative (Negative)
[2024-07-08] MEDS: KETOROLAC 30 MG/ML VIAL IV STA (12:37)
[2024-07-08 12:41] LABS: Appearance Urine Clear (Clear); Bacteria Urine Automated None Seen (None Seen); Bilirubin Urine Negative (Negative); Blood Urine 1+ (Negative); Color Urine Yellow; Epithelial Cell Urine Auto 0-2 /hpf (0-2); Glucose Urine UA Negative (Negative); Ketones Urine 4+ (Negative); Leukocyte Esterase Urine Negative (Negative); Nitrite Urine Negative (Negative); Protein Urine 2+ (Negative); RBC Urine Automated 0-2 /hpf (0-2); Urobilinogen Urine Negative (Negative); WBC Urine Automated 0-5 /hpf (0-5); pH Urine 5.5 (4.5-7.5)
[2024-07-08 14:51] LABS: BUN Creatinine Ratio 8.7 (10-20); Calcium 7.8 mg/dl (8.6-10.3); Creatinine Clr Calc Pharmacy 71.5 ml/min; Potassium 5.2 mmol/L (3.5-5.1)
--- NOTE | 2024-07-08 15:42 | History & Physical Report ---
Date of Service July 08, 2024 Assessment & Plan (1) High anion gap metabolic acidosis: (2) Nausea & vomiting: (3) GERD (gastroesophageal reflux disease): (4) Medical marijuana use: Plan 28 yr F with PMHx of GERD, IBS w/ constipation predominance, anxiety and depression, presenting to the ED w/ vomiting for 2 days. DDx including but not limited to - GERD with/without esophagitis, functional dyspepsia, gastritis/enteritis, somatic dysfunction, cannabis hyperemesis. Significant electrolyte abnormalities including elevated anion gap - delta delta - mixed HAGMA + NAGMA. UA 2+ protein, 4+ ketones. QTc of 472. #Dehydration - patient has had no oral intake since 07/06 - Na 133, K 5.2 - received 2 L NS - QTc of 472, monitor for changes in ECG #High Anion Gap Metabolic Acidosis - CO2 5, Anion gap 22 -> 17 - UA: 4+ ketones - pending VBG, lactate, BMP - may need bicarb repletion if continued hypobicarbonatemia #Functional Dyspepsia - abdominal XRAY negative for free air or bowel obstruction - begin cyproheptadine 4 mg HCl PO Q12H - Zofran 4 mg IV BID for nausea - begin Carafate 1 gm PO QID #Depression/Anxiety - continue sertraline 400 mg PO HS Code status: Full Code DVT ppx: SCDs FENGI: regular diet, maintenance fluids at 125mls/hr x 2L Dispo:Med/Surg History of Present Illness Chief Complaint: Intractable N/V Primary Care Provider: Francia Serrano MD Khalida Gonzalez is a 28 yr F with PMHx of GERD, IBS w/ constipation predominance, anxiety and depression, presenting to the ED w/ vomiting for 2 days. Her symptoms began as nausea when she returned from a [place]achelorette [place] in [facility] on Saturday and progressed to vomiting yesterday and today. She has not consumed any liquids or food since Saturday, and vomited in radiology early this morning. She also mentions acid reflux and a headache, but denies changes to bowel movements, blood in stool, blood in vomit, abdominal pain, chest pain. She has been experiencing chronic N/V for over a year, and has had extensive workup with GI. She was started on omeprazole in June, but it has not improved her symptoms. She was scheduled for an upper GI series with small bowel follow- through today, but was unable to tolerate the prep and was told to come to the ED. Allergies Allergy/AdvReac Type Severity Reaction Status Date / Time No Known Allergies Allergy Verified 06/18/24 10:06 Home Medications Medication Instructions Recorded Confirmed Type sertraline 100 mg tablet (Zoloft) 400 mg PO HS 04/24/22 07/08/24 History trazodone 50 mg tablet 50 - 100 mg PO HS PRN Insomnia 04/24/22 07/08/24 History clotrimazole-betamethasone 1 1 applic topical DAILY PRN itching 09/18/23 07/08/24 Rx %-0.05 % topical cream #45 grams norethindrone 1 mg-ethinyl 1 tab PO DAILY #84 tabs 04/13/24 07/08/24 Rx estradiol 20 mcg (21)-iron 75 mg (7) tablet (Blisovi Fe 03/23 ()) omeprazole 40 mg capsule,delayed 40 mg PO DAILY #30 caps 06/18/24 07/08/24 Rx release calcium carb 1,200 mg-mag hydrox 10 ml PO QID #355 mL 07/09/24 Rx 270 mg-simeth 80 mg/10 mL oral susp (Mylanta Coat-Cool) luan oil 25 mg-levomenthol 1 cap PO QID #120 caps 07/09/24 Rx 20.75 mg capsule (FDgard) cyanocobalamin (vitamin B-12) 1,000 mcg sublingual DAILY #30 tabs 07/09/24 Rx 1,000 mcg sublingual tablet cyproheptadine 4 mg tablet 4 mg PO QID #120 tabs 07/09/24 Rx famotidine 20 mg tablet 40 mg (2 x 20 mg) PO DAILY PRN 07/09/24 Rx nausea #30 tabs ondansetron 4 mg disintegrating 4 mg PO Q6H PRN nausea and 07/09/24 Rx tablet vomiting #30 tabs Past Med/Surg History Problem List GERD (gastroesophageal reflux disease) Nausea & vomiting Intermittent - usually goes to ER when vomiting begins High anion gap metabolic acidosis Abdominal pain Anemia Esophagitis Medical marijuana use (Chronic) Constipation (Chronic) IBS (irritable colon syndrome) Genital HSV HSV1 serotype Anxiety and depression High grade squamous intraepithelial cervical dysplasia Oral contraceptive use Medical History Esophagitis Irritable bowel syndrome with constipation Constipation Anxiety Anemia Refeeding syndrome OCD (obsessive compulsive disorder) Depression Surgical History Hx of esophagogastroduodenoscopy 08/2023 S/P LEEP 06/2022 S/P right oophorectomy right ovarian torsion S/P foot surgery bilateral Status post colposcopy H/O wisdom tooth extraction Family History Father Myocardial infarction, Onset Age: 57 Heart disease Mother Diabetes Hypertension Denies family history of Ovarian cancer Prostate cancer Breast cancer Colorectal cancer Uterine cancer Social History Smoking Status: Never smoker Tobacco Type: E-cigarettes / Vaping Second Hand Exposure: No; Do You Dip or Chew Tobacco: No; Hx Alcohol Use: Yes Alcohol type: wine Alcohol Intake Frequency: Monthly or Less Hx Substance Use: Yes Prescribed Medications: Marijuana Last Used Substance: Days (ago) Last Used Substance Other:: Advised Substance Use Type Other:: Medical Marijuana Gummies / Vape Preferred Language: Wallisian Communication Ability: Effective Hearing Ability: Normal Pilot Plant Supervisor Required: No Beliefs That Will Affect Care: None Current Living Situation: Spouse Current Living Situation Comment: Fiance current occupational status: employed Feels Safe at Home: Yes Diet: regular caffeine: Yes Dental Care, Regularly: Yes Physical Activity Frequency: 1-2 Times per Week Seatbelt Use: always Sunscreen Use: Yes Assistive Devices: None Review of Systems Review of Systems: All systems reviewed & are unremarkable except as noted in HPI & below Physical Exam Constitutional: ill-appearing, NAD Respiratory: normal respiratory effort, lungs clear to auscultation Cardiovascular: RRR, no murmur, no edema Gastrointestinal (Abdomen): normal bowel sounds, soft, nontender, no hepatosplenomegaly Results & Data Results & Data Vital Signs (Past 12 Hours) Vital Signs Temp Pulse Pulse Resp BP BP Pulse Ox 07/08/24 15:02 87 18 113/68 99 07/08/24 12:34 92 H 18 117/64 100 07/08/24 08:46 36.8 C 101 H 14 119/82 97 O2 Del Method 07/08/24 15:02 Room Air 07/08/24 12:34 Room Air 07/08/24 08:46 Room Air Supervising Physician Co-Signing Physician Notes I personally examined the patient and verified all marion points of history and exam, discussed case, and agree with decision making with Dr Godinez, and Jacob Hurd MS4 acute on chronic nausea/vomiting Yeah worse over the last 2 days. Chronically a lot of nausea but not that many days of vomiting. When she starts to vomit she often will get into a spiral where she cannot stop and ends up with IV fluids. Her bowels have been moving regularlyshe does not believe IBSC is still the main culprit for her nausea and vomiting. Vitals noted, in general she is awake and alert pleasant fatigued no distress. HEENT normocephalic atraumatic mucous membranes moist. Breathing unlabored no accessory muscle use good effort. Abdomen is soft minimal epigastric tenderness no abdominal wall trigger points no guarding rebound or rigidity intractable nausea vomiting with severe dehydration and metabolic acidosisprobable underlying functional dyspepsiaIV fluids, supportive care. Acute nausea and vomiting either flare of functional dyspepsia or a degree of gastritisacid suppression. For the functional dyspepsia itselfexplained in depth and that length. Discussed the mind-body approach with it as well as stress management. Give trial to cyproheptadine and Mylanta, likely start FD guard at discharge. Will need to also start tracking calories given that she has been losing weight. Otherwise as above Resident Activity Tracking Resident Involvement: Resident Care Provided Care Provided: Adult Hospital Medicine
[2024-07-08] MEDS: ACETAMINOPHEN 1,000 MG/100 ML VIAL IV STA (16:17)
[2024-07-08] MEDS: FAMOTIDINE 20MG IV PUSH 20 MG/5 ML SYR IV STA (16:17)
[2024-07-08] MEDS: PANTOprazole 40 MG/10 ML SYR IV ONE (16:17)
[2024-07-08] MEDS: SODIUM CHLORIDE 0.9% 1,000 ML IV ONE (17:24)
--- NOTE | 2024-07-08 17:45 | Billing Data ---
Date of Service July 08, 2024 Coding Level of Care Code 80918 INT INP/OBS CARE
[2024-07-08] MEDS ORDERED: ALUMINUM/MAGNESIUM SUSP 30 ML UDC PO PRN (18:13)
[2024-07-08] MEDS ORDERED: MAGNESIUM HYDROXIDE SUSP 30 ML UDC PO PRN (18:13)
[2024-07-08] MEDS ORDERED: POLYETHYLENE (MIRALAX) 17 GM PACK PO PRN (18:13)
[2024-07-08] MEDS ORDERED: PROCHLORPERAZINE 5 MG in SYRINGE 4 ML IV PRN (18:13)
[2024-07-08] MEDS ORDERED: MELATONIN 3 MG TAB PO PRN (18:13)
[2024-07-08] MEDS ORDERED: traZODone HCL 50 MG TAB PO PRN (18:13)
[2024-07-08] MEDS ORDERED: LORazepam 2 MG/1 ML VIAL IV PRN (18:13)
[2024-07-08] MEDS: LACTATED RINGER'S 1,000 ML IV SCH (18:27)
[2024-07-08] MEDS: SUCRALFATE 1 GM/10 ML UDC PO SCH (19:11)
[2024-07-08 20:06] LABS: Calcium 8.6 mg/dl (8.6-10.3); Creatinine Clr Calc Pharmacy 73.6 ml/min; Potassium 4.8 mmol/L (3.5-5.1)
[2024-07-08 20:08] LABS: Base Excess VBG -23.1 mEq/L; HCO3 VBG 5 mmol/L; Oxygen Saturation VBG 84.4 %; PCO2 VBG 17 mmHg (38-50); PO2 VBG 51 mmHg; pH VBG 7.08 (7.36-7.41)
[2024-07-08] MEDS: ONDANSETRON INJ 2 MG/ML 2 ML VIAL IV SCH (20:27)
[2024-07-08] MEDS: SERTRALINE HCL 100 MG TABLET PO SCH (20:28)
[2024-07-08] MEDS: CYPROHEPTADINE HCL 4 MG TAB PO SCH (20:29)
[2024-07-08] MEDS: SODIUM BICARBONATE 8.4% 150 MEQ in WATER, STERILE 1,000 ML IV SCH (21:42)
[2024-07-09 01:28] LABS: BUN Creatinine Ratio 8.5 (10-20); Calcium 8.6 mg/dl (8.6-10.3); Creatinine Clr Calc Pharmacy 78.3 ml/min; Potassium 3.8 mmol/L (3.5-5.1)
--- NOTE | 2024-07-09 06:52 | Hospitalist Progress Note ---
Date of Service July 09, 2024 Assessment & Plan (1) High anion gap metabolic acidosis: (2) Nausea & vomiting: (3) GERD (gastroesophageal reflux disease): (4) Medical marijuana use: Plan 28 yr F with PMHx of GERD, IBS w/ constipation predominance, anxiety and depression, presenting to the ED w/ vomiting for 2 days. DDx including but not limited to - GERD with/without esophagitis, functional dyspepsia, gastritis/enteritis, somatic dysfunction, cannabis hyperemesis. Significant electrolyte abnormalities including elevated anion gap - delta delta - mixed HAGMA + NAGMA. UA 2+ protein, 4+ ketones. QTc of 472. 1) Dehydration/Electrolyte abnormalities (patient has had no oral intake since 07/06) - Na 133, K 5.2 - received 2 L NS - QTc of 472, monitor for changes in ECG 2) High Anion Gap Metabolic Acidosis - CO2 5, Anion gap 22 -> 17 - On admission: UA: 4+ ketones; VB.08/17/51/5; lactate, 0.6 - may need bicarb repletion if continued hypobicarbonatemia - VB.37/--/-- - Osmolality, 295 3) Functional Dyspepsia - abdominal XRAY negative for free air or bowel obstruction - begin cyproheptadine 4 mg HCl PO Q12H - Zofran 4 mg IV BID for nausea - begin Carafate 1 gm PO QID Chronic conditions #Depression/Anxiety - continue sertraline 400 mg PO HS Code status: Full Code DVT ppx: SCDs FENGI: regular diet, maintenance fluids at 125mls/hr x 2L Dispo:Med/Surg Admission and Anticipated Discharge Date Admission Date: July 08, 2024 Chino Gonzalez is a 28 yr F with PMHx of GERD, IBS w/ constipation predominance, anxiety/depression, presented to the [facility] ED w/ vomiting for 2 days. Her symptoms began as nausea when she returned from a bachelorette constitution party in [place] on Saturday and progressed to vomiting. Has not consumed any liquids or food since Saturday, and vomited in radiology early this morning. She also mentions acid reflux and a headache, but denies changes to bowel movements, blood in stool, blood in vomit, abdominal pain, chest pain. She has been experiencing chronic N/V for over a year, and has had extensive workup with GI. Recently started omeprazole in June, w/out symptom improvement. Scheduled for upper GI series with small bowel follow-through yesterday, but unable to tolerate the prep. Instructed to come to ED. This morning the patient was seen and evaluated at bedside. Denied any vomiting episodes since before she was admitted yesterday and has been able to hold down food and liquids since admission yesterday. Headache has resolved. Denies any AP, any changes in BM's, cramping or other GI Sx. Review of Systems Constitutional: no fever, no chills, no weakness and no anorexia Respiratory: no dyspnea Cardiovascular: no chest pain and no palpitations Physical Exam Constitutional: WD/WN, vitals as above Respiratory: normal respiratory effort, lungs clear to auscultation Cardiovascular: RRR, no murmur, no edema Gastrointestinal (Abdomen): normal bowel sounds, soft, nontender, no hepatosplenomegaly Psychiatric: A+Ox3, euthymic affect Results & Data Results & Data Vital Signs (Past 12 Hours) Vital Signs Temp Pulse Pulse Resp BP BP Pulse Ox 07/09/24 03:35 36.8 C 89 16 106/69 98 07/08/24 22:30 36.6 C 94 H 16 129/78 99 07/08/24 21:59 89 07/08/24 21:46 36.7 C 81 18 117/78 100 O2 Del Method 07/09/24 03:35 Room Air 07/08/24 22:30 Room Air 07/08/24 21:59 07/08/24 21:46 Room Air Resident Activity Tracking Resident Involvement: Resident Care Provided Care Provided: Adult Hospital Medicine
[2024-07-09 07:07] LABS: Hematocrit (blood only) 38.3 % (37.0-47.0); Hemoglobin 13.3 g/dl (12.0-16.0); Mean Corpuscular Hemoglobin 30.1 pg (25.0-34.0); Mean Corpuscular Hgb Conc 34.7 g/dL (32.0-36.0); Mean Corpuscular Volume 86.7 fL (80.0-100.0); Mean Platelet Volume 9.3 fL (9.4-12.4); Platelet Count 232 K/uL (130-400); RDW Coefficient of Variation 15.7 % (11.5-14.5); RDW Standard Deviation 49.3 fL (36.4-46.3); Red Blood Count 4.42 M/uL (4.20-5.40); White Blood Count 6.36 K/ul (4.8-10.8)
[2024-07-09 07:28] LABS: BUN Creatinine Ratio 8.1 (10-20); Calcium 8.3 mg/dl (8.6-10.3); Creatinine Clr Calc Pharmacy 85.8 ml/min; Potassium 3.4 mmol/L (3.5-5.1)
--- NOTE | 2024-07-09 08:43 | Discharge Summary ---
Date of Service July 09, 2024 Admission HPI Per Admitting Provider Khalida Gonzalez is a 28 yr F with PMHx of GERD, IBS w/ constipation predominance, anxiety and depression, presenting to the ED w/ vomiting for 2 days. Her symptoms began as nausea when she returned from a [employer] democrat in [place] on Saturday and progressed to vomiting yesterday and today. She has not consumed any liquids or food since Saturday, and vomited in radiology early this morning. She also mentions acid reflux and a headache, but denies changes to bowel movements, blood in stool, blood in vomit, abdominal pain, chest pain. She has been experiencing chronic N/V for over a year, and has had extensive workup with GI. She was started on omeprazole in June, but it has not improved her symptoms. She was scheduled for an upper GI series with small bowel follow- through today, but was unable to tolerate the prep and was told to come to the ED. Admission Exam Per Admitting Provider Physical Exam Constitutional: ill-appearing, NAD Respiratory: normal respiratory effort, lungs clear to auscultation Cardiovascular: RRR, no murmur, no edema Gastrointestinal (Abdomen): normal bowel sounds, soft, nontender, no hepatosplenomegaly Principal Diagnosis nausea, vomiting, metabolic acidosis Discharge Exam Constitutional WD/WN, vitals as above Respiratory normal respiratory effort, lungs clear to auscultation Cardiovascular RRR, no murmur, no edema Gastrointestinal (Abdomen) normal bowel sounds, soft, nontender, no hepatosplenomegaly Psychiatric A+Ox3, euthymic affect Discharge Data Allergies Allergy/AdvReac Type Severity Reaction Status Date / Time No Known Allergies Allergy Verified 06/18/24 10:06 Consultations 07/08/24 16:20 ED Decision to Admit Stat Hospital Course (1) High anion gap metabolic acidosis: (2) Nausea & vomiting: (3) GERD (gastroesophageal reflux disease): (4) Medical marijuana use: Alex Gonzalez is a 28 yr F with PMHx of intractable N/V, GERD, IBS w/ constipation predominance, anxiety and depression, presenting to the ED w/ vomiting for 2 days. On admission, patient was nauseous, and had vomited while getting radiological scans. Workup revealed Na of 133, K of 5.2, and high anion gap metabolic acidosis, which was treated with a bicarbonate drip. Patient was also severely dehydrated and volume repleted with IV fluids. 1) Dehydration/Electrolyte abnormalities (patient has had no oral intake since 07/06) - Na 133 --> 138, K 5.2 --> 3.5 - received 2 L NS - QTc of 472, monitor for changes in ECG 2) High Anion Gap Metabolic Acidosis, improved - CO2 5 --> 18, Anion gap 22 -> 17 --> 12 - On admission: UA: 4+ ketones; VB.08/17/51/5; lactate, 0.6 - may need bicarb repletion if continued hypobicarbonatemia - repeat VB.37 - Osmolality, 295 3) Functional Dyspepsia - abdominal XRAY negative for free air or bowel obstruction - cyproheptadine 4 mg HCl PO Q12H; Zofran 4 mg IV BID for nausea; begin Carafate 1 gm PO QID --> during inpatient - will discharge on cyproheptadine, 4 mg, PO, QID - will discharge on cyanocobalamin, 1000 mcg, sublingual - will discharge on Zofran, 4mg, ODTs, q6hr, PRN - will discharge on FDgard supplement, 1 capsule, PO, QID - will discharge on Mylanta, 10 mL, QID, PRn - will discharge on famotidine, 40 mg, daily Chronic conditions #Depression/Anxiety - continue sertraline 400 mg PO HS Total Time Total Time Spent Total Time Spent (In Minutes): see attending attestation Discharge Plan Discharge Items Patient Disposition: Home - Self-Care Reason For Visit: HIGH ANION GAP Condition on Discharge: Fair Activity: Resume your previous activity Non-emergency contact: Primary Care Provider and [employer] Call non-emergency contact if: you have any medication questions and your symptoms worsen Follow-up/Referrals: Francia Serrano MD [Primary Care Provider] - 07/13/24 1:00 pm (PCP follow up: 07/13/24 @ 1pm) Diet: Regular Addtl Attending Provider Instructions: Functional dyspepsia - as we discussed, with the change in your nausea over the last year or so, you were overall situation fits quite well with a diagnosis called functional dyspepsia - as we discussed as well, functional dyspepsia is essentially a sensory neuropathy of the upper GI tract (i.e. there is not anything physically or mechanically wrong with your stomach, but rather that the nerves that carry sensation from your stomach back to your central nervous system carry an inappropriate/aberrant signal of nausea. It can sometimes be easier to understand this when thinking about the more common "motor neuropathy" of the upper GI tract called gastroparesisgastroparesis is where the nerves that make the stomach contract and empty do not work as well, functional dyspepsia is less common but extremely similar, but rather than affecting the motor nerves, it affects the sensory nerves). - This probably came about as an aberrant immune system response to when you had the flu. A lot of these "idiopathic" (no clear "why" for the diagnosis happening) are often thought to be autoimmune postviralyour immune system responds appropriately to get rid of the virus, but while that immune system is firing, it gets "confused" and attacks part of your body (in this case the sensory nerves around your stomach) by mistake - typically functional dyspepsia is a longstanding diagnosis, but it does get better over time. The downside is that "over time" is often 5-10 years. Like we were discussing yesterday, this fits well with the theory of an immune system nerve damage, given that nerves take a long time to heal. (As an incidental to that, while there is no actual data correlating low vitamin B12 levels and healing time for functional dyspepsia, I did notice an old B12 level that was not really low but was sort of borderline lowand given that B12 is pretty much harmless to replace, it makes sense to add a B12 supplement to the regimen and have Dr. Serrano repeat levels in about 6 months) the most effective way to approach this diagnosis is to look at it as a very much "mind body" diagnosis: Your stomach will tell you that you are sick and nauseated, but your mind will know that physically/mechanically your stomach is okay. In looking at it this way, eating as best you can and spite of the nausea should help "prove" to your stomach that it is not as bad as the signals the stomach is sending would suggest, which can help slowly improve the nausea, and just as importantly keep you functional. With this in mind, I would definitely recommend switching your eating habits to at least a degree of "grazing" through the daywhile normally there is not anything wrong with the eating 1 meal a day, for the functional dyspepsia this will allow many hours while your stomach is emptywhich can then let the nausea worsen. You do not necessarily have to switch to a true 3 meal a day schedule, but I would definitely snack/graze/have something in your stomach every few hours. While it will feel a bit paradoxical, or even a bit cruel, days that you feel more nauseated it will be even more important to try to eat. Like we discussed, there is not really a specific food regimen that is better or worse with functional dyspepsia, and given the mind-body interplay of this diagnosis, it is most likely than anything that sounds good or sounds like it will sit well is the most likely to sit well when you eat. Try different foods, and different eating patterns to see what works the best for you, but definitely track your calorie intake. As we discussed, this is the way that we measure fuel for the human body, and when someone struggles with nausea they will often fall behind nutritionally. This, in and of itself, can make you feel weaker and sicker. Also, being behind nutritionally whenever you start in on a bad day/flareup can give you less "margin of error" and make it more likely that things spiral out of control more quickly. Doing the math, a reasonable target would be taking in about 1700 tomasa a day. I would definitely recommend tracking thisif you download a weight loss akiko it makes it easy to plug-in everything you have eaten each dayand you will just want to see that by the end of the day you have hit 1700 tomasa. If you are struggling to get there, using very "calorie dense" foods like boost/boost plus, or ice cream can make it easier to get to goal. Similar to the calorie goal, target getting in at least 60 ounces of fluid a day (obviously slowly sipping across the day). If you are exercising or out in the heat, try to add another 5-10 ounces per hour. This will ensure that you stay well-hydrated, which will also help you feel better and give more margin of air so that if you start to run into a bad day with more nausea and/or vomiting, at least you do not start into that already behind with hydration medications: as we discussed, medications do not do as much to help with functional dyspepsia as we would like, but they can help blunt the symptoms a decent amou nt. For now we will go ahead and start with a fairly "full-court press" approach, and over time working with Dr. Serrano You can hopefully start to slowly adjust medications down (or if need be, adjust/add medications). There is not a lot of great research in functional dyspepsia, so most of the medication regimens are more "expert opinion" then good rigorous scientific evidenceso as we discussed, I tend to model my approach after children's in [place] - cyproheptadine: This is actually an antihistamine medication that is for all intents and purposes a very loose cousin to Benadryl. It does tend to have a bit of an antinausea and appetite stimulant effect. As a side effect it can make people feel a little groggy/sleepy/drunk. Typically if those side effects happen our body gets used to the medication and the side effects fade over a few days to a weekif you were to feel groggy and it does not get better over a week, then it might be time to adjust to a different medicine. For now, we will dose at 4 mg 4 times a day, over time hopefully Dr. Serrano Can slowly knock the dose down -FDGard: this is an avqj-xjv-hutqayc supplement that does seem to have a bit of a benefit with functional dyspepsia, probably acting as a bit of an anti- inflammatory to reduce irritation of your stomach nerves. For now we will started it 4 times a day and slowly reduce over time if possible. It does not really have any noticeable side effects that I am aware of, the main "side effect" is given that it is rarely covered by insurance the cost is usually in the neighborhood of $50 a month. - Mylanta: This will act to coat your stomachit probably helps by lessening how much sensory input your stomach picks upand thereby lessening how much "aberrant" sensory output your stomach is able to send since it does not "feel as much". It does tend to have a bit of a laxative effect, so it will help with the IBSsee as well. For now we will start with about 10 mL 4 times a day, working with Dr. Serrano You can dial the dose up or down, and if need be (if it seems like it is helping but you really cannot take more because of diarrhea) we can also alternate the Mylanta with a similar approach/different medicine with Carafate "Bad day plan": - This will definitely be a work in progress, and anticipate this will be the part of the plan that changes the most dramatically over time (and less we truly had on something helpful "right out of the gate")but if you are starting to have a bad day/if the nausea is getting worse, I would look at it is even more important to try to eat/nibble through the day to try to help "coax" your stomach into less nausea/more normal nerve signaling. Given that when you are more nauseated/when you get dehydrated more "conventional" means of managing nausea seem to be helpfulwe will start with that approach to try to help "abort" a bad day. If you are feeling very nauseated and starting to lose ground on oral intake, or start vomitingright away take 40 mg (2 x 20 mg) famotidine, and 8 mg (2 x 4 mg) ondansetron. If trying to eat more, the famotidine, and the ondansetron has not helped, I would have a very "short le odalys" on getting IV fluidsmaybe another 6-12 hours if you are not vomiting a lot, less if you aresimply because once you are dehydrated that will add to the nausea and create a "hole that is almost impossible to dig yourself out of" Pending Studies at Discharge: No Stand-Alone Forms: My [facility] [place], Smoking Cessation Medications and DC Order Prescriptions: New Mylanta Coat-Cool 1,200 mg-270 mg -80 mg/10 mL suspension 10 ml PO QID Qty: 355 3RF cyproheptadine 4 mg tablet 4 mg PO QID Qty: 120 2RF FDgard 25-20.75 mg capsule 1 cap PO QID Qty: 120 3RF ondansetron 4 mg tablet,disintegrating 4 mg PO Q6H PRN (Reason: nausea and vomiting) Qty: 30 1RF famotidine 20 mg tablet 40 mg PO DAILY PRN (Reason: nausea) Qty: 30 1RF cyanocobalamin (vitamin B-12) 1,000 mcg tablet, sublingual 1,000 mcg sublingual DAILY Qty: 30 3RF Continued clotrimazole-betamethasone 1-0.05 % cream 1 applic topical DAILY PRN (Reason: itching) Qty: 45 0RF sertraline [Zoloft] 100 mg tablet 400 mg PO HS trazodone 50 mg tablet 50 - 100 mg PO HS PRN (Reason: Insomnia) omeprazole 40 mg capsule,delayed release(DR/EC) 40 mg PO DAILY Qty: 30 2RF norethindrone-e.estradiol-iron [Blisovi Fe 03/23 (28)] 1 mg-20 mcg (21)/75 mg (7) tablet 1 tab PO DAILY Qty: 84 4RF Discharge Orders: Discharge Order (Routine); Ordered 07/09/24 Ordered By: Gage Fernandez Admission Data Admit Date/Time: 07/08/24 16:04 Attending Provider: Gage Fernandez Admit Provider: Flaca Godinez Primary Care Provider: Francia Serrano Other Providers: Gage Fernandez Other Interventions: Discharge Summary Assessment (RN) Last Done: 07/09/24 15:50 Supervising Physician Co-Signing Physician Notes I personally examined the patient and verified all marion points of history and exam, discussed case, and agree with decision making with Dr Lainez, and Jacob Hurd MS4 feeling better eating better and feels up to going home. Revisited discussions about functional dyspepsia and multimodal including mind-body and medication management. She expressed a good understanding. Discharge instructions personally written. Safe/stable for home. Vitals noted, in general she is awake and alert pleasant less fatigued no distress. HEENT normocephalic atraumatic mucous membranes moist. Breathing unlabored no accessory muscle use good effort. intractable nausea vomiting with severe dehydration and metabolic acidosisprobable underlying functional dyspepsiaIV fluids, supportive care. Doing better. Safe/stable for home. Please see discharge instructions for detailin terms of mind/body approachdiscussed reviewing functional dyspepsia like a sensory neuropathy, and therefore trying to eat in spite of nausea to "trick" her stomach into feeling more normal. Stress management. Living as much of her normal life as she can. Medications: Cyproheptadine 4 times daily, FDgard 4 times daily, Mylanta 4 times daily (consider adding Carafate in between Mylanta if needed/of Mylanta seems beneficial but too short-lived or if Mylanta seems beneficial but diarrhea is limiting dose)hopefully can slowly wean medic ations to minimal over months. Given that she has a rapid upsloping nausea and vomitingalso discussed trying to abort "bad days"first with trying p.o. intake if she is feeling more nauseated, if it seems like things are getting worse, abruptly taking 40 mg of famotidine and 8 mg of ondansetron, but then if nothing is helping and/or if nausea and vomiting has ensuedprobably seeking care for IV fluids given how acidotic she can get.
[2024-07-09] MEDS: FAMOTIDINE 20MG IV PUSH 20 MG/5 ML SYR IV SCH (08:55)
[2024-07-09] MEDS: PANTOprazole 40 MG/10 ML SYR IV SCH (08:56)
--- NOTE | 2024-07-09 11:06 | Electrocardiogram Report ---
Test Reason : Blood Pressure : */* mmHG Vent. Rate : 91 BPM Atrial Rate : 91 BPM P-R Int : 140 ms QRS Dur : 80 ms QT Int : 384 ms P-R-T Axes : 50 73 52 degrees QTcB Int : 472 ms Normal sinus rhythm Normal ECG When compared with ECG of 31-Aug-2023 13:53, No significant change was found Confirmed by Josh Peck ([id number]) on 07/09/2024 11:06:00 AM Referred By: REFERRED SELF Confirmed By: Josh Peck
[2024-07-09 13:39] LABS: BUN Creatinine Ratio 8.2 (10-20); Calcium 8.5 mg/dl (8.6-10.3); Creatinine Clr Calc Pharmacy 86.8 ml/min; Potassium 3.5 mmol/L (3.5-5.1)
[2024-07-09 15:36] VITALS: PULSE 85; RESP 18; TEMP 98.1; O2SAT 96
[2024-07-09 15:51] VITALS: BP 106/69
--- NOTE | 2024-07-09 17:46 | Billing Data ---
Date of Service July 09, 2024 Coding Level of Care Code 91037 INP/OBS DISCH >30 MIN
--- NOTE | 2024-07-09 23:17 | Electrocardiogram Report ---
Test Reason : Blood Pressure : */* mmHG Vent. Rate : 94 BPM Atrial Rate : 94 BPM P-R Int : 132 ms QRS Dur : 88 ms QT Int : 368 ms P-R-T Axes : 57 76 45 degrees QTcB Int : 461 ms Normal sinus rhythm Normal ECG When compared with ECG of 08-Jul-2024 16:13, No significant change was found Confirmed by Josh Peck ([id number] on 07/09/2024 11:16:53 PM Referred By: REFERRED SELF Confirmed By: Josh Peck
== END 2024-07-09 17:18 | disposition home or self-care (01) | DRG 641 ==
LOC: ED 08:44 → 3W 16:04 → 2S 22:18